=== PATIENT | male | born 1945 | race Caucasian/White ===

== ENCOUNTER 2018-08-24 19:01 | Inpatient (IN) ==
[2018-08-24] MEDS ORDERED: Bisacodyl 10 MG Supp RECTAL PRN (19:27)
[2018-08-24] MEDS ORDERED: fentaNYL 10 mcg/mL Premix Drip 2,500 MCG/250 ML BAG ONE (19:27)
[2018-08-24] MEDS ORDERED: Morphine Sulfate Inj 2 MG/ML Vial IV.PUSH PRN (19:27)
[2018-08-24] MEDS: fentaNYL 10 mcg/mL Premix Drip 2,500 MCG/250 ML BAG IV.SIG PRN (19:31)
[2018-08-24 19:40] LABS: Baso # (Auto) 0.1 th/mm3 (0.0-0.2); Baso % (Auto) 0.5 % (0.0-2.0); Eos # (Auto) 0.2 th/mm3 (0.0-0.4); Eos % (Auto) 1.1 % (0.0-4.0); Hematocrit 35.5 % (39.0-51.0); Hemoglobin 11.4 gm/dL (13.0-17.0); Lymph # (Auto) 7.5 th/mm3 (1.0-4.8); Lymph % (Auto) 47.1 % (9.0-44.0); Mean Corpuscular HGB Conc 32.1 % (32.0-36.0); Mean Corpuscular Hemoglobin 31.5 pg (27.0-34.0); Mean Corpuscular Volume 97.9 fL (80.0-100.0); Mean Platelet Volume 8.4 fL (7.0-11.0); Mono # (Auto) 0.9 th/mm3 (0.0-0.9); Mono % (Auto) 5.4 % (0.0-8.0); Neut # (Auto) 7.3 th/mm3 (1.8-7.7); Neut % (Auto) 45.9 % (16.0-70.0); Platelet Count 172 th/mm3 (150-450); Red Blood Count 3.62 mil/mm3 (4.50-5.90); Red Cell Distribution Width 13.8 % (11.6-17.2); White Blood Count 15.9 th/mm3 (4.0-11.0)
[2018-08-24 19:47] LABS: Activated Partial Thrombo Time 26.4 sec (24.3-30.1); INR 1.2 Ratio; Prothrombin Time 12.2 sec (9.8-11.6)
--- NOTE | 2018-08-24 19:58 | P.HPCC ---
History of Present Illness Primary Care Physician: Christy Calvillo MD History of Present Illness: 72-year-old male, past medical history significant for diabetes and coronary artery disease with 3 previous stents, who is presented post cardiac arrest. Per EMS and family he was doing work around the house when he stated that he did not feel right and thought something was off with his blood sugar. He then went to go sit down and when his turned around he was slumping over. She then called 911. On EMS arrival he was unresponsive pulseless and apneic. They began CPR. They temporarily achieved ROSC in the field prior to him coding again. They obtained ROSC again right before arrival. In total they gave 3 mg of epinephrine, 2 A of bicarbonate, 300 mg of amiodarone. EMS does not believe that he was without a pulse for more than 15 minutes at any time. He lost pulses again on arrival here. Again he was successfully resuscitated with return of spontaneous circulation within 15 minutes. Review of Systems unobtainable due to endotracheal tube, unobtainable due to mental condition PMFSH - History History Provided By: Patient Coordinator Front Desk / EMT - Surgical History Surgical History: Surgical History (Last Reviewed 08/24/18 @ 20:08 by Ruba Huggins MD) Hx of heart artery stent - Travel History Recent Travel in the [place] Within the Last 8 Weeks: No Recent Travel Out of the Country Within the Last 8 Weeks: No Medications and Allergies Active Medications: Active Medications Acetaminophen (Tylenol) 650 mg PO Q6H PRN PRN Reason: PAIN 1-10 AND/OR FEVER >101F Al Hydroxide/Mg Hydroxide (Milk Of Magnamaury Liq) 30 ml PO Q12H PRN PRN Reason: Mild Constipation Albuterol (Duoneb Neb (Prn)) 1 ampul NEB Q2HR NEB PRN PRN Reason: WHEEZING Bisacodyl (Dulcolax Supp) 10 mg RECTAL DAILY PRN PRN Reason: SEVERE CONSITIPATION Chlorhexidine Gluconate (Chlorhexidine 2% Cloth) 3 pack TOPICAL DAILY@0400 MERVAT Stop: 08/30/18 03:59 Chlorhexidine Gluconate (Chlorhexidine 2% Cloth) 3 pack TOPICAL DAILY@0400 PRN PRN Reason: Extra cloth needed Stop: 08/30/18 03:59 Chlorhexidine Gluconate (Peridex 0.12% Oral Kit) 15 ml OROPHARYNG BID@0800, 2000 PENDING SALE TO [facility] Famotidine (Pepcid) 20 mg PO BID MERVAT Famotidine (Pepcid Pf Inj) 20 mg IV.PUSH Q12HR MERVAT Famotidine (Pepcid Pf Inj) 20 mg IV.PUSH Q12HR MERVAT Heparin Sodium (Porcine) (Heparin Inj) 5,000 units SQ Q8H MERVAT Epinephrine HCl 2 mg/ Dextrose 250 mls @ 22.5 mls/hr IV.CONT TITRATE PRN; Protocol PRN Reason: Per Protocol Sodium Chloride (Ns Inj) 1,000 mls @ 125 mls/hr IV.CONT .Q8H MERVAT Fentanyl (Fentanyl 10 Mcg/Ml Premix Drip) 2,500 mcg in 250 mls @ 5 mls/hr IV.SIG TITRATE PRN; Protocol PRN Reason: Per Protocol Sodium Chloride (Ns Inj) 1,000 mls @ 84 mls/hr IV.CONT .[id number] PENDING SALE TO [facility] Lactulose (Lactulose Liq) 30 ml PO DAILY PRN PRN Reason: SEVERE CONSITIPATION Midazolam HCl (Versed Inj) 2 mg IV.PUSH Q1H PRN PRN Reason: SEDATION Miscellaneous Medication () 1 each OROPHARYNG 0000,0400,1200,1600 PENDING SALE TO [facility] Morphine Sulfate (Morphine Inj) 2 mg IV.PUSH Q2H PRN PRN Reason: PAIN SCALE 6 TO 10 Ondansetron HCl (Zofran Inj) 4 mg IV.PUSH Q6H PRN PRN Reason: NAUSEA OR VOMITING Senna/Docusate Sodium (Lenora-Colace) 1 tab PO BID PENDING SALE TO [facility] Sennosides (Senokot) 17.2 mg PO Q12H PRN PRN Reason: Moderate Constipation Sodium Chloride (Ns Flush) 2 ml IV.FLUSH PRN PRN PRN Reason: FLUSH AFTER USING IV ACCESS Sodium Chloride (Ns Flush) 2 ml IV.FLUSH PRN PRN PRN Reason: FLUSH AFTER USING IV ACCESS Sodium Chloride (Ns Flush) 2 ml IV.FLUSH BID PENDING SALE TO [facility] Allergies Allergy/AdvReac Type Severity Reaction Status Date / Time pravastatin Allergy Severe Unverified 06/29/17 16:39 tetanus toxoid, adsorbed Allergy Severe Unverified 06/29/17 16:39 CRESTOR Allergy Severe Uncoded 01/12/12 07:54 Results - Labs CBC & Chem 7: 08/24/18 19:20 08/24/18 21:15 Labs: Short CBC 08/24/18 Range/Units 19:20 WBC 15.9 H (4.0-11.0) th/mm3 Hgb 11.4 L (13.0-17.0) gm/dL Hct 35.5 L (39.0-51.0) % Plt Count 172 (150-450) th/mm3 - Imaging Impressions Chest CTA 08/24/18 00:00 CONCLUSION: 1. No CT evidence for pulmonary artery embolism as questioned. 2. Diffuse groundglass opacities which appear more confluent in the right upper lobe. Differential considerations include pulmonary edema versus ARDS versus diffuse/atypical infection. 3. Prominent coronary artery calcifications. Chest X-Ray 08/24/18 19:10 CONCLUSION: 1. ETT in good position. NGT beyond the GE junction. 2. Diffuse airspace disease throughout the right lung most prominently in the right upper and midlung zones. Differential considerations include multilobar/ atypical pneumonia, aspiration, or atypical pulmonary edema. Head CT 08/24/18 19:11 CONCLUSION: 1. No areas of acute hemorrhage or mass effect are seen. 2. Extensive low density seen throughout the cerebral white matter likely related to small vessel ischemic change. 3. Motion artifact. . Exam Vital signs: Vital Signs 08/24/18 19:03 Pulse Rate 122 H Respiratory Rate 14 Blood Pressure 150/72 H Pulse Oximetry 97 Intake & Output 08/24/18 08/24/18 08/25/18 06:59 18:59 06:59 Weight 100 kg - Constitutional severe distress - Routine HEENT Exam Head: Present: normocephalic, atraumatic Eye: Present: PERRL ENT: Present: mucous membranes moist - Routine Neck Exam Present: supple, full ROM. Absent: JVD, carotid bruit - Routine Respiratory Exam Present: patient mechanically ventilated, rales, respiratory distress, rhonchi, crackles. Absent: stridor, wheezes - Routine Cardiovascular Exam Present: RRR, S1, S2 - Routine Abdominal Exam Present: soft, normoactive bowel sounds - Routine Extremities Exam Absent: cyanosis, clubbing - Routine Skin Exam Present: intact. Absent: cyanosis, erythema - Routine Neurological Exam Present: altered mental status GCS 3, some myoclonic jerks occasionally with stimulation. Septic Shock Reassessment Septic shock perfusion: reassessment completed Caprini VTE Risk Assessment Caprini VTE Risk Assessment: Moderate/High Risk (score >= 2) Caprini Risk Assessment Model: Point Value = 1 Point Value = 2 Point Value = 3 Point Value = 5 Age 41-60 Minor surgery BMI > 25 kg/m2 Swollen legs Varicose veins or History of unexplained or recurrent spontaneous Oral contraceptives or hormone replacement Sepsis (< 1 month) Serious lung disease, including pneumonia (< 1 month) Abnormal pulmonary function Acute myocardial infarction Congestive heart failure (< 1 month) History of inflammatory bowel disease Medical patient at bed rest Age 61-74 Arthroscopic surgery Major open surgery (> 45 min) Laparoscopic surgery (> 45 min) Malignancy Confined to bed (> 72 hours) Immobilizing plaster cast Central venous access Age >= 75 History of VTE Family history of VTE Factor V Leiden Prothrombin [id number] Lupus anticoagulant Anticardiolipin antibodies Elevated serum homocysteine Heparin-induced thrombocytopenia Other congenital or acquired thrombophilia Stroke (< 1 month) Elective arthroplasty Hip, pelvis, or leg fracture Acute spinal cord injury (< 1 month) Prophylaxis Regimen: Total Risk Factor Score Risk Level Prophylaxis Regimen 0-1 Low Early ambulation 2 Moderate Order ONE of the following: *Sequential Compression Device (SCD) *Heparin 5000 units SQ BID 3-4 Higher Order ONE of the following medications: *Heparin 5000 units SQ TID *Enoxaparin/Lovenox 40 mg SQ daily (WT < 150 kg, CrCl > 30 mL/min) *Enoxaparin/Lovenox 30 mg SQ daily (WT < 150 kg, CrCl > 10-29 mL/min) *Enoxaparin/Lovenox 30 mg SQ BID (WT < 150 kg, CrCl > 30 mL/min) AND/OR *Sequential Compression Device (SCD) 5 or more Highest Order ONE of the following medications: *Heparin 5000 units SQ TID (Preferred with Epidurals) *Enoxaparin/Lovenox 40 mg SQ daily (WT < 150 kg, CrCl > 30 mL/min) *Enoxaparin/Lovenox 30 mg SQ daily (WT < 150 kg, CrCl > 10-29 mL/min) *Enoxaparin/Lovenox 30 mg SQ BID (WT < 150 kg, CrCl > 30 mL/min) AND *Sequential Compression Device (SCD) Assessment and Plan - Assessment and Plan Plan: Respiratory failure -Post cardiac arrest -Vent bundle -No weaning until neurologically and hemodynamically improve -DuoNeb's as needed Cardiac arrest -Rule out acute coronary syndrome -Series of EKGs and troponin -First troponin negative and EKG without ST changes -Continue to monitor trend -Postarrest hypothermia protocol Lactic acidosis -Post cardiac arrest and CPR -IV fluid hydration Diabetes -Insulin sliding scale DVT GI prophylaxis -Teds SCDs -Subcu heparin -Pepcid 35 minutes of critical care
--- NOTE | 2018-08-24 20:06 | ED ---
HPI General Chief Complaint: Cardiac Arrest/CPR Stated Complaint: cardiac arrest/evac Time Seen by Provider: 08/24/18 19:09 Source: family and EMS Mode of arrival: EMS Limitations: altered mental status History of Present Illness HPI narrative: Patient is a 72-year-old male, past medical history significant for diabetes and coronary artery disease with 3 previous stents, who is presented post cardiac arrest. Per EMS and family he was doing work around the house when he stated that he did not feel right and thought something was off with his blood sugar. He then went to go sit down and when his turned around he was slumping over. She then called 911. On EMS arrival he was unresponsive pulseless and apneic. They began CPR. They temporarily achieved ROSC in the field prior to him coding again. They obtained ROSC again right before arrival. In total they gave 3 mg of epinephrine, 2 A of bicarbonate, 300 mg of amiodarone. EMS does not believe that he was without a pulse for more than 15 minutes at any time. He lost pulses again on arrival here. MD complaint: Reports found unresponsive and collapsed during activity Onset (ago): minute(s) Timing confirmed by: spouse Place: home Bystander CPR performed: No Shock advised: No Initial findings in the field: unresponsive, no respirations and no pulse ROSC in the field: Yes Associated injuries: No Known history of: Reports CAD Treatments prior to arrival: Reports intubation, chest compressions, epinephrine mgs #, sodium bicarbonate and amiodarone Related Data Allergies Allergy/AdvReac Type Severity Reaction Status Date / Time pravastatin Allergy Severe Unverified 06/29/17 16:39 tetanus toxoid, adsorbed Allergy Severe Unverified 06/29/17 16:39 CRESTOR Allergy Severe Uncoded 01/12/12 07:54 Review of Systems ROS Unobtainable ROS Unobtainable: unobtainable due to endotracheal tube and unobtainable due to mental status PMFSH Surgical History Surgical History Hx of heart artery stent (Acute) Social History Social History Substance History: Unable to Obtain Smoking Status: Unknown if ever smoked How Often Do You Have a Drink Containing Alcohol: Unable to Obtain Recent Travel in [facility] within the Last 8 Weeks: No Recent Out of Country Travel within the Last 8 Weeks: No Exam Narrative Exam Narrative: GENERAL: Unresponsive male; 6.5 ET tube with frothy blood SKIN: Focused skin assessment warm/dry. HEAD: Atraumatic. Normocephalic. EYES: Pupils equal and round, 2 mm. No scleral icterus. No injection or drainage. ENT: No nasal bleeding or discharge. Mucous membranes pink and moist. Blood in ET tube. NECK: Trachea midline. No JVD. CARDIOVASCULAR: Pulseless. RESPIRATORY: breath sounds bilaterally GASTROINTESTINAL: Abdomen soft, non-tender, nondistended. MUSCULOSKELETAL: No obvious deformities. No clubbing. No cyanosis. No edema. NEUROLOGICAL: Unresponsive. PSYCHIATRIC: unable to ascertain Course Initial Documented Vital Signs Pulse Rate 122 H 08/24/18 19:03 Respiratory Rate 14 08/24/18 19:03 Blood Pressure 150/72 H 08/24/18 19:03 Pulse Oximetry 97 08/24/18 19:03 Last Documented Vital Signs Pulse Rate 79 08/24/18 22:54 Respiratory Rate 14 08/24/18 23:40 Blood Pressure 193/79 H 08/24/18 20:10 Pulse Oximetry 91 L 08/24/18 23:40 Medical Decision Making MDM Narrative Medical decision making narrative: Patient is a 72-year-old male who presents status post cardiac arrest. On arrival here he was pulseless and ACLS was initiated. Pulses returned after 2 rounds of epinephrine. Blood glucose was within normal limits. Please see code documentation for further information. Post ACLS EKG was abnormal and sent to the pelts skinner on-call, Dr. Beltrán, whom asked for a repeat. Repeat EKG did not show an acute STEMI. The patient was admitted to Dr. Hunter, latex caster on-call, for further evaluation. Medical Screen Exam Complete: Yes Emergency Medical Condition: Yes Differential Diagnosis Differential Diagnosis: Differential diagnosis includes but is not limited to dysrhythmia, ACS, hypoglycemia. Medical Records Medical records reviewed: Yes I reviewed the patient's medical records. Lab Data Result diagrams: 08/24/18 19:20 08/24/18 21:15 Lab Results 08/24/18 08/24/18 08/24/18 Range/Units 19:20 19:20 19:20 WBC 15.9 H (4.0-11.0) th/mm3 RBC 3.62 L (4.50-5.90) mil/mm3 Hgb 11.4 L (13.0-17.0) gm/dL Hct 35.5 L (39.0-51.0) % MCV 97.9 (80.0-100.0) fL MCH 31.5 (27.0-34.0) pg MCHC 32.1 (32.0-36.0) % RDW 13.8 (11.6-17.2) % Plt Count 172 (150-450) th/mm3 MPV 8.4 (7.0-11.0) fL Prelim Diff (Auto) Slide review pending Neut % (Auto) 45.9 (16.0-70.0) % Lymph % (Auto) 47.1 H (9.0-44.0) % [place] % (Auto) 5.4 (0.0-8.0) % Eos % (Auto) 1.1 (0.0-4.0) % Baso % (Auto) 0.5 (0.0-2.0) % Neut # (Auto) 7.3 (1.8-7.7) th/mm3 Lymph # (Auto) 7.5 H (1.0-4.8) th/mm3 [place] # (Auto) 0.9 (0.0-0.9) th/mm3 Eos # (Auto) 0.2 (0.0-0.4) th/mm3 Baso # (Auto) 0.1 (0.0-0.2) th/mm3 WBC Differential Manual diff final Seg Neuts % (Manual) 44 (16-70) % Band Neuts % (Manual) 11 H (0-6) % Lymphocytes % (Manual) 38 (9-44) % Monocytes % (Manual) 4 (0-8) % Metamyelocytes % (Man) 2 H (0-1) % Myelocytes % (Man) 1 H (0-0) % Abs Neuts (Manual) 9.2 H (1.8-7.7) th/mm3 Differential Comment . Dohle Bodies Present H (None) Platelet Estimate Normal (Normal) Platelet Morphology Normal (Normal) PT 12.2 H (9.8-11.6) sec INR 1.2 Ratio APTT 26.4 (24.3-30.1) sec Puncture Site Patient Temperature O2 Saturation (90-100) % ABG pH (7.380-7.420) ABG pCO2 (38-42) mmHg ABG pO2 (61-120) mmHG ABG HCO3 (22-26) mmol/L ABG O2 Content (12.0-20.0) Vol % ABG Base Excess (-2-2) mmol/L ABG Methemoglobin (0-2) % Hemoglobin (12.0-16.0) G/DL Carboxyhemoglobin (0-4) % O2 Delivery Device Vent Setting Inspired O2 % Critical Value Sodium 143 (136-145) meq/L Potassium 2.8 L* (3.5-5.1) meq/L Chloride 106 (98-107) meq/L Carbon Dioxide 19.6 L (21.0-32.0) meq/L Anion Gap 17 H (5-15) meq/L BUN 12 (7-18) mg/dL Creatinine 1.32 H (0.60-1.30) mg/dL Estimated GFR 53 L (>89) mL/min Random Glucose 217 H (74-106) mg/dL Lactic Acid (0.4-2.0) mmol/L Calcium 8.5 (8.5-10.1) mg/dL Magnesium Total Bilirubin 0.3 (0.2-1.0) mg/dL Direct Bilirubin (0.0-0.2) mg/dL Indirect Bilirubin (0.0-0.8) mg/dL AST 93 H (15-37) U/L ALT 88 H (12-78) U/L Alkaline Phosphatase 68 (45-117) U/L Ammonia (11-32) mcmol/L Total Creatine Kinase 98 (39-308) U/L Troponin I 0.06 H (0.02-0.05) ng/mL Total Protein 4.9 L (6.4-8.2) g/dL Albumin 2.3 L (3.4-5.0) g/dL Urine Color (Yellw/Straw) Urine Clarity (Clear) Urine pH (5.0-8.5) Ur Specific [place] (1.002-1.035) Urine Protein (Neg-Trace) mg/dL Urine Glucose (UA) (Negative) mg/dL Urine Ketones (Negative) mg/dL Urine Occult Blood (Negative) Urine Nitrate (Negative) Urine Bilirubin (Negative) Urine Urobilinogen (Less than 2) mg/dL Ur Leukocyte Esterase (Negative) Urine RBC (0-3) /hpf Urine WBC (0-5) /hpf Urine Mucus (Occasional) /lpf Micro UA Comment Ur Microscopic Review Urine Culture Comments Urine Opiates Screen (Neg) Ur Barbiturates Screen (Neg) Ur Amphetamines Screen (Neg) U Benzodiazepines Scrn (Neg) Urine Cocaine Screen (Neg) U Cannabinoids Screen (Neg) Blood Type Blood Type Recheck Antibody Screen 08/24/18 08/24/18 08/24/18 Range/Units 19:20 19:20 19:20 WBC (4.0-11.0) th/mm3 RBC (4.50-5.90) mil/mm3 Hgb (13.0-17.0) gm/dL Hct (39.0-51.0) % MCV (80.0-100.0) fL MCH (27.0-34.0) pg MCHC (32.0-36.0) % RDW (11.6-17.2) % Plt Count (150-450) th/mm3 MPV (7.0-11.0) fL Prelim Diff (Auto) Neut % (Auto) (16.0-70.0) % Lymph % (Auto) (9.0-44.0) % [place] % (Auto) (0.0-8.0) % Eos % (Auto) (0.0-4.0) % Baso % (Auto) (0.0-2.0) % Neut # (Auto) (1.8-7.7) th/mm3 Lymph # (Auto) (1.0-4.8) th/mm3 [place] # (Auto) (0.0-0.9) th/mm3 Eos # (Auto) (0.0-0.4) th/mm3 Baso # (Auto) (0.0-0.2) th/mm3 WBC Differential Seg Neuts % (Manual) (16-70) % Band Neuts % (Manual) (0-6) % Lymphocytes % (Manual) (9-44) % Monocytes % (Manual) (0-8) % Metamyelocytes % (Man) (0-1) % Myelocytes % (Man) (0-0) % Abs Neuts (Manual) (1.8-7.7) th/mm3 Differential Comment Dohle Bodies (None) Platelet Estimate (Normal) Platelet Morphology (Normal) PT (9.8-11.6) sec INR Ratio APTT (24.3-30.1) sec Puncture Site Patient Temperature O2 Saturation (90-100) % ABG pH (7.380-7.420) ABG pCO2 (38-42) mmHg ABG pO2 (61-120) mmHG ABG HCO3 (22-26) mmol/L ABG O2 Content (12.0-20.0) Vol % ABG Base Excess (-2-2) mmol/L ABG Methemoglobin (0-2) % Hemoglobin (12.0-16.0) G/DL Carboxyhemoglobin (0-4) % O2 Delivery Device Vent Setting Inspired O2 % Critical Value Sodium (136-145) meq/L Potassium (3.5-5.1) meq/L Chloride (98-107) meq/L Carbon Dioxide (21.0-32.0) meq/L Anion Gap (5-15) meq/L BUN (7-18) mg/dL Creatinine (0.60-1.30) mg/dL Estimated GFR (>89) mL/min Random Glucose (74-106) mg/dL Lactic Acid 12.2 H* (0.4-2.0) mmol/L Calcium (8.5-10.1) mg/dL Magnesium Total Bilirubin (0.2-1.0) mg/dL Direct Bilirubin (0.0-0.2) mg/dL Indirect Bilirubin (0.0-0.8) mg/dL AST (15-37) U/L ALT (12-78) U/L Alkaline Phosphatase (45-117) U/L Ammonia 79 H (11-32) mcmol/L Total Creatine Kinase (39-308) U/L Troponin I (0.02-0.05) ng/mL Total Protein (6.4-8.2) g/dL Albumin (3.4-5.0) g/dL Urine Color (Yellw/Straw) Urine Clarity (Clear) Urine pH (5.0-8.5) Ur Specific [place] (1.002-1.035) Urine Protein (Neg-Trace) mg/dL Urine Glucose (UA) (Negative) mg/dL Urine Ketones (Negative) mg/dL Urine Occult Blood (Negative) Urine Nitrate (Negative) Urine Bilirubin (Negative) Urine Urobilinogen (Less than 2) mg/dL Ur Leukocyte Esterase (Negative) Urine RBC (0-3) /hpf Urine WBC (0-5) /hpf Urine Mucus (Occasional) /lpf Micro UA Comment Ur Microscopic Review Urine Culture Comments Urine Opiates Screen (Neg) Ur Barbiturates Screen (Neg) Ur Amphetamines Screen (Neg) U Benzodiazepines Scrn (Neg) Urine Cocaine Screen (Neg) U Cannabinoids Screen (Neg) Blood Type O Positive Blood Type Recheck Required Antibody Screen Negative 08/24/18 08/24/18 08/24/18 Range/Units 19:20 19:20 19:20 WBC (4.0-11.0) th/mm3 RBC (4.50-5.90) mil/mm3 Hgb (13.0-17.0) gm/dL Hct (39.0-51.0) % MCV (80.0-100.0) fL MCH (27.0-34.0) pg MCHC (32.0-36.0) % RDW (11.6-17.2) % Plt Count (150-450) th/mm3 MPV (7.0-11.0) fL Prelim Diff (Auto) Neut % (Auto) (16.0-70.0) % Lymph % (Auto) (9.0-44.0) % [place] % (Auto) (0.0-8.0) % Eos % (Auto) (0.0-4.0) % Baso % (Auto) (0.0-2.0) % Neut # (Auto) (1.8-7.7) th/mm3 Lymph # (Auto) (1.0-4.8) th/mm3 [place] # (Auto) (0.0-0.9) th/mm3 Eos # (Auto) (0.0-0.4) th/mm3 Baso # (Auto) (0.0-0.2) th/mm3 WBC Differential Seg Neuts % (Manual) (16-70) % Band Neuts % (Manual) (0-6) % Lymphocytes % (Manual) (9-44) % Monocytes % (Manual) (0-8) % Metamyelocytes % (Man) (0-1) % Myelocytes % (Man) (0-0) % Abs Neuts (Manual) (1.8-7.7) th/mm3 Differential Comment Dohle Bodies (None) Platelet Estimate (Normal) Platelet Morphology (Normal) PT (9.8-11.6) sec INR Ratio APTT (24.3-30.1) sec Puncture Site Patient Temperature O2 Saturation (90-100) % ABG pH (7.380-7.420) ABG pCO2 (38-42) mmHg ABG pO2 (61-120) mmHG ABG HCO3 (22-26) mmol/L ABG O2 Content (12.0-20.0) Vol % ABG Base Excess (-2-2) mmol/L ABG Methemoglobin (0-2) % Hemoglobin (12.0-16.0) G/DL Carboxyhemoglobin (0-4) % O2 Delivery Device Vent Setting Inspired O2 % Critical Value Sodium (136-145) meq/L Potassium (3.5-5.1) meq/L Chloride (98-107) meq/L Carbon Dioxide (21.0-32.0) meq/L Anion Gap (5-15) meq/L BUN (7-18) mg/dL Creatinine (0.60-1.30) mg/dL Estimated GFR (>89) mL/min Random Glucose (74-106) mg/dL Lactic Acid (0.4-2.0) mmol/L Calcium (8.5-10.1) mg/dL Magnesium Cancelled Total Bilirubin (0.2-1.0) mg/dL Direct Bilirubin (0.0-0.2) mg/dL Indirect Bilirubin (0.0-0.8) mg/dL AST (15-37) U/L ALT (12-78) U/L Alkaline Phosphatase (45-117) U/L Ammonia (11-32) mcmol/L Total Creatine Kinase (39-308) U/L Troponin I (0.02-0.05) ng/mL Total Protein (6.4-8.2) g/dL Albumin (3.4-5.0) g/dL Urine Color Yellow (Yellw/Straw) Urine Clarity Hazy H (Clear) Urine pH 5.0 (5.0-8.5) Ur Specific [place] 1.018 (1.002-1.035) Urine Protein Negative (Neg-Trace) mg/dL Urine Glucose (UA) 50 (Negative) mg/dL Urine Ketones Negative (Negative) mg/dL Urine Occult Blood Negative (Negative) Urine Nitrate Negative (Negative) Urine Bilirubin Negative (Negative) Urine Urobilinogen Less than 2 (Less than 2) mg/dL Ur Leukocyte Esterase Negative (Negative) Urine RBC Less than 1 (0-3) /hpf Urine WBC 1 (0-5) /hpf Urine Mucus Few H (Occasional) /lpf Micro UA Comment Cath-culture not ind Ur Microscopic Review Not Reportable Urine Culture Comments Cath-cult not ind Urine Opiates Screen Neg (Neg) Ur Barbiturates Screen Neg (Neg) Ur Amphetamines Screen Neg (Neg) U Benzodiazepines Scrn Neg (Neg) Urine Cocaine Screen Neg (Neg) U Cannabinoids Screen Neg (Neg) Blood Type Blood Type Recheck Antibody Screen 08/24/18 08/24/18 08/24/18 Range/Units 21:05 21:15 21:15 WBC (4.0-11.0) th/mm3 RBC (4.50-5.90) mil/mm3 Hgb (13.0-17.0) gm/dL Hct (39.0-51.0) % MCV (80.0-100.0) fL MCH (27.0-34.0) pg MCHC (32.0-36.0) % RDW (11.6-17.2) % Plt Count (150-450) th/mm3 MPV (7.0-11.0) fL Prelim Diff (Auto) Neut % (Auto) (16.0-70.0) % Lymph % (Auto) (9.0-44.0) % [place] % (Auto) (0.0-8.0) % Eos % (Auto) (0.0-4.0) % Baso % (Auto) (0.0-2.0) % Neut # (Auto) (1.8-7.7) th/mm3 Lymph # (Auto) (1.0-4.8) th/mm3 [place] # (Auto) (0.0-0.9) th/mm3 Eos # (Auto) (0.0-0.4) th/mm3 Baso # (Auto) (0.0-0.2) th/mm3 WBC Differential Seg Neuts % (Manual) (16-70) % Band Neuts % (Manual) (0-6) % Lymphocytes % (Manual) (9-44) % Monocytes % (Manual) (0-8) % Metamyelocytes % (Man) (0-1) % Myelocytes % (Man) (0-0) % Abs Neuts (Manual) (1.8-7.7) th/mm3 Differential Comment Dohle Bodies (None) Platelet Estimate (Normal) Platelet Morphology (Normal) PT (9.8-11.6) sec INR Ratio APTT (24.3-30.1) sec Puncture Site Art line Patient Temperature 98.6 O2 Saturation 96 (90-100) % ABG pH 7.27 L* (7.380-7.420) ABG pCO2 42 (38-42) mmHg ABG pO2 169 H (61-120) mmHG ABG HCO3 18 L (22-26) mmol/L ABG O2 Content 17.6 (12.0-20.0) Vol % ABG Base Excess -7.3 L (-2-2) mmol/L ABG Methemoglobin 1.7 (0-2) % Hemoglobin 12.7 (12.0-16.0) G/DL Carboxyhemoglobin 0.1 (0-4) % O2 Delivery Device Ventilator Vent Setting Prvc/ac Inspired O2 100 % Critical Value Yes Sodium 139 (136-145) meq/L Potassium 2.9 L* (3.5-5.1) meq/L Chloride 110 H (98-107) meq/L Carbon Dioxide 20.1 L (21.0-32.0) meq/L Anion Gap 9 (5-15) meq/L BUN 14 (7-18) mg/dL Creatinine 1.39 H (0.60-1.30) mg/dL Estimated GFR 50 L (>89) mL/min Random Glucose 220 H (74-106) mg/dL Lactic Acid (0.4-2.0) mmol/L Calcium 7.7 L D (8.5-10.1) mg/dL Magnesium 1.9 Total Bilirubin 0.4 (0.2-1.0) mg/dL Direct Bilirubin 0.2 (0.0-0.2) mg/dL Indirect Bilirubin 0.2 (0.0-0.8) mg/dL AST 171 H (15-37) U/L ALT 137 H (12-78) U/L Alkaline Phosphatase 87 (45-117) U/L Ammonia (11-32) mcmol/L Total Creatine Kinase (39-308) U/L Troponin I (0.02-0.05) ng/mL Total Protein 6.0 L D (6.4-8.2) g/dL Albumin 2.9 L D (3.4-5.0) g/dL Urine Color (Yellw/Straw) Urine Clarity (Clear) Urine pH (5.0-8.5) Ur Specific [place] (1.002-1.035) Urine Protein (Neg-Trace) mg/dL Urine Glucose (UA) (Negative) mg/dL Urine Ketones (Negative) mg/dL Urine Occult Blood (Negative) Urine Nitrate (Negative) Urine Bilirubin (Negative) Urine Urobilinogen (Less than 2) mg/dL Ur Leukocyte Esterase (Negative) Urine RBC (0-3) /hpf Urine WBC (0-5) /hpf Urine Mucus (Occasional) /lpf Micro UA Comment Ur Microscopic Review Urine Culture Comments Urine Opiates Screen (Neg) Ur Barbiturates Screen (Neg) Ur Amphetamines Screen (Neg) U Benzodiazepines Scrn (Neg) Urine Cocaine Screen (Neg) U Cannabinoids Screen (Neg) Blood Type Blood Type Recheck Antibody Screen 08/24/18 Range/Units 22:50 WBC (4.0-11.0) th/mm3 RBC (4.50-5.90) mil/mm3 Hgb (13.0-17.0) gm/dL Hct (39.0-51.0) % MCV (80.0-100.0) fL MCH (27.0-34.0) pg MCHC (32.0-36.0) % RDW (11.6-17.2) % Plt Count (150-450) th/mm3 MPV (7.0-11.0) fL Prelim Diff (Auto) Neut % (Auto) (16.0-70.0) % Lymph % (Auto) (9.0-44.0) % [place] % (Auto) (0.0-8.0) % Eos % (Auto) (0.0-4.0) % Baso % (Auto) (0.0-2.0) % Neut # (Auto) (1.8-7.7) th/mm3 Lymph # (Auto) (1.0-4.8) th/mm3 [place] # (Auto) (0.0-0.9) th/mm3 Eos # (Auto) (0.0-0.4) th/mm3 Baso # (Auto) (0.0-0.2) th/mm3 WBC Differential Seg Neuts % (Manual) (16-70) % Band Neuts % (Manual) (0-6) % Lymphocytes % (Manual) (9-44) % Monocytes % (Manual) (0-8) % Metamyelocytes % (Man) (0-1) % Myelocytes % (Man) (0-0) % Abs Neuts (Manual) (1.8-7.7) th/mm3 Differential Comment Dohle Bodies (None) Platelet Estimate (Normal) Platelet Morphology (Normal) PT (9.8-11.6) sec INR Ratio APTT (24.3-30.1) sec Puncture Site Patient Temperature O2 Saturation (90-100) % ABG pH (7.380-7.420) ABG pCO2 (38-42) mmHg ABG pO2 (61-120) mmHG ABG HCO3 (22-26) mmol/L ABG O2 Content (12.0-20.0) Vol % ABG Base Excess (-2-2) mmol/L ABG Methemoglobin (0-2) % Hemoglobin (12.0-16.0) G/DL Carboxyhemoglobin (0-4) % O2 Delivery Device Vent Setting Inspired O2 % Critical Value Sodium (136-145) meq/L Potassium (3.5-5.1) meq/L Chloride (98-107) meq/L Carbon Dioxide (21.0-32.0) meq/L Anion Gap (5-15) meq/L BUN (7-18) mg/dL Creatinine (0.60-1.30) mg/dL Estimated GFR (>89) mL/min Random Glucose (74-106) mg/dL Lactic Acid 6.4 H* (0.4-2.0) mmol/L Calcium (8.5-10.1) mg/dL Magnesium Total Bilirubin (0.2-1.0) mg/dL Direct Bilirubin (0.0-0.2) mg/dL Indirect Bilirubin (0.0-0.8) mg/dL AST (15-37) U/L ALT (12-78) U/L Alkaline Phosphatase (45-117) U/L Ammonia (11-32) mcmol/L Total Creatine Kinase (39-308) U/L Troponin I (0.02-0.05) ng/mL Total Protein (6.4-8.2) g/dL Albumin (3.4-5.0) g/dL Urine Color (Yellw/Straw) Urine Clarity (Clear) Urine pH (5.0-8.5) Ur Specific [place] (1.002-1.035) Urine Protein (Neg-Trace) mg/dL Urine Glucose (UA) (Negative) mg/dL Urine Ketones (Negative) mg/dL Urine Occult Blood (Negative) Urine Nitrate (Negative) Urine Bilirubin (Negative) Urine Urobilinogen (Less than 2) mg/dL Ur Leukocyte Esterase (Negative) Urine RBC (0-3) /hpf Urine WBC (0-5) /hpf Urine Mucus (Occasional) /lpf Micro UA Comment Ur Microscopic Review Urine Culture Comments Urine Opiates Screen (Neg) Ur Barbiturates Screen (Neg) Ur Amphetamines Screen (Neg) U Benzodiazepines Scrn (Neg) Urine Cocaine Screen (Neg) U Cannabinoids Screen (Neg) Blood Type Blood Type Recheck Antibody Screen Imaging Data Radiologist's impression: Chest CTA 08/24/18 00:00 CONCLUSION: 1. No CT evidence for pulmonary artery embolism as questioned. 2. Diffuse groundglass opacities which appear more confluent in the right upper lobe. Differential considerations include pulmonary edema versus ARDS versus diffuse/atypical infection. 3. Prominent coronary artery calcifications. Chest X-Ray 08/24/18 19:10 CONCLUSION: 1. ETT in good position. NGT beyond the GE junction. 2. Diffuse airspace disease throughout the right lung most prominently in the right upper and midlung zones. Differential considerations include multilobar/ atypical pneumonia, aspiration, or atypical pulmonary edema. Head CT 08/24/18 19:11 CONCLUSION: 1. No areas of acute hemorrhage or mass effect are seen. 2. Extensive low density seen throughout the cerebral white matter likely related to small vessel ischemic change. 3. Motion artifact. . Discharge Plan Discharge Disposition Patient Disposition: 30 Still Patient Discharge Condition Condition: Critical Discharge Details Diagnosis: Cardiac arrest Physicians Team ED Provider: Ruba Huggins Primary Care Provider: Christy Calvillo Attending Provider: Melvin Hunter Other Providers: Adi Beltrán Jan Discharge Interventions Interventions: ED Discharge Assessment Last Done: 08/24/18 21:04 Vital Signs Last Done: 08/24/18 20:10 Status ED Status: Left Department Discharge Information Discharge Date/Time: 08/24/18 21:07
--- NOTE | 2018-08-24 20:06 | XR ---
EXAM DATE: 08/24/2018 7:10 PM EDT AGE/SEX: 72 years / Male INDICATIONS: Chest pain. Cardiac arrest. CLINICAL DATA: This is the patient's initial encounter. Patient reports that signs and symptoms have been present for 1 day and indicates a pain score of Nonresponsive. MEDICAL/SURGICAL HISTORY: . Hypertension. Cardiovascular disease. Carcinoma, prostate. None. COMPARISON: No prior exams available for comparison. FINDINGS: ETT at the level of the clavicles. NGT beyond the GE junction. Diffuse airspace disease throughout th e right lung most prominently in the right upper and midlung zones. Cardiac silhouette is within norm al limits. Central pulmonary vascularity is indistinct. Remainder of the exam is unchanged. CONCLUSION: 1. ETT in good position. NGT beyond the GE junction. 2. Diffuse airspace disease throughout the right lung most prominently in the right upper and midlun g zones. Differential considerations include multilobar/atypical pneumonia, aspiration, or atypical p ulmonary edema. Electronically signed by: Markel Maldonado MD 08/24/2018 8:04 PM EDT
[2018-08-24 20:10] LABS: Alanine Aminotransferase 88 U/L (12-78); Albumin 2.3 g/dL (3.4-5.0); Alkaline Phosphatase 68 U/L (45-117); Anion Gap 17 meq/L (5-15); Aspartate Aminotransferase 93 U/L (15-37); Blood Urea Nitrogen 12 mg/dL (7-18); Calcium 8.5 mg/dL (8.5-10.1); Carbon Dioxide 19.6 meq/L (21.0-32.0); Chloride 106 meq/L (98-107); Glomerular Filtration Rate 53 mL/min (>89); Glucose,Random 217 mg/dL (74-106); Sodium 143 meq/L (136-145); Total Protein 4.9 g/dL (6.4-8.2); Troponin I 0.06 ng/mL (0.02-0.05)
--- NOTE | 2018-08-24 20:17 | CT ---
EXAM DATE: 08/24/2018 7:31 PM EDT AGE/SEX: 72 years / Male INDICATIONS: Altered mental status, post cardiac arrest. CLINICAL DATA: This is the patient's initial encounter. Patient reports that signs and symptoms have been present for 1 day and indicates a pain score of 0/10. MEDICAL/SURGICAL HISTORY: Cardiovascular disease. Coronary artery stent. RADIATION DOSE: 66.34 CTDI (mGy) ;Tabletop exam COMPARISON: No prior exams available for comparison. TECHNIQUE: CT of the head without contrast. Using automated exposure control and adjustment of the mA and/or kV according to patient size, radiation dose was kept as low as reasonably achievable to ob tain optimal diagnostic quality images. DICOM format image data is available electronically for revi ew and comparison. FINDINGS: There is some motion artifact seen throughout the study. Cerebrum: The ventricles are normal for age. There is low density seen throughout the cerebral whit e matter. No evidence of midline shift, mass lesion, hemorrhage or acute infarction. No extraaxial f luid collections are seen. Posterior Fossa: The cerebellum and brainstem are intact. The 4th ventricle is midline. The cerebe llopontine angle is unremarkable. Extracranial: The visualized portion of the orbits is intact. Skull: The calvaria is intact. No evidence of skull fracture. CONCLUSION: 1. No areas of acute hemorrhage or mass effect are seen. 2. Extensive low density seen throughout the cerebral white matter likely related to small vessel is chemic change. 3. Motion artifact. . Electronically signed by: Nick Huynh MD 08/24/2018 8:16 PM EDT
--- NOTE | 2018-08-24 20:17 | CT ---
EXAM DATE: 08/24/2018 8:00 PM EDT AGE/SEX: 72 years / Male INDICATIONS: Post cardiac arrest; evaluate for pulmonary embolism. CLINICAL DATA: This is the patient's initial encounter. Patient reports that signs and symptoms have been present for 1 day and indicates a pain score of Nonresponsive. MEDICAL/SURGICAL HISTORY: Cardiovascular disease. Coronary artery stent. RADIATION DOSE: 10.7 CTDI (mGy) COMPARISON: No prior exams available for comparison. TECHNIQUE: Volumetric scanning was performed using a multi-row detector CT scanner during bolus infu rosalba of 75 ml Omnipaque 350 (iohexol) nonionic water-soluble contrast as a single exam dose. The raz a was post processed with a variety of visualization algorithms including full volume maximum intensi ty projection and sliding thin slab reformation. Using automated exposure control and adjustment of the mA and/or kV according to patient size, radiation dose was kept as low as reasonably achievable t o obtain optimal diagnostic quality images. DICOM format image data is available electronically for review and comparison. FINDINGS: Pulmonary Arteries: No filling defects are seen in the pulmonary arteries through the segmental vess els. The main pulmonary artery is normal in diameter. Lung: Patient is intubated with ET tube in good position. Diffuse groundglass opacities bilaterally with nearly confluent consolidation in the right upper lobe near the apex. Minimal airspace consolida tion at the lung bases bilaterally. Pleura: No effusion, significant pleural thickening or pneumothorax. Mediastinum: Heart is unremarkable without pericardial effusion. Prominent coronary artery calcifica tions. Subcentimeter mediastinal nodes which do not meet CT size criteria. Osseous Structures: No abnormal focal lytic or blastic bony lesions. Other: NGT in the distal stomach. Visualized upper abdomen is grossly unremarkable. CONCLUSION: 1. No CT evidence for pulmonary artery embolism as questioned. 2. Diffuse groundglass opacities which appear more confluent in the right upper lobe. Differential c onsiderations include pulmonary edema versus ARDS versus diffuse/atypical infection. 3. Prominent coronary artery calcifications. Electronically signed by: Markel Maldonado MD 08/24/2018 8:16 PM EDT
[2018-08-24 20:19] LABS: Creatine Kinase 98 U/L (39-308); Potassium 2.8 meq/L (3.5-5.1)
[2018-08-24 20:32] LABS: Metamyelocytes 2 % (0-1); Monocytes 4 % (0-8); Myelocytes 1 % (0-0)
[2018-08-24 20:33] LABS: Dohle Bodies Present; Lymphocytes 38 % (9-44)
[2018-08-24 20:34] LABS: Platelet Estimate Normal (Normal); Platelet Morphology Normal (Normal)
[2018-08-24] MEDS ORDERED: Potassium Chlor 40 mEq Premix 40 MEQ/100 ML PIGGYBACK IV.SIG PRN (20:37)
[2018-08-24] MEDS ORDERED: Potassium Chloride 25 MEQ Effervescent Tablet PO PRN (20:37)
[2018-08-24] MEDS ORDERED: Potassium Phosphate Inj 30 MMOL in Sodium Chlor 0.9% Inj 250 ML IV.SIG PRN (20:37)
[2018-08-24] MEDS ORDERED: Sodium Phosphate Inj 30 MMOL in Sodium Chlor 0.9% Inj 250 ML IV.SIG PRN (20:37)
[2018-08-24] MEDS ORDERED: Potassium Phosphate 500 MG Soluble Tablet PO PRN ×2 (20:37)
[2018-08-24] MEDS ORDERED: Magnesium Sulfate Inj 4 GM in Sodium Chlor 0.9% Inj 92 ML IV.SIG PRN (20:37)
[2018-08-24] MEDS ORDERED: Magnesium Oxide 400 MG Tablet PO PRN (20:37)
[2018-08-24] MEDS ORDERED: Cisatracurium Inj 20 MG/10 ML Vial IV.PUSH ONE (20:47)
[2018-08-24] MEDS ORDERED: Norepinephrine Inj 4 MG in Sodium Chlor 0.9% Inj 246 ML IV.SIG PRN (20:54)
[2018-08-24] MEDS ORDERED: Propofol Inj 500 MG/50 ML Vial ONE (20:54)
[2018-08-24] MEDS ORDERED: Famotidine PF Inj 20 MG/2 ML Vial IV.PUSH SCH (21:00)
[2018-08-24 21:30] LABS: ABG Base Excess -7.3 mmol/L (-2-2); ABG PCO2 42 mmHg (38-42); ABG PO2 169 mmHG (61-120)
[2018-08-24 21:43] LABS: Bilirubin,Urine Negative (Negative); Clarity,Urine Hazy (Clear); Color,Urine Yellow (Yellw/Straw); Glucose,Urine (UA) 50 mg/dL (Negative); Leukocyte Esterase,Urine Negative (Negative); Mucus,Urine Few /lpf (Occasional); Nitrite,Urine Negative (Negative); Specific Gravity,Urine 1.018 (1.002-1.035)
[2018-08-24 22:26] LABS: Albumin 2.9 g/dL (3.4-5.0)
--- NOTE | 2018-08-24 22:29 | ECG ---
Date Performed: 08/24/2018 Time Performed: 19:23:57 PTAGE: 72 years EKG: Sinus rhythm LEFT AXIS DEVIATION INFERIOR MYOCARDIAL INFARCTION NONSPECIFIC T WAVE ABNORMALITY ABNORMAL ECG PREVIOUS TRACING : 01/13/2012 05.58 Compared to previous tracing, ST elevation in V3 and V4 is no longer evident. DOCTOR: Joey Peñaloza Interpretating Date/Time 08/24/2018 22:28:06
--- NOTE | 2018-08-24 22:30 | ECG ---
Date Performed: 08/24/2018 Time Performed: 19:10:39 PTAGE: 72 years EKG: SINUS TACHYCARDIA BORDERLINE RIGHT AXIS DEVIATION NONSPECIFIC T WAVE ABNORMALITY MARKED ST ELEVATION, CONSIDER ANTERIOR INJURY ACUTE MT PREVIOUS TRACING : 01/13/2012 05.58 Compared to previous tracing, ST/T changes are now pr esent. DOCTOR: Joey Peñaloza Interpretating Date/Time 08/24/2018 22:28:58
[2018-08-24] MEDS: Famotidine PF Inj 20 MG/2 ML Vial IV.PUSH SCH (22:50)
[2018-08-24] MEDS: Heparin - SQ 10,000 UNITS/ML Vial SQ SCH (22:51)
[2018-08-24] MEDS: Potassium Chlor 40 mEq Premix 40 MEQ/100 ML PIGGYBACK IV.SIG PRN (22:52)
[2018-08-24] MEDS: Sod Chloride 0.9% Inj 1,000 ML IV.CONT SCH (22:54)
[2018-08-24] MEDS: Chlorhexidine 0.12% Oral Kit 15 ML UDC OROPHARYNG SCH (22:55)
[2018-08-24] MEDS: Senna/Docusate Sodium 8.6/50 MG Tablet PO SCH (22:57)
[2018-08-24] MEDS: Famotidine 20 MG Tablet PO SCH (22:57)
[2018-08-24] MEDS: Cisatracurium Inj 100 MG in Sodium Chlor 0.9% Inj 240 ML IV.CONT PRN (22:58)
[2018-08-24] MEDS: Norepinephrine Inj 4 MG in Sodium Chlor 0.9% Inj 246 ML IV.SIG PRN (22:58)
[2018-08-24 23:36] LABS: Calcium 7.7 mg/dL (8.5-10.1); Carbon Dioxide 20.1 meq/L (21.0-32.0); Magnesium 1.9 mg/dL (1.5-2.5)
[2018-08-24 23:37] LABS: Potassium 2.9 meq/L (3.5-5.1)
[2018-08-24 23:54] LABS: Amphetamine Screen,Urine Neg (Neg); Barbiturate Screen,Urine Neg (Neg); Cannabinoid Screen,Urine Neg (Neg); Cocaine Screen,Urine Neg (Neg)
[2018-08-24 23:59] LABS: Opiate Screen,Urine Neg (Neg)
[2018-08-25] MEDS: Sod Chloride 0.9% Inj 1,000 ML IV.CONT SCH ×3 (00:09→14:37)
[2018-08-25] MEDS: Oral Hygiene Kit OROPHARYNG SCH ×4 (00:09→17:30)
[2018-08-25] MEDS: Potassium Chlor 40 mEq Premix 40 MEQ/100 ML PIGGYBACK IV.SIG PRN ×2 (01:00→23:31)
[2018-08-25] MEDS ORDERED: Dextrose 50% in Water 50 ML Vial IV.PUSH PRN ×2 (02:22→18:42)
[2018-08-25] MEDS: Cisatracurium Inj 100 MG in Sodium Chlor 0.9% Inj 240 ML IV.CONT PRN ×5 (03:32→23:38)
[2018-08-25] MEDS: Propofol 1000 mg/100 ml Inj 1,000 MG/100 ML BOTTLE IV.CONT PRN ×3 (03:33→23:32)
[2018-08-25] MEDS: Chlorhexidine Gluconate 2% 1 Pack (2 Cloths) TOPICAL SCH (03:48)
[2018-08-25] MEDS ORDERED: Chlorhexidine Gluconate 2% 1 Pack (2 Cloths) TOPICAL PRN (04:00)
[2018-08-25 05:02] LABS: Baso % (Auto) 0.1 % (0.0-2.0); Hematocrit 40.3 % (39.0-51.0); Hemoglobin 13.4 gm/dL (13.0-17.0); Lymph # (Auto) 0.9 th/mm3 (1.0-4.8); Lymph % (Auto) 5.1 % (9.0-44.0); Mean Corpuscular HGB Conc 33.3 % (32.0-36.0); Mean Corpuscular Hemoglobin 32.2 pg (27.0-34.0); Mean Corpuscular Volume 96.7 fL (80.0-100.0); Mean Platelet Volume 8.3 fL (7.0-11.0); Mono # (Auto) 1.4 th/mm3 (0.0-0.9); Mono % (Auto) 8.4 % (0.0-8.0); Neut # (Auto) 14.6 th/mm3 (1.8-7.7); Neut % (Auto) 86.4 % (16.0-70.0); Platelet Count 209 th/mm3 (150-450); Red Blood Count 4.17 mil/mm3 (4.50-5.90); Red Cell Distribution Width 14.3 % (11.6-17.2); White Blood Count 16.9 th/mm3 (4.0-11.0)
[2018-08-25 05:22] LABS: Activated Partial Thrombo Time 26.8 sec (24.3-30.1); INR 1.2 Ratio
[2018-08-25 05:35] LABS: Albumin 2.8 g/dL (3.4-5.0); Calcium 7.4 mg/dL (8.5-10.1); Carbon Dioxide 16.6 meq/L (21.0-32.0); Magnesium 1.6 mg/dL (1.5-2.5); Phosphorus 2.5 mg/dL (2.5-4.9); Potassium 3.6 meq/L (3.5-5.1); Total Protein 5.8 g/dL (6.4-8.2)
[2018-08-25 05:37] LABS: Troponin I 9.15 ng/mL (0.02-0.05)
[2018-08-25] MEDS: Insulin NovoLOG Aspart Correctional Sugar Inj SQ SCH ×3 (05:51→18:13)
[2018-08-25] MEDS: Heparin - SQ 10,000 UNITS/ML Vial SQ SCH ×2 (05:51→12:56)
--- NOTE | 2018-08-25 05:51 | P.PCN ---
Date of procedure: 08/25/18 Pre-op diagnosis: Cardiac arrest Post-op diagnosis: same Procedure: Central line placement A time-out was completed verifying correct patient, procedure, site, positioning , and special equipment if applicable. The patient was placed in a dependent position appropriate for central line placement based on the vein to be cannulated. The patients right groin was prepped and draped in sterile fashion. 1% Lidocaine was used to anesthetize the surrounding skin area. A triple lumen 9-Chinese Cordis catheter was introduced into the the common femoral vein using the Seldinger technique and under ultrasound guidance. The catheter was threaded smoothly over the guide wire and appropriate blood return was obtained. Each lumen of the catheter was evacuated of air and flushed with sterile saline. The catheter was then sutured in place to the skin and a sterile dressing applied. Perfusion to the extremity distal to the point of catheter insertion was checked and found to be adequate. Estimated Blood Loss: 1ml The patient tolerated the procedure well and there were no complications.
[2018-08-25] MEDS: Norepinephrine Inj 4 MG in Sodium Chlor 0.9% Inj 246 ML IV.SIG PRN ×4 (05:52→23:33)
--- NOTE | 2018-08-25 05:52 | P.PCN ---
Date of procedure: 08/25/18 Pre-op diagnosis: Cardiac arrest Post-op diagnosis: same Procedure: Arterial line placement A time-out was completed verifying correct patient, procedure, site, positioning , and special equipment if applicable. The patients right groin was prepped and draped in sterile fashion. 1% Lidocaine was used to anesthetize the area. A 18G Arrow arterial line was introduced into the femoral artery. The catheter was threaded over the guide wire and the needle was removed with appropriate pulsatile blood return. The catheter was then sutured in place to the skin and a sterile dressing applied. Perfusion to the extremity distal to the point of catheter insertion was checked and found to be adequate. Estimated Blood Loss: 1ml The patient tolerated the procedure well and there were no complications.
[2018-08-25 06:12] LABS: ABG Base Excess -11.2 mmol/L (-2-2); ABG PCO2 25 mmHg (38-42); ABG PO2 388 mmHg (61-120)
[2018-08-25] MEDS: Magnesium Sulfate Inj 2 GM in Sodium Chlor 0.9% Inj 96 ML IV.SIG PRN (06:38)
--- NOTE | 2018-08-25 08:13 | P.PNCC ---
Subjective Subjective Remarks/Hospital Course: 72-year-old male, past medical history significant for diabetes and coronary artery disease with 3 previous stents, who is presented post cardiac arrest. Per EMS and family he was doing work around the house when he stated that he did not feel right and thought something was off with his blood sugar. He then went to go sit down and when his turned around he was slumping over. She then called 911. On EMS arrival he was unresponsive pulseless and apneic. They began CPR. They temporarily achieved ROSC in the field prior to him coding again. They obtained ROSC again right before arrival. In total they gave 3 mg of epinephrine, 2 A of bicarbonate, 300 mg of amiodarone. EMS does not believe that he was without a pulse for more than 15 minutes at any time. He lost pulses again on arrival here. Again he was successfully resuscitated with return of spontaneous circulation within 15 minutes. 08/25: Patient admitted to [facility]ICU, Objective Vital Signs / I&O: Vital Signs 08/24/18 19:03 08/24/18 19:10 08/24/18 19:13 Temperature Pulse Rate 122 H 120 H 101 H Respiratory Rate 14 16 16 Blood Pressure 150/72 H 239/119 H 223/99 H Pulse Oximetry 97 98 98 08/24/18 19:15 08/24/18 19:19 08/24/18 19:22 Temperature Pulse Rate 76 75 Respiratory Rate 21 16 16 Blood Pressure 185/81 H 126/63 Pulse Oximetry 100 99 99 08/24/18 19:25 08/24/18 19:30 08/24/18 19:40 Temperature Pulse Rate 74 83 67 Respiratory Rate 16 16 16 Blood Pressure 126/63 123/58 L 176/75 H Pulse Oximetry 98 99 99 08/24/18 20:00 08/24/18 20:10 08/24/18 20:15 Temperature Pulse Rate 77 102 H Respiratory Rate 16 16 25 H Blood Pressure 189/77 H 193/79 H Pulse Oximetry 95 94 L 97 08/24/18 20:30 08/24/18 21:00 08/24/18 22:54 Temperature 100.4 F H Pulse Rate 93 H 81 79 Respiratory Rate 14 14 Blood Pressure 111/55 L Pulse Oximetry 97 08/24/18 23:40 08/25/18 00:00 08/25/18 04:00 Temperature 94.8 F L 91.4 F L Pulse Rate 75 57 L Respiratory Rate 14 14 14 Blood Pressure 142/74 H 95/58 L Pulse Oximetry 91 L 97 93 L 08/25/18 04:10 Temperature Pulse Rate Respiratory Rate 14 Blood Pressure Pulse Oximetry 93 L Intake & Output 08/24/18 08/25/18 08/25/18 18:59 06:59 18:59 Intake Total 600 / 600 Output Total 2079 / 0 Balance -1480 / -1480 Weight 100 kg Intake: IV 600 / 600 Nimbex Inj 100 MG In NS Inj 240 250 / 250 ML @ 3.3 MCG/KG/MIN 49.5 mls/ hr IV.CONT CONT PRN Rx#: [id number] Levophed Inj 4 MG In NS Inj 246 250 / 250 ML @ 0.5 MCG/MIN 1.87 mls/hr IV.SIG TITRATE PRN Rx#:[id number] KCl 40 mEq Premix Inj 40 meq In 100 / 100 100 ml @ 25 mls/hr IV.SIG Q2H PRN Rx#:[id number] Oral 0 / 0 Output: Urine Amount (Catheter) 1979 Indwelling Temp Sensing 1380 / 1380 Catheter Indwelling Urethral Catheter 600 / 600 Gastric Drainage 100 / 100 Oral 100 / 100 Other: # Bowel Movements 0 Weight On Admission 99 kg Result Diagrams: 08/25/18 04:10 08/25/18 04:10 Objective Remarks: GEN: Elderly male lying in bed, intubated and sedated HEENT: NCAT, ETT in place NECK: Trachea midline CARDIO: Regular rate and rhythm RESP: Diminished breath sounds bilaterally, on bilevel settings on vent ABD/GI: Soft, non-distended EXT/MS: No peripheral edema, R femoral lines present SKIN: Cool, no rashes NEURO: GCS 3T on sedation and chemical paralytics, 0/4 To4, pupils 2 mm and fixed bilaterally PSYCH: Unable to assess Assessment and Plan - Assessment and Plan Plan: 72yM presenting with cardiac arrest x 2, unclear rhythm by EMS/ ED reports, now with ROSC and on targeted temperature management. Estimated downtime 30 minutes total (15 per arrest). NEURO: -Currently on Nimbex with 0/4 To4 * Demerol/ buspar to prevent shivering -Propofol and fentanyl for pain/ sedation -Continue home citalopram -Will need to evaluate neuro status once rewarmed and no longer on chemical paralysis CARDIO: -Unclear initial presenting arrest rhythm (presumed VF vs PEA) * Initial post-arrest EKG in ED showed some ST changes in precordial leads which had resolved by the 2nd EKG performed 20 minutes later * Case was discussed with interventional cardiology; patient did not require emergent PCI but will likely need further ischemic workup after his acute issues are stabilized * Targeted temp management- patient reached target temp of 33C at 01:45 today, continue TTM protocol -Troponin 9.15, trending up; continue to trend -2D echo -Currently on levophed gtt @ 45, epinephrine gtt currently off PULM: -Acute hypoxic respiratory failure secondary to cardiac arrest -CXR/ CT chest consistent with ARDS vs pneumonia, presumed community acquired ( no previous admissions listed on our records) * Would avoid azithromycin in the setting of cardiac arrest x 2 as this can cause arrhythmias * Will send blood/ urine/ sputum cultures and start aztreonam/ levaquin x 7 days , can be extended if needed * No PE noted on CTA -Current vent settings: bilevel 35/0, T-low 0.8 sec, 10 releases, 60%, ABG 7.35/ 35/388/13/-11.2 * Wean FiO2 as tolerated * Base deficitemia likely secondary to shock/ hypothermia -Vent bundle -No weaning until neurologically and hemodynamically improve -Duonebs as needed F/E/N: -Metabolic acidosis- switch maintenance NS to bicarb gtt * Lactic acid trending down (12--> 6), will check with next set of labs -NPO while in shock -Mild transaminitis likely due to shock liver -Keep K+ > 4.0, Mg > 2.0 RENAL: -BUN/ creatinine stable, UO nearly 2L overnight ID: -Aztreonam/ levaquin for ICU- CAP as detailed above -Follow up cultures ENDO: -SSI, Accuchecks -Continue home dose of Synthroid PROPHY: -SCDs, SQH -PPI OVERALL: This patient is critically ill with multiple episodes of cardiac arrest. He requires intensive care and remains at high-risk for life- threatening decompensation. Counseling/ Coordination of Care: Total critical care time: 74 minutes. This includes examining the patient, gathering history from someone other than the patient (i.e., chart review), discussing the patient's care with other providers, managing the patient's blood pressure and ventilator settings, ordering and interpreting radiology studies, ordering and interpreting laboratory studies, managing the patient's pain and sedation requirements, re-evaluation at frequent intervals, and documentation. All critical care time is separate and exclusive of procedures, teaching, and patient/ family updates. To help prompt me to consider important information that might be impacting today's encounter and assessment, information from prior notes written by myself or my colleagues may have been "brought forward" into today's note. My signature on this note, however, is an attestation that I personally performed the exam, history, and/or decision-making noted today, and, unless otherwise indicated, the interactions with patient, family, and staff as well as the review of records all occurred today. I also attest that the listed assessment and stated plan reflect my best clinical judgment today based on the combination of historical information, prior notes, and today's exam/ interactions. Code Status: Full
[2018-08-25] MEDS: Sodium Bicarbonate 8.4% Inj 150 MEQ in Sod Chloride 0.9% Inj 850 ML IV.CONT SCH ×2 (09:00→21:32)
[2018-08-25] MEDS: fentaNYL 10 mcg/mL Premix Drip 2,500 MCG/250 ML BAG IV.SIG PRN (09:22)
[2018-08-25] MEDS: Chlorhexidine 0.12% Oral Kit 15 ML UDC OROPHARYNG SCH ×2 (09:47→21:00)
[2018-08-25] MEDS: Senna/Docusate Sodium 8.6/50 MG Tablet PO SCH ×2 (09:56→21:00)
[2018-08-25] MEDS: Famotidine 20 MG Tablet PO SCH ×2 (09:57→21:01)
[2018-08-25] MEDS: Famotidine PF Inj 20 MG/2 ML Vial IV.PUSH SCH ×2 (09:57→21:01)
[2018-08-25] MEDS: Citalopram 20 MG Tablet PO SCH (10:01)
[2018-08-25 11:01] LABS: Calcium 7.3 mg/dL (8.5-10.1); Carbon Dioxide 14.7 meq/L (21.0-32.0); Magnesium 2.2 mg/dL (1.5-2.5); Potassium 4.4 meq/L (3.5-5.1)
[2018-08-25 11:04] LABS: Troponin I 10.4 ng/mL (0.02-0.05)
[2018-08-25] MEDS ORDERED: Atropine Inj 1 MG/10 ML Syringe ONE (12:17)
[2018-08-25] MEDS ORDERED: Atropine Inj 1 MG/ML Vial IV.PUSH PRN (12:23)
[2018-08-25] MEDS ORDERED: Atropine Inj 1 MG/10 ML Syringe IV.PUSH ONE (12:23)
--- NOTE | 2018-08-25 14:24 | MB ---
cc: Elicia Ward MD DATE: 08/25/2018 CARDIOVASCULAR CONSULTATION REFERRING: CHIEF COMPLAINT: Cardiopulmonary arrest. HISTORY OF PRESENT ILLNESS: Mr. Maikel Bryant is a pleasant 72-year-old male who has got a past medical history of diabetes type 2, coronary artery disease with prior stenting approximately 6 years ago, who presented after cardiac arrest. Majority of the information is obtained from chart review. It appears as though it is unclear whether the patient had a PEA versus a V-fib arrest. However, the patient was unresponsive upon arrival of the EMS without a pulse and CPR was performed. They temporarily achieved ROSC in the field. He presented prior to the ER with a PEA arrest this time. He was given 3 mg of epinephrine, 2 amps of bicarbonate, 300 mg of amiodarone. He had return of spontaneous circulation within 15 minutes and he did not lose his pulse for greater than 15 minutes according to the notes. Speaking with the nurse, according to the the patient had what she thought was symptomatic hypoglycemia and prior to her making a sandwich, the patient had sudden arrest. REVIEW OF SYSTEMS: Unable to obtain. PAST MEDICAL HISTORY: 1. History of coronary artery disease, status post prior PCI. 2. Diabetes type 2. SOCIAL/FAMILY HISTORY: Unable to obtain at this current juncture. MEDICATIONS: Reviewed in electronic medical records. It is of note that he is only on aspirin 81 mg and he is currently not on any other antiplatelet therapy or anticoagulation. PHYSICAL EXAMINATION: CONSTITUTIONAL: He is intubated. HEENT: Eyes: No scleral icterus. CARDIOVASCULAR: Regular rate and rhythm. Normal S1, S2. LUNGS: Clear to auscultation. ABDOMEN: Soft, nontender, nondistended. EXTREMITIES: No significant edema. NEUROLOGIC: The patient is currently sedated. ASSESSMENT AND PLAN: Cardiopulmonary arrest, currently on hypothermia protocol. It is unclear whether or not the patient had a ventricular fibrillation arrest versus pulseless electrical activity arrest; it is not clear. I have spoken with the ICU Team and there does not seem to be a clear etiology present at this time. He does have a history of percutaneous coronary intervention performed 6 years ago and post-code he had a troponin that was 10.4. In this context, currently we will evaluate to see his neurological status and at that time if he has neurological recovery, we will perform a coronary angiogram to evaluate for any epicardial coronary disease which may have contributed to his arrest. He is Yarsanism and therefore high risk for bleeding. He currently has not been started on heparin drip and it would not be unreasonable to hold heparin at this time. We will order a transthoracic echocardiogram and monitor his clinical status. Thank you for allowing me to participate in the care of Mr. Maikel Bryant. A member of [facility] will be available on an as needed basis. Will need to have Neuro recovery prior to angiogram. MD BESSIE Nguyễn/antonia/miladis , 01:21 PM , 01:31 PM MTDOmaira
[2018-08-25] MEDS ORDERED: Heparin 10,000 UNITS/10 ML Vial (for IV use) IV.PUSH STA (15:32)
[2018-08-25 16:24] LABS: Activated Partial Thrombo Time 29.3 sec (24.3-30.1); INR 1.1 Ratio; Prothrombin Time 11.4 sec (9.8-11.6)
[2018-08-25] MEDS: Heparin Drip 25,000 UNIT/250 ML BAG IV.CONT PRN (16:25)
[2018-08-25 16:56] LABS: Calcium 7.2 mg/dL (8.5-10.1); Carbon Dioxide 16.9 meq/L (21.0-32.0); Potassium 4.6 meq/L (3.5-5.1)
--- NOTE | 2018-08-25 16:58 | ECHRPT ---
Indication: CORONARY ATHEROSCLEROSIS CONCLUSIONS The left ventricular systolic function is hyperdynamic with an estimated ejection fraction in the ra nge of 65- 70%. Normal left ventricular size. Wall thickness is normal. No regional wall motion abnormalities are present. No significant valvular heart disease. The estimated pulmonary arterial pressure is 37.7 mmHg. The inferior vena cava is normal in size and appears to collapse >50% with respiration. BP: / HR: Rhythm: Sinus MEASUREMENTS (Male / Female) Normal Values Technical Quality:Poor 2D ECHO LVOT Diameter 2.9 cm M-MODE LV Diastolic Diameter MM 5.5 cm 4.2 - 5.9 / 3.9 - 5.3 cm LV Systolic Diameter MM 3.8 cm LV Ejection Fraction MM Teich 58.0 % IVS Diastolic Thickness MM 1.0 cm 0.6 - 1.0 / 0.6 - 0.9 cm LVPW Diastolic Thickness MM 1.0 cm 0.6 - 1.0 / 0.6 - 0.9 cm LV Relative Wall Thickness MM 0.4 0.24 - 0.42 / 0.22 - 0.42 Aortic Root Diameter MM 2.6 cm LA Systolic Diameter MM 2.7 cm LA Ao Ratio MM 1.0 AV Cusp Separation MM 2.0 cm DOPPLER AV Peak Velocity 106.0 cm/s AV Peak Gradient 4.5 mmHg LVOT Peak Velocity 85.9 cm/s LVOT Peak Gradient 3.0 mmHg AV Area Cont Eq pk 5.4 cm MV Area PHT 4.2 cm Mitral E Point Velocity 50.3 cm/s Mitral A Point Velocity 73.5 cm/s Mitral E to A Ratio 0.7 LV E' Septal Velocity 6.7 cm/s Mitral E to LV E' Septal Ratio 7.5 TR Peak Velocity 263.0 cm/s TR Peak Gradient 27.7 mmHg Right Atrial Pressure 10.0 mmHg Pulmonary Artery Systolic Pressu 37.7 mmHg Right Ventricular Systolic Press 37.7 mmHg FINDINGS LEFT VENTRICLE The left ventricular systolic function is hyperdynamic with an estimated ejection fraction in the ra nge of 65- 70%. Normal left ventricular size. Wall thickness is normal. No regional wall motion abnormalities are present. RIGHT VENTRICLE Normal right ventricular size and systolic function. LEFT ATRIUM The left atrial size is normal. RIGHT ATRIUM The right atrial size is normal. ATRIAL SEPTUM Normal atrial septal thickness without atrial level shunting by limited color doppler interrogation. AORTA The aortic root and proximal ascending aorta are normal in size on limited imaging. MITRAL VALVE Structurally normal mitral valve. No mitral valve stenosis or regurgitation. AORTIC VALVE Trileaflet aortic valve. No aortic valve stenosis or regurgitation. TRICUSPID VALVE Structurally normal tricuspid valve. There is trace tricuspid valve regurgitation. The estimated pulmonary arterial pressure is 37.7 mmHg. PULMONARY VALVE No pulmonary valve regurgitation or stenosis. VESSELS The inferior vena cava is normal in size and appears to collapse >50% with respiration. PERICARDIUM No pericardial effusion. Elicia Ward MD (Electronically Signed) Final Date:25 August 2018 16:57
[2018-08-25 17:13] LABS: Total Protein 5.7 g/dL (6.4-8.2)
[2018-08-25 17:25] LABS: Troponin I 9.69 ng/mL (0.02-0.05)
[2018-08-25 17:54] LABS: ABG Base Excess -7.6 mmol/L (-2-2); ABG PCO2 23 mmHg (38-42); ABG PO2 251 mmHG (61-120)
[2018-08-25] MEDS: Insulin Regular (For Infusion) 100 UNIT in Sodium Chlor 0.9% Inj 99 ML IV.CONT PRN (20:48)
[2018-08-25] MEDS ORDERED: Heparin 10,000 UNITS/10 ML Vial (for IV use) IV.PUSH PRN (21:09)
[2018-08-25 23:14] LABS: Calcium 7.6 mg/dL (8.5-10.1); Carbon Dioxide 17.3 meq/L (21.0-32.0); Magnesium 1.8 mg/dL (1.5-2.5); Potassium 3.2 meq/L (3.5-5.1)
[2018-08-25 23:18] LABS: Troponin I 8.34 ng/mL (0.02-0.05)
[2018-08-26] MEDS: Magnesium Sulfate Inj 2 GM in Sodium Chlor 0.9% Inj 96 ML IV.SIG PRN (00:30)
[2018-08-26] MEDS: Oral Hygiene Kit OROPHARYNG SCH ×4 (01:16→17:09)
[2018-08-26] MEDS: fentaNYL 10 mcg/mL Premix Drip 2,500 MCG/250 ML BAG IV.SIG PRN ×2 (01:23→17:44)
[2018-08-26] MEDS: Chlorhexidine Gluconate 2% 1 Pack (2 Cloths) TOPICAL SCH (04:40)
[2018-08-26] MEDS: Cisatracurium Inj 100 MG in Sodium Chlor 0.9% Inj 240 ML IV.CONT PRN (06:08)
[2018-08-26] MEDS: Norepinephrine Inj 4 MG in Sodium Chlor 0.9% Inj 246 ML IV.SIG PRN ×3 (06:09→21:01)
[2018-08-26] MEDS: Propofol 1000 mg/100 ml Inj 1,000 MG/100 ML BOTTLE IV.CONT PRN (07:26)
[2018-08-26] MEDS: Insulin Regular (For Infusion) 100 UNIT in Sodium Chlor 0.9% Inj 99 ML IV.CONT PRN (07:54)
[2018-08-26] MEDS: Senna/Docusate Sodium 8.6/50 MG Tablet PO SCH ×2 (08:02→21:45)
[2018-08-26] MEDS: Citalopram 20 MG Tablet PO SCH (08:02)
[2018-08-26] MEDS: Famotidine PF Inj 20 MG/2 ML Vial IV.PUSH SCH ×2 (08:03→21:45)
[2018-08-26] MEDS: Chlorhexidine 0.12% Oral Kit 15 ML UDC OROPHARYNG SCH ×2 (08:04→19:58)
[2018-08-26] MEDS: Famotidine 20 MG Tablet PO SCH ×2 (08:13→21:23)
[2018-08-26] MEDS: Sodium Bicarbonate 8.4% Inj 150 MEQ in Sod Chloride 0.9% Inj 850 ML IV.CONT SCH ×2 (08:32→13:45)
[2018-08-26] MEDS ORDERED: Sodium Chloride 0.45 % Inj 1,000 ML IV.CONT SCH (09:15)
[2018-08-26 09:53] LABS: Baso % (Auto) 0.2 % (0.0-2.0); Eos % (Auto) 0.1 % (0.0-4.0); Hematocrit 35.7 % (39.0-51.0); Hemoglobin 12.4 gm/dL (13.0-17.0); Lymph # (Auto) 1.2 th/mm3 (1.0-4.8); Lymph % (Auto) 9.4 % (9.0-44.0); Mean Corpuscular HGB Conc 34.8 % (32.0-36.0); Mean Corpuscular Hemoglobin 32.1 pg (27.0-34.0); Mean Corpuscular Volume 92.3 fL (80.0-100.0); Mean Platelet Volume 8.2 fL (7.0-11.0); Mono # (Auto) 0.6 th/mm3 (0.0-0.9); Neut # (Auto) 10.9 th/mm3 (1.8-7.7); Neut % (Auto) 85.3 % (16.0-70.0); Platelet Count 158 th/mm3 (150-450); Red Blood Count 3.87 mil/mm3 (4.50-5.90); White Blood Count 12.8 th/mm3 (4.0-11.0)
[2018-08-26 10:17] LABS: Calcium 7.2 mg/dL (8.5-10.1); Carbon Dioxide 21.6 meq/L (21.0-32.0); Magnesium 2.2 mg/dL (1.5-2.5)
[2018-08-26] MEDS ORDERED: Sod Chloride 0.9% Inj 1,000 ML IV.SIG ONE ×2 (10:30→16:58)
--- NOTE | 2018-08-26 10:36 | P.PNCC ---
Subjective Subjective Remarks/Hospital Course: 72-year-old male, past medical history significant for diabetes and coronary artery disease with 3 previous stents, who is presented post cardiac arrest. Per EMS and family he was doing work around the house when he stated that he did not feel right and thought something was off with his blood sugar. He then went to go sit down and when his turned around he was slumping over. She then called 911. On EMS arrival he was unresponsive pulseless and apneic. They began CPR. They temporarily achieved ROSC in the field prior to him coding again. They obtained ROSC again right before arrival. In total they gave 3 mg of epinephrine, 2 A of bicarbonate, 300 mg of amiodarone. EMS does not believe that he was without a pulse for more than 15 minutes at any time. He lost pulses again on arrival here. Again he was successfully resuscitated with return of spontaneous circulation within 15 minutes. 08/25: Patient admitted to CVICU, on targeted temperature management. 08/26: No significant overnight events, decreased UO this morning. Now being rewarmed. Objective Vital Signs / I&O: Vital Signs 08/25/18 12:00 08/25/18 12:05 08/25/18 16:00 Temperature 91.4 F L 91.4 F L Pulse Rate 61 63 Respiratory Rate 10 L 10 L 10 L Blood Pressure 104/70 124/78 Pulse Oximetry 99 99 99 08/25/18 16:20 08/25/18 19:00 08/25/18 19:33 Temperature 91.0 F L Pulse Rate 64 Respiratory Rate 10 L 10 L 10 L Blood Pressure 128/77 Pulse Oximetry 99 99 99 08/25/18 20:00 08/25/18 23:00 08/26/18 00:00 Temperature 91.0 F L Pulse Rate 64 61 61 Respiratory Rate 10 L Blood Pressure 110/72 Pulse Oximetry 100 08/26/18 01:00 08/26/18 03:00 08/26/18 04:00 Temperature 91.6 F L Pulse Rate 54 L 55 L Respiratory Rate 10 L 10 L Blood Pressure 126/71 Pulse Oximetry 99 100 08/26/18 04:03 08/26/18 07:00 08/26/18 07:42 Temperature 94.8 F L Pulse Rate 56 L Respiratory Rate 10 L 10 L 10 L Blood Pressure 132/63 Pulse Oximetry 100 100 100 08/26/18 08:00 08/26/18 08:55 Temperature 98.6 F Pulse Rate 68 Respiratory Rate Blood Pressure Pulse Oximetry Intake & Output 08/25/18 08/26/18 08/26/18 18:59 06:59 18:59 Intake Total 2554 / 2554 2600 / 2600 1434 / 1434 Output Total 1200 / 1200 475 / 475 Balance 1354 / 1354 2125 / 2125 1434 / 1434 Weight 102 kg Intake: IV 2554 / 2554 2600 / 2600 1434 / 1434 Nimbex Inj 100 MG In NS Inj 240 500 / 500 750 / 750 ML @ 3.3 MCG/KG/MIN 49.5 mls/ hr IV.CONT CONT PRN Rx#: [id number] NovoLIN R (IV Infusion) 100 100 / 100 UNIT In NS Inj 99 ML @ Per Protocol IV.CONT TITRATE PRN Rx #:[id number] Diprivan 1000 mg/100 ml Inj 1, 100 / 100 100 / 100 000 mg In 100 ml @ 5 MCG/KG/MIN 3 mls/hr IV.CONT TITRATE PRN Rx#:[id number] NS Inj 1,000 ML @ 84 mls/hr IV. 504 / 504 CONT .[id number] MERVAT Rx#:[id number] Sodium Bicarbonate 8.4% Inj 150 1000 / 1000 1084 / 1084 MEQ In NS Inj 850 ML @ 84 mls/ hr IV.CONT .[id number] MERVAT Rx#: [id number] Azactam Inj 1,000 MG In NS Inj 100 / 100 200 / 200 100 ML @ 200 mls/hr IV.SIG Q8H MERVAT Rx#:[id number] Levaquin 750 mg Premix Inj 150 150 / 150 150 / 150 ML @ 100 mls/hr IV.SIG Q24H MERVAT Rx#:[id number] Magnesium Sulfate Inj 2 GM In 100 / 100 100 / 100 NS Inj 96 ML @ 50 mls/hr IV.SIG UNSCH PRN Rx#:[id number] Levophed Inj 4 MG In NS Inj 246 500 / 500 250 / 250 ML @ 0.5 MCG/MIN 1.87 mls/hr IV.SIG TITRATE PRN Rx#:[id number] KCl 40 mEq Premix Inj 40 meq In 100 / 100 50 / 50 100 ml @ 25 mls/hr IV.SIG Q2H PRN Rx#:[id number] fentaNYL 10 mcg/mL Premix Drip 250 / 250 250 / 250 2,500 mcg In 250 ml @ 50 MCG/HR 5 mls/hr IV.SIG TITRATE PRN Rx #:[id number] Oral 0 / 0 Output: Urine Amount (Catheter) 1100 / 1100 475 / 475 Indwelling Temp Sensing 1100 / 1100 475 / 475 Catheter Gastric Drainage 100 / 100 Orogastric Tube 100 / 100 Result Diagrams: 08/26/18 09:10 08/26/18 09:10 Objective Remarks: GEN: Elderly male lying in bed, intubated and sedated HEENT: NCAT, ETT in place NECK: Trachea midline CARDIO: Regular rate and rhythm RESP: Diminished breath sounds bilaterally, on bilevel settings on vent ABD/GI: Soft, non-distended EXT/MS: No peripheral edema, R femoral lines present SKIN: Cool, no rashes NEURO: GCS 3T on sedation and chemical paralytics, 0/4 To4, pupils 2 mm and fixed bilaterally PSYCH: Unable to assess Assessment and Plan - Assessment and Plan Plan: 72yM presenting with cardiac arrest x 2, unclear rhythm by EMS/ ED reports, now with ROSC and on targeted temperature management. Estimated downtime 30 minutes total (15 per arrest). NEURO: -Nimbex now off, follow To4 until 02/16 -Propofol and fentanyl for pain/ sedation, weaning down during rewarming -Continue home citalopram CARDIO: -Unclear initial presenting arrest rhythm (presumed VF vs PEA) * Cardiology following * Targeted temp management- patient now on rewarming phase -Troponin peaked at 10.4, no longer trending -2D echo showed EF 65-70%, PAP 37 -Currently on levophed gtt @ 9 PULM: -Acute hypoxic respiratory failure secondary to cardiac arrest -CXR/ CT chest consistent with ARDS vs pneumonia, presumed community acquired ( no previous admissions listed on our records) * Would avoid azithromycin in the setting of cardiac arrest x 2 as this can cause arrhythmias * Continue aztreonam/ levaquin x 7 days, can be extended if needed * No PE noted on CTA -Wean bilevel to 32/0, T-low 0.5 sec, 10 releases, 40% -Vent bundle -No weaning until neurologically and hemodynamically improve -Duonebs as needed F/E/N: -Trickle TFs today -Keep K+ > 4.0, Mg > 2.0 RENAL: -BUN/ creatinine stable, UO dropping off, will give crystalloid bolus ID: -Aztreonam/ levaquin for ICU- CAP as detailed above -Follow up cultures ENDO: -SSI, Accuchecks -Continue home dose of Synthroid PROPHY: -SCDs, SQH -PPI OVERALL: This patient is critically ill with multiple episodes of cardiac arrest. He requires intensive care and remains at high-risk for life- threatening decompensation. Counseling/ Coordination of Care: Total critical care time: 55 minutes. This includes examining the patient, gathering history from someone other than the patient (i.e., chart review), discussing the patient's care with other providers, managing the patient's blood pressure and ventilator settings, ordering and interpreting radiology studies, ordering and interpreting laboratory studies, managing the patient's pain and sedation requirements, re-evaluation at frequent intervals, and documentation. All critical care time is separate and exclusive of procedures, teaching, and patient/ family updates. To help prompt me to consider important information that might be impacting today's encounter and assessment, information from prior notes written by myself or my colleagues may have been "brought forward" into today's note. My signature on this note, however, is an attestation that I personally performed the exam, history, and/or decision-making noted today, and, unless otherwise indicated, the interactions with patient, family, and staff as well as the review of records all occurred today. I also attest that the listed assessment and stated plan reflect my best clinical judgment today based on the combination of historical information, prior notes, and today's exam/ interactions. Code Status: Full
[2018-08-26 10:39] LABS: Total Protein 5.2 g/dL (6.4-8.2)
[2018-08-26 10:42] LABS: Potassium 2.9 meq/L (3.5-5.1)
[2018-08-26] MEDS ORDERED: Calcium Chloride Inj 1 GM/10 ML Syringe ONE (11:52)
[2018-08-26] MEDS ORDERED: Calcium Gluconate Inj 1 GM in Sodium Chlor 0.9% Inj 100 ML IV.SIG ONE (11:52)
[2018-08-26] MEDS ORDERED: Sodium Bicarbonate 8.4% Inj 50 MEQ/50 ML Syringe ONE (11:53)
[2018-08-26] MEDS ORDERED: Calcium Chloride Inj 1 GM/10 ML Syringe IV.PUSH ONE (12:04)
--- NOTE | 2018-08-26 12:22 | P.DIET ---
Nutritional Evaluation Type of nutrition evaluation: initial Nutrition consult regarding: Tube Feeding Screening comments: Trickle feeds ordered Objective - Diagnosis Cardiac Arrest - Objective Body Mass Index: 30.5 % IBW: 126 (IBW = 178#) Body Weight Used for Calculations: IBW (81 kg) Energy Needs - Lower Range (kCal/kg): 25 Energy Needs - Upper Range (kCal/kg): 30 Lower Limit kCal/kg (kCals): 2,023 Upper Limit kCal/kg (kCals): 2,430 Lower Limit Protein Factor (Grams per Kg): 1.0 Upper Limit Protein Factor (Grams per Kg): 1.5 Lower Protein Needs (Protein): 81 Upper Protein Needs (Protein): 122 Dietitian Reviewed in Medical Record: Curent medications, Intake & Output, Labs , Medical history, Tube feeding Diet Order: NPO Objective Comments: Meds include synthroid Glu 193 Assessment Assessment: Pt at high nutrition risk s/p cardiac arrest x 2. Current order is for trickle feeds only: Jevity 1.5 @ 20 mls/hr. When a goal rate is needed, recommend Glucerna 1.5 @ 65 mls/hr x 22 hrs (d/t synthroid) to provide 2145 kcals, 118 gms protein and 1085 mls of free water. TF needs to be held one hour before and one hour after the synthroid is given. Additional kcals will be provided by propofol (1.1 kcal/ml). Recommendations: When goal rate is needed: Glucerna 1.5 @ 65 mls/hr x 22 hours Dietitian to Monitor: Lab values, Glucose level, Intake & Output, Tube feeding tolerance, Weight change, Medical course
--- NOTE | 2018-08-26 12:29 | XR ---
EXAM DATE: 08/26/2018 11:39 AM EDT AGE/SEX: 72 years / Male INDICATIONS: Chest and abdominal distention, concern for pneumothorax. CLINICAL DATA: This is the patient's initial encounter. Patient reports that signs and symptoms have been present for 1 day and indicates a pain score of Nonresponsive. MEDICAL/SURGICAL HISTORY: . Hypertension. Cardiovascular disease. Carcinoma, prostate. None. . COMPARISON: [facility] [place], CHEST 1V SINGLE AP, 08/24/2018. . FINDINGS: A single AP view of the chest demonstrates an endotracheal tube with the tip 4 cm from the zoe. Na sogastric tube courses off the inferior margin of the film. Heart remains mildly enlarged. Interstiti al prominence is seen within the lungs bilaterally more pronounced on the left. The airspace disease seen on the prior study within the right lung has resolved. No discrete effusions seen. CONCLUSION: Resolution of the airspace disease involving the right lung. Interstitial prominence throughout both lungs is new and could relate to interstitial edema. Electronically signed by: Cameron Malone MD 08/26/2018 12:28 PM EDT
[2018-08-26] MEDS ORDERED: Calcium Gluconate Inj 2 GM in Sodium Chlor 0.9% Inj 100 ML IV.SIG ONE (17:56)
[2018-08-26] MEDS ORDERED: Atropine Inj 1 MG/10 ML Syringe ONE (18:03)
[2018-08-26] MEDS ORDERED: Vasopressin Inj 40 UNIT in Dextrose 5% in Water Inj 98 ML IV.CONT SCH ×2 (19:00)
[2018-08-26] MEDS: EPOPROSTENOL INH SCH (19:58)
[2018-08-26] MEDS: Midazolam 50 MG/50 ML Inj 50 MG/50 ML BAG IV.CONT PRN (19:58)
[2018-08-26] MEDS ORDERED: Vasopressin Inj 40 UNIT in Sodium Chlor 0.9% Inj 98 ML IV.CONT SCH (20:00)
--- NOTE | 2018-08-26 21:39 | ECG ---
Date Performed: 08/25/2018 Time Performed: 07:40:24 PTAGE: 72 years EKG: Sinus bradycardia Prolonged QT interval Ant/septal and lateral T wave changes may be due to myocardial ischemia Low QRS voltages in limb leads Abnormal ECG PREVIOUS TRACING : 08/24/2018 19.23 Compared to previous tracing, ST-T WAVE ABNORMALITIES ARE NEW DOCTOR: Garfield Amin Interpretating Date/Time 08/26/2018 21:37:31
[2018-08-27] MEDS: Sodium Bicarbonate 8.4% Inj 150 MEQ in Sod Chloride 0.9% Inj 850 ML IV.CONT SCH ×3 (01:45→17:15)
[2018-08-27] MEDS: Oral Hygiene Kit OROPHARYNG SCH ×4 (01:45→17:16)
[2018-08-27] MEDS: Norepinephrine Inj 4 MG in Sodium Chlor 0.9% Inj 246 ML IV.SIG PRN ×2 (01:58→08:39)
[2018-08-27] MEDS: EPOPROSTENOL INH SCH ×4 (03:00→18:02)
[2018-08-27] MEDS ORDERED: Calcium Chloride Inj 1 GM in Sodium Chlor 0.9% Inj 100 ML IV.SIG ONE (04:00)
[2018-08-27] MEDS: Chlorhexidine Gluconate 2% 1 Pack (2 Cloths) TOPICAL SCH (04:23)
[2018-08-27] MEDS: Midazolam 50 MG/50 ML Inj 50 MG/50 ML BAG IV.CONT PRN (04:43)
[2018-08-27] MEDS: Heparin Drip 25,000 UNIT/250 ML BAG IV.CONT PRN (04:44)
[2018-08-27 05:20] LABS: Baso % (Auto) 0.1 % (0.0-2.0); Hematocrit 34.4 % (39.0-51.0); Hemoglobin 11.5 gm/dL (13.0-17.0); Lymph # (Auto) 0.9 th/mm3 (1.0-4.8); Lymph % (Auto) 5.6 % (9.0-44.0); Mean Corpuscular HGB Conc 33.4 % (32.0-36.0); Mean Corpuscular Hemoglobin 31.6 pg (27.0-34.0); Mean Corpuscular Volume 94.4 fL (80.0-100.0); Mean Platelet Volume 8.9 fL (7.0-11.0); Mono # (Auto) 1.1 th/mm3 (0.0-0.9); Mono % (Auto) 6.9 % (0.0-8.0); Neut # (Auto) 13.7 th/mm3 (1.8-7.7); Neut % (Auto) 87.4 % (16.0-70.0); Platelet Count 154 th/mm3 (150-450); Red Blood Count 3.64 mil/mm3 (4.50-5.90); Red Cell Distribution Width 14.6 % (11.6-17.2); White Blood Count 15.7 th/mm3 (4.0-11.0)
[2018-08-27 05:31] LABS: INR 1.2 Ratio; Prothrombin Time 12.5 sec (9.8-11.6)
[2018-08-27 05:47] LABS: Alanine Aminotransferase 81 U/L (12-78); Albumin 2.2 g/dL (3.4-5.0); Alkaline Phosphatase 57 U/L (45-117); Anion Gap 10 meq/L (5-15); Aspartate Aminotransferase 172 U/L (15-37); Blood Urea Nitrogen 21 mg/dL (7-18); Calcium 7.5 mg/dL (8.5-10.1); Carbon Dioxide 25.9 meq/L (21.0-32.0); Chloride 114 meq/L (98-107); Glomerular Filtration Rate 47 mL/min (>89); Glucose,Random 122 mg/dL (74-106); Magnesium 1.8 mg/dL (1.5-2.5); Phosphorus 3.4 mg/dL (2.5-4.9); Potassium 4.5 meq/L (3.5-5.1); Sodium 150 meq/L (136-145); Total Protein 5.4 g/dL (6.4-8.2)
[2018-08-27] MEDS: fentaNYL 10 mcg/mL Premix Drip 2,500 MCG/250 ML BAG IV.SIG PRN (06:27)
[2018-08-27] MEDS: Magnesium Sulfate Inj 2 GM in Sodium Chlor 0.9% Inj 96 ML IV.SIG PRN (06:29)
[2018-08-27] MEDS: Chlorhexidine 0.12% Oral Kit 15 ML UDC OROPHARYNG SCH ×2 (08:08→20:42)
--- NOTE | 2018-08-27 09:37 | P.PNCC ---
Subjective Subjective Remarks/Hospital Course: 72-year-old male, past medical history significant for diabetes and coronary artery disease with 3 previous stents, who is presented post cardiac arrest. Per EMS and family he was doing work around the house when he stated that he did not feel right and thought something was off with his blood sugar. He then went to go sit down and when his turned around he was slumping over. She then called 911. On EMS arrival he was unresponsive pulseless and apneic. They began CPR. They temporarily achieved ROSC in the field prior to him coding again. They obtained ROSC again right before arrival. In total they gave 3 mg of epinephrine, 2 A of bicarbonate, 300 mg of amiodarone. EMS does not believe that he was without a pulse for more than 15 minutes at any time. He lost pulses again on arrival here. Again he was successfully resuscitated with return of spontaneous circulation within 15 minutes. 08/25: Patient admitted to CVICU, on targeted temperature management. 08/26: No significant overnight events, decreased UO this morning. Now being rewarmed. 08/27: Called to bedside by RN yesterday for facial swelling, CXR showed no evidence of PTX or subcut emphysema, CT scans ordered but was delayed by over 7 hours due to multiple trauma and stroke alerts taking priority in CT scan. When the patient was being prepared to move to CT around 6:30 PM, he became hypoxic to the high 80s and was too unstable for scan. He required increase in his bilevel settings and was started on flolan. This morning, he is stable, O2 sats 100% on current settings with much improved ABG. Objective Vital Signs / I&O: Vital Signs 08/26/18 11:00 08/26/18 11:46 08/26/18 12:00 Temperature 98.2 F 98.6 F Pulse Rate 71 107 H Respiratory Rate 11 L 11 L Blood Pressure 136/66 Pulse Oximetry 100 95 08/26/18 13:30 08/26/18 14:18 08/26/18 15:00 Temperature 98.6 F 98.6 F Pulse Rate 95 H Respiratory Rate 11 L 14 Blood Pressure 127/66 Pulse Oximetry 97 96 08/26/18 16:00 08/26/18 17:33 08/26/18 19:00 Temperature 98.4 F Pulse Rate 98 H 98 H Respiratory Rate 11 L 21 Blood Pressure 136/69 Pulse Oximetry 97 86 L 08/26/18 20:00 08/26/18 20:26 08/26/18 23:00 Temperature 98.4 F Pulse Rate 98 H 75 Respiratory Rate 26 H 9 L Blood Pressure 129/71 Pulse Oximetry 99 100 08/27/18 00:00 08/27/18 02:10 08/27/18 03:00 Temperature 98.6 F Pulse Rate 75 79 Respiratory Rate 10 L 9 L Blood Pressure 147/76 H Pulse Oximetry 100 100 08/27/18 04:00 08/27/18 04:21 08/27/18 09:00 Temperature Pulse Rate 77 Respiratory Rate 9 L 9 L Blood Pressure Pulse Oximetry 97 100 Intake & Output 08/26/18 08/27/18 08/27/18 18:59 06:59 18:59 Intake Total 4792 / 4792 1450 / 1450 230 / 230 Output Total 200 / 200 295 / 295 Balance 4592 / 4592 1155 / 1155 230 / 230 Weight 108 kg Intake: IV 4792 / 4792 1450 / 1450 230 / 230 Flolan (30,000 ng/mL) Neb 100 100 / 100 ML In Bag/Syringe 1 EACH @ 5 mls/hr INH Q8H MERVAT Rx#:[id number] Nimbex Inj 100 MG In NS Inj 240 208 / 208 ML @ 3.3 MCG/KG/MIN 49.5 mls/ hr IV.CONT CONT PRN Rx#: [id number] NovoLIN R (IV Infusion) 100 100 / 100 UNIT In NS Inj 99 ML @ Per Protocol IV.CONT TITRATE PRN Rx #:[id number] Versed Inj 50 mg In 50 ml @ 2 50 / 50 MG/HR 2 mls/hr IV.CONT TITRATE PRN Rx#:[id number] Diprivan 1000 mg/100 ml Inj 1, 100 / 100 000 mg In 100 ml @ 5 MCG/KG/MIN 3 mls/hr IV.CONT TITRATE PRN Rx#:[id number] Sodium Bicarbonate 8.4% Inj 150 1084 / 1084 100 / 100 MEQ In NS Inj 850 ML @ 84 mls/ hr IV.CONT .[id number] MERVAT Rx#: [id number] 1/2 Normal Saline Inj 1,000 ML 500 / 500 @ 84 mls/hr IV.CONT .[id number] MERVAT Rx#:[id number] Azactam Inj 1,000 MG In NS Inj 100 / 100 200 / 200 100 ML @ 200 mls/hr IV.SIG Q8H [facility] Rx#:[id number] Calcium Chloride Inj 1 GM In NS 110 / 110 Inj 100 ML @ 110 mls/hr IV.SIG ONCE ONE Rx#:[id number] Calcium Gluconate Inj 2 GM In 120 / 120 NS Inj 100 ML @ 120 mls/hr IV. SIG ONCE ONE Rx#:[id number] Levaquin 750 mg Premix Inj 150 150 / 150 ML @ 100 mls/hr IV.SIG Q24H MERVAT Rx#:[id number] Levophed Inj 4 MG In NS Inj 246 250 / 250 520 / 520 230 / 230 ML @ 0.5 MCG/MIN 1.87 mls/hr IV.SIG TITRATE PRN Rx#:[id number] KCl 40 mEq Premix Inj 40 meq In 50 / 50 100 ml @ 25 mls/hr IV.SIG Q2H PRN Rx#:[id number] NS Inj 1,000 ML @ Wide Open IV. 1999 SIG BOLUS ONE Rx#:[id number] fentaNYL 10 mcg/mL Premix Drip 250 / 250 250 / 250 2,500 mcg In 250 ml @ 50 MCG/HR 5 mls/hr IV.SIG TITRATE PRN Rx #:[id number] Output: Urine Amount (Catheter) 200 / 200 295 / 295 Indwelling Temp Sensing 200 / 200 295 / 295 Catheter Result Diagrams: 08/27/18 04:30 08/27/18 04:30 Objective Remarks: GEN: Elderly male lying in bed, intubated and sedated HEENT: NCAT, ETT in place, (+) facial edema/ anasarca NECK: Trachea midline CARDIO: Regular rate and rhythm RESP: Diminished breath sounds bilaterally, on bilevel settings on vent ABD/GI: Soft, non-distended EXT/MS: No peripheral edema, R femoral lines present SKIN: Cool, no rashes NEURO: GCS 3T, (+) tremor PSYCH: Unable to assess Assessment and Plan - Assessment and Plan Plan: 72yM presenting with cardiac arrest x 2, unclear rhythm by EMS/ ED reports, now with ROSC s/p targeted temperature management. Estimated downtime 30 minutes total (15 per arrest). NEURO: -Versed and fentanyl for pain/ sedation, demerol PRN shivering/ myoclonus -Continue home citalopram -Will obtain EEG as mental status remains poor CARDIO: -Unclear initial presenting arrest rhythm (presumed VF vs PEA) * Cardiology following -2D echo showed EF 65-70%, PAP 37 -Currently on levophed gtt @ 6 PULM: -Acute hypoxic respiratory failure secondary to cardiac arrest -CXR/ CT chest consistent with ARDS vs pneumonia, presumed community acquired ( no previous admissions listed on our records) * Would avoid azithromycin in the setting of cardiac arrest x 2 as this can cause arrhythmias * Continue aztreonam/ levaquin x 7 days, can be extended if needed * No PE noted on CTA -Continue bilevel and flolan -Vent bundle -No weaning until neurologically and hemodynamically improve -Duonebs as needed -GEM this morning- 7.40/38/160/23.5/-1.1 F/E/N: -Advance TFs today, switch to glucerna -Keep K+ > 4.0, Mg > 2.0 RENAL: -BUN/ creatinine stable, UO stable -Decrease bicarb gtt to 50 mL/hr as patient is already receiving about 40 mL/hr in other drips ID: -Aztreonam/ levaquin for ICU- CAP as detailed above -Follow up cultures ENDO: -SSI, Accuchecks -Continue home dose of Synthroid PROPHY: -SCDs, SQH -PPI OVERALL: This patient is critically ill with multiple episodes of cardiac arrest. He requires intensive care and remains at high-risk for life- threatening decompensation. Counseling/ Coordination of Care: Total critical care time: 50 minutes. This includes examining the patient, gathering history from someone other than the patient (i.e., chart review), discussing the patient's care with other providers, managing the patient's blood pressure and ventilator settings, ordering and interpreting radiology studies, ordering and interpreting laboratory studies, managing the patient's pain and sedation requirements, re-evaluation at frequent intervals, and documentation. All critical care time is separate and exclusive of procedures, teaching, and patient/ family updates. To help prompt me to consider important information that might be impacting today's encounter and assessment, information from prior notes written by myself or my colleagues may have been "brought forward" into today's note. My signature on this note, however, is an attestation that I personally performed the exam, history, and/or decision-making noted today, and, unless otherwise indicated, the interactions with patient, family, and staff as well as the review of records all occurred today. I also attest that the listed assessment and stated plan reflect my best clinical judgment today based on the combination of historical information, prior notes, and today's exam/ interactions. Code Status: Full
[2018-08-27] MEDS: Famotidine PF Inj 20 MG/2 ML Vial IV.PUSH SCH ×2 (09:38→20:42)
[2018-08-27] MEDS: Citalopram 20 MG Tablet PO SCH (09:38)
[2018-08-27] MEDS: Senna/Docusate Sodium 8.6/50 MG Tablet PO SCH ×2 (09:38→20:42)
[2018-08-27] MEDS: Famotidine 20 MG Tablet PO SCH ×2 (09:41→21:06)
[2018-08-27] MEDS: Insulin NovoLOG Aspart Correctional Sugar Inj SQ SCH ×2 (12:42→17:16)
--- NOTE | 2018-08-27 15:14 | P.PNCA ---
Subjective Interval history: Appears to have facial swelling Through with hypothermia protocol Medications and Allergies Active Medications: Active Medications Acetaminophen (Tylenol) 650 mg PO Q6H PRN PRN Reason: PAIN 1-10 AND/OR FEVER >101F Al Hydroxide/Mg Hydroxide (Milk Of Magnamaury Liq) 30 ml PO Q12H PRN PRN Reason: Mild Constipation Albuterol (Duoneb Neb (Prn)) 1 ampul NEB Q2HR NEB PRN PRN Reason: WHEEZING Last Admin: 08/24/18 22:54 Dose: 1 ampul Atropine Sulfate (Atropine Inj) 0.5 mg IV.PUSH Q5M PRN PRN Reason: SYMPTOMATIC BRADYCARDIA Bisacodyl (Dulcolax Supp) 10 mg RECTAL DAILY PRN PRN Reason: SEVERE CONSITIPATION Buspirone HCl (Buspar) 15 mg NG/OG BID PRN PRN Reason: SHIVERING Last Admin: 08/26/18 10:57 Dose: 15 mg Chlorhexidine Gluconate (Chlorhexidine 2% Cloth) 3 pack TOPICAL DAILY@0400 [facility] Stop: 08/30/18 03:59 Last Admin: 08/27/18 04:23 Dose: 3 pack Chlorhexidine Gluconate (Chlorhexidine 2% Cloth) 3 pack TOPICAL DAILY@0400 PRN PRN Reason: Extra cloth needed Stop: 08/30/18 03:59 Chlorhexidine Gluconate (Peridex 0.12% Oral Kit) 15 ml OROPHARYNG BID@0800, 2000 [facility] Last Admin: 08/27/18 08:08 Dose: 15 ml Citalopram Hydrobromide (Celexa) 10 mg PO DAILY [facility] Last Admin: 08/27/18 09:38 Dose: 10 mg Dextrose (D50w Vial) 50 ml IV.PUSH UNSCH PRN PRN Reason: PER HYPOGLYCEMIA PROTOCOL Famotidine (Pepcid) 20 mg PO BID [facility] Last Admin: 08/27/18 09:41 Dose: Not Given Famotidine (Pepcid Pf Inj) 20 mg IV.PUSH Q12HR [facility] Last Admin: 08/27/18 09:38 Dose: 20 mg Glucagon (Glucagon Inj) 1 mg OTHER PRN PRN PRN Reason: for Hypoglycemia Protocol Heparin Sodium (Porcine) (Heparin Inj) 2,500 units IV.PUSH UNSCH PRN PRN Reason: aPTT 25-39 Heparin Sodium (Porcine) (Heparin Inj) 5,000 units IV.PUSH UNSCH PRN PRN Reason: aPTT < 25 Epinephrine HCl 2 mg/ Dextrose 250 mls @ 22.5 mls/hr IV.CONT TITRATE PRN; Protocol PRN Reason: Per Protocol Last Titration: 08/25/18 01:48 Dose: 0 mcg/min, 0 mls/hr Fentanyl (Fentanyl 10 Mcg/Ml Premix Drip) 2,500 mcg in 250 mls @ 5 mls/hr IV.SIG TITRATE PRN; Protocol PRN Reason: Per Protocol Last Admin: 08/27/18 06:27 Dose: 250 mcg/hr, 25 mls/hr Magnesium Sulfate 4 gm/ Sodium (Chloride) 100 mls @ 50 mls/hr IV.SIG UNSCH PRN PRN Reason: For Magnesium 0.9 - 1.1 mg/dL Magnesium Sulfate 2 gm/ Sodium (Chloride) 100 mls @ 50 mls/hr IV.SIG UNSCH PRN PRN Reason: For Magnesium 1.2 - 1.6 mg/dL Last Admin: 08/27/18 06:29 Dose: 50 mls/hr Potassium Chloride (Kcl 40 Meq Premix Inj) 40 meq in 100 mls @ 25 mls/hr IV.SIG Q2H PRN PRN Reason: For Potassium 2.8 - 3.2 mEq/L Last Infusion: 08/26/18 14:23 Dose: Infused Potassium Chloride (Kcl 20 Meq Premix Inj) 20 meq in 100 mls @ 50 mls/hr IV.SIG Q2H PRN PRN Reason: For Potassium 3.3 - 3.5 mEq/L Potassium Chloride (Kcl 40 Meq Premix Inj) 40 meq in 100 mls @ 25 mls/hr IV.SIG UNSCH PRN PRN Reason: For Potassium 3.3 - 3.5 mEq/L Potassium Chloride (Kcl 20 Meq Premix Inj) 20 meq in 100 mls @ 50 mls/hr IV.SIG Q2H PRN PRN Reason: For Potassium 2.8 - 3.2 mEq/L Potassium Phosphate 30 mmol/ (Sodium Chloride) 260 mls @ 42 mls/hr IV.SIG UNSCH PRN PRN Reason: SEE LABEL COMMENTS Sodium Phosphate 30 mmol/ (Sodium Chloride) 260 mls @ 42 mls/hr IV.SIG UNSCH PRN PRN Reason: For Phosphorus < 2.5 mg/dL Propofol (Diprivan 1000 Mg/100 Ml Inj) 1,000 mg in 100 mls @ 3 mls/hr IV.CONT TITRATE PRN; Protocol PRN Reason: Per Protocol Last Titration: 08/26/18 19:00 Dose: 0 mcg/kg/min, 0 mls/hr Aztreonam 1,000 mg/ Sodium (Chloride) 100 mls @ 200 mls/hr IV.SIG Q8H [facility] Stop: 09/01/18 09:59 Last Admin: 08/27/18 09:39 Dose: 200 mls/hr Levofloxacin/Dextrose (Levaquin 750 Mg Premix Inj) 150 mls @ 100 mls/hr IV.SIG Q24H [facility] Stop: 09/01/18 08:59 Last Admin: 08/27/18 09:40 Dose: 100 mls/hr Heparin Sodium/Dextrose (Heparin/D5w 25,000 U/250 Ml) 25,000 unit in 250 mls @ 0 mls/hr IV.CONT TITRATE PRN; Protocol PRN Reason: Per Protocol Last Admin: 08/27/18 04:44 Dose: 600 units/hr, 6 mls/hr Norepinephrine Bitartrate 4 mg (/ Sodium Chloride) 250 mls @ 1.87 mls/hr IV.SIG TITRATE PRN; Protocol PRN Reason: See Protocol Last Admin: 08/27/18 08:39 Dose: 10 mcg/min, 37.5 mls/hr Sodium Bicarbonate 150 meq/ (Sodium Chloride) 1,000 mls @ 50 mls/hr IV.CONT .Q20H [facility] Last Admin: 08/27/18 06:24 Dose: Not Given Midazolam HCl (Versed Inj) 50 mg in 50 mls @ 2 mls/hr IV.CONT TITRATE PRN; Protocol PRN Reason: Per Protocol Last Admin: 08/27/18 04:43 Dose: 4 mg/hr, 4 mls/hr Epoprostenol Sodium 100 ml/ (Miscellaneous Medication) 100 mls @ 5 mls/hr INH Q8H [facility] Last Admin: 08/27/18 06:29 Dose: 5 mls/hr Vasopressin 40 unit/ Sodium (Chloride) 100 mls @ 6 mls/hr IV.CONT CONT [facility]; Protocol Insulin Aspart (Novolog Insulin Correctional Sugar Inj) 0 unit SQ Q6HR [facility]; Protocol Last Admin: 08/27/18 12:42 Dose: Not Given Lactulose (Lactulose Liq) 30 ml PO DAILY PRN PRN Reason: SEVERE CONSITIPATION Levothyroxine Sodium (Synthroid) 25 mcg PO DAILY@0600 [facility] Last Admin: 08/27/18 06:25 Dose: 25 mcg Lorazepam (Ativan Inj) 1 mg IV.PUSH Q1H PRN PRN Reason: SEE LABEL COMMENTS Magnesium Oxide (Mag-Ox) 800 mg PO UNSCH PRN PRN Reason: For Magnesium 1.2 - 1.6 mg/dL Meperidine HCl (Demerol Inj) 25 mg IV.PUSH Q2H PRN PRN Reason: SHIVERING Last Admin: 08/26/18 13:54 Dose: 25 mg Midazolam HCl (Versed Inj) 2 mg IV.PUSH Q15M PRN PRN Reason: SEDATION Miscellaneous (Pill Splitter) 1 each OTHER UNSCH PRN PRN Reason: SEE LABEL COMMENTS Miscellaneous Medication () 1 each OROPHARYNG 0000,0400,1200,1600 [facility] Last Admin: 08/27/18 12:41 Dose: 1 each Morphine Sulfate (Morphine Inj) 2 mg IV.PUSH Q2H PRN PRN Reason: PAIN SCALE 6 TO 10 Ondansetron HCl (Zofran Inj) 4 mg IV.PUSH Q6H PRN PRN Reason: NAUSEA OR VOMITING Potassium Bicarb/Potassium Chloride (K-Lyte Cl Eff) 50 meq PO UNSCH PRN PRN Reason: For Potassium 3.3 - 3.5 mEq/L Potassium Phosphate (K-Phos Original) 2,000 mg PO UNSCH PRN PRN Reason: SEE LABEL COMMENTS Potassium Phosphate (K-Phos Original) 2,000 mg PO Q4H PRN PRN Reason: Phosphorus Less Than 2.5 mg/dL Senna/Docusate Sodium (Lenora-Colace) 1 tab PO BID [facility] Last Admin: 08/27/18 09:38 Dose: 1 tab Sennosides (Senokot) 17.2 mg PO Q12H PRN PRN Reason: Moderate Constipation Sodium Chloride (Ns Flush) 2 ml IV.FLUSH PRN PRN PRN Reason: FLUSH AFTER USING IV ACCESS Sodium Chloride (Ns Flush) 2 ml IV.FLUSH BID [facility] Last Admin: 08/27/18 09:42 Dose: 2 ml Terbutaline Sulfate (Brethine Inj) 1 mg SQ UNSCH PRN PRN Reason: For Extravasation Allergies Allergy/AdvReac Type Severity Reaction Status Date / Time pravastatin Allergy Severe Unverified 06/29/17 16:39 tetanus toxoid, adsorbed Allergy Severe Unverified 06/29/17 16:39 CRESTOR Allergy Severe Uncoded 01/12/12 07:54 Home Medications Medication Instructions Recorded Confirmed Type Aspir-81 81 mg PO DAILY 08/25/18 08/25/18 History Co Q-10 08/25/18 History allopurinol 100 mg PO DAILY 08/25/18 08/25/18 History amlodipine 10 mg PO DAILY 08/25/18 08/25/18 History atorvastatin 20 mg PO HS 08/25/18 08/25/18 History citalopram 10 mg PO DAILY 08/25/18 08/25/18 History cyanocobalamin-cobamamide [B12] 08/25/18 History insulin aspart U-100 [Novolog 5 unit SUBCUT PRN PRN 08/25/18 08/25/18 History U-100 Insulin aspart] insulin aspart U-100 [Novolog 15 unit SUBCUT TIDAC 08/25/18 08/25/18 History U-100 Insulin aspart] insulin degludec [Tresiba 45 unit SUBCUT HS 08/25/18 08/25/18 History FlexTouch U-100] isosorbide mononitrate 30 mg PO DAILY 08/25/18 08/25/18 History levothyroxine 25 mcg PO DAILY 08/25/18 08/25/18 History lisinopril 20 mg PO BID 08/25/18 08/25/18 History losartan 100 mg PO DAILY 08/25/18 08/25/18 History metformin 1,000 mg PO BID 08/25/18 08/25/18 History metoprolol succinate 25 mg PO DAILY 08/25/18 08/25/18 History multivitamin [Multiple Vitamins] 1 tab PO DAILY 08/25/18 08/25/18 History nitroglycerin [Nitrostat] 0.4 mg SUBLINGUAL Q5-15M PRN 08/25/18 08/25/18 History omeprazole 20 mg PO DAILY 08/25/18 08/25/18 History insulin aspart U-100 [Novolog 08/26/18 08/26/18 History U-100 Insulin aspart] metformin 1,000 mg PO BID 08/26/18 08/26/18 History Physical Exam Vital signs: Vital Signs 08/26/18 16:00 08/26/18 17:33 08/26/18 19:00 Temperature 98.4 F Pulse Rate 98 H 98 H Respiratory Rate 11 L 21 Blood Pressure 136/69 Pulse Oximetry 97 86 L 08/26/18 20:00 08/26/18 20:26 08/26/18 23:00 Temperature 98.4 F Pulse Rate 98 H 75 Respiratory Rate 26 H 9 L Blood Pressure 129/71 Pulse Oximetry 99 100 08/27/18 00:00 08/27/18 02:10 08/27/18 03:00 Temperature 98.6 F Pulse Rate 75 79 Respiratory Rate 10 L 9 L Blood Pressure 147/76 H Pulse Oximetry 100 100 08/27/18 04:00 08/27/18 04:21 08/27/18 07:00 Temperature 98.6 F Pulse Rate 77 85 Respiratory Rate 9 L 10 L Blood Pressure 142/74 H Pulse Oximetry 97 98 08/27/18 08:00 08/27/18 09:00 08/27/18 11:00 Temperature 98.6 F Pulse Rate 80 81 Respiratory Rate 9 L 9 L Blood Pressure 117/67 114/64 Pulse Oximetry 100 100 08/27/18 12:00 08/27/18 14:40 Temperature Pulse Rate 66 Respiratory Rate 9 L Blood Pressure 142/78 H Pulse Oximetry 100 Intake & Output 08/26/18 08/27/18 08/27/18 18:59 06:59 18:59 Intake Total 4792 / 4792 1450 / 1450 230 / 230 Output Total 200 / 200 295 / 295 Balance 4592 / 4592 1155 / 1155 230 / 230 Weight 108 kg Intake: IV 4792 / 4792 1450 / 1450 230 / 230 Flolan (30,000 ng/mL) Neb 100 100 / 100 ML In Bag/Syringe 1 EACH @ 5 mls/hr INH Q8H [facility] Rx#:[id number] Nimbex Inj 100 MG In NS Inj 240 208 / 208 ML @ 3.3 MCG/KG/MIN 49.5 mls/ hr IV.CONT CONT PRN Rx#: [id number] NovoLIN R (IV Infusion) 100 100 / 100 UNIT In NS Inj 99 ML @ Per Protocol IV.CONT TITRATE PRN Rx #:[id number] Versed Inj 50 mg In 50 ml @ 2 50 / 50 MG/HR 2 mls/hr IV.CONT TITRATE PRN Rx#:[id number] Diprivan 1000 mg/100 ml Inj 1, 100 / 100 000 mg In 100 ml @ 5 MCG/KG/MIN 3 mls/hr IV.CONT TITRATE PRN Rx#:[id number] Sodium Bicarbonate 8.4% Inj 150 1084 / 1084 100 / 100 MEQ In NS Inj 850 ML @ 84 mls/ hr IV.CONT .[id number] [facility] Rx#: [id number] 1/2 Normal Saline Inj 1,000 ML 500 / 500 @ 84 mls/hr IV.CONT .[id number] [facility] Rx#:[id number] Azactam Inj 1,000 MG In NS Inj 100 / 100 200 / 200 100 ML @ 200 mls/hr IV.SIG Q8H [facility] Rx#:[id number] Calcium Chloride Inj 1 GM In NS 110 / 110 Inj 100 ML @ 110 mls/hr IV.SIG ONCE ONE Rx#:[id number] Calcium Gluconate Inj 2 GM In 120 / 120 NS Inj 100 ML @ 120 mls/hr IV. SIG ONCE ONE Rx#:[id number] Levaquin 750 mg Premix Inj 150 150 / 150 ML @ 100 mls/hr IV.SIG Q24H [facility] Rx#:[id number] Levophed Inj 4 MG In NS Inj 246 250 / 250 520 / 520 230 / 230 ML @ 0.5 MCG/MIN 1.87 mls/hr IV.SIG TITRATE PRN Rx#:[id number] KCl 40 mEq Premix Inj 40 meq In 50 / 50 100 ml @ 25 mls/hr IV.SIG Q2H PRN Rx#:[id number] NS Inj 1,000 ML @ Wide Open IV. 1999 SIG BOLUS ONE Rx#:[id number] fentaNYL 10 mcg/mL Premix Drip 250 / 250 250 / 250 2,500 mcg In 250 ml @ 50 MCG/HR 5 mls/hr IV.SIG TITRATE PRN Rx #:[id number] Output: Urine Amount (Catheter) 200 / 200 295 / 295 Indwelling Temp Sensing 200 / 200 295 / 295 Catheter Narrative: GENERAL: Face swollen SKIN: Warm and dry. HEAD: Atraumatic. Normocephalic. EYES: Pupils equal and round. No scleral icterus. No injection or drainage. ENT: No nasal bleeding or discharge. Mucous membranes pink and moist. NECK: Trachea midline. No JVD. ETT in place CARDIOVASCULAR: Regular rate and rhythm. RESPIRATORY: No accessory muscle use. Decreased breath sounds bilaterally GASTROINTESTINAL: Abdomen soft, non-tender, nondistended. Hepatic and splenic margins not palpable. MUSCULOSKELETAL: Extremities without clubbing, cyanosis, or edema. No obvious deformities. NEUROLOGICAL: Intubated - Urinary Catheter Management Indwelling Urethral Catheter Cath placed during this visit: yes, but has since been removed by the nurse Reason for continuing: Continue criteria not met Insertion date: 08/24/18 Insertion time: 19:46 Removal date: 08/24/18 Removal time: 20:30 Indwelling Temp Sensing Catheter Cath placed during this visit: yes Reason for continuing: Hourly intake/output Insertion date: 08/24/18 Insertion time: 20:30 Results 08/27/18 04:30 08/27/18 04:30 Cardiac Enzymes 08/25/18 08/25/18 08/26/18 Range/Units 15:30 22:10 02:10 AST (15-37) U/L Troponin I 9.69 H* 8.34 H* 6.58 H* (0.02-0.05) ng/mL 08/27/18 Range/Units 04:30 AST 172 H (15-37) U/L Troponin I (0.02-0.05) ng/mL Coagulation 08/25/18 08/25/18 08/26/18 Range/Units 15:30 23:25 02:10 PT 11.4 (9.8-11.6) sec APTT 29.3 211.7 H* D 61.3 H D (24.3-30.1) sec 08/26/18 08/26/18 08/27/18 Range/Units 09:10 15:23 04:30 PT 12.5 H (9.8-11.6) sec APTT 51.1 H 49.3 H (24.3-30.1) sec 08/27/18 Range/Units 04:30 PT (9.8-11.6) sec APTT 51.3 H (24.3-30.1) sec CBC 08/26/18 08/27/18 Range/Units 09:10 04:30 WBC 12.8 H 15.7 H (4.0-11.0) th/mm3 RBC 3.87 L 3.64 L (4.50-5.90) mil/mm3 Hgb 12.4 L 11.5 L (13.0-17.0) gm/dL Hct 35.7 L 34.4 L (39.0-51.0) % Plt Count 158 154 (150-450) th/mm3 Neut # (Auto) 10.9 H 13.7 H (1.8-7.7) th/mm3 Lymph # (Auto) 1.2 0.9 L (1.0-4.8) th/mm3 [place] # (Auto) 0.6 1.1 H (0.0-0.9) th/mm3 Eos # (Auto) 0.0 0.0 (0.0-0.4) th/mm3 Baso # (Auto) 0.0 0.0 (0.0-0.2) th/mm3 Comprehensive Metabolic Panel 08/25/18 08/25/18 08/26/18 Range/Units 15:30 22:10 09:10 Sodium 140 141 148 H (136-145) meq/L Potassium 4.6 3.2 L D 2.9 L* (3.5-5.1) meq/L Chloride 107 111 H 113 H (98-107) meq/L Carbon Dioxide 16.9 L 17.3 L 21.6 (21.0-32.0) meq/L BUN 17 16 15 (7-18) mg/dL Creatinine 1.23 1.05 0.94 (0.60-1.30) mg/dL Calcium 7.2 L* 7.6 L 7.2 L* (8.5-10.1) mg/dL AST (15-37) U/L ALT (12-78) U/L Alkaline Phosphatase (45-117) U/L Total Protein 5.7 L 5.2 L (6.4-8.2) g/dL Albumin (3.4-5.0) g/dL 08/27/18 Range/Units 04:30 Sodium 150 H (136-145) meq/L Potassium 4.5 D (3.5-5.1) meq/L Chloride 114 H (98-107) meq/L Carbon Dioxide 25.9 (21.0-32.0) meq/L BUN 21 H (7-18) mg/dL Creatinine 1.46 H (0.60-1.30) mg/dL Calcium 7.5 L (8.5-10.1) mg/dL AST 172 H (15-37) U/L ALT 81 H (12-78) U/L Alkaline Phosphatase 57 (45-117) U/L Total Protein 5.4 L (6.4-8.2) g/dL Albumin 2.2 L (3.4-5.0) g/dL Intake and Output 08/27/18 08/27/18 08/27/18 06:59 14:59 22:59 Intake Total 980 / 980 230 / 230 Output Total 295 / 295 Balance 685 / 685 230 / 230 Intake: IV 980 / 980 230 / 230 Flolan (30,000 ng/mL) Neb 100 100 / 100 ML In Bag/Syringe 1 EACH @ 5 mls/hr INH Q8H [facility] Rx#:[id number] Versed Inj 50 mg In 50 ml @ 2 50 / 50 MG/HR 2 mls/hr IV.CONT TITRATE PRN Rx#:[id number] Sodium Bicarbonate 8.4% Inj 150 100 / 100 MEQ In NS Inj 850 ML @ 84 mls/ hr IV.CONT .[id number] [facility] Rx#: [id number] Azactam Inj 1,000 MG In NS Inj 100 / 100 100 ML @ 200 mls/hr IV.SIG Q8H [facility] Rx#:[id number] Calcium Chloride Inj 1 GM In NS 110 / 110 Inj 100 ML @ 110 mls/hr IV.SIG ONCE ONE Rx#:[id number] Levophed Inj 4 MG In NS Inj 246 270 / 270 230 / 230 ML @ 0.5 MCG/MIN 1.87 mls/hr IV.SIG TITRATE PRN Rx#:[id number] fentaNYL 10 mcg/mL Premix Drip 250 / 250 2,500 mcg In 250 ml @ 50 MCG/HR 5 mls/hr IV.SIG TITRATE PRN Rx #:[id number] Output: Urine Amount (Catheter) 295 / 295 Indwelling Temp Sensing 295 / 295 Catheter Other: Weight 108 kg - Imaging and Cardiology Imaging: Impressions Chest X-Ray 08/26/18 11:39 CONCLUSION: Resolution of the airspace disease involving the right lung. Interstitial prominence throughout both lungs is new and could relate to interstitial edema. Assessment and Plan - Assessment (1) PEA (Pulseless electrical activity) Code(s): I46.9 - Cardiac arrest, cause unspecified Status: Acute (2) NSTEMI (non-ST elevated myocardial infarction) Code(s): I21.4 - Non-ST elevation (NSTEMI) myocardial infarction Status: Acute (3) Cardiac arrest Code(s): I46.9 - Cardiac arrest, cause unspecified Status: Acute - Plan 1) Cardiac arrest x2 Appears to be PEA, but received Amiodarone at some point without documentation of VT/Vfib Downtime 15-30 mins 2) NSTEMI Most likely Type 2 Does have a history of CAD with stents EKG showing no acute pathology 3) Will await neurologic recovery before deciding how to proceed from cardiology standpoint 4) Supportive care
--- NOTE | 2018-08-27 19:59 | MG ---
cc: Wanda Jones MD EEG NUMBER: [id number]. REFERRING PHYSICIAN: [place] [id number]. INDICATION: Intubated with photic done. Versed and fentanyl turned off at 11:35, intubated, unresponsive status post cool shivering. The patient paralyzed for EEG, no stimulation was done. CT showed extensive low density throughout the cerebral white matter related to small vessel disease, status post cardiac arrest x3 possibly down for 15 minutes or less, history of heart stent, diabetes, heart disease. DESCRIPTION OF RECORD: The patient is biting the ET tube. There is a lot of artifact, difficult to truly tell if there is slowing of the background. EKG is totally artifactual as well. At times, there is some slowing, but there is ongoing shivering muscle artifact. Nurse at epoch 88 gave paralytic. After the paralytic was given, the background remained very low-amplitude predominantly of delta frequency, minimal, if at all. There is really no change with any photic stimulation. IMPRESSION: Abnormal EEG due to diffuse slowing of the background consistent with severe encephalopathy without any epileptiform features. Clinical correlation. Wanda Jones MD DF/ct , 07:13 PM , 07:19 PM
[2018-08-28] MEDS: Insulin NovoLOG Aspart Correctional Sugar Inj SQ SCH ×5 (02:20→23:36)
[2018-08-28] MEDS: Oral Hygiene Kit OROPHARYNG SCH ×5 (02:20→23:30)
[2018-08-28] MEDS: EPOPROSTENOL INH SCH ×3 (03:11→20:49)
[2018-08-28 05:53] LABS: Baso % (Auto) 0.1 % (0.0-2.0); Hematocrit 32.6 % (39.0-51.0); Hemoglobin 11.2 gm/dL (13.0-17.0); Lymph # (Auto) 0.9 th/mm3 (1.0-4.8); Lymph % (Auto) 7.5 % (9.0-44.0); Mean Corpuscular HGB Conc 34.3 % (32.0-36.0); Mean Corpuscular Hemoglobin 32.5 pg (27.0-34.0); Mean Corpuscular Volume 94.7 fL (80.0-100.0); Mean Platelet Volume 8.9 fL (7.0-11.0); Mono # (Auto) 0.7 th/mm3 (0.0-0.9); Mono % (Auto) 6.1 % (0.0-8.0); Neut # (Auto) 10.5 th/mm3 (1.8-7.7); Neut % (Auto) 86.3 % (16.0-70.0); Platelet Count 121 th/mm3 (150-450); Red Blood Count 3.44 mil/mm3 (4.50-5.90); Red Cell Distribution Width 14.8 % (11.6-17.2); White Blood Count 12.2 th/mm3 (4.0-11.0)
[2018-08-28 06:04] LABS: INR 1.2 Ratio
[2018-08-28 06:15] LABS: Alanine Aminotransferase 84 U/L (12-78); Albumin 2.2 g/dL (3.4-5.0); Alkaline Phosphatase 64 U/L (45-117); Anion Gap 6 meq/L (5-15); Aspartate Aminotransferase 177 U/L (15-37); Blood Urea Nitrogen 35 mg/dL (7-18); Calcium 8.3 mg/dL (8.5-10.1); Carbon Dioxide 32.1 meq/L (21.0-32.0); Chloride 113 meq/L (98-107); Glomerular Filtration Rate 51 mL/min (>89); Glucose,Random 88 mg/dL (74-106); Magnesium 2.4 mg/dL (1.5-2.5); Phosphorus 3.5 mg/dL (2.5-4.9); Potassium 4.9 meq/L (3.5-5.1); Sodium 151 meq/L (136-145); Total Protein 5.9 g/dL (6.4-8.2)
[2018-08-28] MEDS: Chlorhexidine Gluconate 2% 1 Pack (2 Cloths) TOPICAL SCH (06:19)
[2018-08-28] MEDS: Chlorhexidine 0.12% Oral Kit 15 ML UDC OROPHARYNG SCH ×2 (08:00→20:31)
[2018-08-28] MEDS: Senna/Docusate Sodium 8.6/50 MG Tablet PO SCH ×2 (08:38→20:32)
[2018-08-28] MEDS: Citalopram 20 MG Tablet PO SCH (08:38)
[2018-08-28] MEDS: Famotidine PF Inj 20 MG/2 ML Vial IV.PUSH SCH ×2 (08:39→20:32)
[2018-08-28] MEDS: Famotidine 20 MG Tablet PO SCH ×2 (08:40→20:32)
[2018-08-28] MEDS: Sodium Bicarbonate 8.4% Inj 150 MEQ in Sod Chloride 0.9% Inj 850 ML IV.CONT SCH (12:27)
--- NOTE | 2018-08-28 14:19 | P.PNCC ---
Subjective Subjective Remarks/Hospital Course: 72-year-old male, past medical history significant for diabetes and coronary artery disease with 3 previous stents, who is presented post cardiac arrest. Per EMS and family he was doing work around the house when he stated that he did not feel right and thought something was off with his blood sugar. He then went to go sit down and when his turned around he was slumping over. She then called 911. On EMS arrival he was unresponsive pulseless and apneic. They began CPR. They temporarily achieved ROSC in the field prior to him coding again. They obtained ROSC again right before arrival. In total they gave 3 mg of epinephrine, 2 A of bicarbonate, 300 mg of amiodarone. EMS does not believe that he was without a pulse for more than 15 minutes at any time. He lost pulses again on arrival here. Again he was successfully resuscitated with return of spontaneous circulation within 15 minutes. 08/25: Patient admitted to CVICU, on targeted temperature management. 08/26: No significant overnight events, decreased UO this morning. Now being rewarmed. 08/27: Called to bedside by RN yesterday for facial swelling, CXR showed no evidence of PTX or subcut emphysema, CT scans ordered but was delayed by over 7 hours due to multiple trauma and stroke alerts taking priority in CT scan. When the patient was being prepared to move to CT around 6:30 PM, he became hypoxic to the high 80s and was too unstable for scan. He required increase in his bilevel settings and was started on flolan. This morning, he is stable, O2 sats 100% on current settings with much improved ABG. 08/28: Patient has been off pressors since yesterday afternoon, off all sedation x 24+ hours but still unresponsive. Only had a weak cough reflex. EEG negative for seizures. Objective Vital Signs / I&O: Vital Signs 08/27/18 14:40 08/27/18 15:00 08/27/18 16:00 Temperature 98.2 F Pulse Rate 76 79 Respiratory Rate 9 L 9 L Blood Pressure 143/80 H 150/69 H Pulse Oximetry 100 100 08/27/18 16:50 08/27/18 17:11 08/27/18 19:00 Temperature 98.6 F Pulse Rate 88 Respiratory Rate 9 L Blood Pressure Pulse Oximetry 98 08/27/18 20:00 08/27/18 20:43 08/27/18 23:00 Temperature 99.1 F 99.1 F Pulse Rate 88 81 Respiratory Rate 9 L 9 L 10 L Blood Pressure 135/78 120/75 Pulse Oximetry 99 99 98 08/28/18 00:00 08/28/18 00:41 08/28/18 03:00 Temperature 99.1 F Pulse Rate 90 90 Respiratory Rate 9 L 9 L Blood Pressure 158/83 H 134/73 Pulse Oximetry 99 98 08/28/18 04:00 08/28/18 04:28 08/28/18 07:00 Temperature 98.6 F Pulse Rate 90 81 Respiratory Rate 10 L 9 L Blood Pressure 136/69 102/64 Pulse Oximetry 98 08/28/18 08:00 08/28/18 10:12 08/28/18 11:00 Temperature 98.2 F Pulse Rate 78 74 Respiratory Rate 9 L 9 L Blood Pressure 133/70 141/77 H Pulse Oximetry 99 08/28/18 12:00 08/28/18 13:24 Temperature Pulse Rate 75 Respiratory Rate 9 L Blood Pressure 126/78 Pulse Oximetry 100 Intake & Output 08/27/18 08/28/18 08/28/18 18:59 06:59 18:59 Intake Total 1801 / 1801 465 / 465 1329 / 1329 Output Total 400 / 400 495 / 495 Balance 1401 / 1401 -30 / -30 1329 / 1329 Weight 118 kg Intake: IV 1185 / 1185 115 / 115 1329 / 1329 Flolan (30,000 ng/mL) Neb 100 100 / 100 100 / 100 ML In Bag/Syringe 1 EACH @ 5 mls/hr INH Q8H [facility] Rx#:[id number] EPINEPHrine (1:1000) Inj 2 MG 0 / 0 0 / 0 In D5W Inj 248 ML @ 3 MCG/MIN 22.5 mls/hr IV.CONT TITRATE PRN Rx#:[id number] Heparin/D5W 25,000 U/250 mL 25, 72 / 72 000 unit In 250 ml @ Per Protocol IV.CONT TITRATE PRN Rx #:[id number] NovoLIN R (IV Infusion) 100 97 / 97 UNIT In NS Inj 99 ML @ Per Protocol IV.CONT TITRATE PRN Rx #:[id number] Versed Inj 50 mg In 50 ml @ 2 25 / 25 0 / 0 MG/HR 2 mls/hr IV.CONT TITRATE PRN Rx#:[id number] Diprivan 1000 mg/100 ml Inj 1, 0 / 0 0 / 0 000 mg In 100 ml @ 5 MCG/KG/MIN 3 mls/hr IV.CONT TITRATE PRN Rx#:[id number] Sodium Bicarbonate 8.4% Inj 150 21 / 21 979 / 979 MEQ In NS Inj 850 ML @ 50 mls/ hr IV.CONT .Q20H [facility] Rx#: [id number] Azactam Inj 1,000 MG In NS Inj 200 / 200 115 / 115 100 / 100 100 ML @ 200 mls/hr IV.SIG Q8H [facility] Rx#:[id number] Levaquin 750 mg Premix Inj 150 150 / 150 150 / 150 ML @ 100 mls/hr IV.SIG Q24H [facility] Rx#:[id number] Magnesium Sulfate Inj 2 GM In 100 / 100 NS Inj 96 ML @ 50 mls/hr IV.SIG UNSCH PRN Rx#:[id number] Levophed Inj 4 MG In NS Inj 246 380 / 380 0 / 0 ML @ 0.5 MCG/MIN 1.87 mls/hr IV.SIG TITRATE PRN Rx#:[id number] fentaNYL 10 mcg/mL Premix Drip 40 / 40 0 / 0 2,500 mcg In 250 ml @ 50 MCG/HR 5 mls/hr IV.SIG TITRATE PRN Rx #:[id number] Tube Feeding 206 / 206 330 / 330 Tube Irrigant 50 / 50 20 / 20 Other 360 / 360 Output: Urine 495 / 495 Urine Amount (Catheter) 400 / 400 Indwelling Temp Sensing 400 / 400 Catheter Other: Other Intake Source Saline Solution # Bowel Movements 0 Result Diagrams: 08/28/18 04:50 08/28/18 04:50 Objective Remarks: GEN: Elderly male lying in bed, intubated and sedated HEENT: NCAT, ETT in place NECK: Trachea midline CARDIO: Regular rate and rhythm RESP: Diminished breath sounds bilaterally, on bilevel settings on vent ABD/GI: Soft, non-distended EXT/MS: No peripheral edema, R femoral lines present SKIN: Anasarca, fluid-filled blisters developing on upper extremities and trunk NEURO: GCS 3T, no corneal reflex, weak cough reflex PSYCH: Unable to assess Assessment and Plan - Assessment and Plan Plan: 72yM presenting with cardiac arrest x 2, unclear rhythm by EMS/ ED reports, now with ROSC s/p targeted temperature management. Estimated downtime 30 minutes total (15 per arrest). NEURO: -Now off sedation, still unresponsive -EEG negative for seizures -Will need repeat [employer] imaging (CT +/- MRI) when stable enough for transport ( i.e., on conventional vent settings) CARDIO: -2D echo showed EF 65-70%, PAP 37 -Off pressors -Awaiting neurologic recovery before planning ischemic workup PULM: -Acute hypoxic respiratory failure secondary to cardiac arrest -CXR/ CT chest consistent with ARDS vs pneumonia * Continue aztreonam/ levaquin x 7 days, can be extended if needed * No PE noted on CTA -Continue flolan, wean bilevel to T low 0.8, 32/0 -Vent bundle -Duonebs as needed -Repeat GEM this afternoon F/E/N: -TFs at goal -Keep K+ > 4.0, Mg > 2.0 RENAL: -BUN/ creatinine stable, UO stable -D/C bicarb -Diurese ID: -Aztreonam/ levaquin for ICU- CAP as detailed above -Follow up cultures ENDO: -SSI, Accuchecks -Continue home dose of Synthroid PROPHY: -SCDs, SQH -PPI OVERALL: This patient is critically ill with multiple episodes of cardiac arrest. He requires intensive care and remains at high-risk for life- threatening decompensation. Counseling/ Coordination of Care: Total critical care time: 42 minutes. This includes examining the patient, gathering history from someone other than the patient (i.e., chart review), discussing the patient's care with other providers, managing the patient's blood pressure and ventilator settings, ordering and interpreting radiology studies, ordering and interpreting laboratory studies, managing the patient's pain and sedation requirements, re-evaluation at frequent intervals, and documentation. All critical care time is separate and exclusive of procedures, teaching, and patient/ family updates. To help prompt me to consider important information that might be impacting today's encounter and assessment, information from prior notes written by myself or my colleagues may have been "brought forward" into today's note. My signature on this note, however, is an attestation that I personally performed the exam, history, and/or decision-making noted today, and, unless otherwise indicated, the interactions with patient, family, and staff as well as the review of records all occurred today. I also attest that the listed assessment and stated plan reflect my best clinical judgment today based on the combination of historical information, prior notes, and today's exam/ interactions. Code Status: Full
--- NOTE | 2018-08-28 14:55 | P.PNCA ---
Subjective Interval history: No changes overnight Medications and Allergies Active Medications: Active Medications Acetaminophen (Tylenol) 650 mg PO Q6H PRN PRN Reason: PAIN 1-10 AND/OR FEVER >101F Al Hydroxide/Mg Hydroxide (Milk Of Ziggy [place]) 30 ml PO Q12H PRN PRN Reason: Mild Constipation Albuterol (Duoneb Neb (Prn)) 1 ampul NEB Q2HR NEB PRN PRN Reason: WHEEZING Last Admin: 08/24/18 22:54 Dose: 1 ampul Atropine Sulfate (Atropine Inj) 0.5 mg IV.PUSH Q5M PRN PRN Reason: SYMPTOMATIC BRADYCARDIA Bisacodyl (Dulcolax Supp) 10 mg RECTAL DAILY PRN PRN Reason: SEVERE CONSITIPATION Buspirone HCl (Buspar) 15 mg NG/OG BID PRN PRN Reason: SHIVERING Last Admin: 08/27/18 20:42 Dose: 15 mg Chlorhexidine Gluconate (Chlorhexidine 2% Cloth) 3 pack TOPICAL DAILY@0400 [facility] Stop: 08/30/18 03:59 Last Admin: 08/28/18 06:19 Dose: 3 pack Chlorhexidine Gluconate (Chlorhexidine 2% Cloth) 3 pack TOPICAL DAILY@0400 PRN PRN Reason: Extra cloth needed Stop: 08/30/18 03:59 Chlorhexidine Gluconate (Peridex 0.12% Oral Kit) 15 ml OROPHARYNG BID@0800, 2000 [facility] Last Admin: 08/28/18 08:00 Dose: 15 ml Citalopram Hydrobromide (Celexa) 10 mg PO DAILY [facility] Last Admin: 08/28/18 08:38 Dose: 10 mg Dextrose (D50w Vial) 50 ml IV.PUSH UNSCH PRN PRN Reason: PER HYPOGLYCEMIA PROTOCOL Famotidine (Pepcid) 20 mg PO BID [facility] Last Admin: 08/28/18 08:40 Dose: Not Given Famotidine (Pepcid Pf Inj) 20 mg IV.PUSH Q12HR [facility] Last Admin: 08/28/18 08:39 Dose: 20 mg Glucagon (Glucagon Inj) 1 mg OTHER PRN PRN PRN Reason: for Hypoglycemia Protocol Heparin Sodium (Porcine) (Heparin Inj) 2,500 units IV.PUSH UNSCH PRN PRN Reason: aPTT 25-39 Heparin Sodium (Porcine) (Heparin Inj) 5,000 units IV.PUSH UNSCH PRN PRN Reason: aPTT < 25 Fentanyl (Fentanyl 10 Mcg/Ml Premix Drip) 2,500 mcg in 250 mls @ 5 mls/hr IV.SIG TITRATE PRN; Protocol PRN Reason: Per Protocol Last Titration: 08/28/18 00:10 Dose: Infused Magnesium Sulfate 4 gm/ Sodium (Chloride) 100 mls @ 50 mls/hr IV.SIG UNSCH PRN PRN Reason: For Magnesium 0.9 - 1.1 mg/dL Magnesium Sulfate 2 gm/ Sodium (Chloride) 100 mls @ 50 mls/hr IV.SIG UNSCH PRN PRN Reason: For Magnesium 1.2 - 1.6 mg/dL Last Infusion: 08/27/18 16:23 Dose: Infused Potassium Chloride (Kcl 40 Meq Premix Inj) 40 meq in 100 mls @ 25 mls/hr IV.SIG Q2H PRN PRN Reason: For Potassium 2.8 - 3.2 mEq/L Last Infusion: 08/26/18 14:23 Dose: Infused Potassium Chloride (Kcl 20 Meq Premix Inj) 20 meq in 100 mls @ 50 mls/hr IV.SIG Q2H PRN PRN Reason: For Potassium 3.3 - 3.5 mEq/L Potassium Chloride (Kcl 40 Meq Premix Inj) 40 meq in 100 mls @ 25 mls/hr IV.SIG UNSCH PRN PRN Reason: For Potassium 3.3 - 3.5 mEq/L Potassium Chloride (Kcl 20 Meq Premix Inj) 20 meq in 100 mls @ 50 mls/hr IV.SIG Q2H PRN PRN Reason: For Potassium 2.8 - 3.2 mEq/L Potassium Phosphate 30 mmol/ (Sodium Chloride) 260 mls @ 42 mls/hr IV.SIG UNSCH PRN PRN Reason: SEE LABEL COMMENTS Sodium Phosphate 30 mmol/ (Sodium Chloride) 260 mls @ 42 mls/hr IV.SIG UNSCH PRN PRN Reason: For Phosphorus < 2.5 mg/dL Aztreonam 1,000 mg/ Sodium (Chloride) 100 mls @ 200 mls/hr IV.SIG Q8H [facility] Stop: 09/01/18 09:59 Last Infusion: 08/28/18 11:54 Dose: Infused Levofloxacin/Dextrose (Levaquin 750 Mg Premix Inj) 150 mls @ 100 mls/hr IV.SIG Q24H [facility] Stop: 09/01/18 08:59 Last Infusion: 08/28/18 11:54 Dose: Infused Heparin Sodium/Dextrose (Heparin/D5w 25,000 U/250 Ml) 25,000 unit in 250 mls @ 0 mls/hr IV.CONT TITRATE PRN; Protocol PRN Reason: Per Protocol Last Titration: 08/28/18 00:10 Dose: 600 units/hr, 6 mls/hr Midazolam HCl (Versed Inj) 50 mg in 50 mls @ 2 mls/hr IV.CONT TITRATE PRN; Protocol PRN Reason: Per Protocol Last Titration: 08/28/18 00:10 Dose: Infused Epoprostenol Sodium 100 ml/ (Miscellaneous Medication) 100 mls @ 5 mls/hr INH Q8H [facility] Last Admin: 08/28/18 12:06 Dose: 8 mls/hr Insulin Aspart (Novolog Insulin Correctional Sugar Inj) 0 unit SQ Q6HR [facility]; Protocol Last Admin: 08/28/18 12:28 Dose: Not Given Lactulose (Lactulose Liq) 30 ml PO DAILY PRN PRN Reason: SEVERE CONSITIPATION Levothyroxine Sodium (Synthroid) 25 mcg PO DAILY@0600 [facility] Last Admin: 08/28/18 06:45 Dose: 25 mcg Lorazepam (Ativan Inj) 1 mg IV.PUSH Q1H PRN PRN Reason: SEE LABEL COMMENTS Magnesium Oxide (Mag-Ox) 800 mg PO UNSCH PRN PRN Reason: For Magnesium 1.2 - 1.6 mg/dL Meperidine HCl (Demerol Inj) 25 mg IV.PUSH Q2H PRN PRN Reason: SHIVERING Last Admin: 08/27/18 20:41 Dose: 25 mg Miscellaneous (Pill Splitter) 1 each OTHER UNSCH PRN PRN Reason: SEE LABEL COMMENTS Miscellaneous Medication () 1 each OROPHARYNG 0000,0400,1200,1600 [facility] Last Admin: 08/28/18 12:29 Dose: 1 each Morphine Sulfate (Morphine Inj) 2 mg IV.PUSH Q2H PRN PRN Reason: PAIN SCALE 6 TO 10 Ondansetron HCl (Zofran Inj) 4 mg IV.PUSH Q6H PRN PRN Reason: NAUSEA OR VOMITING Potassium Bicarb/Potassium Chloride (K-Lyte Cl Eff) 50 meq PO UNSCH PRN PRN Reason: For Potassium 3.3 - 3.5 mEq/L Potassium Phosphate (K-Phos Original) 2,000 mg PO UNSCH PRN PRN Reason: SEE LABEL COMMENTS Potassium Phosphate (K-Phos Original) 2,000 mg PO Q4H PRN PRN Reason: Phosphorus Less Than 2.5 mg/dL Senna/Docusate Sodium (Lenora-Colace) 1 tab PO BID [facility] Last Admin: 08/28/18 08:38 Dose: 1 tab Sennosides (Senokot) 17.2 mg PO Q12H PRN PRN Reason: Moderate Constipation Sodium Chloride (Ns Flush) 2 ml IV.FLUSH PRN PRN PRN Reason: FLUSH AFTER USING IV ACCESS Sodium Chloride (Ns Flush) 2 ml IV.FLUSH BID [facility] Last Admin: 08/28/18 08:40 Dose: 2 ml Allergies Allergy/AdvReac Type Severity Reaction Status Date / Time pravastatin Allergy Severe Unverified 06/29/17 16:39 tetanus toxoid, adsorbed Allergy Severe Unverified 06/29/17 16:39 CRESTOR Allergy Severe Uncoded 01/12/12 07:54 Home Medications Medication Instructions Recorded Confirmed Type Aspir-81 81 mg PO DAILY 08/25/18 08/25/18 History Co Q-10 08/25/18 History allopurinol 100 mg PO DAILY 08/25/18 08/25/18 History amlodipine 10 mg PO DAILY 08/25/18 08/25/18 History atorvastatin 20 mg PO HS 08/25/18 08/25/18 History citalopram 10 mg PO DAILY 08/25/18 08/25/18 History cyanocobalamin-cobamamide [B12] 08/25/18 History insulin aspart U-100 [Novolog 5 unit SUBCUT PRN PRN 08/25/18 08/25/18 History U-100 Insulin aspart] insulin aspart U-100 [Novolog 15 unit SUBCUT TIDAC 08/25/18 08/25/18 History U-100 Insulin aspart] insulin degludec [Tresiba 45 unit SUBCUT HS 08/25/18 08/25/18 History FlexTouch U-100] isosorbide mononitrate 30 mg PO DAILY 08/25/18 08/25/18 History levothyroxine 25 mcg PO DAILY 08/25/18 08/25/18 History lisinopril 20 mg PO BID 08/25/18 08/25/18 History losartan 100 mg PO DAILY 08/25/18 08/25/18 History metformin 1,000 mg PO BID 08/25/18 08/25/18 History metoprolol succinate 25 mg PO DAILY 08/25/18 08/25/18 History multivitamin [Multiple Vitamins] 1 tab PO DAILY 08/25/18 08/25/18 History nitroglycerin [Nitrostat] 0.4 mg SUBLINGUAL Q5-15M PRN 08/25/18 08/25/18 History omeprazole 20 mg PO DAILY 08/25/18 08/25/18 History insulin aspart U-100 [Novolog 08/26/18 08/26/18 History U-100 Insulin aspart] metformin 1,000 mg PO BID 08/26/18 08/26/18 History Physical Exam Vital signs: Vital Signs 08/27/18 15:00 08/27/18 16:00 08/27/18 16:50 Temperature 98.2 F Pulse Rate 76 79 Respiratory Rate 9 L 9 L Blood Pressure 143/80 H 150/69 H Pulse Oximetry 100 98 08/27/18 17:11 08/27/18 19:00 08/27/18 20:00 Temperature 98.6 F 99.1 F Pulse Rate 88 88 Respiratory Rate 9 L Blood Pressure 135/78 Pulse Oximetry 99 08/27/18 20:43 08/27/18 23:00 08/28/18 00:00 Temperature 99.1 F Pulse Rate 81 90 Respiratory Rate 9 L 10 L Blood Pressure 120/75 158/83 H Pulse Oximetry 99 98 08/28/18 00:41 08/28/18 03:00 08/28/18 04:00 Temperature 99.1 F Pulse Rate 90 90 Respiratory Rate 9 L 9 L Blood Pressure 134/73 136/69 Pulse Oximetry 99 98 08/28/18 04:28 08/28/18 07:00 08/28/18 08:00 Temperature 98.6 F Pulse Rate 81 78 Respiratory Rate 10 L 9 L Blood Pressure 102/64 133/70 Pulse Oximetry 98 08/28/18 10:12 08/28/18 11:00 08/28/18 12:00 Temperature 98.2 F Pulse Rate 74 75 Respiratory Rate 9 L 9 L Blood Pressure 141/77 H 126/78 Pulse Oximetry 99 08/28/18 13:24 Temperature Pulse Rate Respiratory Rate 9 L Blood Pressure Pulse Oximetry 100 Intake & Output 08/27/18 08/28/18 08/28/18 18:59 06:59 18:59 Intake Total 1801 / 1801 465 / 465 1329 / 1329 Output Total 400 / 400 495 / 495 Balance 1401 / 1401 -30 / -30 1329 / 1329 Weight 118 kg Intake: IV 1185 / 1185 115 / 115 1329 / 1329 Flolan (30,000 ng/mL) Neb 100 100 / 100 100 / 100 ML In Bag/Syringe 1 EACH @ 5 mls/hr INH Q8H [facility] Rx#:[id number] EPINEPHrine (1:1000) Inj 2 MG 0 / 0 0 / 0 In D5W Inj 248 ML @ 3 MCG/MIN 22.5 mls/hr IV.CONT TITRATE PRN Rx#:[id number] Heparin/D5W 25,000 U/250 mL 25, 72 / 72 000 unit In 250 ml @ Per Protocol IV.CONT TITRATE PRN Rx #:[id number] NovoLIN R (IV Infusion) 100 97 / 97 UNIT In NS Inj 99 ML @ Per Protocol IV.CONT TITRATE PRN Rx #:[id number] Versed Inj 50 mg In 50 ml @ 2 25 / 25 0 / 0 MG/HR 2 mls/hr IV.CONT TITRATE PRN Rx#:[id number] Diprivan 1000 mg/100 ml Inj 1, 0 / 0 0 / 0 000 mg In 100 ml @ 5 MCG/KG/MIN 3 mls/hr IV.CONT TITRATE PRN Rx#:[id number] Sodium Bicarbonate 8.4% Inj 150 21 / 21 979 / 979 MEQ In NS Inj 850 ML @ 50 mls/ hr IV.CONT .Q20H [facility] Rx#: [id number] Azactam Inj 1,000 MG In NS Inj 200 / 200 115 / 115 100 / 100 100 ML @ 200 mls/hr IV.SIG Q8H [facility] Rx#:[id number] Levaquin 750 mg Premix Inj 150 150 / 150 150 / 150 ML @ 100 mls/hr IV.SIG Q24H [facility] Rx#:[id number] Magnesium Sulfate Inj 2 GM In 100 / 100 NS Inj 96 ML @ 50 mls/hr IV.SIG UNSCH PRN Rx#:[id number] Levophed Inj 4 MG In NS Inj 246 380 / 380 0 / 0 ML @ 0.5 MCG/MIN 1.87 mls/hr IV.SIG TITRATE PRN Rx#:[id number] fentaNYL 10 mcg/mL Premix Drip 40 / 40 0 / 0 2,500 mcg In 250 ml @ 50 MCG/HR 5 mls/hr IV.SIG TITRATE PRN Rx #:[id number] Tube Feeding 206 / 206 330 / 330 Tube Irrigant 50 / 50 20 / 20 Other 360 / 360 Output: Urine 495 / 495 Urine Amount (Catheter) 400 / 400 Indwelling Temp Sensing 400 / 400 Catheter Other: Other Intake Source Saline Solution # Bowel Movements 0 Narrative: GENERAL: Face swollen SKIN: Warm and dry. HEAD: Atraumatic. Normocephalic. EYES: Pupils equal and round. No scleral icterus. No injection or drainage. ENT: No nasal bleeding or discharge. Mucous membranes pink and moist. NECK: Trachea midline. No JVD. ETT in place CARDIOVASCULAR: Regular rate and rhythm. RESPIRATORY: No accessory muscle use. Decreased breath sounds bilaterally GASTROINTESTINAL: Abdomen soft, non-tender, nondistended. Hepatic and splenic margins not palpable. MUSCULOSKELETAL: Extremities without clubbing, cyanosis, or edema. No obvious deformities. NEUROLOGICAL: Intubated. Doll's eyes negative - Urinary Catheter Management Indwelling Urethral Catheter Cath placed during this visit: yes, but has since been removed by the nurse Reason for continuing: Continue criteria not met Insertion date: 08/24/18 Insertion time: 19:46 Removal date: 08/24/18 Removal time: 20:30 Indwelling Temp Sensing Catheter Cath placed during this visit: yes Reason for continuing: Hourly intake/output Insertion date: 08/24/18 Insertion time: 20:30 Results 08/28/18 04:50 08/28/18 04:50 Cardiac Enzymes 08/27/18 08/28/18 Range/Units 04:30 04:50 AST 172 H 177 H (15-37) U/L Coagulation 08/26/18 08/27/18 08/27/18 Range/Units 15:23 04:30 04:30 PT 12.5 H (9.8-11.6) sec APTT 49.3 H 51.3 H (24.3-30.1) sec 08/28/18 Range/Units 04:50 PT 12.0 H (9.8-11.6) sec APTT 47.0 H (24.3-30.1) sec CBC 08/27/18 08/28/18 Range/Units 04:30 04:50 WBC 15.7 H 12.2 H (4.0-11.0) th/mm3 RBC 3.64 L 3.44 L (4.50-5.90) mil/mm3 Hgb 11.5 L 11.2 L (13.0-17.0) gm/dL Hct 34.4 L 32.6 L (39.0-51.0) % Plt Count 154 121 L (150-450) th/mm3 Neut # (Auto) 13.7 H 10.5 H (1.8-7.7) th/mm3 Lymph # (Auto) 0.9 L 0.9 L (1.0-4.8) th/mm3 Orange # (Auto) 1.1 H 0.7 (0.0-0.9) th/mm3 Eos # (Auto) 0.0 0.0 (0.0-0.4) th/mm3 Baso # (Auto) 0.0 0.0 (0.0-0.2) th/mm3 Comprehensive Metabolic Panel 08/27/18 08/28/18 Range/Units 04:30 04:50 Sodium 150 H 151 H (136-145) meq/L Potassium 4.5 D 4.9 (3.5-5.1) meq/L Chloride 114 H 113 H (98-107) meq/L Carbon Dioxide 25.9 32.1 H (21.0-32.0) meq/L BUN 21 H 35 H (7-18) mg/dL Creatinine 1.46 H 1.38 H (0.60-1.30) mg/dL Calcium 7.5 L 8.3 L D (8.5-10.1) mg/dL AST 172 H 177 H (15-37) U/L ALT 81 H 84 H (12-78) U/L Alkaline Phosphatase 57 64 (45-117) U/L Total Protein 5.4 L 5.9 L (6.4-8.2) g/dL Albumin 2.2 L 2.2 L (3.4-5.0) g/dL Intake and Output 08/27/18 08/28/18 08/28/18 22:59 06:59 14:59 Intake Total 1571 / 1571 465 / 465 1329 / 1329 Output Total 400 / 400 495 / 495 Balance 1171 / 1171 -30 / -30 1329 / 1329 Intake: IV 955 / 955 115 / 115 1329 / 1329 Flolan (30,000 ng/mL) Neb 100 100 / 100 100 / 100 ML In Bag/Syringe 1 EACH @ 5 mls/hr INH Q8H [facility] Rx#:[id number] EPINEPHrine (1:1000) Inj 2 MG 0 / 0 0 / 0 In D5W Inj 248 ML @ 3 MCG/MIN 22.5 mls/hr IV.CONT TITRATE PRN Rx#:[id number] Heparin/D5W 25,000 U/250 mL 25, 72 / 72 000 unit In 250 ml @ Per Protocol IV.CONT TITRATE PRN Rx #:[id number] NovoLIN R (IV Infusion) 100 97 / 97 UNIT In NS Inj 99 ML @ Per Protocol IV.CONT TITRATE PRN Rx #:[id number] Versed Inj 50 mg In 50 ml @ 2 25 / 25 0 / 0 MG/HR 2 mls/hr IV.CONT TITRATE PRN Rx#:[id number] Diprivan 1000 mg/100 ml Inj 1, 0 / 0 0 / 0 000 mg In 100 ml @ 5 MCG/KG/MIN 3 mls/hr IV.CONT TITRATE PRN Rx#:[id number] Sodium Bicarbonate 8.4% Inj 150 21 / 21 979 / 979 MEQ In NS Inj 850 ML @ 50 mls/ hr IV.CONT .Q20H [facility] Rx#: [id number] Azactam Inj 1,000 MG In NS Inj 200 / 200 115 / 115 100 / 100 100 ML @ 200 mls/hr IV.SIG Q8H [facility] Rx#:[id number] Levaquin 750 mg Premix Inj 150 150 / 150 150 / 150 ML @ 100 mls/hr IV.SIG Q24H [facility] Rx#:[id number] Magnesium Sulfate Inj 2 GM In 100 / 100 NS Inj 96 ML @ 50 mls/hr IV.SIG UNSCH PRN Rx#:[id number] Levophed Inj 4 MG In NS Inj 246 150 / 150 0 / 0 ML @ 0.5 MCG/MIN 1.87 mls/hr IV.SIG TITRATE PRN Rx#:[id number] fentaNYL 10 mcg/mL Premix Drip 40 / 40 0 / 0 2,500 mcg In 250 ml @ 50 MCG/HR 5 mls/hr IV.SIG TITRATE PRN Rx #:[id number] Tube Feeding 206 / 206 330 / 330 Tube Irrigant 50 / 50 20 / 20 Other 360 / 360 Output: Urine 495 / 495 Urine Amount (Catheter) 400 / 400 Indwelling Temp Sensing 400 / 400 Catheter Other: Other Intake Source Saline Solution # Bowel Movements 0 Weight 118 kg Assessment and Plan - Assessment (1) PEA (Pulseless electrical activity) Code(s): I46.9 - Cardiac arrest, cause unspecified Status: Acute (2) NSTEMI (non-ST elevated myocardial infarction) Code(s): I21.4 - Non-ST elevation (NSTEMI) myocardial infarction Status: Acute (3) Cardiac arrest Code(s): I46.9 - Cardiac arrest, cause unspecified Status: Acute - Plan 1) Cardiac arrest x2 Appears to be PEA, but received Amiodarone at some point without documentation of VT/Vfib Downtime 15-30 mins 2) NSTEMI Most likely Type 2 Does have a history of CAD with stents EKG showing no acute pathology 3) Will await neurologic recovery before deciding how to proceed from cardiology standpoint Doll's eyes negative, concern for significant brain injury 4) Supportive care
[2018-08-28] MEDS: Heparin Drip 25,000 UNIT/250 ML BAG IV.CONT PRN (23:31)
[2018-08-29] MEDS: Chlorhexidine Gluconate 2% 1 Pack (2 Cloths) TOPICAL SCH (03:45)
[2018-08-29] MEDS: Oral Hygiene Kit OROPHARYNG SCH ×4 (03:46→23:37)
[2018-08-29] MEDS: EPOPROSTENOL INH SCH ×5 (04:03→22:00)
[2018-08-29] MEDS: Insulin NovoLOG Aspart Correctional Sugar Inj SQ SCH ×4 (05:42→23:35)
[2018-08-29 05:49] LABS: Baso % (Auto) 0.1 % (0.0-2.0); Eos % (Auto) 0.1 % (0.0-4.0); Hematocrit 32.9 % (39.0-51.0); Lymph # (Auto) 0.9 th/mm3 (1.0-4.8); Lymph % (Auto) 11.8 % (9.0-44.0); Mean Corpuscular HGB Conc 33.5 % (32.0-36.0); Mean Corpuscular Hemoglobin 32.2 pg (27.0-34.0); Mean Corpuscular Volume 96.1 fL (80.0-100.0); Mean Platelet Volume 8.7 fL (7.0-11.0); Mono # (Auto) 0.7 th/mm3 (0.0-0.9); Mono % (Auto) 8.5 % (0.0-8.0); Neut # (Auto) 6.1 th/mm3 (1.8-7.7); Neut % (Auto) 79.5 % (16.0-70.0); Platelet Count 120 th/mm3 (150-450); Red Blood Count 3.43 mil/mm3 (4.50-5.90); Red Cell Distribution Width 14.7 % (11.6-17.2); White Blood Count 7.7 th/mm3 (4.0-11.0)
[2018-08-29 05:57] LABS: INR 1.1 Ratio; Prothrombin Time 11.6 sec (9.8-11.6)
[2018-08-29 06:24] LABS: Alanine Aminotransferase 69 U/L (12-78); Albumin 2.1 g/dL (3.4-5.0); Alkaline Phosphatase 67 U/L (45-117); Anion Gap 6 meq/L (5-15); Aspartate Aminotransferase 120 U/L (15-37); Blood Urea Nitrogen 43 mg/dL (7-18); Calcium 8.4 mg/dL (8.5-10.1); Carbon Dioxide 33.1 meq/L (21.0-32.0); Chloride 110 meq/L (98-107); Glomerular Filtration Rate 54 mL/min (>89); Glucose,Random 149 mg/dL (74-106); Magnesium 2.5 mg/dL (1.5-2.5); Phosphorus 2.7 mg/dL (2.5-4.9); Potassium 3.9 meq/L (3.5-5.1); Sodium 149 meq/L (136-145)
[2018-08-29] MEDS: Citalopram 20 MG Tablet PO SCH (08:17)
[2018-08-29] MEDS: Famotidine PF Inj 20 MG/2 ML Vial IV.PUSH SCH ×2 (08:17→20:34)
[2018-08-29] MEDS: Senna/Docusate Sodium 8.6/50 MG Tablet PO SCH ×2 (08:17→20:39)
[2018-08-29] MEDS: Chlorhexidine 0.12% Oral Kit 15 ML UDC OROPHARYNG SCH ×2 (08:17→20:35)
[2018-08-29] MEDS: Famotidine 20 MG Tablet PO SCH ×2 (08:18→20:34)
[2018-08-29] MEDS: Heparin 10,000 UNITS/10 ML Vial (for IV use) IV.PUSH PRN ×2 (09:02→18:16)
--- NOTE | 2018-08-29 10:09 | P.PNCC ---
Subjective Subjective Remarks/Hospital Course: 72-year-old male, past medical history significant for diabetes and coronary artery disease with 3 previous stents, who is presented post cardiac arrest. Per EMS and family he was doing work around the house when he stated that he did not feel right and thought something was off with his blood sugar. He then went to go sit down and when his turned around he was slumping over. She then called 911. On EMS arrival he was unresponsive pulseless and apneic. They began CPR. They temporarily achieved ROSC in the field prior to him coding again. They obtained ROSC again right before arrival. In total they gave 3 mg of epinephrine, 2 A of bicarbonate, 300 mg of amiodarone. EMS does not believe that he was without a pulse for more than 15 minutes at any time. He lost pulses again on arrival here. Again he was successfully resuscitated with return of spontaneous circulation within 15 minutes. 08/25: Patient admitted to CVICU, on targeted temperature management. 08/26: No significant overnight events, decreased UO this morning. Now being rewarmed. 08/27: Called to bedside by RN yesterday for facial swelling, CXR showed no evidence of PTX or subcut emphysema, CT scans ordered but was delayed by over 7 hours due to multiple trauma and stroke alerts taking priority in CT scan. When the patient was being prepared to move to CT around 6:30 PM, he became hypoxic to the high 80s and was too unstable for scan. He required increase in his bilevel settings and was started on flolan. This morning, he is stable, O2 sats 100% on current settings with much improved ABG. 08/28: Patient has been off pressors since yesterday afternoon, off all sedation x 24+ hours but still unresponsive. Only had a weak cough reflex. EEG negative for seizures. 08/29: Patient remains on bilevel, oxygenation improved however remains encephalopathy. To noxious central stimuli patient does weakly withdraw upper extremities and opens eyes. ABG shows pH of 7.47. Pressure high reduced to 28 from 32. Objective Vital Signs / I&O: Vital Signs 08/28/18 10:12 08/28/18 11:00 08/28/18 12:00 Temperature 98.2 F Pulse Rate 74 75 Respiratory Rate 9 L 9 L Blood Pressure 141/77 H 126/78 Pulse Oximetry 99 08/28/18 13:24 08/28/18 14:55 08/28/18 15:00 Temperature 98.2 F Pulse Rate 77 Respiratory Rate 9 L 10 L 10 L Blood Pressure 140/74 Pulse Oximetry 100 99 08/28/18 16:00 08/28/18 17:00 08/28/18 19:00 Temperature 98.6 F 98.1 F Pulse Rate 75 70 Respiratory Rate 10 L Blood Pressure 153/80 H 136/74 Pulse Oximetry 08/28/18 20:00 08/28/18 20:49 08/28/18 23:00 Temperature 98.2 F Pulse Rate 75 70 Respiratory Rate 10 L 10 L Blood Pressure 143/74 H 131/69 Pulse Oximetry 99 08/29/18 00:00 08/29/18 00:32 08/29/18 03:00 Temperature 98.5 F Pulse Rate 75 70 Respiratory Rate 10 L 10 L Blood Pressure 129/70 139/78 Pulse Oximetry 99 08/29/18 04:00 08/29/18 04:03 08/29/18 07:30 Temperature 97.7 F Pulse Rate 78 73 Respiratory Rate 10 L 10 L Blood Pressure 139/75 138/76 Pulse Oximetry 99 99 08/29/18 07:39 08/29/18 08:00 08/29/18 08:05 Temperature 98.2 F Pulse Rate 75 Respiratory Rate 10 L Blood Pressure 158/85 H Pulse Oximetry 99 08/29/18 09:42 Temperature Pulse Rate Respiratory Rate 10 L Blood Pressure Pulse Oximetry 99 Intake & Output 08/28/18 08/29/18 08/29/18 18:59 06:59 18:59 Intake Total 2028 748 / 748 Output Total 1250 / 1250 1050 / 1050 Balance 779 / 779 -302 / -302 Weight 116.5 kg Intake: IV 1629 / 1629 328 / 328 Flolan (30,000 ng/mL) Neb 100 100 / 100 200 / 200 ML In Bag/Syringe 1 EACH @ 5 mls/hr INH Q8H [facility] Rx#:[id number] Heparin/D5W 25,000 U/250 mL 25, 150 / 150 28 / 28 000 unit In 250 ml @ Per Protocol IV.CONT TITRATE PRN Rx #:[id number] Sodium Bicarbonate 8.4% Inj 150 1029 / 1029 MEQ In NS Inj 850 ML @ 50 mls/ hr IV.CONT .Q20H [facility] Rx#: [id number] Azactam Inj 1,000 MG In NS Inj 200 / 200 100 / 100 100 ML @ 200 mls/hr IV.SIG Q8H [facility] Rx#:[id number] Levaquin 750 mg Premix Inj 150 150 / 150 ML @ 100 mls/hr IV.SIG Q24H [facility] Rx#:[id number] Tube Feeding 400 / 400 420 / 420 Output: Urine 1050 / 1050 Urine Amount (Catheter) 1250 / 1250 Indwelling Temp Sensing 1250 / 1250 Catheter Result Diagrams: 08/29/18 05:00 08/29/18 05:00 Objective Remarks: GEN: Elderly male lying in bed, intubated off all sedation >48 hours HEENT: NCAT, ETT in place NECK: Trachea midline CARDIO: Regular rate and rhythm RESP: Diminished breath sounds bilaterally, on bilevel settings on vent ABD/GI: Soft, non-distended EXT/MS: No peripheral edema, Right femoral lines present SKIN: Anasarca, fluid-filled blisters developing on upper extremities and trunk NEURO: Currently off all sedation. No spontaneous movements or eye opening. To deep noxious stimuli slight withdrawal of upper extremities and eye opening noted Assessment and Plan - Assessment and Plan Plan: 72yM presenting with cardiac arrest x 2, unclear rhythm by EMS/ ED reports, now with ROSC s/p targeted temperature management. Estimated downtime 30 minutes total (15 per arrest). NEURO: -Now off sedation>48 hrs, still unresponsive, but withdraws upper extremities to pain, opens eyes -EEG negative for seizures -Will need repeat [employer] imaging (CT +/- MRI) when stable enough for transport ( i.e., on conventional vent settings) CARDIO: -2D echo showed EF 65-70%, PAP 37 -Off pressors -Awaiting neurologic recovery before planning ischemic workup -Cardiology Dr. Belrtán PULM: -Acute hypoxic respiratory failure secondary to cardiac arrest -CXR/ CT chest consistent with ARDS vs pneumonia * Continue aztreonam/ levaquin x 7 days, can be extended if needed * No PE noted on CTA -Attempt wean Flolan, wean bilevel to T low 0.7, P high to 28 -Vent bundle -Duonebs as needed -Repeat GEM this am -Repeat chest x-ray pending -Attempt conversion to conventional ventilation with PC/AC in next 24 hours F/E/N: -TFs at goal -Keep K+ > 4.0, Mg > 2.0 RENAL: -BUN/ creatinine stable, UO stable -D/C bicarb -Diurese ID: -Aztreonam/ levaquin for ICU- CAP as detailed above -Follow up cultures-08/25 sputum culture with Enterobacter pansensitive ENDO: -SSI, Accuchecks -Continue home dose of Synthroid PROPHY: -SCDs, SQH -PPI OVERALL: This patient is critically ill with multiple episodes of cardiac arrest. He requires intensive care and remains at high-risk for life- threatening decompensation. Counseling/ Coordination of Care: Total critical care time: 42 minutes. This includes examining the patient, gathering history from someone other than the patient (i.e., chart review), discussing the patient's care with other providers, managing the patient's blood pressure and ventilator settings, ordering and interpreting radiology studies, ordering and interpreting laboratory studies, managing the patient's pain and sedation requirements, re-evaluation at frequent intervals, and documentation. All critical care time is separate and exclusive of procedures, teaching, and patient/ family updates. Code Status: Full Discussed Condition With: Bedside RN
--- NOTE | 2018-08-29 10:47 | XR ---
EXAM DATE: 08/29/2018 10:00 AM EDT AGE/SEX: 72 years / Male INDICATIONS: Respiratory disease. CLINICAL DATA: This is the patient's subsequent encounter. Patient reports that signs and symptoms h ave been present for 4 - 6 days and indicates a pain score of Nonresponsive. MEDICAL/SURGICAL HISTORY: . Hypertension. Cardiovascular disease. Carcinoma, prostate None. COMPARISON: [facility], CHEST 1V SINGLE AP, 08/26/2018. . FINDINGS: Stable ETT and NGT in the distal stomach. Mild patchy bilateral lower lung zone airspace. Indistinct central pulmonary vascularity with perihilar interstitial opacities. Cardiac silhouette is within nor mal limits. Remainder of the exam is unchanged. CONCLUSION: 1. Stable ETT. NGT in the stomach. 2. Interstitial edema and pulmonary vascular congestion pattern. 3. Stable mild patchy bilateral lower lung zone airspace disease. Electronically signed by: Markel Maldonado MD 08/29/2018 10:46 AM EDT
[2018-08-29] MEDS ORDERED: Potassium Chloride 25 MEQ Effervescent Tablet NG/OG ONE (12:45)
--- NOTE | 2018-08-29 13:31 | P.PNCA ---
Subjective Interval history: Slight withdrawal to noxious stimuli Otherwise no change Medications and Allergies Active Medications: Active Medications Acetaminophen (Tylenol) 650 mg PO Q6H PRN PRN Reason: PAIN 1-10 AND/OR FEVER >101F Al Hydroxide/Mg Hydroxide (Milk Of Magnamaury Liq) 30 ml PO Q12H PRN PRN Reason: Mild Constipation Albuterol (Duoneb Neb (Prn)) 1 ampul NEB Q2HR NEB PRN PRN Reason: WHEEZING Last Admin: 08/24/18 22:54 Dose: 1 ampul Atropine Sulfate (Atropine Inj) 0.5 mg IV.PUSH Q5M PRN PRN Reason: SYMPTOMATIC BRADYCARDIA Bisacodyl (Dulcolax Supp) 10 mg RECTAL DAILY PRN PRN Reason: SEVERE CONSITIPATION Buspirone HCl (Buspar) 15 mg NG/OG BID PRN PRN Reason: SHIVERING Last Admin: 08/27/18 20:42 Dose: 15 mg Chlorhexidine Gluconate (Chlorhexidine 2% Cloth) 3 pack TOPICAL DAILY@0400 [facility] Stop: 08/30/18 03:59 Last Admin: 08/29/18 03:45 Dose: 3 pack Chlorhexidine Gluconate (Chlorhexidine 2% Cloth) 3 pack TOPICAL DAILY@0400 PRN PRN Reason: Extra cloth needed Stop: 08/30/18 03:59 Chlorhexidine Gluconate (Peridex 0.12% Oral Kit) 15 ml OROPHARYNG BID@0800, 2000 [facility] Last Admin: 08/29/18 08:17 Dose: 15 ml Citalopram Hydrobromide (Celexa) 10 mg PO DAILY [facility] Last Admin: 08/29/18 08:17 Dose: 10 mg Dextrose (D50w Vial) 50 ml IV.PUSH UNSCH PRN PRN Reason: PER HYPOGLYCEMIA PROTOCOL Famotidine (Pepcid) 20 mg PO BID [facility] Last Admin: 08/29/18 08:18 Dose: Not Given Famotidine (Pepcid Pf Inj) 20 mg IV.PUSH Q12HR [facility] Last Admin: 08/29/18 08:17 Dose: 20 mg Furosemide (Lasix Inj) 40 mg IV.PUSH BID@0900,1800 [facility] Last Admin: 08/29/18 11:49 Dose: 40 mg Glucagon (Glucagon Inj) 1 mg OTHER PRN PRN PRN Reason: for Hypoglycemia Protocol Heparin Sodium (Porcine) (Heparin Inj) 2,500 units IV.PUSH UNSCH PRN PRN Reason: aPTT 25-39 Last Admin: 08/29/18 09:02 Dose: 2,500 units Heparin Sodium (Porcine) (Heparin Inj) 5,000 units IV.PUSH UNSCH PRN PRN Reason: aPTT < 25 Fentanyl (Fentanyl 10 Mcg/Ml Premix Drip) 2,500 mcg in 250 mls @ 5 mls/hr IV.SIG TITRATE PRN; Protocol PRN Reason: Per Protocol Last Titration: 08/28/18 00:10 Dose: Infused Magnesium Sulfate 4 gm/ Sodium (Chloride) 100 mls @ 50 mls/hr IV.SIG UNSCH PRN PRN Reason: For Magnesium 0.9 - 1.1 mg/dL Magnesium Sulfate 2 gm/ Sodium (Chloride) 100 mls @ 50 mls/hr IV.SIG UNSCH PRN PRN Reason: For Magnesium 1.2 - 1.6 mg/dL Last Infusion: 08/27/18 16:23 Dose: Infused Potassium Chloride (Kcl 40 Meq Premix Inj) 40 meq in 100 mls @ 25 mls/hr IV.SIG Q2H PRN PRN Reason: For Potassium 2.8 - 3.2 mEq/L Last Infusion: 08/26/18 14:23 Dose: Infused Potassium Chloride (Kcl 20 Meq Premix Inj) 20 meq in 100 mls @ 50 mls/hr IV.SIG Q2H PRN PRN Reason: For Potassium 3.3 - 3.5 mEq/L Potassium Chloride (Kcl 40 Meq Premix Inj) 40 meq in 100 mls @ 25 mls/hr IV.SIG UNSCH PRN PRN Reason: For Potassium 3.3 - 3.5 mEq/L Potassium Chloride (Kcl 20 Meq Premix Inj) 20 meq in 100 mls @ 50 mls/hr IV.SIG Q2H PRN PRN Reason: For Potassium 2.8 - 3.2 mEq/L Potassium Phosphate 30 mmol/ (Sodium Chloride) 260 mls @ 42 mls/hr IV.SIG UNSCH PRN PRN Reason: SEE LABEL COMMENTS Sodium Phosphate 30 mmol/ (Sodium Chloride) 260 mls @ 42 mls/hr IV.SIG UNSCH PRN PRN Reason: For Phosphorus < 2.5 mg/dL Aztreonam 1,000 mg/ Sodium (Chloride) 100 mls @ 200 mls/hr IV.SIG Q8H [facility] Stop: 09/01/18 09:59 Last Infusion: 08/29/18 11:46 Dose: Infused Levofloxacin/Dextrose (Levaquin 750 Mg Premix Inj) 150 mls @ 100 mls/hr IV.SIG Q24H [facility] Stop: 09/01/18 08:59 Last Infusion: 08/29/18 11:46 Dose: Infused Heparin Sodium/Dextrose (Heparin/D5w 25,000 U/250 Ml) 25,000 unit in 250 mls @ 0 mls/hr IV.CONT TITRATE PRN; Protocol PRN Reason: Per Protocol Last Titration: 08/29/18 09:03 Dose: 700 units/hr, 7 mls/hr Midazolam HCl (Versed Inj) 50 mg in 50 mls @ 2 mls/hr IV.CONT TITRATE PRN; Protocol PRN Reason: Per Protocol Last Titration: 08/28/18 00:10 Dose: Infused Epoprostenol Sodium 100 ml/ (Miscellaneous Medication) 100 mls @ 5 mls/hr INH Q8H [facility] Last Admin: 08/29/18 04:39 Dose: 8 mls/hr Insulin Aspart (Novolog Insulin Correctional Sugar Inj) 0 unit SQ Q6HR [facility]; Protocol Last Admin: 08/29/18 12:04 Dose: 2 unit Lactulose (Lactulose Liq) 30 ml PO DAILY PRN PRN Reason: SEVERE CONSITIPATION Levothyroxine Sodium (Synthroid) 25 mcg PO DAILY@0600 [facility] Last Admin: 08/29/18 05:42 Dose: 25 mcg Lorazepam (Ativan Inj) 1 mg IV.PUSH Q1H PRN PRN Reason: SEE LABEL COMMENTS Magnesium Oxide (Mag-Ox) 800 mg PO UNSCH PRN PRN Reason: For Magnesium 1.2 - 1.6 mg/dL Meperidine HCl (Demerol Inj) 25 mg IV.PUSH Q2H PRN PRN Reason: SHIVERING Last Admin: 08/27/18 20:41 Dose: 25 mg Miscellaneous (Pill Splitter) 1 each OTHER UNSCH PRN PRN Reason: SEE LABEL COMMENTS Miscellaneous Medication () 1 each OROPHARYNG 0000,0400,1200,1600 [facility] Last Admin: 08/29/18 12:04 Dose: 1 each Morphine Sulfate (Morphine Inj) 2 mg IV.PUSH Q2H PRN PRN Reason: PAIN SCALE 6 TO 10 Ondansetron HCl (Zofran Inj) 4 mg IV.PUSH Q6H PRN PRN Reason: NAUSEA OR VOMITING Potassium Bicarb/Potassium Chloride (K-Lyte Cl Eff) 50 meq PO UNSCH PRN PRN Reason: For Potassium 3.3 - 3.5 mEq/L Potassium Bicarb/Potassium Chloride (K-Lyte Cl Eff) 25 meq NG/OG BID [facility] Potassium Phosphate (K-Phos Original) 2,000 mg PO UNSCH PRN PRN Reason: SEE LABEL COMMENTS Potassium Phosphate (K-Phos Original) 2,000 mg PO Q4H PRN PRN Reason: Phosphorus Less Than 2.5 mg/dL Senna/Docusate Sodium (Lenora-Colace) 1 tab PO BID [facility] Last Admin: 08/29/18 08:17 Dose: 1 tab Sennosides (Senokot) 17.2 mg PO Q12H PRN PRN Reason: Moderate Constipation Sodium Chloride (Ns Flush) 2 ml IV.FLUSH PRN PRN PRN Reason: FLUSH AFTER USING IV ACCESS Sodium Chloride (Ns Flush) 2 ml IV.FLUSH BID [facility] Last Admin: 08/29/18 08:19 Dose: 2 ml Allergies Allergy/AdvReac Type Severity Reaction Status Date / Time pravastatin Allergy Severe Unverified 06/29/17 16:39 tetanus toxoid, adsorbed Allergy Severe Unverified 06/29/17 16:39 CRESTOR Allergy Severe Uncoded 01/12/12 07:54 Home Medications Medication Instructions Recorded Confirmed Type Aspir-81 81 mg PO DAILY 08/25/18 08/25/18 History Co Q-10 08/25/18 History allopurinol 100 mg PO DAILY 08/25/18 08/25/18 History amlodipine 10 mg PO DAILY 08/25/18 08/25/18 History atorvastatin 20 mg PO HS 08/25/18 08/25/18 History citalopram 10 mg PO DAILY 08/25/18 08/25/18 History cyanocobalamin-cobamamide [B12] 08/25/18 History insulin aspart U-100 [Novolog 5 unit SUBCUT PRN PRN 08/25/18 08/25/18 History U-100 Insulin aspart] insulin aspart U-100 [Novolog 15 unit SUBCUT TIDAC 08/25/18 08/25/18 History U-100 Insulin aspart] insulin degludec [Tresiba 45 unit SUBCUT HS 08/25/18 08/25/18 History FlexTouch U-100] isosorbide mononitrate 30 mg PO DAILY 08/25/18 08/25/18 History levothyroxine 25 mcg PO DAILY 08/25/18 08/25/18 History lisinopril 20 mg PO BID 08/25/18 08/25/18 History losartan 100 mg PO DAILY 08/25/18 08/25/18 History metformin 1,000 mg PO BID 08/25/18 08/25/18 History metoprolol succinate 25 mg PO DAILY 08/25/18 08/25/18 History multivitamin [Multiple Vitamins] 1 tab PO DAILY 08/25/18 08/25/18 History nitroglycerin [Nitrostat] 0.4 mg SUBLINGUAL Q5-15M PRN 08/25/18 08/25/18 History omeprazole 20 mg PO DAILY 08/25/18 08/25/18 History insulin aspart U-100 [Novolog 08/26/18 08/26/18 History U-100 Insulin aspart] metformin 1,000 mg PO BID 08/26/18 08/26/18 History Physical Exam Vital signs: Vital Signs 08/28/18 14:55 08/28/18 15:00 08/28/18 16:00 Temperature 98.2 F Pulse Rate 77 75 Respiratory Rate 10 L 10 L Blood Pressure 140/74 153/80 H Pulse Oximetry 99 08/28/18 17:00 08/28/18 19:00 08/28/18 20:00 Temperature 98.6 F 98.1 F Pulse Rate 70 75 Respiratory Rate 10 L Blood Pressure 136/74 143/74 H Pulse Oximetry 08/28/18 20:49 08/28/18 23:00 08/29/18 00:00 Temperature 98.2 F Pulse Rate 70 75 Respiratory Rate 10 L 10 L Blood Pressure 131/69 129/70 Pulse Oximetry 99 08/29/18 00:32 08/29/18 03:00 08/29/18 04:00 Temperature 98.5 F Pulse Rate 70 78 Respiratory Rate 10 L 10 L Blood Pressure 139/78 139/75 Pulse Oximetry 99 08/29/18 04:03 08/29/18 07:30 08/29/18 07:39 Temperature 97.7 F Pulse Rate 73 Respiratory Rate 10 L 10 L 10 L Blood Pressure 138/76 Pulse Oximetry 99 99 99 08/29/18 08:00 08/29/18 08:05 08/29/18 09:42 Temperature 98.2 F Pulse Rate 75 Respiratory Rate 10 L Blood Pressure 158/85 H Pulse Oximetry 99 08/29/18 10:10 08/29/18 11:10 08/29/18 12:00 Temperature 98.6 F 98.1 F Pulse Rate 75 75 Respiratory Rate 10 L Blood Pressure 137/73 137/73 Pulse Oximetry 99 Intake & Output 08/28/18 08/29/18 08/29/18 18:59 06:59 18:59 Intake Total 2028 / 2028 748 / 748 250 / 250 Output Total 1250 / 1250 1050 / 1050 Balance 779 / 779 -302 / -302 250 / 250 Weight 116.5 kg Intake: IV 1629 / 1629 328 / 328 250 / 250 Flolan (30,000 ng/mL) Neb 100 100 / 100 200 / 200 ML In Bag/Syringe 1 EACH @ 5 mls/hr INH Q8H [facility] Rx#:[id number] Heparin/D5W 25,000 U/250 mL 25, 150 / 150 28 / 28 000 unit In 250 ml @ Per Protocol IV.CONT TITRATE PRN Rx #:[id number] Sodium Bicarbonate 8.4% Inj 150 1029 / 1029 MEQ In NS Inj 850 ML @ 50 mls/ hr IV.CONT .Q20H [facility] Rx#: [id number] Azactam Inj 1,000 MG In NS Inj 200 / 200 100 / 100 100 / 100 100 ML @ 200 mls/hr IV.SIG Q8H [facility] Rx#:[id number] Levaquin 750 mg Premix Inj 150 150 / 150 150 / 150 ML @ 100 mls/hr IV.SIG Q24H [facility] Rx#:[id number] Tube Feeding 400 / 400 420 / 420 Output: Urine 1050 / 1050 Urine Amount (Catheter) 1250 / 1250 Indwelling Temp Sensing 1250 / 1250 Catheter Narrative: GENERAL: Face swollen SKIN: Warm and dry. HEAD: Atraumatic. Normocephalic. EYES: Pupils equal and round. No scleral icterus. No injection or drainage. ENT: No nasal bleeding or discharge. Mucous membranes pink and moist. NECK: Trachea midline. No JVD. ETT in place CARDIOVASCULAR: Regular rate and rhythm. RESPIRATORY: No accessory muscle use. Decreased breath sounds bilaterally GASTROINTESTINAL: Abdomen soft, non-tender, nondistended. Hepatic and splenic margins not palpable. MUSCULOSKELETAL: Extremities without clubbing, cyanosis, or edema. No obvious deformities. NEUROLOGICAL: Intubated. Doll's eyes negative - Urinary Catheter Management Indwelling Urethral Catheter Cath placed during this visit: yes, but has since been removed by the nurse Reason for continuing: Continue criteria not met Insertion date: 08/24/18 Insertion time: 19:46 Removal date: 08/24/18 Removal time: 20:30 Indwelling Temp Sensing Catheter Cath placed during this visit: yes Reason for continuing: Hourly intake/output Insertion date: 08/24/18 Insertion time: 20:30 Results 08/29/18 05:00 08/29/18 05:00 Cardiac Enzymes 08/28/18 08/29/18 Range/Units 04:50 05:00 AST 177 H 120 H (15-37) U/L Coagulation 08/28/18 08/29/18 08/29/18 Range/Units 04:50 05:00 05:00 PT 12.0 H 11.6 (9.8-11.6) sec APTT 47.0 H 35.3 H D (24.3-30.1) sec CBC 08/28/18 08/29/18 Range/Units 04:50 05:00 WBC 12.2 H 7.7 (4.0-11.0) th/mm3 RBC 3.44 L 3.43 L (4.50-5.90) mil/mm3 Hgb 11.2 L 11.0 L (13.0-17.0) gm/dL Hct 32.6 L 32.9 L (39.0-51.0) % Plt Count 121 L 120 L (150-450) th/mm3 Neut # (Auto) 10.5 H 6.1 (1.8-7.7) th/mm3 Lymph # (Auto) 0.9 L 0.9 L (1.0-4.8) th/mm3 [place] # (Auto) 0.7 0.7 (0.0-0.9) th/mm3 Eos # (Auto) 0.0 0.0 (0.0-0.4) th/mm3 Baso # (Auto) 0.0 0.0 (0.0-0.2) th/mm3 Comprehensive Metabolic Panel 08/28/18 08/29/18 Range/Units 04:50 05:00 Sodium 151 H 149 H (136-145) meq/L Potassium 4.9 3.9 D (3.5-5.1) meq/L Chloride 113 H 110 H (98-107) meq/L Carbon Dioxide 32.1 H 33.1 H (21.0-32.0) meq/L BUN 35 H 43 H (7-18) mg/dL Creatinine 1.38 H 1.31 H (0.60-1.30) mg/dL Calcium 8.3 L D 8.4 L (8.5-10.1) mg/dL AST 177 H 120 H (15-37) U/L ALT 84 H 69 (12-78) U/L Alkaline Phosphatase 64 67 (45-117) U/L Total Protein 5.9 L 6.0 L (6.4-8.2) g/dL Albumin 2.2 L 2.1 L (3.4-5.0) g/dL Intake and Output 08/28/18 08/29/18 08/29/18 22:59 06:59 14:59 Intake Total 800 / 800 648 / 648 250 / 250 Output Total 1250 / 1250 1050 / 1050 Balance -450 / -450 -402 / -402 250 / 250 Intake: IV 400 / 400 228 / 228 250 / 250 Flolan (30,000 ng/mL) Neb 100 100 / 100 100 / 100 ML In Bag/Syringe 1 EACH @ 5 mls/hr INH Q8H [facility] Rx#:[id number] Heparin/D5W 25,000 U/250 mL 25, 150 / 150 28 / 28 000 unit In 250 ml @ Per Protocol IV.CONT TITRATE PRN Rx #:[id number] Sodium Bicarbonate 8.4% Inj 150 50 / 50 MEQ In NS Inj 850 ML @ 50 mls/ hr IV.CONT .Q20H [facility] Rx#: [id number] Azactam Inj 1,000 MG In NS Inj 100 / 100 100 / 100 100 / 100 100 ML @ 200 mls/hr IV.SIG Q8H [facility] Rx#:[id number] Levaquin 750 mg Premix Inj 150 150 / 150 ML @ 100 mls/hr IV.SIG Q24H [facility] Rx#:[id number] Tube Feeding 400 / 400 420 / 420 Output: Urine 1050 / 1050 Urine Amount (Catheter) 1250 / 1250 Indwelling Temp Sensing 1250 / 1250 Catheter Other: Weight 116.5 kg - Imaging and Cardiology Imaging: Impressions Chest X-Ray 08/29/18 10:00 CONCLUSION: 1. Stable ETT. NGT in the stomach. 2. Interstitial edema and pulmonary vascular congestion pattern. 3. Stable mild patchy bilateral lower lung zone airspace disease. Assessment and Plan - Assessment (1) PEA (Pulseless electrical activity) Code(s): I46.9 - Cardiac arrest, cause unspecified Status: Acute (2) NSTEMI (non-ST elevated myocardial infarction) Code(s): I21.4 - Non-ST elevation (NSTEMI) myocardial infarction Status: Acute (3) Cardiac arrest Code(s): I46.9 - Cardiac arrest, cause unspecified Status: Acute - Plan 1) Cardiac arrest x2 Appears to be PEA, but received Amiodarone at some point without documentation of VT/Vfib Downtime 15-30 mins 2) NSTEMI Most likely Type 2 Does have a history of CAD with stents EKG showing no acute pathology 3) Will await neurologic recovery before deciding how to proceed from cardiology standpoint Doll's eyes negative, concern for significant brain injury, although mild withdraw from pain 4) Supportive care
[2018-08-29] MEDS: Potassium Chloride 25 MEQ Effervescent Tablet NG/OG SCH (20:34)
[2018-08-30] MEDS: EPOPROSTENOL INH SCH ×2 (02:19→12:15)
[2018-08-30] MEDS: Oral Hygiene Kit OROPHARYNG SCH ×3 (04:07→15:56)
[2018-08-30] MEDS: Acetaminophen 325 MG Tablet PO PRN ×3 (04:09→21:33)
[2018-08-30 05:37] LABS: Baso % (Auto) 0.1 % (0.0-2.0); Hemoglobin 10.7 gm/dL (13.0-17.0); Lymph # (Auto) 0.7 th/mm3 (1.0-4.8); Lymph % (Auto) 11.5 % (9.0-44.0); Mean Corpuscular HGB Conc 33.4 % (32.0-36.0); Mean Corpuscular Hemoglobin 31.9 pg (27.0-34.0); Mean Corpuscular Volume 95.6 fL (80.0-100.0); Mean Platelet Volume 8.9 fL (7.0-11.0); Mono # (Auto) 0.9 th/mm3 (0.0-0.9); Mono % (Auto) 13.3 % (0.0-8.0); Neut # (Auto) 4.9 th/mm3 (1.8-7.7); Neut % (Auto) 75.1 % (16.0-70.0); Platelet Count 122 th/mm3 (150-450); Red Blood Count 3.34 mil/mm3 (4.50-5.90); Red Cell Distribution Width 14.7 % (11.6-17.2); White Blood Count 6.5 th/mm3 (4.0-11.0)
[2018-08-30 05:43] LABS: INR 1.1 Ratio; Prothrombin Time 11.6 sec (9.8-11.6)
[2018-08-30] MEDS: Insulin NovoLOG Aspart Correctional Sugar Inj SQ SCH ×3 (05:51→17:28)
[2018-08-30 05:58] LABS: Alanine Aminotransferase 58 U/L (12-78); Alkaline Phosphatase 67 U/L (45-117); Anion Gap 7 meq/L (5-15); Aspartate Aminotransferase 79 U/L (15-37); Blood Urea Nitrogen 43 mg/dL (7-18); Calcium 8.8 mg/dL (8.5-10.1); Carbon Dioxide 31.9 meq/L (21.0-32.0); Chloride 111 meq/L (98-107); Glomerular Filtration Rate 60 mL/min (>89); Glucose,Random 281 mg/dL (74-106); Magnesium 2.5 mg/dL (1.5-2.5); Phosphorus 3.1 mg/dL (2.5-4.9); Sodium 150 meq/L (136-145)
--- NOTE | 2018-08-30 06:03 | XR ---
EXAM DATE: 08/30/2018 6:00 AM EDT AGE/SEX: 72 years / Male INDICATIONS: Respiratory disease. CLINICAL DATA: This is the patient's subsequent encounter. Patient reports that signs and symptoms h ave been present for 4 - 6 days and indicates a pain score of Nonresponsive. MEDICAL/SURGICAL HISTORY: Diabetes mellitus type II. Coronary artery stent. COMPARISON: [facility], CHEST 1V SINGLE AP, 08/29/2018. . FINDINGS: The cardiac silhouette is normal in transverse diameter. Support lines and tubes are in satisfactory position. There is patchy alveolar disease bilaterally compatible with edema or pneumonia. CONCLUSION: Diffuse edema versus pneumonia. The findings are similar to the prior exam. Electronically signed by: Francisco Javier King MD 08/30/2018 6:02 AM EDT
[2018-08-30] MEDS: Heparin 10,000 UNITS/10 ML Vial (for IV use) IV.PUSH PRN ×2 (06:49→19:21)
[2018-08-30] MEDS: Senna/Docusate Sodium 8.6/50 MG Tablet PO SCH ×2 (08:36→21:30)
[2018-08-30] MEDS: Famotidine PF Inj 20 MG/2 ML Vial IV.PUSH SCH ×2 (08:36→21:26)
[2018-08-30] MEDS: Chlorhexidine 0.12% Oral Kit 15 ML UDC OROPHARYNG SCH ×2 (08:36→21:27)
[2018-08-30] MEDS: Potassium Chloride 25 MEQ Effervescent Tablet NG/OG SCH ×2 (08:36→21:26)
[2018-08-30] MEDS: Citalopram 20 MG Tablet PO SCH (08:36)
[2018-08-30] MEDS: Famotidine 20 MG Tablet PO SCH ×2 (08:37→21:26)
--- NOTE | 2018-08-30 09:04 | P.PNCC ---
Subjective Subjective Remarks/Hospital Course: 72-year-old male, past medical history significant for diabetes and coronary artery disease with 3 previous stents, who is presented post cardiac arrest. Per EMS and family he was doing work around the house when he stated that he did not feel right and thought something was off with his blood sugar. He then went to go sit down and when his turned around he was slumping over. She then called 911. On EMS arrival he was unresponsive pulseless and apneic. They began CPR. They temporarily achieved ROSC in the field prior to him coding again. They obtained ROSC again right before arrival. In total they gave 3 mg of epinephrine, 2 A of bicarbonate, 300 mg of amiodarone. EMS does not believe that he was without a pulse for more than 15 minutes at any time. He lost pulses again on arrival here. Again he was successfully resuscitated with return of spontaneous circulation within 15 minutes. 08/25: Patient admitted to CVICU, on targeted temperature management. 08/26: No significant overnight events, decreased UO this morning. Now being rewarmed. 08/27: Called to bedside by RN yesterday for facial swelling, CXR showed no evidence of PTX or subcut emphysema, CT scans ordered but was delayed by over 7 hours due to multiple trauma and stroke alerts taking priority in CT scan. When the patient was being prepared to move to CT around 6:30 PM, he became hypoxic to the high 80s and was too unstable for scan. He required increase in his bilevel settings and was started on flolan. This morning, he is stable, O2 sats 100% on current settings with much improved ABG. 08/28: Patient has been off pressors since yesterday afternoon, off all sedation x 24+ hours but still unresponsive. Only had a weak cough reflex. EEG negative for seizures. 08/29: Patient remains on bilevel, oxygenation improved however remains encephalopathy. To noxious central stimuli patient does weakly withdraw upper extremities and opens eyes. ABG shows pH of 7.47. Pressure high reduced to 28 from 32. 08/30: Remains on bilevel slightly improved oxygenation. Diuresis started yesterday with good urine output. Creatinine slightly improved. Remains severely encephalopathic off sedation more for more than 72 hours now. Attempt transition to PC/AC with high PEEP, if tolerated check MRI of the brain Objective Vital Signs / I&O: Vital Signs 08/29/18 09:42 08/29/18 10:10 08/29/18 11:10 Temperature 98.6 F 98.1 F Pulse Rate 75 Respiratory Rate 10 L 10 L Blood Pressure 137/73 Pulse Oximetry 99 99 08/29/18 12:00 08/29/18 13:49 08/29/18 15:00 Temperature 98.1 F Pulse Rate 75 78 Respiratory Rate 11 L 11 L Blood Pressure 137/73 129/69 Pulse Oximetry 99 99 08/29/18 15:30 08/29/18 17:01 08/29/18 19:00 Temperature Pulse Rate 103 H 82 Respiratory Rate 10 L Blood Pressure 123/68 Pulse Oximetry 99 08/29/18 19:53 08/29/18 19:58 08/29/18 20:14 Temperature 100.7 F H Pulse Rate 75 75 Respiratory Rate 11 L 10 L Blood Pressure 139/87 139/76 Pulse Oximetry 99 98 08/29/18 23:00 08/29/18 23:30 08/30/18 00:04 Temperature 99.5 F Pulse Rate 70 71 Respiratory Rate 10 L 10 L Blood Pressure 144/76 H Pulse Oximetry 99 98 08/30/18 03:00 08/30/18 04:00 08/30/18 04:12 Temperature 100.9 F H Pulse Rate 71 71 Respiratory Rate 10 L 10 L Blood Pressure 146/74 H 162/79 H Pulse Oximetry 98 99 08/30/18 07:00 08/30/18 08:00 Temperature 101 F H Pulse Rate 66 68 Respiratory Rate 10 L Blood Pressure 142/70 H 142/70 H Pulse Oximetry 98 Intake & Output 08/29/18 08/30/18 08/30/18 18:59 06:59 18:59 Intake Total 1481 / 1481 597 / 597 Output Total 2100 / 2100 1175 / 1175 Balance -619 / -619 -578 / -578 Weight 114 kg Intake: IV 631 / 631 100 / 100 Flolan (30,000 ng/mL) Neb 100 132 / 132 0 / 0 ML In Bag/Syringe 1 EACH @ 5 mls/hr INH Q8H MERVAT Rx#:[id number] Heparin/D5W 25,000 U/250 mL 25, 149 / 149 000 unit In 250 ml @ Per Protocol IV.CONT TITRATE PRN Rx #:[id number] Azactam Inj 1,000 MG In NS Inj 200 / 200 100 / 100 100 ML @ 200 mls/hr IV.SIG Q8H MERVAT Rx#:[id number] Levaquin 750 mg Premix Inj 150 150 / 150 ML @ 100 mls/hr IV.SIG Q24H MERVAT Rx#:[id number] Tube Feeding 750 / 750 347 / 347 Tube Irrigant 100 / 100 150 / 150 Output: Urine Amount (Catheter) 2099 1175 / 1175 Indwelling Temp Sensing 2099 1175 / 1175 Catheter Other: # Bowel Movements 0 Result Diagrams: 08/30/18 05:20 08/30/18 05:20 Objective Remarks: GEN: Elderly male lying in bed, intubated off all sedation >72 hours HEENT: NCAT, ETT in place NECK: Trachea midline CARDIO: Regular rate and rhythm RESP: Diminished breath sounds bilaterally, on bilevel settings on vent ABD/GI: Soft, non-distended EXT/MS: Right femoral art line present. Right femoral central line discontinued 08/29/2018 SKIN: Anasarca, fluid-filled blisters developing on upper extremities and trunk NEURO: Currently off all sedation for 72 hours. No spontaneous movements or eye opening. To deep noxious stimuli slight withdrawal of upper extremities and eye opening noted Assessment and Plan - Assessment and Plan Plan: 72yM presenting with cardiac arrest x 2, unclear rhythm by EMS/ ED reports, now with ROSC s/p targeted temperature management. Estimated downtime 30 minutes total (15 per arrest). 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 -Plan for MRI today CARDIO: -2D echo showed EF 65-70%, PAP 37 -Off pressors -Awaiting neurologic recovery before planning ischemic workup -Cardiology Dr. Beltrán PULJorgito: -Acute hypoxic respiratory failure secondary to cardiac arrest -CXR/ CT chest consistent with ARDS vs pneumonia * Continue aztreonam/ levaquin x 7 days, extend if needed * No PE noted on CTA -wean Flolan, wean bilevel to T low 0.7, P high to 26, T high to 4.8 -Vent bundle -Duonebs as needed -Repeat GEM this am, shows improving PO2 -Repeat chest x-ray in am -Attempt conversion to conventional ventilation with PC/AC today with high PEEP F/E/N: -TFs at goal -Keep K+ > 4.0, Mg > 2.0 RENAL: -BUN/ creatinine stable, UO stable -D/C bicarb -Diurese with IV Lasix 40 mg q12 ID: -Aztreonam/ levaquin for ICU- CAP as detailed above -Follow up cultures-08/25 sputum culture with Enterobacter pansensitive ENDO: -SSI, Accuchecks -Continue home dose of Synthroid PROPHY: -SCDs, SQH -PPI OVERALL: This patient is critically ill with multiple episodes of cardiac arrest. He requires intensive care and remains at high-risk for life- threatening decompensation. Appears to have sustained severe anoxic injury. Counseling/ Coordination of Care: Total critical care time: 36 minutes. This includes examining the patient, gathering history from someone other than the patient (i.e., chart review), discussing the patient's care with other providers, managing the patient's blood pressure and ventilator settings, ordering and interpreting radiology studies, ordering and interpreting laboratory studies, managing the patient's pain and sedation requirements, re-evaluation at frequent intervals, and documentation. All critical care time is separate and exclusive of procedures, teaching, and patient/ family updates.
[2018-08-30] MEDS: Albumin Human 25% Inj 100 ML IV.SIG SCH ×2 (09:39→21:27)
[2018-08-30] MEDS: Heparin Drip 25,000 UNIT/250 ML BAG IV.CONT PRN (10:45)
[2018-08-30] MEDS ORDERED: Epoprostenol (30,000/mL) Neb 80 ML in Sodium Chlor 0.9% Inj 20 ML INH SCH (12:00)
--- NOTE | 2018-08-30 14:35 | MR ---
EXAM DATE: 08/30/2018 12:31 PM EDT AGE/SEX: 72 years / Male INDICATIONS: . Anoxic brain injury post code. CLINICAL DATA: This is the patient's initial encounter. Patient reports that signs and symptoms have been present for 4 - 6 days and indicates a pain score of Nonresponsive. MEDICAL/SURGICAL HISTORY: Diabetes mellitus type II. Hypercholesterolemia. Coronary artery shaun nt. COMPARISON: [facility] – [place], CT HEAD W/O CONTRAST, 08/24/2018. . TECHNIQUE: Multiplanar, multisequence examination of the brain was performed without contrast. FINDINGS: Cerebrum: Moderate diffuse cerebral atrophy. The ventricles are normal for degree of atrophy. No ev idence of midline shift, mass lesion, hemorrhage or acute infarction. No extraaxial fluid collection s are seen. The pituitary gland and suprasellar cistern are normal in configuration. White Matter: Prominent periventricular and deep white matter T2 prolongation. Posterior Fossa: The cerebellum and brainstem are intact. The 4th ventricle is midline. The cerebel lopontine angle is unremarkable. The cerebellar tonsils are normal in position. Diffusion Imaging: No focal areas of restricted diffusion are seen. No evidence of acute infarction . Extracranial: The visualized portions of the orbits and paranasal sinuses are unremarkable. CONCLUSION: 1. Moderate diffuse cerebral atrophy with prominent periventricular ischemic white matter demyelinat ion. 2. No evidence for acute infarction or hemorrhage. Electronically signed by: Markel Maldonado MD 08/30/2018 2:34 PM EDT
--- NOTE | 2018-08-30 16:42 | P.CONNEU ---
History of Present Illness Service: Neurology Primary Care Provider: Christy Calvillo MD Chief Complaint: Recent cardiac arrest History of Present Illness: 72-year-old male admitted status post cardiac arrest out of hospital. EMS apparently found the patient unresponsive pulseless apneic. CPR performed and patient resuscitated. in the field is coded again. In the intensive care unit stabilized. Intubated and now has been off sedation but is not waking up. An MRI brain scan performed which not show any acute lesion chronic white matter changes. Review of Systems All other systems reviewed negative except as stated in [facility] - History History Provided By: Family Member - Surgical History Surgical History: Surgical History (Last Reviewed 08/24/18 @ 20:08 by Ruba Huggins MD) Hx of heart artery stent - Tobacco History Second Hand Smoke Exposure: No Tobacco Use In Past 30 Days: No Smoking Status: Never smoker - Alcohol History How Often Do You Have a Drink Containing Alcohol: Monthly or less - Substance Use History Substance History: No History of Abuse - Travel History Recent Travel in the [place] Within the Last 8 Weeks: No Recent Travel Out of the Country Within the Last 8 Weeks: No - Immunization History Tetanus Immunization: Unable to Assess Medications and Allergies Active Medications: Active Medications Acetaminophen (Tylenol) 650 mg PO Q6H PRN PRN Reason: PAIN 1-10 AND/OR FEVER >101F Last Admin: 08/30/18 13:00 Dose: 650 mg Al Hydroxide/Mg Hydroxide (Milk Of Ziggy [place]) 30 ml PO Q12H PRN PRN Reason: Mild Constipation Albuterol (Duoneb Neb (Prn)) 1 ampul NEB Q2HR NEB PRN PRN Reason: WHEEZING Last Admin: 08/24/18 22:54 Dose: 1 ampul Atropine Sulfate (Atropine Inj) 0.5 mg IV.PUSH Q5M PRN PRN Reason: SYMPTOMATIC BRADYCARDIA Bisacodyl (Dulcolax Supp) 10 mg RECTAL DAILY PRN PRN Reason: SEVERE CONSITIPATION Last Admin: 08/30/18 06:18 Dose: 10 mg Buspirone HCl (Buspar) 15 mg NG/OG BID PRN PRN Reason: SHIVERING Last Admin: 08/27/18 20:42 Dose: 15 mg Chlorhexidine Gluconate (Peridex 0.12% Oral Kit) 15 ml OROPHARYNG BID@0800, 2000 [facility] Last Admin: 08/30/18 08:36 Dose: 15 ml Citalopram Hydrobromide (Celexa) 10 mg PO DAILY [facility] Last Admin: 08/30/18 08:36 Dose: 10 mg Dextrose (D50w Vial) 50 ml IV.PUSH UNSCH PRN PRN Reason: PER HYPOGLYCEMIA PROTOCOL Famotidine (Pepcid) 20 mg PO BID [facility] Last Admin: 08/30/18 08:37 Dose: Not Given Famotidine (Pepcid Pf Inj) 20 mg IV.PUSH Q12HR [facility] Last Admin: 08/30/18 08:36 Dose: 20 mg Furosemide (Lasix Inj) 40 mg IV.PUSH BID@0900,1800 [facility] Last Admin: 08/30/18 08:38 Dose: 40 mg Glucagon (Glucagon Inj) 1 mg OTHER PRN PRN PRN Reason: for Hypoglycemia Protocol Heparin Sodium (Porcine) (Heparin Inj) 2,500 units IV.PUSH UNSCH PRN PRN Reason: aPTT 25-39 Last Admin: 08/30/18 06:49 Dose: 2,500 units Heparin Sodium (Porcine) (Heparin Inj) 5,000 units IV.PUSH UNSCH PRN PRN Reason: aPTT < 25 Hydralazine HCl (Apresoline Inj) 20 mg IV.PUSH Q2H PRN PRN Reason: SBP>160, DBP>90 Fentanyl (Fentanyl 10 Mcg/Ml Premix Drip) 2,500 mcg in 250 mls @ 5 mls/hr IV.SIG TITRATE PRN; Protocol PRN Reason: Per Protocol Last Titration: 08/28/18 00:10 Dose: Infused Magnesium Sulfate 4 gm/ Sodium (Chloride) 100 mls @ 50 mls/hr IV.SIG UNSCH PRN PRN Reason: For Magnesium 0.9 - 1.1 mg/dL Magnesium Sulfate 2 gm/ Sodium (Chloride) 100 mls @ 50 mls/hr IV.SIG UNSCH PRN PRN Reason: For Magnesium 1.2 - 1.6 mg/dL Last Infusion: 08/27/18 16:23 Dose: Infused Potassium Chloride (Kcl 40 Meq Premix Inj) 40 meq in 100 mls @ 25 mls/hr IV.SIG Q2H PRN PRN Reason: For Potassium 2.8 - 3.2 mEq/L Last Infusion: 08/26/18 14:23 Dose: Infused Potassium Chloride (Kcl 20 Meq Premix Inj) 20 meq in 100 mls @ 50 mls/hr IV.SIG Q2H PRN PRN Reason: For Potassium 3.3 - 3.5 mEq/L Potassium Chloride (Kcl 40 Meq Premix Inj) 40 meq in 100 mls @ 25 mls/hr IV.SIG UNSCH PRN PRN Reason: For Potassium 3.3 - 3.5 mEq/L Potassium Chloride (Kcl 20 Meq Premix Inj) 20 meq in 100 mls @ 50 mls/hr IV.SIG Q2H PRN PRN Reason: For Potassium 2.8 - 3.2 mEq/L Potassium Phosphate 30 mmol/ (Sodium Chloride) 260 mls @ 42 mls/hr IV.SIG UNSCH PRN PRN Reason: SEE LABEL COMMENTS Sodium Phosphate 30 mmol/ (Sodium Chloride) 260 mls @ 42 mls/hr IV.SIG UNSCH PRN PRN Reason: For Phosphorus < 2.5 mg/dL Aztreonam 1,000 mg/ Sodium (Chloride) 100 mls @ 200 mls/hr IV.SIG Q8H [facility] Stop: 09/01/18 09:59 Last Infusion: 08/30/18 12:23 Dose: Infused Levofloxacin/Dextrose (Levaquin 750 Mg Premix Inj) 150 mls @ 100 mls/hr IV.SIG Q24H [facility] Stop: 09/01/18 08:59 Last Infusion: 08/30/18 10:17 Dose: Infused Heparin Sodium/Dextrose (Heparin/D5w 25,000 U/250 Ml) 25,000 unit in 250 mls @ 0 mls/hr IV.CONT TITRATE PRN; Protocol PRN Reason: Per Protocol Last Admin: 08/30/18 10:45 Dose: 900 units/hr, 9 mls/hr Albumin Human (Flexbumin 25% Inj) 100 mls @ 60 mls/hr IV.SIG Q12H [facility] Last Infusion: 08/30/18 10:53 Dose: Infused Epoprostenol Sodium 80 ml/ (Sodium Chloride) 100 mls @ 5 mls/hr INH Q8H [facility] Stop: 08/30/18 19:59 Last Admin: 08/30/18 12:15 Dose: 8 mls/hr Epoprostenol Sodium 60 ml/ (Sodium Chloride) 100 mls @ 5 mls/hr INH Q8H [facility] Stop: 08/31/18 03:59 Epoprostenol Sodium 40 ml/ (Sodium Chloride) 100 mls @ 5 mls/hr INH Q8H [facility] Stop: 08/31/18 11:59 Epoprostenol Sodium 20 ml/ (Sodium Chloride) 100 mls @ 5 mls/hr INH Q8H [facility] Stop: 08/31/18 19:59 Insulin Aspart (Novolog Insulin Correctional Sugar Inj) 0 unit SQ Q6HR [facility]; Protocol Last Admin: 08/30/18 12:23 Dose: 10 unit Labetalol HCl (Trandate Inj) 20 mg IV.PUSH Q4H PRN PRN Reason: SYS BP GREATER THAN 170 MMHG Lactulose (Lactulose Liq) 30 ml PO DAILY PRN PRN Reason: SEVERE CONSITIPATION Last Admin: 08/29/18 18:17 Dose: 30 ml Levothyroxine Sodium (Synthroid) 25 mcg PO DAILY@0600 [facility] Last Admin: 08/30/18 05:51 Dose: 25 mcg Lorazepam (Ativan Inj) 1 mg IV.PUSH Q1H PRN PRN Reason: SEE LABEL COMMENTS Magnesium Oxide (Mag-Ox) 800 mg PO UNSCH PRN PRN Reason: For Magnesium 1.2 - 1.6 mg/dL Miscellaneous (Pill Splitter) 1 each OTHER UNSCH PRN PRN Reason: SEE LABEL COMMENTS Miscellaneous Medication () 1 each OROPHARYNG 0000,0400,1200,1600 [facility] Last Admin: 08/30/18 15:56 Dose: 1 each Morphine Sulfate (Morphine Inj) 2 mg IV.PUSH Q2H PRN PRN Reason: PAIN SCALE 6 TO 10 Ondansetron HCl (Zofran Inj) 4 mg IV.PUSH Q6H PRN PRN Reason: NAUSEA OR VOMITING Potassium Bicarb/Potassium Chloride (K-Lyte Cl Eff) 50 meq PO UNSCH PRN PRN Reason: For Potassium 3.3 - 3.5 mEq/L Potassium Bicarb/Potassium Chloride (K-Lyte Cl Eff) 25 meq NG/OG BID [facility] Last Admin: 08/30/18 08:36 Dose: 25 meq Potassium Phosphate (K-Phos Original) 2,000 mg PO UNSCH PRN PRN Reason: SEE LABEL COMMENTS Potassium Phosphate (K-Phos Original) 2,000 mg PO Q4H PRN PRN Reason: Phosphorus Less Than 2.5 mg/dL Senna/Docusate Sodium (Lenora-Colace) 1 tab PO BID [facility] Last Admin: 08/30/18 08:36 Dose: 1 tab Sennosides (Senokot) 17.2 mg PO Q12H PRN PRN Reason: Moderate Constipation Sodium Chloride (Ns Flush) 2 ml IV.FLUSH PRN PRN PRN Reason: FLUSH AFTER USING IV ACCESS Sodium Chloride (Ns Flush) 2 ml IV.FLUSH BID [facility] Last Admin: 08/30/18 08:38 Dose: 2 ml Sterile Water (Free Water) 0 ml NG/OG Q4HR [facility] Last Admin: 08/30/18 15:56 Dose: 1 ml Allergies Allergy/AdvReac Type Severity Reaction Status Date / Time pravastatin Allergy Severe Unverified 06/29/17 16:39 tetanus toxoid, adsorbed Allergy Severe Unverified 06/29/17 16:39 CRESTOR Allergy Severe Uncoded 01/12/12 07:54 Home Medications Medication Instructions Recorded Confirmed Type Aspir-81 81 mg PO DAILY 08/25/18 08/25/18 History Co Q-10 08/25/18 History allopurinol 100 mg PO DAILY 08/25/18 08/25/18 History amlodipine 10 mg PO DAILY 08/25/18 08/25/18 History atorvastatin 20 mg PO HS 08/25/18 08/25/18 History citalopram 10 mg PO DAILY 08/25/18 08/25/18 History cyanocobalamin-cobamamide [B12] 08/25/18 History insulin aspart U-100 [Novolog 5 unit SUBCUT PRN PRN 08/25/18 08/25/18 History U-100 Insulin aspart] insulin aspart U-100 [Novolog 15 unit SUBCUT TIDAC 08/25/18 08/25/18 History U-100 Insulin aspart] insulin degludec [Tresiba 45 unit SUBCUT HS 08/25/18 08/25/18 History FlexTouch U-100] isosorbide mononitrate 30 mg PO DAILY 08/25/18 08/25/18 History levothyroxine 25 mcg PO DAILY 08/25/18 08/25/18 History lisinopril 20 mg PO BID 08/25/18 08/25/18 History losartan 100 mg PO DAILY 08/25/18 08/25/18 History metformin 1,000 mg PO BID 08/25/18 08/25/18 History metoprolol succinate 25 mg PO DAILY 08/25/18 08/25/18 History multivitamin [Multiple Vitamins] 1 tab PO DAILY 08/25/18 08/25/18 History nitroglycerin [Nitrostat] 0.4 mg SUBLINGUAL Q5-15M PRN 08/25/18 08/25/18 History omeprazole 20 mg PO DAILY 08/25/18 08/25/18 History insulin aspart U-100 [Novolog 08/26/18 08/26/18 History U-100 Insulin aspart] metformin 1,000 mg PO BID 08/26/18 08/26/18 History Exam Vital signs: Vital Signs 08/29/18 17:01 08/29/18 19:00 08/29/18 19:53 Temperature 100.7 F H Pulse Rate 82 75 Respiratory Rate 10 L 11 L Blood Pressure 139/87 Pulse Oximetry 99 99 08/29/18 19:58 08/29/18 20:14 08/29/18 23:00 Temperature Pulse Rate 75 70 Respiratory Rate 10 L Blood Pressure 139/76 Pulse Oximetry 98 08/29/18 23:30 08/30/18 00:04 08/30/18 03:00 Temperature 99.5 F 100.9 F H Pulse Rate 71 71 Respiratory Rate 10 L 10 L 10 L Blood Pressure 144/76 H 146/74 H Pulse Oximetry 99 98 98 08/30/18 04:00 08/30/18 04:12 08/30/18 07:00 Temperature 101 F H Pulse Rate 71 66 Respiratory Rate 10 L 10 L Blood Pressure 162/79 H 142/70 H Pulse Oximetry 99 98 08/30/18 07:20 08/30/18 08:00 08/30/18 10:15 Temperature Pulse Rate 68 Respiratory Rate 10 L 16 Blood Pressure 142/70 H Pulse Oximetry 98 99 08/30/18 11:00 08/30/18 12:00 08/30/18 13:40 Temperature 101 F H Pulse Rate 65 74 Respiratory Rate 16 16 Blood Pressure 150/73 H Pulse Oximetry 99 100 08/30/18 14:58 08/30/18 15:00 08/30/18 15:23 Temperature 101.6 F H Pulse Rate 80 73 Respiratory Rate 16 Blood Pressure 157/76 H Pulse Oximetry 99 99 Intake & Output 08/29/18 08/30/18 08/30/18 18:59 06:59 18:59 Intake Total 1481 / 1481 698 / 698 350 / 350 Output Total 2099 1175 / 1175 Balance -619 / -619 -477 / -477 350 / 350 Weight 114 kg Intake: IV 631 / 631 201 / 201 350 / 350 Flolan (30,000 ng/mL) Neb 100 132 / 132 0 / 0 ML In Bag/Syringe 1 EACH @ 5 mls/hr INH Q8H [facility] Rx#:[id number] Heparin/D5W 25,000 U/250 mL 25, 149 / 149 101 / 101 000 unit In 250 ml @ Per Protocol IV.CONT TITRATE PRN Rx #:[id number] Flexbumin 25% Inj 100 ML @ 60 100 / 100 mls/hr IV.SIG Q12H [facility] Rx#: [id number] Azactam Inj 1,000 MG In NS Inj 200 / 200 100 / 100 100 / 100 100 ML @ 200 mls/hr IV.SIG Q8H [facility] Rx#:[id number] Levaquin 750 mg Premix Inj 150 150 / 150 150 / 150 ML @ 100 mls/hr IV.SIG Q24H [facility] Rx#:[id number] Tube Feeding 750 / 750 347 / 347 Tube Irrigant 100 / 100 150 / 150 Output: Urine Amount (Catheter) 2099 1175 / 1175 Indwelling Temp Sensing 2099 1175 / 1175 Catheter Other: Date of Last Bowel Movement 08/30/18 # Bowel Movements 0 Narrative: GENERAL: in NAD, SKIN: Warm and dry. HEAD: Atraumatic. Normocephalic. EYES: Pupils equal and round. No scleral icterus. ENT: No nasal bleeding or discharge. Mucous membranes pink and moist. NECK: Intubated CARDIOVASCULAR: Regular rate and rhythm. RESPIRATORY: No accessory muscle use. GASTROINTESTINAL: Abdomen soft, non-tender, nondistended. MUSCULOSKELETAL: Extremities without clubbing, cyanosis, or edema. No obvious deformities. NEUROLOGICAL: Intubated, off sedation, eyes partially open grimaces to tactile nonverbal not following pupils 3-2.5 mm approximately bilaterally no gaze deviation positive gag reflex able to breathe independently, no extremity movement plantarflex her no clonus PSYCHIATRIC: Intubated - Constitutional no acute distress Results - Labs CBC & Chem 7: 08/30/18 05:20 08/30/18 05:20 Labs: Laboratory Results - last 24 hr 08/29/18 08/29/18 08/29/18 15:15 17:10 23:20 WBC RBC Hgb Hct MCV MCH MCHC RDW Plt Count MPV Neut % (Auto) Lymph % (Auto) Webb % (Auto) Eos % (Auto) Baso % (Auto) Neut # (Auto) Lymph # (Auto) Webb # (Auto) Eos # (Auto) Baso # (Auto) WBC Differential Differential Comment PT INR APTT 34.9 H 40.4 H Sodium Potassium Chloride Carbon Dioxide Anion Gap BUN Creatinine Estimated GFR POC Glucose 197 H Random Glucose Calcium Phosphorus Magnesium Total Bilirubin AST ALT Alkaline Phosphatase Total Protein Albumin 08/29/18 08/30/18 08/30/18 23:27 05:20 05:20 WBC 6.5 RBC 3.34 L Hgb 10.7 L Hct 32.0 L MCV 95.6 MCH 31.9 MCHC 33.4 RDW 14.7 Plt Count 122 L MPV 8.9 Neut % (Auto) 75.1 H Lymph % (Auto) 11.5 Webb % (Auto) 13.3 H Eos % (Auto) 0.0 Baso % (Auto) 0.1 Neut # (Auto) 4.9 Lymph # (Auto) 0.7 L Webb # (Auto) 0.9 Eos # (Auto) 0.0 Baso # (Auto) 0.0 WBC Differential . Differential Comment Auto diff final PT 11.6 INR 1.1 APTT Sodium Potassium Chloride Carbon Dioxide Anion Gap BUN Creatinine Estimated GFR POC Glucose 246 H Random Glucose Calcium Phosphorus Magnesium Total Bilirubin AST ALT Alkaline Phosphatase Total Protein Albumin 08/30/18 08/30/18 08/30/18 05:20 05:20 05:48 WBC RBC Hgb Hct MCV MCH MCHC RDW Plt Count MPV Neut % (Auto) Lymph % (Auto) Webb % (Auto) Eos % (Auto) Baso % (Auto) Neut # (Auto) Lymph # (Auto) Webb # (Auto) Eos # (Auto) Baso # (Auto) WBC Differential Differential Comment PT INR APTT 33.4 H Sodium 150 H Potassium 4.0 Chloride 111 H Carbon Dioxide 31.9 Anion Gap 7 BUN 43 H Creatinine 1.19 Estimated GFR 60 L POC Glucose 257 H Random Glucose 281 H D Calcium 8.8 Phosphorus 3.1 Magnesium 2.5 Total Bilirubin 0.6 AST 79 H ALT 58 Alkaline Phosphatase 67 Total Protein 6.0 L Albumin 2.0 L 08/30/18 08/30/18 12:15 12:18 WBC RBC Hgb Hct MCV MCH MCHC RDW Plt Count MPV Neut % (Auto) Lymph % (Auto) Webb % (Auto) Eos % (Auto) Baso % (Auto) Neut # (Auto) Lymph # (Auto) Webb # (Auto) Eos # (Auto) Baso # (Auto) WBC Differential Differential Comment PT INR APTT 42.9 H D Sodium Potassium Chloride Carbon Dioxide Anion Gap BUN Creatinine Estimated GFR POC Glucose 301 H Random Glucose Calcium Phosphorus Magnesium Total Bilirubin AST ALT Alkaline Phosphatase Total Protein Albumin - Imaging Impressions Head MRI 08/30/18 00:00 CONCLUSION: 1. Moderate diffuse cerebral atrophy with prominent periventricular ischemic white matter demyelination. 2. No evidence for acute infarction or hemorrhage. Chest X-Ray 08/30/18 06:00 CONCLUSION: Diffuse edema versus pneumonia. The findings are similar to the prior exam. Review/Management - Diagnosis (1) Respiratory failure Code(s): J96.90 - Respiratory failure, unspecified, unspecified whether with hypoxia or hypercapnia Status: Acute Current Visit: Yes (2) Cardiac arrest Code(s): I46.9 - Cardiac arrest, cause unspecified Status: Acute Current Visit: Yes (3) PEA (Pulseless electrical activity) Code(s): I46.9 - Cardiac arrest, cause unspecified Status: Acute Current Visit: Yes (4) NSTEMI (non-ST elevated myocardial infarction) Code(s): I21.4 - Non-ST elevation (NSTEMI) myocardial infarction Status: Acute Current Visit: Yes (5) Anoxic encephalopathy Code(s): G93.1 - Anoxic brain damage, not elsewhere classified Status: Acute Current Visit: Yes - Review/Management Plan: Displays brainstem reflexes EEG shows severe encephalopathy but presence of cortical activity MRI brain scan reviewed no diffusion restriction noted He may develop superimposed hypoxic encephalopathy from ARDS/pneumonia Recommendation Follow-up EEG Cardiopulmonary management He can proceed with any necessary cardiac ischemic workup or other testing/ procedure that is needed from a neurologic standpoint Follow serial exams Should hopefully have a favorable outcome
[2018-08-30] MEDS: hydrALAZINE HCl Inj 20 MG/ML Vial IV.PUSH PRN (16:55)
[2018-08-30] MEDS: Labetalol HCl Inj 100 MG/20 ML Vial IV.PUSH PRN ×2 (17:38→21:31)
[2018-08-30] MEDS ORDERED: Epoprostenol (30,000/mL) Neb 60 ML in Sodium Chlor 0.9% Inj 40 ML INH SCH (20:00)
--- NOTE | 2018-08-31 00:06 | P.PNCA ---
Subjective Interval history: No change in function Plan for MRI today Medications and Allergies Active Medications: Active Medications Acetaminophen (Tylenol) 650 mg PO Q6H PRN PRN Reason: PAIN 1-10 AND/OR FEVER >101F Last Admin: 08/30/18 21:33 Dose: 650 mg Al Hydroxide/Mg Hydroxide (Milk Of Magnamaury Liq) 30 ml PO Q12H PRN PRN Reason: Mild Constipation Albuterol (Duoneb Neb (Prn)) 1 ampul NEB Q2HR NEB PRN PRN Reason: WHEEZING Last Admin: 08/24/18 22:54 Dose: 1 ampul Atropine Sulfate (Atropine Inj) 0.5 mg IV.PUSH Q5M PRN PRN Reason: SYMPTOMATIC BRADYCARDIA Bisacodyl (Dulcolax Supp) 10 mg RECTAL DAILY PRN PRN Reason: SEVERE CONSITIPATION Last Admin: 08/30/18 06:18 Dose: 10 mg Buspirone HCl (Buspar) 15 mg NG/OG BID PRN PRN Reason: SHIVERING Last Admin: 08/27/18 20:42 Dose: 15 mg Chlorhexidine Gluconate (Peridex 0.12% Oral Kit) 15 ml OROPHARYNG BID@0800, 2000 [facility] Last Admin: 08/30/18 21:27 Dose: 15 ml Citalopram Hydrobromide (Celexa) 10 mg PO DAILY [facility] Last Admin: 08/30/18 08:36 Dose: 10 mg Dextrose (D50w Vial) 50 ml IV.PUSH UNSCH PRN PRN Reason: PER HYPOGLYCEMIA PROTOCOL Famotidine (Pepcid) 20 mg PO BID [facility] Last Admin: 08/30/18 21:26 Dose: Not Given Famotidine (Pepcid Pf Inj) 20 mg IV.PUSH Q12HR [facility] Last Admin: 08/30/18 21:26 Dose: 20 mg Furosemide (Lasix Inj) 40 mg IV.PUSH BID@0900,1800 [facility] Last Admin: 08/30/18 17:27 Dose: 40 mg Glucagon (Glucagon Inj) 1 mg OTHER PRN PRN PRN Reason: for Hypoglycemia Protocol Heparin Sodium (Porcine) (Heparin Inj) 2,500 units IV.PUSH UNSCH PRN PRN Reason: aPTT 25-39 Last Admin: 08/30/18 19:21 Dose: 2,500 units Heparin Sodium (Porcine) (Heparin Inj) 5,000 units IV.PUSH UNSCH PRN PRN Reason: aPTT < 25 Hydralazine HCl (Apresoline Inj) 20 mg IV.PUSH Q2H PRN PRN Reason: SBP>160, DBP>90 Last Admin: 08/30/18 16:55 Dose: 20 mg Fentanyl (Fentanyl 10 Mcg/Ml Premix Drip) 2,500 mcg in 250 mls @ 5 mls/hr IV.SIG TITRATE PRN; Protocol PRN Reason: Per Protocol Last Titration: 08/28/18 00:10 Dose: Infused Magnesium Sulfate 4 gm/ Sodium (Chloride) 100 mls @ 50 mls/hr IV.SIG UNSCH PRN PRN Reason: For Magnesium 0.9 - 1.1 mg/dL Magnesium Sulfate 2 gm/ Sodium (Chloride) 100 mls @ 50 mls/hr IV.SIG UNSCH PRN PRN Reason: For Magnesium 1.2 - 1.6 mg/dL Last Infusion: 08/27/18 16:23 Dose: Infused Potassium Chloride (Kcl 40 Meq Premix Inj) 40 meq in 100 mls @ 25 mls/hr IV.SIG Q2H PRN PRN Reason: For Potassium 2.8 - 3.2 mEq/L Last Infusion: 08/26/18 14:23 Dose: Infused Potassium Chloride (Kcl 20 Meq Premix Inj) 20 meq in 100 mls @ 50 mls/hr IV.SIG Q2H PRN PRN Reason: For Potassium 3.3 - 3.5 mEq/L Potassium Chloride (Kcl 40 Meq Premix Inj) 40 meq in 100 mls @ 25 mls/hr IV.SIG UNSCH PRN PRN Reason: For Potassium 3.3 - 3.5 mEq/L Potassium Chloride (Kcl 20 Meq Premix Inj) 20 meq in 100 mls @ 50 mls/hr IV.SIG Q2H PRN PRN Reason: For Potassium 2.8 - 3.2 mEq/L Potassium Phosphate 30 mmol/ (Sodium Chloride) 260 mls @ 42 mls/hr IV.SIG UNSCH PRN PRN Reason: SEE LABEL COMMENTS Sodium Phosphate 30 mmol/ (Sodium Chloride) 260 mls @ 42 mls/hr IV.SIG UNSCH PRN PRN Reason: For Phosphorus < 2.5 mg/dL Aztreonam 1,000 mg/ Sodium (Chloride) 100 mls @ 200 mls/hr IV.SIG Q8H [facility] Stop: 09/01/18 09:59 Last Infusion: 08/30/18 18:21 Dose: Infused Levofloxacin/Dextrose (Levaquin 750 Mg Premix Inj) 150 mls @ 100 mls/hr IV.SIG Q24H [facility] Stop: 09/01/18 08:59 Last Infusion: 08/30/18 10:17 Dose: Infused Heparin Sodium/Dextrose (Heparin/D5w 25,000 U/250 Ml) 25,000 unit in 250 mls @ 0 mls/hr IV.CONT TITRATE PRN; Protocol PRN Reason: Per Protocol Last Titration: 08/30/18 19:22 Dose: 1,000 units/hr, 10 mls/hr Albumin Human (Flexbumin 25% Inj) 100 mls @ 60 mls/hr IV.SIG Q12H [facility] Last Admin: 08/30/18 21:27 Dose: 60 mls/hr Epoprostenol Sodium 60 ml/ (Sodium Chloride) 100 mls @ 5 mls/hr INH Q8H [facility] Stop: 08/31/18 03:59 Epoprostenol Sodium 40 ml/ (Sodium Chloride) 100 mls @ 5 mls/hr INH Q8H [facility] Stop: 18 11:59 Epoprostenol Sodium 20 ml/ (Sodium Chloride) 100 mls @ 5 mls/hr INH Q8H [facility] Stop: 08/31/18 19:59 Insulin Aspart (Novolog Insulin Correctional Sugar Inj) 0 unit SQ Q6HR [facility]; Protocol Last Admin: 08/30/18 17:28 Dose: 4 unit Labetalol HCl (Trandate Inj) 20 mg IV.PUSH Q4H PRN PRN Reason: SYS BP GREATER THAN 170 MMHG Last Admin: 08/30/18 21:31 Dose: 20 mg Lactulose (Lactulose Liq) 30 ml PO DAILY PRN PRN Reason: SEVERE CONSITIPATION Last Admin: 08/29/18 18:17 Dose: 30 ml Levothyroxine Sodium (Synthroid) 25 mcg PO DAILY@0600 [facility] Last Admin: 08/30/18 05:51 Dose: 25 mcg Lorazepam (Ativan Inj) 1 mg IV.PUSH Q1H PRN PRN Reason: SEE LABEL COMMENTS Magnesium Oxide (Mag-Ox) 800 mg PO UNSCH PRN PRN Reason: For Magnesium 1.2 - 1.6 mg/dL Miscellaneous (Pill Splitter) 1 each OTHER UNSCH PRN PRN Reason: SEE LABEL COMMENTS Miscellaneous Medication () 1 each OROPHARYNG 0000,0400,1200,1600 [facility] Last Admin: 08/30/18 15:56 Dose: 1 each Morphine Sulfate (Morphine Inj) 2 mg IV.PUSH Q2H PRN PRN Reason: PAIN SCALE 6 TO 10 Ondansetron HCl (Zofran Inj) 4 mg IV.PUSH Q6H PRN PRN Reason: NAUSEA OR VOMITING Potassium Bicarb/Potassium Chloride (K-Lyte Cl Eff) 50 meq PO UNSCH PRN PRN Reason: For Potassium 3.3 - 3.5 mEq/L Potassium Bicarb/Potassium Chloride (K-Lyte Cl Eff) 25 meq NG/OG BID [facility] Last Admin: 08/30/18 21:26 Dose: 25 meq Potassium Phosphate (K-Phos Original) 2,000 mg PO UNSCH PRN PRN Reason: SEE LABEL COMMENTS Potassium Phosphate (K-Phos Original) 2,000 mg PO Q4H PRN PRN Reason: Phosphorus Less Than 2.5 mg/dL Senna/Docusate Sodium (Lenora-Colace) 1 tab PO BID [facility] Last Admin: 08/30/18 21:30 Dose: 1 tab Sennosides (Senokot) 17.2 mg PO Q12H PRN PRN Reason: Moderate Constipation Sodium Chloride (Ns Flush) 2 ml IV.FLUSH PRN PRN PRN Reason: FLUSH AFTER USING IV ACCESS Sodium Chloride (Ns Flush) 2 ml IV.FLUSH BID [facility] Last Admin: 08/30/18 21:27 Dose: 2 ml Sterile Water (Free Water) 0 ml NG/OG Q4HR [facility] Last Admin: 08/30/18 21:28 Dose: 200 ml Allergies Allergy/AdvReac Type Severity Reaction Status Date / Time pravastatin Allergy Severe Unverified 06/29/17 16:39 tetanus toxoid, adsorbed Allergy Severe Unverified 06/29/17 16:39 CRESTOR Allergy Severe Uncoded 01/12/12 07:54 Home Medications Medication Instructions Recorded Confirmed Type Aspir-81 81 mg PO DAILY 08/25/18 08/25/18 History Co Q-10 08/25/18 History allopurinol 100 mg PO DAILY 08/25/18 08/25/18 History amlodipine 10 mg PO DAILY 08/25/18 08/25/18 History atorvastatin 20 mg PO HS 08/25/18 08/25/18 History citalopram 10 mg PO DAILY 08/25/18 08/25/18 History cyanocobalamin-cobamamide [B12] 08/25/18 History insulin aspart U-100 [Novolog 5 unit SUBCUT PRN PRN 08/25/18 08/25/18 History U-100 Insulin aspart] insulin aspart U-100 [Novolog 15 unit SUBCUT TIDAC 08/25/18 08/25/18 History U-100 Insulin aspart] insulin degludec [Tresiba 45 unit SUBCUT HS 08/25/18 08/25/18 History FlexTouch U-100] isosorbide mononitrate 30 mg PO DAILY 08/25/18 08/25/18 History levothyroxine 25 mcg PO DAILY 08/25/18 08/25/18 History lisinopril 20 mg PO BID 08/25/18 08/25/18 History losartan 100 mg PO DAILY 08/25/18 08/25/18 History metformin 1,000 mg PO BID 08/25/18 08/25/18 History metoprolol succinate 25 mg PO DAILY 08/25/18 08/25/18 History multivitamin [Multiple Vitamins] 1 tab PO DAILY 08/25/18 08/25/18 History nitroglycerin [Nitrostat] 0.4 mg SUBLINGUAL Q5-15M PRN 08/25/18 08/25/18 History omeprazole 20 mg PO DAILY 08/25/18 08/25/18 History insulin aspart U-100 [Novolog 08/26/18 08/26/18 History U-100 Insulin aspart] metformin 1,000 mg PO BID 08/26/18 08/26/18 History Physical Exam Vital signs: Vital Signs 08/30/18 03:00 08/30/18 04:00 08/30/18 04:12 Temperature 100.9 F H Pulse Rate 71 71 Respiratory Rate 10 L 10 L Blood Pressure 146/74 H 162/79 H Pulse Oximetry 98 99 08/30/18 07:00 08/30/18 07:20 08/30/18 08:00 Temperature 101 F H Pulse Rate 66 68 Respiratory Rate 10 L 10 L Blood Pressure 142/70 H 142/70 H Pulse Oximetry 98 98 08/30/18 10:15 08/30/18 11:00 08/30/18 12:00 Temperature 101 F H Pulse Rate 65 74 Respiratory Rate 16 16 Blood Pressure 150/73 H Pulse Oximetry 99 99 08/30/18 13:40 08/30/18 14:58 08/30/18 15:00 Temperature 101.6 F H Pulse Rate 80 Respiratory Rate 16 16 Blood Pressure 157/76 H Pulse Oximetry 100 99 99 08/30/18 15:23 08/30/18 17:20 08/30/18 19:00 Temperature 100.8 F H Pulse Rate 73 82 Respiratory Rate 16 16 Blood Pressure 169/78 H Pulse Oximetry 99 97 08/30/18 20:17 Temperature Pulse Rate Respiratory Rate 16 Blood Pressure Pulse Oximetry 96 Intake & Output 08/30/18 08/30/18 08/31/18 06:59 18:59 06:59 Intake Total 698 / 698 931 / 931 Output Total 1175 / 1175 2380 / 2380 Balance -477 / -477 -1449 / -1449 Weight 114 kg Intake: IV 201 / 201 561 / 561 Flolan (30,000 ng/mL) Neb 80 ML 55 / 55 In NS Inj 20 ML @ 5 mls/hr INH Q8H [facility] Rx#:[id number] Flolan (30,000 ng/mL) Neb 100 0 / 0 ML In Bag/Syringe 1 EACH @ 5 mls/hr INH Q8H [facility] Rx#:[id number] Heparin/D5W 25,000 U/250 mL 25, 101 / 101 56 / 56 000 unit In 250 ml @ Per Protocol IV.CONT TITRATE PRN Rx #:[id number] Flexbumin 25% Inj 100 ML @ 60 100 / 100 mls/hr IV.SIG Q12H [facility] Rx#: [id number] Azactam Inj 1,000 MG In NS Inj 100 / 100 200 / 200 100 ML @ 200 mls/hr IV.SIG Q8H [facility] Rx#:[id number] Levaquin 750 mg Premix Inj 150 150 / 150 ML @ 100 mls/hr IV.SIG Q24H [facility] Rx#:[id number] Tube Feeding 347 / 347 350 / 350 Tube Irrigant 150 / 150 Water Bolus Amount 20 / 20 Output: Urine Amount (Catheter) 1175 / 1175 2380 / 2380 Indwelling Temp Sensing 1175 / 1175 2380 / 2380 Catheter Other: Date of Last Bowel Movement 08/30/18 # Bowel Movements 0 1 Narrative: GENERAL: in NAD, SKIN: Warm and dry. HEAD: Atraumatic. Normocephalic. EYES: Pupils equal and round. No scleral icterus. ENT: No nasal bleeding or discharge. Mucous membranes pink and moist. NECK: Intubated CARDIOVASCULAR: Regular rate and rhythm. RESPIRATORY: No accessory muscle use. GASTROINTESTINAL: Abdomen soft, non-tender, nondistended. MUSCULOSKELETAL: Extremities without clubbing, cyanosis, or edema. No obvious deformities. NEUROLOGICAL: Intubated, off sedation, eyes partially open grimaces to tactile nonverbal not following pupils 3-2.5 mm approximately bilaterally no gaze deviation positive gag reflex able to breathe independently, no extremity movement plantarflex her no clonus PSYCHIATRIC: Intubated - Urinary Catheter Management Indwelling Urethral Catheter Cath placed during this visit: yes, but has since been removed by the nurse Reason for continuing: Continue criteria not met Insertion date: 08/24/18 Insertion time: 19:46 Removal date: 08/24/18 Removal time: 20:30 Indwelling Temp Sensing Catheter Cath placed during this visit: yes Reason for continuing: Hourly intake/output Insertion date: 08/24/18 Insertion time: 20:30 Results 08/30/18 05:20 08/30/18 05:20 Cardiac Enzymes 08/29/18 08/30/18 Range/Units 05:00 05:20 AST 120 H 79 H (15-37) U/L Coagulation 08/29/18 08/29/18 08/29/18 Range/Units 05:00 05:00 15:15 PT 11.6 (9.8-11.6) sec APTT 35.3 H D 34.9 H (24.3-30.1) sec 08/29/18 08/30/18 08/30/18 Range/Units 23:20 05:20 05:20 PT 11.6 (9.8-11.6) sec APTT 40.4 H 33.4 H (24.3-30.1) sec 08/30/18 08/30/18 Range/Units 12:15 17:48 PT (9.8-11.6) sec APTT 42.9 H D 37.5 H (24.3-30.1) sec CBC 08/29/18 08/30/18 Range/Units 05:00 05:20 WBC 7.7 6.5 (4.0-11.0) th/mm3 RBC 3.43 L 3.34 L (4.50-5.90) mil/mm3 Hgb 11.0 L 10.7 L (13.0-17.0) gm/dL Hct 32.9 L 32.0 L (39.0-51.0) % Plt Count 120 L 122 L (150-450) th/mm3 Neut # (Auto) 6.1 4.9 (1.8-7.7) th/mm3 Lymph # (Auto) 0.9 L 0.7 L (1.0-4.8) th/mm3 [place] # (Auto) 0.7 0.9 (0.0-0.9) th/mm3 Eos # (Auto) 0.0 0.0 (0.0-0.4) th/mm3 Baso # (Auto) 0.0 0.0 (0.0-0.2) th/mm3 Comprehensive Metabolic Panel 08/29/18 08/30/18 Range/Units 05:00 05:20 Sodium 149 H 150 H (136-145) meq/L Potassium 3.9 D 4.0 (3.5-5.1) meq/L Chloride 110 H 111 H (98-107) meq/L Carbon Dioxide 33.1 H 31.9 (21.0-32.0) meq/L BUN 43 H 43 H (7-18) mg/dL Creatinine 1.31 H 1.19 (0.60-1.30) mg/dL Calcium 8.4 L 8.8 (8.5-10.1) mg/dL AST 120 H 79 H (15-37) U/L ALT 69 58 (12-78) U/L Alkaline Phosphatase 67 67 (45-117) U/L Total Protein 6.0 L 6.0 L (6.4-8.2) g/dL Albumin 2.1 L 2.0 L (3.4-5.0) g/dL Intake and Output 08/30/18 08/30/18 08/31/18 14:59 22:59 06:59 Intake Total 350 / 350 581 / 581 Output Total 2380 / 2380 Balance 350 / 350 -1799 / -1799 Intake: IV 350 / 350 211 / 211 Flolan (30,000 ng/mL) Neb 80 ML 55 / 55 In NS Inj 20 ML @ 5 mls/hr INH Q8H [facility] Rx#:[id number] Heparin/D5W 25,000 U/250 mL 25, 56 / 56 000 unit In 250 ml @ Per Protocol IV.CONT TITRATE PRN Rx #:[id number] Flexbumin 25% Inj 100 ML @ 60 100 / 100 mls/hr IV.SIG Q12H [facility] Rx#: [id number] Azactam Inj 1,000 MG In NS Inj 100 / 100 100 / 100 100 ML @ 200 mls/hr IV.SIG Q8H [facility] Rx#:[id number] Levaquin 750 mg Premix Inj 150 150 / 150 ML @ 100 mls/hr IV.SIG Q24H [facility] Rx#:[id number] Tube Feeding 350 / 350 Water Bolus Amount 20 / 20 Output: Urine Amount (Catheter) 2380 / 2380 Indwelling Temp Sensing 2380 / 2380 Catheter Other: Date of Last Bowel Movement 08/30/18 # Bowel Movements 1 - Imaging and Cardiology Imaging: Impressions Chest X-Ray 08/29/18 10:00 CONCLUSION: 1. Stable ETT. NGT in the stomach. 2. Interstitial edema and pulmonary vascular congestion pattern. 3. Stable mild patchy bilateral lower lung zone airspace disease. Head MRI 08/30/18 00:00 CONCLUSION: 1. Moderate diffuse cerebral atrophy with prominent periventricular ischemic white matter demyelination. 2. No evidence for acute infarction or hemorrhage. Chest X-Ray 08/30/18 06:00 CONCLUSION: Diffuse edema versus pneumonia. The findings are similar to the prior exam. Assessment and Plan - Assessment (1) PEA (Pulseless electrical activity) Code(s): I46.9 - Cardiac arrest, cause unspecified Status: Acute (2) NSTEMI (non-ST elevated myocardial infarction) Code(s): I21.4 - Non-ST elevation (NSTEMI) myocardial infarction Status: Acute (3) Cardiac arrest Code(s): I46.9 - Cardiac arrest, cause unspecified Status: Acute - Plan 1) Cardiac arrest x2 Appears to be PEA, but received Amiodarone at some point without documentation of VT/Vfib Downtime 15-30 mins 2) NSTEMI Most likely Type 2 Does have a history of CAD with stents EKG showing no acute pathology 3) Will await neurologic recovery before deciding how to proceed from cardiology standpoint MRI today and Neuro consult 4) Supportive care
[2018-08-31] MEDS: Oral Hygiene Kit OROPHARYNG SCH ×4 (00:07→16:14)
[2018-08-31] MEDS: Insulin NovoLOG Aspart Correctional Sugar Inj SQ SCH ×4 (00:41→17:26)
[2018-08-31] MEDS ORDERED: Epoprostenol (30,000/mL) Neb 40 ML in Sodium Chlor 0.9% Inj 60 ML INH SCH (04:00)
[2018-08-31] MEDS: Labetalol HCl Inj 100 MG/20 ML Vial IV.PUSH PRN (04:01)
--- NOTE | 2018-08-31 05:07 | XR ---
EXAM DATE: 08/31/2018 6:00 AM EDT AGE/SEX: 72 years / Male INDICATIONS: Short of breath. CLINICAL DATA: This is the patient's subsequent encounter. Patient reports that signs and symptoms h ave been present for 4 - 6 days and indicates a pain score of 0/10. MEDICAL/SURGICAL HISTORY: Diabetes mellitus type II. Coronary artery stent. COMPARISON: [facility], CHEST 1V SINGLE AP, 08/30/2018. . FINDINGS: The cardiac silhouette is enlarged in transverse diameter. Support lines and tubes are in satisfactor y position. There is worsening pulmonary edema Small bilateral pleural effusions are identified. CONCLUSION: Worsening pulmonary edema. Electronically signed by: Francisco Javier King MD 08/31/2018 5:06 AM EDT
[2018-08-31 05:45] LABS: Hematocrit 24.2 % (39.0-51.0); Hemoglobin 8.4 gm/dL (13.0-17.0); Lymph # (Auto) 0.9 th/mm3 (1.0-4.8); Lymph % (Auto) 15.3 % (9.0-44.0); Mean Corpuscular HGB Conc 34.8 % (32.0-36.0); Mean Corpuscular Hemoglobin 32.8 pg (27.0-34.0); Mean Corpuscular Volume 94.3 fL (80.0-100.0); Mean Platelet Volume 9.1 fL (7.0-11.0); Mono # (Auto) 0.7 th/mm3 (0.0-0.9); Mono % (Auto) 10.7 % (0.0-8.0); Neut # (Auto) 4.6 th/mm3 (1.8-7.7); Platelet Count 97 th/mm3 (150-450); Red Blood Count 2.57 mil/mm3 (4.50-5.90); Red Cell Distribution Width 14.5 % (11.6-17.2); White Blood Count 6.2 th/mm3 (4.0-11.0)
[2018-08-31 05:57] LABS: Activated Partial Thrombo Time 55.7 sec (24.3-30.1); INR 1.4 Ratio; Prothrombin Time 13.8 sec (9.8-11.6)
[2018-08-31 06:17] LABS: Alanine Aminotransferase 39 U/L (12-78); Albumin 2.2 g/dL (3.4-5.0); Alkaline Phosphatase 52 U/L (45-117); Anion Gap 10 meq/L (5-15); Aspartate Aminotransferase 50 U/L (15-37); Blood Urea Nitrogen 40 mg/dL (7-18); Calcium 8.1 mg/dL (8.5-10.1); Carbon Dioxide 29.3 meq/L (21.0-32.0); Chloride 113 meq/L (98-107); Glomerular Filtration Rate 53 mL/min (>89); Glucose,Random 299 mg/dL (74-106); Magnesium 2.4 mg/dL (1.5-2.5); Phosphorus 2.8 mg/dL (2.5-4.9); Sodium 152 meq/L (136-145); Total Protein 5.5 g/dL (6.4-8.2)
[2018-08-31] MEDS: Potassium Chlor 20 mEq Premix 20 MEQ/100 ML PIGGYBACK IV.SIG PRN ×4 (07:22→13:13)
--- NOTE | 2018-08-31 08:28 | P.PNCC ---
Subjective Subjective Remarks/Hospital Course: 72-year-old male, past medical history significant for diabetes and coronary artery disease with 3 previous stents, who is presented post cardiac arrest. Per EMS and family he was doing work around the house when he stated that he did not feel right and thought something was off with his blood sugar. He then went to go sit down and when his turned around he was slumping over. She then called 911. On EMS arrival he was unresponsive pulseless and apneic. They began CPR. They temporarily achieved ROSC in the field prior to him coding again. They obtained ROSC again right before arrival. In total they gave 3 mg of epinephrine, 2 A of bicarbonate, 300 mg of amiodarone. EMS does not believe that he was without a pulse for more than 15 minutes at any time. He lost pulses again on arrival here. Again he was successfully resuscitated with return of spontaneous circulation within 15 minutes. 08/25: Patient admitted to CVICU, on targeted temperature management. 08/26: No significant overnight events, decreased UO this morning. Now being rewarmed. 08/27: Called to bedside by RN yesterday for facial swelling, CXR showed no evidence of PTX or subcut emphysema, CT scans ordered but was delayed by over 7 hours due to multiple trauma and stroke alerts taking priority in CT scan. When the patient was being prepared to move to CT around 6:30 PM, he became hypoxic to the high 80s and was too unstable for scan. He required increase in his bilevel settings and was started on flolan. This morning, he is stable, O2 sats 100% on current settings with much improved ABG. 08/28: Patient has been off pressors since yesterday afternoon, off all sedation x 24+ hours but still unresponsive. Only had a weak cough reflex. EEG negative for seizures. 08/29: Patient remains on bilevel, oxygenation improved however remains encephalopathy. To noxious central stimuli patient does weakly withdraw upper extremities and opens eyes. ABG shows pH of 7.47. Pressure high reduced to 28 from 32. 08/30: Remains on bilevel slightly improved oxygenation. Diuresis started yesterday with good urine output. Creatinine slightly improved. Remains severely encephalopathic off sedation more for more than 72 hours now. Attempt transition to PC/AC with high PEEP, if tolerated check MRI of the brain 08/31: Patient remains critical and hypoxemic however very slight improvement in neuro exam. MRI did not show any evidence of anoxic brain injury. Change from bilevel to QUALITY IMPROVEMENT COORDINATOR C yesterday. Tolerating well PEEP now reduced to 10. Chest x-ray shows persistent pulmonary edema continue diuresis. Start quarter normal saline with potassium 4 free water replacement. Urine output more than 4 L in 24 hours Objective Vital Signs / I&O: Vital Signs 08/30/18 10:15 08/30/18 11:00 08/30/18 12:00 Temperature 101 F H Pulse Rate 65 74 Respiratory Rate 16 16 Blood Pressure 150/73 H Pulse Oximetry 99 99 08/30/18 13:40 08/30/18 14:58 08/30/18 15:00 Temperature 101.6 F H Pulse Rate 80 Respiratory Rate 16 16 Blood Pressure 157/76 H Pulse Oximetry 100 99 99 08/30/18 15:23 08/30/18 17:20 08/30/18 19:00 Temperature 100.8 F H Pulse Rate 73 82 Respiratory Rate 16 16 Blood Pressure 169/78 H Pulse Oximetry 99 97 08/30/18 20:17 08/30/18 23:00 08/31/18 00:40 Temperature 101.2 F H Pulse Rate 79 Respiratory Rate 16 16 16 Blood Pressure 165/71 H Pulse Oximetry 96 98 98 08/31/18 03:00 08/31/18 03:45 08/31/18 03:46 Temperature 100.5 F H Pulse Rate 74 76 Respiratory Rate 16 16 Blood Pressure 182/85 H Pulse Oximetry 98 99 08/31/18 07:00 08/31/18 08:01 Temperature 100.2 F H Pulse Rate 75 Respiratory Rate 16 16 Blood Pressure 163/75 H Pulse Oximetry 98 98 Intake & Output 08/30/18 08/31/18 08/31/18 18:59 06:59 18:59 Intake Total 931 / 931 1304 / 1304 Output Total 2380 / 2380 1825 / 1825 Balance -1449 / -1449 -521 / -521 Weight 108.5 kg Intake: IV 561 / 561 200 / 200 Flolan (30,000 ng/mL) Neb 80 ML 55 / 55 In NS Inj 20 ML @ 5 mls/hr INH Q8H [facility] Rx#:[id number] Heparin/D5W 25,000 U/250 mL 25, 56 / 56 000 unit In 250 ml @ Per Protocol IV.CONT TITRATE PRN Rx #:[id number] Flexbumin 25% Inj 100 ML @ 60 100 / 100 100 / 100 mls/hr IV.SIG Q12H [facility] Rx#: [id number] Azactam Inj 1,000 MG In NS Inj 200 / 200 100 / 100 100 ML @ 200 mls/hr IV.SIG Q8H [facility] Rx#:[id number] Levaquin 750 mg Premix Inj 150 150 / 150 ML @ 100 mls/hr IV.SIG Q24H [facility] Rx#:[id number] Oral 0 / 0 Tube Feeding 350 / 350 404 / 404 Water Bolus Amount 20 / 20 700 / 700 Output: Urine Amount (Catheter) 2380 / 2380 1825 / 1825 Indwelling Temp Sensing 2380 / 2380 182 / 1825 Catheter Other: Date of Last Bowel Movement 08/30/18 08/30/18 # Bowel Movements 1 0 Result Diagrams: 08/31/18 04:39 08/31/18 04:39 Objective Remarks: GEN: Elderly male lying in bed, intubated off all sedation >4 days HEENT: NCAT, ETT in place NECK: Trachea midline CARDIO: Regular rate and rhythm RESP: Diminished breath sounds bilaterally, on PC/AC on vent ABD/GI: Soft, non-distended EXT/MS: Right femoral art line Dcd1. Right femoral central line discontinued 08/29/2018 SKIN: Anasarca, fluid-filled blisters developing on upper extremities and trunk NEURO: Currently off all sedation for 84 hours. No spontaneous movements or eye opening. To deep noxious stimuli withdrawal of upper extremities and eye opening noted. No spontaneous eye opening Assessment and Plan - Assessment and Plan Plan: 72yM presenting with cardiac arrest x 2, unclear rhythm by EMS/ ED reports, now with ROSC s/p targeted temperature management. Estimated downtime 30 minutes total (15 per arrest). 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 Beltrán, discussed with him, DC IV heparin -Aspirin PULM: -Acute hypoxic respiratory failure secondary to cardiac arrest -CXR/ CT chest consistent with ARDS vs pneumonia * Continue aztreonam 10 days. Enterobacter in sputum pansensitive * No PE noted on CTA -wean Flolan, transitioned from bilevel to QUALITY IMPROVEMENT COORDINATOR C yesterday 08/30/2018, tolerating well -Vent bundle, Duonebs -Repeat chest x-ray in am, today showed worsening pulmonary edema most likely from change from bilevel to conventional vent setting F/E/N: -TFs at goal -Keep K+ > 4.0, Mg > 2.0 RENAL: -BUN/ creatinine stable, UO stable -D/C bicarb -Diurese with IV Lasix 40 mg q12 -Free water replacement with quarter normal saline and free water flushes ID: -Aztreonam for ICU- CAP as detailed above -Follow up cultures-08/25 sputum culture with Enterobacter pansensitive ENDO: -SSI, Accuchecks -Continue home dose of Synthroid PROPHY: -SCDs, discontinue IV heparin, start Lovenox 40 mg daily -PPI OVERALL: This patient is critically ill with multiple episodes of cardiac arrest. He requires intensive care and remains at high-risk for life- threatening decompensation. Appears to have sustained severe anoxic injury. Counseling/ Coordination of Care: Total critical care time: 36 minutes. This includes examining the patient, gathering history from someone other than the patient (i.e., chart review), discussing the patient's care with other providers, managing the patient's blood pressure and ventilator settings, ordering and interpreting radiology studies, ordering and interpreting laboratory studies, managing the patient's pain and sedation requirements, re-evaluation at frequent intervals, and documentation. All critical care time is separate and exclusive of procedures, teaching, and patient/ family updates.
--- NOTE | 2018-08-31 08:29 | P.PNNEU ---
Subjective Subjective Comments: no acute events. no sedation. no sz Active Medications: Active Medications Acetaminophen (Tylenol) 650 mg PO Q6H PRN PRN Reason: PAIN 1-10 AND/OR FEVER >101F Last Admin: 08/30/18 21:33 Dose: 650 mg Al Hydroxide/Mg Hydroxide (Milk Of Magnamaury Liq) 30 ml PO Q12H PRN PRN Reason: Mild Constipation Albuterol (Duoneb Neb (Prn)) 1 ampul NEB Q2HR NEB PRN PRN Reason: WHEEZING Last Admin: 08/24/18 22:54 Dose: 1 ampul Albuterol (Duoneb Neb (Mervat)) 1 ampul NEB Q6HR NEB MERVAT Aspirin (Aspirin Chew) 81 mg PO DAILY [facility] Atropine Sulfate (Atropine Inj) 0.5 mg IV.PUSH Q5M PRN PRN Reason: SYMPTOMATIC BRADYCARDIA Bisacodyl (Dulcolax Supp) 10 mg RECTAL DAILY PRN PRN Reason: SEVERE CONSITIPATION Last Admin: 08/30/18 06:18 Dose: 10 mg Chlorhexidine Gluconate (Peridex 0.12% Oral Kit) 15 ml OROPHARYNG BID@0800, 2000 [facility] Last Admin: 08/30/18 21:27 Dose: 15 ml Citalopram Hydrobromide (Celexa) 10 mg PO DAILY [facility] Last Admin: 08/30/18 08:36 Dose: 10 mg Dextrose (D50w Vial) 50 ml IV.PUSH UNSCH PRN PRN Reason: PER HYPOGLYCEMIA PROTOCOL Famotidine (Pepcid Pf Inj) 20 mg IV.PUSH Q12HR [facility] Last Admin: 08/30/18 21:26 Dose: 20 mg Furosemide (Lasix Inj) 40 mg IV.PUSH BID@0900,1800 [facility] Last Admin: 08/30/18 17:27 Dose: 40 mg Glucagon (Glucagon Inj) 1 mg OTHER PRN PRN PRN Reason: for Hypoglycemia Protocol Heparin Sodium (Porcine) (Heparin Inj) 2,500 units IV.PUSH UNSCH PRN PRN Reason: aPTT 25-39 Last Admin: 08/30/18 19:21 Dose: 2,500 units Heparin Sodium (Porcine) (Heparin Inj) 5,000 units IV.PUSH UNSCH PRN PRN Reason: aPTT < 25 Hydralazine HCl (Apresoline Inj) 20 mg IV.PUSH Q2H PRN PRN Reason: SBP>160, DBP>90 Last Admin: 08/30/18 16:55 Dose: 20 mg Magnesium Sulfate 4 gm/ Sodium (Chloride) 100 mls @ 50 mls/hr IV.SIG UNSCH PRN PRN Reason: For Magnesium 0.9 - 1.1 mg/dL Magnesium Sulfate 2 gm/ Sodium (Chloride) 100 mls @ 50 mls/hr IV.SIG UNSCH PRN PRN Reason: For Magnesium 1.2 - 1.6 mg/dL Last Infusion: 08/27/18 16:23 Dose: Infused Potassium Chloride (Kcl 40 Meq Premix Inj) 40 meq in 100 mls @ 25 mls/hr IV.SIG Q2H PRN PRN Reason: For Potassium 2.8 - 3.2 mEq/L Last Infusion: 08/26/18 14:23 Dose: Infused Potassium Chloride (Kcl 20 Meq Premix Inj) 20 meq in 100 mls @ 50 mls/hr IV.SIG Q2H PRN PRN Reason: For Potassium 3.3 - 3.5 mEq/L Potassium Chloride (Kcl 40 Meq Premix Inj) 40 meq in 100 mls @ 25 mls/hr IV.SIG UNSCH PRN PRN Reason: For Potassium 3.3 - 3.5 mEq/L Potassium Chloride (Kcl 20 Meq Premix Inj) 20 meq in 100 mls @ 50 mls/hr IV.SIG Q2H PRN PRN Reason: For Potassium 2.8 - 3.2 mEq/L Last Admin: 08/31/18 07:22 Dose: 50 mls/hr Potassium Phosphate 30 mmol/ (Sodium Chloride) 260 mls @ 42 mls/hr IV.SIG UNSCH PRN PRN Reason: SEE LABEL COMMENTS Sodium Phosphate 30 mmol/ (Sodium Chloride) 260 mls @ 42 mls/hr IV.SIG UNSCH PRN PRN Reason: For Phosphorus < 2.5 mg/dL Aztreonam 1,000 mg/ Sodium (Chloride) 100 mls @ 200 mls/hr IV.SIG Q8H MERVAT Stop: 09/01/18 09:59 Last Infusion: 08/31/18 02:55 Dose: Infused Levofloxacin/Dextrose (Levaquin 750 Mg Premix Inj) 150 mls @ 100 mls/hr IV.SIG Q24H MERVAT Stop: 09/01/18 08:59 Last Infusion: 08/30/18 10:17 Dose: Infused Heparin Sodium/Dextrose (Heparin/D5w 25,000 U/250 Ml) 25,000 unit in 250 mls @ 0 mls/hr IV.CONT TITRATE PRN; Protocol PRN Reason: Per Protocol Last Titration: 08/31/18 01:00 Dose: 1,000 units/hr, 10 mls/hr Albumin Human (Flexbumin 25% Inj) 100 mls @ 60 mls/hr IV.SIG Q12H MERVAT Last Infusion: 08/30/18 23:30 Dose: Infused Epoprostenol Sodium 40 ml/ (Sodium Chloride) 100 mls @ 5 mls/hr INH Q8H MERVAT Stop: 08/31/18 11:59 Epoprostenol Sodium 20 ml/ (Sodium Chloride) 100 mls @ 5 mls/hr INH Q8H MERVAT Stop: 08/31/18 19:59 Potassium Chloride 20 meq/Sodium Chloride 38.5 meq/Sterile Water 1,019.625 mls @ 50 mls/hr IV.CONT .[id number] [facility] Insulin Aspart (Novolog Insulin Correctional Sugar Inj) 0 unit SQ Q6HR MERVAT; Protocol Last Admin: 08/31/18 05:29 Dose: 7 unit Labetalol HCl (Trandate Inj) 20 mg IV.PUSH Q4H PRN PRN Reason: SYS BP GREATER THAN 170 MMHG Last Admin: 08/31/18 04:01 Dose: 20 mg Lactulose (Lactulose Liq) 30 ml PO DAILY PRN PRN Reason: SEVERE CONSITIPATION Last Admin: 08/29/18 18:17 Dose: 30 ml Levothyroxine Sodium (Synthroid) 25 mcg PO DAILY@0600 [facility] Last Admin: 08/31/18 05:29 Dose: 25 mcg Lorazepam (Ativan Inj) 1 mg IV.PUSH Q1H PRN PRN Reason: SEE LABEL COMMENTS Magnesium Oxide (Mag-Ox) 800 mg PO UNSCH PRN PRN Reason: For Magnesium 1.2 - 1.6 mg/dL Miscellaneous (Pill Splitter) 1 each OTHER UNSCH PRN PRN Reason: SEE LABEL COMMENTS Miscellaneous Medication () 1 each OROPHARYNG 0000,0400,1200,1600 [facility] Last Admin: 08/31/18 03:46 Dose: 1 each Ondansetron HCl (Zofran Inj) 4 mg IV.PUSH Q6H PRN PRN Reason: NAUSEA OR VOMITING Potassium Bicarb/Potassium Chloride (K-Lyte Cl Eff) 50 meq PO UNSCH PRN PRN Reason: For Potassium 3.3 - 3.5 mEq/L Potassium Bicarb/Potassium Chloride (K-Lyte Cl Eff) 25 meq NG/OG BID [facility] Last Admin: 08/30/18 21:26 Dose: 25 meq Potassium Phosphate (K-Phos Original) 2,000 mg PO UNSCH PRN PRN Reason: SEE LABEL COMMENTS Potassium Phosphate (K-Phos Original) 2,000 mg PO Q4H PRN PRN Reason: Phosphorus Less Than 2.5 mg/dL Senna/Docusate Sodium (Lenora-Colace) 1 tab PO BID [facility] Last Admin: 08/30/18 21:30 Dose: 1 tab Sennosides (Senokot) 17.2 mg PO Q12H PRN PRN Reason: Moderate Constipation Sodium Chloride (Ns Flush) 2 ml IV.FLUSH PRN PRN PRN Reason: FLUSH AFTER USING IV ACCESS Sodium Chloride (Ns Flush) 2 ml IV.FLUSH BID [facility] Last Admin: 08/30/18 21:27 Dose: 2 ml Sterile Water (Free Water) 200 ml NG/OG Q4HR [facility] Allergies/Adverse Reactions: Allergies Allergy/AdvReac Type Severity Reaction Status Date / Time pravastatin Allergy Severe Unverified 06/29/17 16:39 tetanus toxoid, adsorbed Allergy Severe Unverified 06/29/17 16:39 CRESTOR Allergy Severe Uncoded 01/12/12 07:54 Review of Systems unobtainable due to endotracheal tube, unobtainable due to mental status Physical Exam Vital signs: Vital Signs 08/30/18 10:15 08/30/18 11:00 08/30/18 12:00 Temperature 101 F H Pulse Rate 65 74 Respiratory Rate 16 16 Blood Pressure 150/73 H Pulse Oximetry 99 99 08/30/18 13:40 08/30/18 14:58 08/30/18 15:00 Temperature 101.6 F H Pulse Rate 80 Respiratory Rate 16 16 Blood Pressure 157/76 H Pulse Oximetry 100 99 99 08/30/18 15:23 08/30/18 17:20 08/30/18 19:00 Temperature 100.8 F H Pulse Rate 73 82 Respiratory Rate 16 16 Blood Pressure 169/78 H Pulse Oximetry 99 97 08/30/18 20:17 08/30/18 23:00 08/31/18 00:40 Temperature 101.2 F H Pulse Rate 79 Respiratory Rate 16 16 16 Blood Pressure 165/71 H Pulse Oximetry 96 98 98 08/31/18 03:00 08/31/18 03:45 08/31/18 03:46 Temperature 100.5 F H Pulse Rate 74 76 Respiratory Rate 16 16 Blood Pressure 182/85 H Pulse Oximetry 98 99 08/31/18 07:00 08/31/18 08:01 Temperature 100.2 F H Pulse Rate 75 Respiratory Rate 16 16 Blood Pressure 163/75 H Pulse Oximetry 98 98 Intake & Output 08/30/18 08/31/18 08/31/18 18:59 06:59 18:59 Intake Total 931 / 931 1304 / 1304 Output Total 2380 / 2380 1825 / 1825 Balance -1449 / -1449 -521 / -521 Weight 108.5 kg Intake: IV 561 / 561 200 / 200 Flolan (30,000 ng/mL) Neb 80 ML 55 / 55 In NS Inj 20 ML @ 5 mls/hr INH Q8H MERVAT Rx#:[id number] Heparin/D5W 25,000 U/250 mL 25, 56 / 56 000 unit In 250 ml @ Per Protocol IV.CONT TITRATE PRN Rx #:[id number] Flexbumin 25% Inj 100 ML @ 60 100 / 100 100 / 100 mls/hr IV.SIG Q12H MERVAT Rx#: [id number] Azactam Inj 1,000 MG In NS Inj 200 / 200 100 / 100 100 ML @ 200 mls/hr IV.SIG Q8H MERVAT Rx#:[id number] Levaquin 750 mg Premix Inj 150 150 / 150 ML @ 100 mls/hr IV.SIG Q24H MERVAT Rx#:[id number] Oral 0 / 0 Tube Feeding 350 / 350 404 / 404 Water Bolus Amount 20 / 20 700 / 700 Output: Urine Amount (Catheter) 2380 / 2380 1825 / 1825 Indwelling Temp Sensing 2380 / 2380 1825 / 1825 Catheter Other: Date of Last Bowel Movement 08/30/18 08/30/18 # Bowel Movements 1 0 Narrative: GENERAL: in NAD, SKIN: Warm and dry. HEAD: Atraumatic. Normocephalic. EYES: Pupils equal and round. No scleral icterus. ENT: No nasal bleeding or discharge. Mucous membranes pink and moist. NECK: Intubated CARDIOVASCULAR: Regular rate and rhythm. RESPIRATORY: No accessory muscle use. GASTROINTESTINAL: Abdomen soft, non-tender, nondistended. MUSCULOSKELETAL: Extremities without clubbing, cyanosis, or edema. No obvious deformities. NEUROLOGICAL: Intubated, not awake, coma state, minimal grimace, pupils 3 mm sluggish, approximately bilaterally no gaze deviation, no extremity movement plantarflex her no clonus PSYCHIATRIC: Intubated - Constitutional no acute distress - Routine HEENT Exam Head: Present: normocephalic - Urinary Catheter Management Indwelling Urethral Catheter Cath placed during this visit: yes, but has since been removed by the nurse Reason for continuing: Continue criteria not met Insertion date: 08/24/18 Insertion time: 19:46 Removal date: 08/24/18 Removal time: 20:30 Indwelling Temp Sensing Catheter Cath placed during this visit: yes Reason for continuing: Hourly intake/output Insertion date: 08/24/18 Insertion time: 20:30 Objective Laboratory Results - last 24 hr 08/30/18 08/30/18 08/30/18 12:15 12:18 17:23 WBC RBC Hgb Hct MCV MCH MCHC RDW Plt Count MPV Prelim Diff (Auto) Neut % (Auto) Lymph % (Auto) [place] % (Auto) Eos % (Auto) Baso % (Auto) Neut # (Auto) Lymph # (Auto) [place] # (Auto) Eos # (Auto) Baso # (Auto) Differential Comment PT INR APTT 42.9 H D Sodium Potassium Chloride Carbon Dioxide Anion Gap BUN Creatinine Estimated GFR POC Glucose 301 H 246 H Random Glucose Calcium Phosphorus Magnesium Total Bilirubin AST ALT Alkaline Phosphatase Total Protein Albumin 08/30/18 08/31/18 08/31/18 17:48 00:26 00:36 WBC RBC Hgb Hct MCV MCH MCHC RDW Plt Count MPV Prelim Diff (Auto) Neut % (Auto) Lymph % (Auto) [place] % (Auto) Eos % (Auto) Baso % (Auto) Neut # (Auto) Lymph # (Auto) [place] # (Auto) Eos # (Auto) Baso # (Auto) Differential Comment PT INR APTT 37.5 H 58.3 H D Sodium Potassium Chloride Carbon Dioxide Anion Gap BUN Creatinine Estimated GFR POC Glucose 340 H Random Glucose Calcium Phosphorus Magnesium Total Bilirubin AST ALT Alkaline Phosphatase Total Protein Albumin 08/31/18 08/31/18 08/31/18 04:39 04:39 04:39 WBC 6.2 RBC 2.57 L Hgb 8.4 L D Hct 24.2 L MCV 94.3 MCH 32.8 MCHC 34.8 RDW 14.5 Plt Count 97 L MPV 9.1 Prelim Diff (Auto) Slide review pending Neut % (Auto) 74.0 H Lymph % (Auto) 15.3 [place] % (Auto) 10.7 H Eos % (Auto) 0.0 Baso % (Auto) 0.0 Neut # (Auto) 4.6 Lymph # (Auto) 0.9 L [place] # (Auto) 0.7 Eos # (Auto) 0.0 Baso # (Auto) 0.0 Differential Comment . PT 13.8 H INR 1.4 APTT 55.7 H Sodium 152 H Potassium 3.0 L D Chloride 113 H Carbon Dioxide 29.3 Anion Gap 10 BUN 40 H Creatinine 1.32 H Estimated GFR 53 L POC Glucose Random Glucose 299 H Calcium 8.1 L Phosphorus 2.8 Magnesium 2.4 Total Bilirubin 1.0 AST 50 H ALT 39 Alkaline Phosphatase 52 Total Protein 5.5 L Albumin 2.2 L 08/31/18 05:23 WBC RBC Hgb Hct MCV MCH MCHC RDW Plt Count MPV Prelim Diff (Auto) Neut % (Auto) Lymph % (Auto) [place] % (Auto) Eos % (Auto) Baso % (Auto) Neut # (Auto) Lymph # (Auto) [place] # (Auto) Eos # (Auto) Baso # (Auto) Differential Comment PT INR APTT Sodium Potassium Chloride Carbon Dioxide Anion Gap BUN Creatinine Estimated GFR POC Glucose 297 H Random Glucose Calcium Phosphorus Magnesium Total Bilirubin AST ALT Alkaline Phosphatase Total Protein Albumin Microbiology 08/25/18 12:41 Aerobic Blood Culture - Final Blood - Peripheral No growth in 5 days Anaerobic Blood Culture - Final No growth in 5 days 08/25/18 12:30 Aerobic Blood Culture - Final Blood - Line No growth in 5 days Anaerobic Blood Culture - Final No growth in 5 days Review/Management - Diagnosis (1) Anoxic encephalopathy Code(s): G93.1 - Anoxic brain damage, not elsewhere classified Status: Acute Current Visit: Yes (2) Respiratory failure Code(s): J96.90 - Respiratory failure, unspecified, unspecified whether with hypoxia or hypercapnia Status: Acute Current Visit: Yes (3) Cardiac arrest Code(s): I46.9 - Cardiac arrest, cause unspecified Status: Acute Current Visit: Yes (4) PEA (Pulseless electrical activity) Code(s): I46.9 - Cardiac arrest, cause unspecified Status: Acute Current Visit: Yes (5) NSTEMI (non-ST elevated myocardial infarction) Code(s): I21.4 - Non-ST elevation (NSTEMI) myocardial infarction Status: Acute Current Visit: Yes - Review/Management Plan: Displays brainstem reflexes EEG shows severe encephalopathy but presence of cortical activity MRI brain scan reviewed no diffusion restriction noted He may develop superimposed hypoxic encephalopathy from ARDS/pneumonia Recommendation Follow-up EEG; pending less awake/responsive this am Cardiopulmonary management He can proceed with any necessary cardiac ischemic workup or other testing/ procedure that is needed from a neurologic standpoint Follow serial exams d/w son at bedside
[2018-08-31] MEDS: Chlorhexidine 0.12% Oral Kit 15 ML UDC OROPHARYNG SCH (08:32)
[2018-08-31] MEDS: Albumin Human 25% Inj 100 ML IV.SIG SCH ×2 (08:33→20:51)
[2018-08-31] MEDS: Potassium Chloride 25 MEQ Effervescent Tablet NG/OG SCH ×2 (08:33→20:52)
[2018-08-31] MEDS: Famotidine PF Inj 20 MG/2 ML Vial IV.PUSH SCH ×2 (08:33→20:52)
[2018-08-31] MEDS: Senna/Docusate Sodium 8.6/50 MG Tablet PO SCH ×2 (08:34→20:52)
[2018-08-31 08:49] LABS: ABG Base Excess 7.1 mmol/L (-2-2); ABG PCO2 28 mmHg (38-42); ABG PO2 92 mmHG (61-120)
[2018-08-31] MEDS: hydrALAZINE HCl Inj 20 MG/ML Vial IV.PUSH PRN ×3 (09:16→21:16)
[2018-08-31 09:47] LABS: Lymphocytes 14 % (9-44); Monocytes 10 % (0-8)
[2018-08-31 09:48] LABS: Platelet Morphology Normal (Normal); Toxic Granulation 2+
[2018-08-31 10:00] LABS: ABG Base Excess 7.6 mmol/L (-2-2); ABG PCO2 40 mmHg (38-42); ABG PO2 176 mmHG (61-120)
[2018-08-31] MEDS: Acetaminophen 325 MG Tablet PO PRN (11:13)
[2018-08-31] MEDS ORDERED: Epoprostenol (30,000/mL) Neb 20 ML in Sodium Chlor 0.9% Inj 80 ML INH SCH (12:00)
[2018-08-31] MEDS: Potassium Chloride Inj 20 MEQ, Sodium Chloride 23.4% Inj 38.5 MEQ in Water for Inj, Ste... IV.CONT SCH (15:17)
[2018-08-31 15:36] LABS: Alanine Aminotransferase 38 U/L (12-78); Albumin 2.6 g/dL (3.4-5.0); Anion Gap 4 meq/L (5-15); Aspartate Aminotransferase 43 U/L (15-37); Blood Urea Nitrogen 40 mg/dL (7-18); Calcium 8.2 mg/dL (8.5-10.1); Carbon Dioxide 31.8 meq/L (21.0-32.0); Chloride 115 meq/L (98-107); Glomerular Filtration Rate 54 mL/min (>89); Glucose,Random 317 mg/dL (74-106); Potassium 3.8 meq/L (3.5-5.1); Sodium 151 meq/L (136-145)
[2018-08-31 15:38] LABS: Alkaline Phosphatase 55 U/L (45-117); Total Protein 5.8 g/dL (6.4-8.2)
[2018-08-31] MEDS: Enoxaparin Inj 40 MG/0.4 ML Syringe SQ SCH (16:15)
--- NOTE | 2018-08-31 20:49 | MG ---
cc: Ayden Purdy MD EEG NUMBER: [id number] FINDINGS: Findings are 1-3 Hz delta activity, 5-10 microvolts with burst low-amplitude theta activity occurring. Occasional isolated jerk occurring, also myoclonic type EEG potential. Limited driving with photic stimulation. Limited EEG reactivity. Mild variability. Single lead EKG showing sinus rhythm. INTERPRETATION: Moderate to severe encephalopathy with burst suppression type state occurring. No epileptic activity. Clinical correlation. MD TUSHAR Amos/chiqui , 08:38 PM , 08:43 PM
[2018-09-01] MEDS: Insulin NovoLOG Aspart Correctional Sugar Inj SQ SCH ×4 (01:26→17:58)
[2018-09-01] MEDS: Oral Hygiene Kit OROPHARYNG SCH ×4 (01:29→16:49)
[2018-09-01] MEDS: Chlorhexidine 0.12% Oral Kit 15 ML UDC OROPHARYNG SCH ×3 (01:29→20:50)
--- NOTE | 2018-09-01 04:08 | XR ---
EXAM DATE: 09/01/2018 6:00 AM EDT AGE/SEX: 72 years / Male INDICATIONS: Shortness of breath, possible pulmonary disease. CLINICAL DATA: This is the patient's subsequent encounter. Patient reports that signs and symptoms h ave been present for 4 - 6 days and indicates a pain score of Nonresponsive. MEDICAL/SURGICAL HISTORY: Diabetes mellitus type II. Coronary artery stent. COMPARISON: [facility] [place] [facility] [place] 1[place] SINGLE AP, 08/31/2018. . FINDINGS: The cardiac silhouette is enlarged in transverse diameter. Support lines and tubes are in satisfactor y position. There are findings of congestive heart failure with interstitial and alveolar opacity franki aterally. There is bilateral lower lobe atelectasis versus pneumonia. Small bilateral pleural effusi ons are identified. CONCLUSION: Cardiomegaly and findings of congestive heart failure. The findings are similar to the prior exam. Electronically signed by: Francisco Javier King MD 09/01/2018 4:06 AM EDT
[2018-09-01 04:26] LABS: Hematocrit 24.2 % (39.0-51.0); Hemoglobin 8.1 gm/dL (13.0-17.0); Mean Corpuscular HGB Conc 33.4 % (32.0-36.0); Mean Corpuscular Hemoglobin 32.4 pg (27.0-34.0); Mean Platelet Volume 10.1 fL (7.0-11.0); Platelet Count 123 th/mm3 (150-450); Red Cell Distribution Width 14.9 % (11.6-17.2); White Blood Count 8.5 th/mm3 (4.0-11.0)
[2018-09-01 04:45] LABS: Albumin 2.9 g/dL (3.4-5.0); Anion Gap 9 meq/L (5-15); Aspartate Aminotransferase 46 U/L (15-37); Blood Urea Nitrogen 43 mg/dL (7-18); Calcium 8.7 mg/dL (8.5-10.1); Carbon Dioxide 27.6 meq/L (21.0-32.0); Chloride 113 meq/L (98-107); Glomerular Filtration Rate 57 mL/min (>89); Glucose,Random 352 mg/dL (74-106); Magnesium 2.4 mg/dL (1.5-2.5); Potassium 3.4 meq/L (3.5-5.1); Sodium 150 meq/L (136-145)
[2018-09-01 04:46] LABS: Alanine Aminotransferase 36 U/L (12-78)
[2018-09-01 04:48] LABS: Alkaline Phosphatase 58 U/L (45-117); Total Protein 6.3 g/dL (6.4-8.2)
[2018-09-01] MEDS: Labetalol HCl Inj 100 MG/20 ML Vial IV.PUSH PRN (05:04)
[2018-09-01] MEDS: hydrALAZINE HCl Inj 20 MG/ML Vial IV.PUSH PRN (07:31)
[2018-09-01] MEDS: Potassium Chlor 20 mEq Premix 20 MEQ/100 ML PIGGYBACK IV.SIG PRN (07:32)
--- NOTE | 2018-09-01 08:04 | P.PNCC ---
Subjective Subjective Remarks/Hospital Course: DUPLICATE NOTE Objective Vital Signs / I&O: Vital Signs 08/31/18 11:00 08/31/18 12:35 08/31/18 15:00 Temperature 100.6 F H 100.5 F H Pulse Rate 103 H 105 H Respiratory Rate 16 18 18 Blood Pressure 153/77 H 156/80 H Pulse Oximetry 93 L 95 95 08/31/18 15:39 08/31/18 15:43 08/31/18 17:36 Temperature Pulse Rate 105 H Respiratory Rate 21 20 Blood Pressure 179/79 H Pulse Oximetry 95 08/31/18 17:46 08/31/18 18:10 08/31/18 19:00 Temperature 100.3 F H Pulse Rate 109 H Respiratory Rate 24 22 Blood Pressure 148/74 H 160/79 H Pulse Oximetry 96 97 08/31/18 20:20 08/31/18 20:24 08/31/18 23:00 Temperature 100.4 F H Pulse Rate 106 H 111 H Respiratory Rate 23 21 25 H Blood Pressure 111/90 Pulse Oximetry 96 97 09/01/18 03:00 09/01/18 03:31 09/01/18 03:39 Temperature 100.2 F H Pulse Rate 103 H 100 H Respiratory Rate 22 23 23 Blood Pressure 155/77 H Pulse Oximetry 97 97 Intake & Output 08/31/18 09/01/18 09/01/18 18:59 06:59 18:59 Intake Total 1487 / 1487 995 / 995 Output Total 2700 / 2700 2700 / 2700 Balance -1213 / -1213 -1705 / -1705 Weight 108 kg Intake: IV 1087 / 1087 100 / 100 Flolan (30,000 ng/mL) Neb 20 ML 10 / 10 In NS Inj 80 ML @ 5 mls/hr INH Q8H M[facility]AT Rx#:[id number] Heparin/D5W 25,000 U/250 mL 25, 32 / 32 000 unit In 250 ml @ Per Protocol IV.CONT TITRATE PRN Rx #:[id number] KCl Inj 20 MEQ Sodium Chloride 141 / 141 23.4% Inj 38.5 MEQ In Sterile Water for Inj 1,000 ML @ 50 mls /hr IV.CONT .[id number] MERVAT Rx#: [id number] Flexbumin 25% Inj 100 ML @ 60 100 / 100 100 / 100 mls/hr IV.SIG Q12H [facility] Rx#: [id number] Azactam Inj 1,000 MG In NS Inj 200 / 200 100 ML @ 200 mls/hr IV.SIG Q8H [facility]AT Rx#:[id number] Levaquin 750 mg Premix Inj 150 150 / 150 ML @ 100 mls/hr IV.SIG Q24H [facility] Rx#:[id number] KCl 20 mEq Premix Inj 20 meq In 400 / 400 100 ml @ 50 mls/hr IV.SIG Q2H PRN Rx#:[id number] Oral 0 / 0 Tube Feeding 400 / 400 295 / 295 Water Bolus Amount 600 / 600 Output: Urine Amount (Catheter) 2700 / 2700 2700 / 2700 Indwelling Temp Sensing 2700 / 2700 2700 / 2700 Catheter Other: Date of Last Bowel Movement 08/30/18 08/30/18 # Bowel Movements 0 Result Diagrams: 09/01/18 02:37 09/01/18 02:37 Assessment and Plan - Assessment and Plan Plan: DUPLICATE NOTE
[2018-09-01] MEDS ORDERED: Vancomycin Consult Pharmacy OTHER PRN (08:15)
--- NOTE | 2018-09-01 08:19 | P.PNCC ---
Subjective Subjective Remarks/Hospital Course: 72-year-old male, past medical history significant for diabetes and coronary artery disease with 3 previous stents, who is presented post cardiac arrest. Per EMS and family he was doing work around the house when he stated that he did not feel right and thought something was off with his blood sugar. He then went to go sit down and when his turned around he was slumping over. She then called 911. On EMS arrival he was unresponsive pulseless and apneic. They began CPR. They temporarily achieved ROSC in the field prior to him coding again. They obtained ROSC again right before arrival. In total they gave 3 mg of epinephrine, 2 A of bicarbonate, 300 mg of amiodarone. EMS does not believe that he was without a pulse for more than 15 minutes at any time. He lost pulses again on arrival here. Again he was successfully resuscitated with return of spontaneous circulation within 15 minutes. 08/25: Patient admitted to CVICU, on targeted temperature management. 08/26: No significant overnight events, decreased UO this morning. Now being rewarmed. 08/27: Called to bedside by RN yesterday for facial swelling, CXR showed no evidence of PTX or subcut emphysema, CT scans ordered but was delayed by over 7 hours due to multiple trauma and stroke alerts taking priority in CT scan. When the patient was being prepared to move to CT around 6:30 PM, he became hypoxic to the high 80s and was too unstable for scan. He required increase in his bilevel settings and was started on flolan. This morning, he is stable, O2 sats 100% on current settings with much improved ABG. 08/28: Patient has been off pressors since yesterday afternoon, off all sedation x 24+ hours but still unresponsive. Only had a weak cough reflex. EEG negative for seizures. 08/29: Patient remains on bilevel, oxygenation improved however remains encephalopathy. To noxious central stimuli patient does weakly withdraw upper extremities and opens eyes. ABG shows pH of 7.47. Pressure high reduced to 28 from 32. 08/30: Remains on bilevel slightly improved oxygenation. Diuresis started yesterday with good urine output. Creatinine slightly improved. Remains severely encephalopathic off sedation more for more than 72 hours now. Attempt transition to PC/AC with high PEEP, if tolerated check MRI of the brain 08/31: Patient remains critical and hypoxemic however very slight improvement in neuro exam. MRI did not show any evidence of anoxic brain injury. Change from bilevel to [employer] C yesterday. Tolerating well PEEP now reduced to 10. Chest x-ray shows persistent pulmonary edema continue diuresis. Start quarter normal saline with potassium 4 free water replacement. Urine output more than 4 L in 24 hours 09/01: Clinically no significant improvement. Intermittent spontaneous eye opening but no tracking. Intermittent twitching questionable myoclonus. EEG yesterday showed no seizures but showed burst suppression pattern indicating brain injury. MRI though was negative. Will get palliative care involved Objective Vital Signs / I&O: Vital Signs 08/31/18 11:00 08/31/18 12:35 08/31/18 15:00 Temperature 100.6 F H 100.5 F H Pulse Rate 103 H 105 H Respiratory Rate 16 18 18 Blood Pressure 153/77 H 156/80 H Pulse Oximetry 93 L 95 95 08/31/18 15:39 08/31/18 15:43 08/31/18 17:36 Temperature Pulse Rate 105 H Respiratory Rate 21 20 Blood Pressure 179/79 H Pulse Oximetry 95 08/31/18 17:46 08/31/18 18:10 08/31/18 19:00 Temperature 100.3 F H Pulse Rate 109 H Respiratory Rate 24 22 Blood Pressure 148/74 H 160/79 H Pulse Oximetry 96 97 08/31/18 20:20 08/31/18 20:24 08/31/18 23:00 Temperature 100.4 F H Pulse Rate 106 H 111 H Respiratory Rate 23 21 25 H Blood Pressure 111/90 Pulse Oximetry 96 97 09/01/18 03:00 09/01/18 03:31 09/01/18 03:39 Temperature 100.2 F H Pulse Rate 103 H 100 H Respiratory Rate 22 23 23 Blood Pressure 155/77 H Pulse Oximetry 97 97 Intake & Output 08/31/18 09/01/18 09/01/18 18:59 06:59 18:59 Intake Total 1487 / 1487 995 / 995 Output Total 2700 / 2700 2700 / 2700 Balance -1213 / -1213 -1705 / -1705 Weight 108 kg Intake: IV 1087 / 1087 100 / 100 Flolan (30,000 ng/mL) Neb 20 ML In NS Inj 80 ML @ 5 mls/hr INH Q8H MERVAT Rx#:[id number] Heparin/D5W 25,000 U/250 mL 25, 32 / 32 000 unit In 250 ml @ Per Protocol IV.CONT TITRATE PRN Rx #:[id number] KCl Inj 20 MEQ Sodium Chloride 141 / 141 23.4% Inj 38.5 MEQ In Sterile Water for Inj 1,000 ML @ 50 mls /hr IV.CONT .[id number] MERVAT Rx#: [id number] Flexbumin 25% Inj 100 ML @ 60 100 / 100 100 / 100 mls/hr IV.SIG Q12H MERVAT Rx#: [id number] Azactam Inj 1,000 MG In NS Inj 200 / 200 100 ML @ 200 mls/hr IV.SIG Q8H MERVAT Rx#:[id number] Levaquin 750 mg Premix Inj 150 150 / 150 ML @ 100 mls/hr IV.SIG Q24H MERVAT Rx#:[id number] KCl 20 mEq Premix Inj 20 meq In 400 / 400 100 ml @ 50 mls/hr IV.SIG Q2H PRN Rx#:[id number] Oral 0 / 0 Tube Feeding 400 / 400 295 / 295 Water Bolus Amount 600 / 600 Output: Urine Amount (Catheter) 2700 / 2700 2700 / 2700 Indwelling Temp Sensing 2700 / 2700 2700 / 2700 Catheter Other: Date of Last Bowel Movement 08/30/18 08/30/18 # Bowel Movements 0 Result Diagrams: 09/01/18 02:37 09/01/18 02:37 Objective Remarks: GEN: Elderly male lying in bed, intubated off all sedation >5 days. Intermittent twitching of shoulders noted HEENT: NCAT, ETT in place NECK: Trachea midline CARDIO: Regular rate and rhythm RESP: Diminished breath sounds bilaterally, on ACV on vent ABD/GI: Soft, non-distended EXT/MS: Right femoral art line Dcd 08/30/18. Right femoral central line discontinued 08/29/2018 SKIN: Anasarca, fluid-filled blisters developing on upper extremities and trunk NEURO: Currently off all sedation for 5 days. No spontaneous movements or eye opening. To deep noxious stimuli withdrawal of upper extremities and eye opening noted. Intermittent twitching of bilateral upper extremities/shoulders concerning for myoclonus Assessment and Plan - Assessment and Plan Plan: 72yM presenting with cardiac arrest x 2, unclear rhythm by EMS/ ED reports, now with ROSC s/p targeted temperature management. Estimated downtime 30 minutes total (15 per arrest). 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 Purdy following -Stat EEG ordered for questionable seizure activity, give Ativan 2 mg x1 -If myoclonus prognosis poor -Palliative care consult CARDIO: -2D echo showed EF 65-70%, PAP 37 -Off pressors -Awaiting neurologic recovery before planning ischemic workup -Cardiology Dr. Beltrán, discussed with him, DC IV heparin -Aspirin -IV Lasix PULM: -Acute hypoxic respiratory failure secondary to cardiac arrest -CXR/ CT chest consistent with ARDS vs pneumonia * Continue aztreonam 10 days. Enterobacter in sputum pansensitive * No PE noted on CTA -Weaned off Flolan, transitioned from bilevel to conventional 08/30/2018, tolerating well -Vent bundle, Duonebs -Repeat chest x-ray persistent CHF, pulmonary edema F/E/N: -TFs at goal -Keep K+ > 4.0, Mg > 2.0 RENAL: -BUN/ creatinine stable, UO stable -Diurese with IV Lasix 40 mg q12 -Free water replacement with quarter normal saline and free water flushes ID: -Aztreonam for ICU- CAP as detailed above -Add vancomycin for persistent fever, repeat blood sputum and urine cultures -Follow up cultures-08/25 sputum culture with Enterobacter pansensitive ENDO: -SSI, Accuchecks -Start Levemir 12 units twice daily -Continue home dose of Synthroid PROPHY: -SCDs, Lovenox 40 mg daily -PPI OVERALL: This patient is critically ill with multiple episodes of cardiac arrest. He requires intensive care and remains at high-risk for life- threatening decompensation. Appears to have sustained severe anoxic injury. Despite MRI being negative there is no improvement in neuro exam for 5 days of sedation. EEG showing burst suppression pattern. Prognosis appears poor especially if patient is having myoclonus. Will get palliative care involved to address goals of care Counseling/ Coordination of Care: Total critical care time: 36 minutes. This includes examining the patient, gathering history from someone other than the patient (i.e., chart review), discussing the patient's care with other providers, managing the patient's blood pressure and ventilator settings, ordering and interpreting radiology studies, ordering and interpreting laboratory studies, managing the patient's pain and sedation requirements, re-evaluation at frequent intervals, and documentation. All critical care time is separate and exclusive of procedures, teaching, and patient/ family updates.
--- NOTE | 2018-09-01 09:24 | P.CONPAL ---
Consult Service: Palliative Care Requesting Physician: Ngoc Romero Reason for Consult: a. To assist with evaluation and management of symptoms including:dyspnea, debility b. To assist medical decision maker(s) with: better understanding of current medical conditions; weighing benefits/burdens of medical treatment options; making medical treatment decisions. Primary Care Provider: Christy Calvillo MD History of Present Illness History of Present Illness: Mr. Bryant 72-year-old male with past medical history of diabetes, coronary artery disease with 3 previous stent, hypothyroidism, hypertension, cirrhosis transported to [place] emergency room via EMS after witnessed cardiac arrest. Patient was doing work around his house when he stated he did not feel well and went inside to rest. His states that she was conversing with him for a few minutes then got up to make him a sandwich at which point he called out that he felt ill again. When she turned around she found him slumping over. He began to deteriorate rapidly from this point. 911 was called and when EMS arrived on the scene the patient was unresponsive, pulseless, and apneic. They began CPR and temporarily achieved ROSC before he began to deteriorate again and they had to code him prior to ER arrival. EMS states they do not believe he was without a pulse for more than 15 minutes at any time. He lost pulse again upon arrival to the emergency room was coded again. Once again ROSC was achieved and post-arrest hypothermia protocol was initiated. The patient was admitted to the CVICU for further care and evaluation. Initial emergency room evaluation revealed: * Pule 122, respirator rate 14, BP 150/72, Pulse oximetry 97% * WBC 15.9, RBC 3.62, Hgb 11.4, Hct 35.5, Plt 172, PT 12.2, INR 1.2, APTT 26.4 * Na 143, K+ 2.8, Cl 106, C02 19.6,Ca 7.7, BUN 12, Creatinine 1.32, estimated GFR 53, glucose 217 * Lactic Acid 12.2, Ammonia 79, total bili 0.4, AST 93, ALT 88, Alk Phos 68, CK 98, Troponin 0.06 * Urine tox screen negative * EKG: left axis deviation, inferior myocardial infarction, nonspecific T wave abnormality * Chest CTA: 1.No CT evidence for pulmonary artery embolism, 2. Diffuse groundglass opacities which appear more confluent in the right upper lobe. Pulmonary edema vs. ARDS, 3. prominent coronary artery calcifications * CXR: Diffuse airspace disease throughout the right lung mostly prominent in the right upper and midlung zones * Head CT: 1. no acute hemorrhage or mass effect, 2. Extensive low density seen throughout the cerebral white matter likely related to small vessel ischemic change Cardiology was consulted as the etiology of the DE was unclear. It was also unclear if the patient has a Vfib arrest as oppose to a PEA arrest. Given his grave condition with multiple arrests they are awaiting to see if he has any neurological recovery prior to proceeding with coronary angiogram. Heparin gtt was withheld at this time due to high bleeding risk and patient's personal monique beliefs(Anabaptism). Neurology (Dr. Purdy) was consulted due to the patient's severe encephalopathy. He has been following with serial EEG's but remains hopeful since there appears to be cortical activity. Given events of today with possible seizure-like activity, STAT EEG is pending The patient has had a difficult course in the ICU, becoming hypoxic and requiring dynamic ventilation settings as well as the use of Flolan. He was able to come of pressor support on 08/28/18 and at that point had been off all sedation for greater than 24 hours though remained unresponsive. EEG from showed diffuse slowing consistent with severe encephalopathy but no seizure activity. Ventilation status minimally improved over the next few days, however the patient remained severely encephalopathic. As of 09/01/18 there was no clinically significant improvement. The patient had slight ventilation improvements though still had episodes of hypoxia. Some intermittent, spontaneous eye opening but no tracking. There is questionable myoclonus movement. Repeat EEG on 08/31/18 reported severe encephalopathy with burst suppression type state. This is felt to be consistent with anoxic brain injury. MRI of head on 08/30/17 showed diffuse cerebral atrophy but no acute infarction or hemorrhage. Palliative care was consulted to assist with symptom management as well as to assist with goals of medical treatment. Function/Cognitive Trajectory: Prior to this event, the patient was independent of ambulation and all ADL's. He was living at home with his and was able to keep up with the yard work on their property [place] acres. He is described as very active Review of Systems unobtainable due to endotracheal tube PMFSH - History History Provided By: Family Member, Medical Record - Medical History Medical History: Medical History (Last Updated 09/01/18 @ 13:35 by DELGADO Titus) Coronary artery disease Diabetes Hepatic cirrhosis Hypertension Hypothyroidism - Surgical History Surgical History: Surgical History (Last Reviewed 08/24/18 @ 20:08 by Rbua Huggins MD) Hx of heart artery stent - Family History Family History: Family History (Last Updated 09/01/18 @ 13:36 by DELGADO Titus) Other No pertinent family history - Social History I have reviewed the patient's Social History: Yes - Tobacco History Second Hand Smoke Exposure: No Tobacco Use In Past 30 Days: No Smoking Status: Never smoker - Alcohol History How Often Do You Have a Drink Containing Alcohol: Monthly or less - Substance Use History Substance History: No History of Abuse - Travel History Recent Travel in the [place] Within the Last 8 Weeks: No Recent Travel Out of the Country Within the Last 8 Weeks: No - Immunization History Tetanus Immunization: Unable to Assess Medications and Allergies Active Medications: Active Medications Acetaminophen (Tylenol) 650 mg PO Q6H PRN PRN Reason: PAIN 1-10 AND/OR FEVER >101F Last Admin: 08/31/18 11:13 Dose: 650 mg Al Hydroxide/Mg Hydroxide (Milk Of Ziggy Liq) 30 ml PO Q12H PRN PRN Reason: Mild Constipation Albuterol (Duoneb Neb (Prn)) 1 ampul NEB Q2HR NEB PRN PRN Reason: WHEEZING Last Admin: 08/24/18 22:54 Dose: 1 ampul Albuterol (Duoneb Neb (Yanely)) 1 ampul NEB Q6HR NEB YANELY Last Admin: 09/01/18 08:15 Dose: 1 ampul Aspirin (Aspirin Chew) 81 mg PO DAILY [facility] Last Admin: 08/31/18 09:16 Dose: 81 mg Atropine Sulfate (Atropine Inj) 0.5 mg IV.PUSH Q5M PRN PRN Reason: SYMPTOMATIC BRADYCARDIA Bisacodyl (Dulcolax Supp) 10 mg RECTAL DAILY PRN PRN Reason: SEVERE CONSITIPATION Last Admin: 08/30/18 06:18 Dose: 10 mg Chlorhexidine Gluconate (Peridex 0.12% Oral Kit) 15 ml OROPHARYNG BID@0800, 2000 [facility] Last Admin: 09/01/18 01:29 Dose: 15 ml Citalopram Hydrobromide (Celexa) 10 mg PO DAILY [facility] Last Admin: 08/30/18 08:36 Dose: 10 mg Dextrose (D50w Vial) 50 ml IV.PUSH UNSCH PRN PRN Reason: PER HYPOGLYCEMIA PROTOCOL Enoxaparin Sodium (Lovenox Inj) 40 mg SQ DAILY [facility] Last Admin: 08/31/18 16:15 Dose: 40 mg Famotidine (Pepcid Pf Inj) 20 mg IV.PUSH Q12HR [facility] Last Admin: 08/31/18 20:52 Dose: 20 mg Furosemide (Lasix Inj) 40 mg IV.PUSH BID@0900,1800 [facility] Last Admin: 08/31/18 17:25 Dose: 40 mg Glucagon (Glucagon Inj) 1 mg OTHER PRN PRN PRN Reason: for Hypoglycemia Protocol Hydralazine HCl (Apresoline Inj) 20 mg IV.PUSH Q2H PRN PRN Reason: SBP>160, DBP>90 Last Admin: 09/01/18 07:31 Dose: 20 mg Magnesium Sulfate 4 gm/ Sodium (Chloride) 100 mls @ 50 mls/hr IV.SIG UNSCH PRN PRN Reason: For Magnesium 0.9 - 1.1 mg/dL Magnesium Sulfate 2 gm/ Sodium (Chloride) 100 mls @ 50 mls/hr IV.SIG UNSCH PRN PRN Reason: For Magnesium 1.2 - 1.6 mg/dL Last Infusion: 08/27/18 16:23 Dose: Infused Potassium Chloride (Kcl 40 Meq Premix Inj) 40 meq in 100 mls @ 25 mls/hr IV.SIG Q2H PRN PRN Reason: For Potassium 2.8 - 3.2 mEq/L Last Infusion: 08/26/18 14:23 Dose: Infused Potassium Chloride (Kcl 20 Meq Premix Inj) 20 meq in 100 mls @ 50 mls/hr IV.SIG Q2H PRN PRN Reason: For Potassium 3.3 - 3.5 mEq/L Last Admin: 09/01/18 07:32 Dose: 50 mls/hr Potassium Chloride (Kcl 40 Meq Premix Inj) 40 meq in 100 mls @ 25 mls/hr IV.SIG UNSCH PRN PRN Reason: For Potassium 3.3 - 3.5 mEq/L Potassium Chloride (Kcl 20 Meq Premix Inj) 20 meq in 100 mls @ 50 mls/hr IV.SIG Q2H PRN PRN Reason: For Potassium 2.8 - 3.2 mEq/L Last Infusion: 08/31/18 13:13 Dose: Infused Potassium Phosphate 30 mmol/ (Sodium Chloride) 260 mls @ 42 mls/hr IV.SIG UNSCH PRN PRN Reason: SEE LABEL COMMENTS Sodium Phosphate 30 mmol/ (Sodium Chloride) 260 mls @ 42 mls/hr IV.SIG UNSCH PRN PRN Reason: For Phosphorus < 2.5 mg/dL Aztreonam 1,000 mg/ Sodium (Chloride) 100 mls @ 200 mls/hr IV.SIG Q8H YANELY Stop: 09/01/18 09:59 Last Admin: 09/01/18 01:27 Dose: 100 mls/hr Albumin Human (Flexbumin 25% Inj) 100 mls @ 60 mls/hr IV.SIG Q12H YANELY Last Infusion: 08/31/18 22:35 Dose: Infused Potassium Chloride 20 meq/Sodium Chloride 38.5 meq/Sterile Water 1,019.625 mls @ 50 mls/hr IV.CONT .[id number] YANELY Last Infusion: 08/31/18 18:32 Dose: 50 mls/hr Vancomycin HCl 1,250 mg/ (Sodium Chloride) 262.5 mls @ 250 mls/hr IV.SIG ONCE ONE Stop: 09/01/18 11:02 Insulin Aspart (Novolog Insulin Correctional Sugar Inj) 0 unit SQ Q6HR YANELY; Protocol Last Admin: 09/01/18 01:26 Dose: 10 unit Insulin Detemir (Levemir Inj) 12 unit SQ BID YANELY Labetalol HCl (Trandate Inj) 20 mg IV.PUSH Q4H PRN PRN Reason: SYS BP GREATER THAN 170 MMHG Last Admin: 09/01/18 05:04 Dose: 20 mg Lactulose (Lactulose Liq) 30 ml PO DAILY PRN PRN Reason: SEVERE CONSITIPATION Last Admin: 08/29/18 18:17 Dose: 30 ml Levothyroxine Sodium (Synthroid) 25 mcg PO DAILY@0600 [facility] Last Admin: 09/01/18 05:04 Dose: 25 mcg Lorazepam (Ativan Inj) 1 mg IV.PUSH Q1H PRN PRN Reason: SEE LABEL COMMENTS Magnesium Oxide (Mag-Ox) 800 mg PO UNSCH PRN PRN Reason: For Magnesium 1.2 - 1.6 mg/dL Miscellaneous (Pill Splitter) 1 each OTHER UNSCH PRN PRN Reason: SEE LABEL COMMENTS Miscellaneous Medication () 1 each OROPHARYNG 0000,0400,1200,1600 [facility] Last Admin: 09/01/18 05:03 Dose: 1 each Ondansetron HCl (Zofran Inj) 4 mg IV.PUSH Q6H PRN PRN Reason: NAUSEA OR VOMITING Pharmacy Profile Note (Vancomycin Consult Pharmacy) 1 each OTHER UNSCH PRN PRN Reason: Pharmacy to dose Potassium Bicarb/Potassium Chloride (K-Lyte Cl Eff) 50 meq PO UNSCH PRN PRN Reason: For Potassium 3.3 - 3.5 mEq/L Potassium Bicarb/Potassium Chloride (K-Lyte Cl Eff) 25 meq NG/OG BID [facility] Last Admin: 08/31/18 20:52 Dose: 25 meq Potassium Phosphate (K-Phos Original) 2,000 mg PO UNSCH PRN PRN Reason: SEE LABEL COMMENTS Potassium Phosphate (K-Phos Original) 2,000 mg PO Q4H PRN PRN Reason: Phosphorus Less Than 2.5 mg/dL Senna/Docusate Sodium (Lenora-Colace) 1 tab PO BID [facility] Last Admin: 08/31/18 20:52 Dose: 1 tab Sennosides (Senokot) 17.2 mg PO Q12H PRN PRN Reason: Moderate Constipation Sodium Chloride (Ns Flush) 2 ml IV.FLUSH PRN PRN PRN Reason: FLUSH AFTER USING IV ACCESS Sodium Chloride (Ns Flush) 2 ml IV.FLUSH BID [facility] Last Admin: 09/01/18 01:29 Dose: 2 ml Sterile Water (Free Water) 200 ml NG/OG Q4HR [facility] Last Admin: 09/01/18 05:03 Dose: 200 ml Allergies Allergy/AdvReac Type Severity Reaction Status Date / Time pravastatin Allergy Severe Unverified 06/29/17 16:39 tetanus toxoid, adsorbed Allergy Severe Unverified 06/29/17 16:39 CRESTOR Allergy Severe Uncoded 01/12/12 07:54 Home Medications Medication Instructions Recorded Confirmed Type Aspir-81 81 mg PO DAILY 08/25/18 08/25/18 History Co Q-10 08/25/18 History allopurinol 100 mg PO DAILY 08/25/18 08/25/18 History amlodipine 10 mg PO DAILY 08/25/18 08/25/18 History atorvastatin 20 mg PO HS 08/25/18 08/25/18 History citalopram 10 mg PO DAILY 08/25/18 08/25/18 History cyanocobalamin-cobamamide [B12] 08/25/18 History insulin aspart U-100 [Novolog 5 unit SUBCUT PRN PRN 08/25/18 08/25/18 History U-100 Insulin aspart] insulin aspart U-100 [Novolog 15 unit SUBCUT TIDAC 08/25/18 08/25/18 History U-100 Insulin aspart] insulin degludec [Tresiba 45 unit SUBCUT HS 08/25/18 08/25/18 History FlexTouch U-100] isosorbide mononitrate 30 mg PO DAILY 08/25/18 08/25/18 History levothyroxine 25 mcg PO DAILY 08/25/18 08/25/18 History lisinopril 20 mg PO BID 08/25/18 08/25/18 History losartan 100 mg PO DAILY 08/25/18 08/25/18 History metformin 1,000 mg PO BID 08/25/18 08/25/18 History metoprolol succinate 25 mg PO DAILY 08/25/18 08/25/18 History multivitamin [Multiple Vitamins] 1 tab PO DAILY 08/25/18 08/25/18 History nitroglycerin [Nitrostat] 0.4 mg SUBLINGUAL Q5-15M PRN 08/25/18 08/25/18 History omeprazole 20 mg PO DAILY 08/25/18 08/25/18 History insulin aspart U-100 [Novolog 08/26/18 08/26/18 History U-100 Insulin aspart] metformin 1,000 mg PO BID 08/26/18 08/26/18 History Advance Directives Living Will: No Healthcare Surrogate: No Power of Quarrying Specialist: No Documented care wishes: The patient does not have a documented living will or power of patent prosecution attorney Today's verbally stated goals: Mr. Bryant is currently unable to participate in his own healthcare decisions. Family/friends goals: The family states that they never had an explicit discussion concerning healthcare goals. For now they wish to proceed with full code and aggressive care pending results of today's EEG. Should their father not show improvement in the next few days they would like to meet again to discuss possible de- escalation of care. Ethical and Legal Issues: In the absence of a documented living will, per [place] statutes, healthcare decision-making falls to the patient's Kendra Bryant. There are currently no known ethical issues impacting care at this time. Physical Exam Vital Signs: Vital Signs - 24 hr 08/31/18 11:00 08/31/18 12:35 08/31/18 15:00 Temperature 100.6 F H 100.5 F H Pulse Rate 103 H 105 H Respiratory Rate 16 18 18 Blood Pressure 153/77 H 156/80 H Pulse Oximetry 93 L 95 95 08/31/18 15:39 08/31/18 15:43 08/31/18 17:36 Temperature Pulse Rate 105 H Respiratory Rate 21 20 Blood Pressure 179/79 H Pulse Oximetry 95 08/31/18 17:46 08/31/18 18:10 08/31/18 19:00 Temperature 100.3 F H Pulse Rate 109 H Respiratory Rate 24 22 Blood Pressure 148/74 H 160/79 H Pulse Oximetry 96 97 08/31/18 20:20 08/31/18 20:24 08/31/18 23:00 Temperature 100.4 F H Pulse Rate 106 H 111 H Respiratory Rate 23 21 25 H Blood Pressure 111/90 Pulse Oximetry 96 97 09/01/18 03:00 09/01/18 03:31 09/01/18 03:39 Temperature 100.2 F H Pulse Rate 103 H 100 H Respiratory Rate 22 23 23 Blood Pressure 155/77 H Pulse Oximetry 97 97 09/01/18 08:00 09/01/18 08:13 09/01/18 08:40 Temperature Pulse Rate 123 H Respiratory Rate 36 H 35 H 28 H Blood Pressure Pulse Oximetry 96 I&O: Intake & Output 08/30/18 08/31/18 09/01/18 09/02/18 06:59 06:59 06:59 06:59 Intake Total 2179 / 2179 2235 / 2235 2482 / 2482 Output Total 3275 / 3275 4205 / 4205 5400 / 5400 Balance -1096 / -1096 -1969 / -1969 -2917 / -2917 Weight 114 kg 108.5 kg 108 kg Physical Exam: CONSTITUTIONAL/GENERAL: Intubated, not currently sedated. Unresponsive TUBES/LINES/DRAINS: ETT, PIV, OGT, bilateral soft wrist restraints, Molina cath SKIN: No jaundice, rashes, or lesions. Large, intact bulla to RUE No wounds seen anteriorly. Skin temperature warm HEAD: Atraumatic. Normocephalic. EYES: Pupils equal and round and reactive. Pt has continual upward gaze. Slight scleral icterus. No injection or drainage. Fundi not examined. ENT: unable to assess hearing due to clinical condition. Nose without bleeding or purulent drainage. Throat without visible erythema, exudates, masses, or lesions. NECK: Trachea midline. Supple, nontender. No palpable thyroid enlargement or nodularity. CARDIOVASCULAR: Tachycardic with rhythm, no murmurs, gallops, or rubs. No JVD. Peripheral pulses symmetric. RESPIRATORY/CHEST: Symmetric, unlabored respirations, mechanically ventilated . Scattered rhonchi throughout, worse RML/RLL. Minimal air movement heard RLL GASTROINTESTINAL: Abdomen soft, non-tender, distended. No hepato-splenomegaly, or palpable masses. No guarding. Bowel sounds intermittent. GENITOURINARY: Without palpable bladder distension. Molina catheter in place. Scrotal edema noted MUSCULOSKELETAL: BUEwith 1+ edema, BLE with trace edema. No joint effusion noted. No mottling or clubbing. LYMPHATICS: No palpable cervical or supraclavicular adenopathy. NEUROLOGICAL: Unresponsive. +cough/gag though weak. No eye opening. Does not withdraw to noxious stimuli. Persistent upward gaze PSYCHIATRIC:unable to assess due to clinical condition Diagnostic Tests Laboratory: Laboratory Results - last 72 hr 08/29/18 08/29/18 08/29/18 12:00 15:15 17:10 WBC RBC Hgb Hct MCV MCH MCHC RDW Plt Count MPV Prelim Diff (Auto) Neut % (Auto) Lymph % (Auto) [place] % (Auto) Eos % (Auto) Baso % (Auto) Neut # (Auto) Lymph # (Auto) [place] # (Auto) Eos # (Auto) Baso # (Auto) WBC Differential Seg Neuts % (Manual) Band Neuts % (Manual) Lymphocytes % (Manual) Monocytes % (Manual) Abs Neuts (Manual) Differential Comment Toxic Granulation Platelet Estimate Platelet Morphology Basophilic Stippling PT INR APTT 34.9 H Puncture Site Patient Temperature O2 Saturation ABG pH ABG pCO2 ABG pO2 ABG HCO3 ABG O2 Content ABG Base Excess ABG Methemoglobin Cory Test Hemoglobin Carboxyhemoglobin O2 Delivery Device Vent Setting Inspired O2 Critical Value Sodium Potassium Chloride Carbon Dioxide Anion Gap BUN Creatinine Estimated GFR POC Glucose 183 H 197 H Random Glucose Calcium Phosphorus Magnesium Total Bilirubin AST ALT Alkaline Phosphatase Ammonia Total Protein Albumin TSH 08/29/18 08/29/18 08/30/18 23:20 23:27 05:20 WBC 6.5 RBC 3.34 L Hgb 10.7 L Hct 32.0 L MCV 95.6 MCH 31.9 MCHC 33.4 RDW 14.7 Plt Count 122 L MPV 8.9 Prelim Diff (Auto) Neut % (Auto) 75.1 H Lymph % (Auto) 11.5 [place] % (Auto) 13.3 H Eos % (Auto) 0.0 Baso % (Auto) 0.1 Neut # (Auto) 4.9 Lymph # (Auto) 0.7 L [place] # (Auto) 0.9 Eos # (Auto) 0.0 Baso # (Auto) 0.0 WBC Differential . Seg Neuts % (Manual) Band Neuts % (Manual) Lymphocytes % (Manual) Monocytes % (Manual) Abs Neuts (Manual) Differential Comment Auto diff final Toxic Granulation Platelet Estimate Platelet Morphology Basophilic Stippling PT INR APTT 40.4 H Puncture Site Patient Temperature O2 Saturation ABG pH ABG pCO2 ABG pO2 ABG HCO3 ABG O2 Content ABG Base Excess ABG Methemoglobin Cory Test Hemoglobin Carboxyhemoglobin O2 Delivery Device Vent Setting Inspired O2 Critical Value Sodium Potassium Chloride Carbon Dioxide Anion Gap BUN Creatinine Estimated GFR POC Glucose 246 H Random Glucose Calcium Phosphorus Magnesium Total Bilirubin AST ALT Alkaline Phosphatase Ammonia Total Protein Albumin TSH 08/30/18 08/30/18 08/30/18 05:20 05:20 05:20 WBC RBC Hgb Hct MCV MCH MCHC RDW Plt Count MPV Prelim Diff (Auto) Neut % (Auto) Lymph % (Auto) [place] % (Auto) Eos % (Auto) Baso % (Auto) Neut # (Auto) Lymph # (Auto) [place] # (Auto) Eos # (Auto) Baso # (Auto) WBC Differential Seg Neuts % (Manual) Band Neuts % (Manual) Lymphocytes % (Manual) Monocytes % (Manual) Abs Neuts (Manual) Differential Comment Toxic Granulation Platelet Estimate Platelet Morphology Basophilic Stippling PT 11.6 INR 1.1 APTT 33.4 H Puncture Site Patient Temperature O2 Saturation ABG pH ABG pCO2 ABG pO2 ABG HCO3 ABG O2 Content ABG Base Excess ABG Methemoglobin Cory Test Hemoglobin Carboxyhemoglobin O2 Delivery Device Vent Setting Inspired O2 Critical Value Sodium 150 H Potassium 4.0 Chloride 111 H Carbon Dioxide 31.9 Anion Gap 7 BUN 43 H Creatinine 1.19 Estimated GFR 60 L POC Glucose Random Glucose 281 H D Calcium 8.8 Phosphorus 3.1 Magnesium 2.5 Total Bilirubin 0.6 AST 79 H ALT 58 Alkaline Phosphatase 67 Ammonia Total Protein 6.0 L Albumin 2.0 L TSH 08/30/18 08/30/18 08/30/18 05:48 12:15 12:18 WBC RBC Hgb Hct MCV MCH MCHC RDW Plt Count MPV Prelim Diff (Auto) Neut % (Auto) Lymph % (Auto) [place] % (Auto) Eos % (Auto) Baso % (Auto) Neut # (Auto) Lymph # (Auto) [place] # (Auto) Eos # (Auto) Baso # (Auto) WBC Differential Seg Neuts % (Manual) Band Neuts % (Manual) Lymphocytes % (Manual) Monocytes % (Manual) Abs Neuts (Manual) Differential Comment Toxic Granulation Platelet Estimate Platelet Morphology Basophilic Stippling PT INR APTT 42.9 H D Puncture Site Patient Temperature O2 Saturation ABG pH ABG pCO2 ABG pO2 ABG HCO3 ABG O2 Content ABG Base Excess ABG Methemoglobin Cory Test Hemoglobin Carboxyhemoglobin O2 Delivery Device Vent Setting Inspired O2 Critical Value Sodium Potassium Chloride Carbon Dioxide Anion Gap BUN Creatinine Estimated GFR POC Glucose 257 H 301 H Random Glucose Calcium Phosphorus Magnesium Total Bilirubin AST ALT Alkaline Phosphatase Ammonia Total Protein Albumin TSH 08/30/18 08/30/18 08/31/18 17:23 17:48 00:26 WBC RBC Hgb Hct MCV MCH MCHC RDW Plt Count MPV Prelim Diff (Auto) Neut % (Auto) Lymph % (Auto) [place] % (Auto) Eos % (Auto) Baso % (Auto) Neut # (Auto) Lymph # (Auto) [place] # (Auto) Eos # (Auto) Baso # (Auto) WBC Differential Seg Neuts % (Manual) Band Neuts % (Manual) Lymphocytes % (Manual) Monocytes % (Manual) Abs Neuts (Manual) Differential Comment Toxic Granulation Platelet Estimate Platelet Morphology Basophilic Stippling PT INR APTT 37.5 H 58.3 H D Puncture Site Patient Temperature O2 Saturation ABG pH ABG pCO2 ABG pO2 ABG HCO3 ABG O2 Content ABG Base Excess ABG Methemoglobin Cory Test Hemoglobin Carboxyhemoglobin O2 Delivery Device Vent Setting Inspired O2 Critical Value Sodium Potassium Chloride Carbon Dioxide Anion Gap BUN Creatinine Estimated GFR POC Glucose 246 H Random Glucose Calcium Phosphorus Magnesium Total Bilirubin AST ALT Alkaline Phosphatase Ammonia Total Protein Albumin TSH 08/31/18 08/31/18 08/31/18 00:36 04:39 04:39 WBC 6.2 RBC 2.57 L Hgb 8.4 L D Hct 24.2 L MCV 94.3 MCH 32.8 MCHC 34.8 RDW 14.5 Plt Count 97 L MPV 9.1 Prelim Diff (Auto) Slide review pending Neut % (Auto) 74.0 H Lymph % (Auto) 15.3 [place] % (Auto) 10.7 H Eos % (Auto) 0.0 Baso % (Auto) 0.0 Neut # (Auto) 4.6 Lymph # (Auto) 0.9 L [place] # (Auto) 0.7 Eos # (Auto) 0.0 Baso # (Auto) 0.0 WBC Differential Manual diff final Seg Neuts % (Manual) 68 Band Neuts % (Manual) 8 H Lymphocytes % (Manual) 14 Monocytes % (Manual) 10 H Abs Neuts (Manual) 4.7 Differential Comment . Toxic Granulation 2+ H Platelet Estimate Low L Platelet Morphology Normal Basophilic Stippling Faint H PT INR APTT Puncture Site Patient Temperature O2 Saturation ABG pH ABG pCO2 ABG pO2 ABG HCO3 ABG O2 Content ABG Base Excess ABG Methemoglobin Cory Test Hemoglobin Carboxyhemoglobin O2 Delivery Device Vent Setting Inspired O2 Critical Value Sodium 152 H Potassium 3.0 L D Chloride 113 H Carbon Dioxide 29.3 Anion Gap 10 BUN 40 H Creatinine 1.32 H Estimated GFR 53 L POC Glucose 340 H Random Glucose 299 H Calcium 8.1 L Phosphorus 2.8 Magnesium 2.4 Total Bilirubin 1.0 AST 50 H ALT 39 Alkaline Phosphatase 52 Ammonia Total Protein 5.5 L Albumin 2.2 L TSH 08/31/18 08/31/18 08/31/18 04:39 05:23 08:31 WBC RBC Hgb Hct MCV MCH MCHC RDW Plt Count MPV Prelim Diff (Auto) Neut % (Auto) Lymph % (Auto) [place] % (Auto) Eos % (Auto) Baso % (Auto) Neut # (Auto) Lymph # (Auto) [place] # (Auto) Eos # (Auto) Baso # (Auto) WBC Differential Seg Neuts % (Manual) Band Neuts % (Manual) Lymphocytes % (Manual) Monocytes % (Manual) Abs Neuts (Manual) Differential Comment Toxic Granulation Platelet Estimate Platelet Morphology Basophilic Stippling PT 13.8 H INR 1.4 APTT 55.7 H Puncture Site Right radial Patient Temperature 98.6 O2 Saturation 95 ABG pH 7.63 H* ABG pCO2 28 L ABG pO2 92 ABG HCO3 29 H ABG O2 Content 14.5 ABG Base Excess 7.1 H ABG Methemoglobin 1.7 Cory Test Present Hemoglobin 10.8 L Carboxyhemoglobin 0.9 O2 Delivery Device Ventilator Vent Setting Pcac [id number] Inspired O2 50 Critical Value Yes Sodium Potassium Chloride Carbon Dioxide Anion Gap BUN Creatinine Estimated GFR POC Glucose 297 H Random Glucose Calcium Phosphorus Magnesium Total Bilirubin AST ALT Alkaline Phosphatase Ammonia Total Protein Albumin TSH 08/31/18 08/31/18 08/31/18 09:42 10:55 10:55 WBC RBC Hgb Hct MCV MCH MCHC RDW Plt Count MPV Prelim Diff (Auto) Neut % (Auto) Lymph % (Auto) [place] % (Auto) Eos % (Auto) Baso % (Auto) Neut # (Auto) Lymph # (Auto) [place] # (Auto) Eos # (Auto) Baso # (Auto) WBC Differential Seg Neuts % (Manual) Band Neuts % (Manual) Lymphocytes % (Manual) Monocytes % (Manual) Abs Neuts (Manual) Differential Comment Toxic Granulation Platelet Estimate Platelet Morphology Basophilic Stippling PT INR APTT Puncture Site Right radial Patient Temperature 98.6 O2 Saturation 97 ABG pH 7.50 H ABG pCO2 40 ABG pO2 176 H ABG HCO3 31 H ABG O2 Content 13.4 ABG Base Excess 7.6 H ABG Methemoglobin 1.5 Cory Test Present Hemoglobin 9.6 L Carboxyhemoglobin 0.7 O2 Delivery Device Ventilator Vent Setting [id number] Inspired O2 50 Critical Value No Sodium Potassium Chloride Carbon Dioxide Anion Gap BUN Creatinine Estimated GFR POC Glucose Random Glucose Calcium Phosphorus Magnesium Total Bilirubin AST ALT Alkaline Phosphatase Ammonia 35 H Total Protein Albumin TSH 1.880 08/31/18 08/31/18 08/31/18 12:01 15:00 17:22 WBC RBC Hgb Hct MCV MCH MCHC RDW Plt Count MPV Prelim Diff (Auto) Neut % (Auto) Lymph % (Auto) [place] % (Auto) Eos % (Auto) Baso % (Auto) Neut # (Auto) Lymph # (Auto) [place] # (Auto) Eos # (Auto) Baso # (Auto) WBC Differential Seg Neuts % (Manual) Band Neuts % (Manual) Lymphocytes % (Manual) Monocytes % (Manual) Abs Neuts (Manual) Differential Comment Toxic Granulation Platelet Estimate Platelet Morphology Basophilic Stippling PT INR APTT Puncture Site Patient Temperature O2 Saturation ABG pH ABG pCO2 ABG pO2 ABG HCO3 ABG O2 Content ABG Base Excess ABG Methemoglobin Cory Test Hemoglobin Carboxyhemoglobin O2 Delivery Device Vent Setting Inspired O2 Critical Value Sodium 151 H Potassium 3.8 D Chloride 115 H Carbon Dioxide 31.8 Anion Gap 4 L BUN 40 H Creatinine 1.31 H Estimated GFR 54 L POC Glucose 314 H 314 H Random Glucose 317 H Calcium 8.2 L Phosphorus Magnesium Total Bilirubin 0.8 AST 43 H ALT 38 Alkaline Phosphatase 55 Ammonia Total Protein 5.8 L Albumin 2.6 L TSH 09/01/18 09/01/18 09/01/18 01:19 02:37 02:37 WBC 8.5 RBC 2.50 L Hgb 8.1 L Hct 24.2 L MCV 97.0 MCH 32.4 MCHC 33.4 RDW 14.9 Plt Count 123 L MPV 10.1 Prelim Diff (Auto) Neut % (Auto) Lymph % (Auto) [place] % (Auto) Eos % (Auto) Baso % (Auto) Neut # (Auto) Lymph # (Auto) [place] # (Auto) Eos # (Auto) Baso # (Auto) WBC Differential Seg Neuts % (Manual) Band Neuts % (Manual) Lymphocytes % (Manual) Monocytes % (Manual) Abs Neuts (Manual) Differential Comment Toxic Granulation Platelet Estimate Platelet Morphology Basophilic Stippling PT INR APTT Puncture Site Patient Temperature O2 Saturation ABG pH ABG pCO2 ABG pO2 ABG HCO3 ABG O2 Content ABG Base Excess ABG Methemoglobin Cory Test Hemoglobin Carboxyhemoglobin O2 Delivery Device Vent Setting Inspired O2 Critical Value Sodium 150 H Potassium 3.4 L Chloride 113 H Carbon Dioxide 27.6 Anion Gap 9 BUN 43 H Creatinine 1.24 Estimated GFR 57 L POC Glucose 348 H Random Glucose 352 H Calcium 8.7 Phosphorus Magnesium 2.4 Total Bilirubin 1.0 AST 46 H ALT 36 Alkaline Phosphatase 58 Ammonia Total Protein 6.3 L Albumin 2.9 L TSH 09/01/18 09/01/18 02:37 05:43 WBC RBC Hgb Hct MCV MCH MCHC RDW Plt Count MPV Prelim Diff (Auto) Neut % (Auto) Lymph % (Auto) [place] % (Auto) Eos % (Auto) Baso % (Auto) Neut # (Auto) Lymph # (Auto) [place] # (Auto) Eos # (Auto) Baso # (Auto) WBC Differential Seg Neuts % (Manual) Band Neuts % (Manual) Lymphocytes % (Manual) Monocytes % (Manual) Abs Neuts (Manual) Differential Comment Toxic Granulation Platelet Estimate Platelet Morphology Basophilic Stippling PT INR APTT 27.6 D Puncture Site Patient Temperature O2 Saturation ABG pH ABG pCO2 ABG pO2 ABG HCO3 ABG O2 Content ABG Base Excess ABG Methemoglobin Cory Test Hemoglobin Carboxyhemoglobin O2 Delivery Device Vent Setting Inspired O2 Critical Value Sodium Potassium Chloride Carbon Dioxide Anion Gap BUN Creatinine Estimated GFR POC Glucose 343 H Random Glucose Calcium Phosphorus Magnesium Total Bilirubin AST ALT Alkaline Phosphatase Ammonia Total Protein Albumin TSH Result Diagrams: 09/01/18 02:37 09/01/18 02:37 Microbiology: Microbiology 08/25/18 12:41 Aerobic Blood Culture - Final Blood - Peripheral No growth in 5 days Anaerobic Blood Culture - Final No growth in 5 days 08/25/18 12:30 Aerobic Blood Culture - Final Blood - Line No growth in 5 days Anaerobic Blood Culture - Final No growth in 5 days Imaging: Impressions Head MRI 08/30/18 00:00 CONCLUSION: 1. Moderate diffuse cerebral atrophy with prominent periventricular ischemic white matter demyelination. 2. No evidence for acute infarction or hemorrhage. Chest X-Ray 08/31/18 06:00 CONCLUSION: Worsening pulmonary edema. Chest X-Ray 09/01/18 06:00 CONCLUSION: Cardiomegaly and findings of congestive heart failure. The findings are similar to the prior exam. Procedures: 08/24/18: Intubated post-arrest hypothermia protocol initiated Right groin arterial line placed Right groin central line placed 08/26/18: Re-warming completed approximately @11am Patient/Family Conference Present at Family Conference: Kendra Bryant, Maikel Bryant Jr, son cco & president Conference Location: Bedside Issues Discussed: * Palliative care role, purpose, approach * Additional medical, psychosocial, and spiritual history * Patients general health, functional status, and cognitive changes in the months leading up to the current hospitalization * Patient/family understanding of the current medical problems * Patient/family understanding of prognosis * Patients goals of care as best understood from conversations and/or values * Current medical treatment options and benefits/burdens of those options * Questions answered to the best of my ability * Palliative care contact information provided Case discussed with Dr. Romero and RN at bedside Mr. Bryant currently does not have the capacity to participate in his own healthcare decision making. In the absence of a living will or documented power of patent prosecution attorney, per [place] statutes, healthcare decision making falls to his Kendra Bryant ([phone]) goals remain aggressive at this time. Should the results of today's EEG show further neurological decline the family will be open to discussing possible de-escalation of care. 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 He was born and raised in [place]. The couple have 3 adult children together, 2 sons (Maikel Trevino & Tc) and 1 daughter Yanique. The patient enjoyed [employer] and [employer] projects. He was able to care for their [place].[address] acre property usually by himself. Spiritual:Anabaptism Legal: In the absence of a documented living will or durable power of patent prosecution attorney, decision making falls to the patient's , Kendra Bryant Ethical issues impacting care: There are currently no known ethical issues impacting care at this time Important Contacts: Kendra Bryant, /HCP [phone] Maikel Bryant Jr, son [phone] Tc Bryant, son [phone] Prognosis: The patient remains critically ill, requiring a large amount of ventilation support. Given his multiple arrests, and suspected seizure activity, he is at high risk for further decline, decompensation, and Code Status: Full Code Plan: * LEGAL DECISION MAKER:Mr. Bryant currently does not have the capacity to participate in his own healthcare decision making. In the absence of a living will or documented power of patent prosecution attorney, per [place] statutes, healthcare decision making falls to his Kendra Bryant ([phone]) * GOALS: goals remain aggressive at this time. Should the results of today's EEG show further neurological decline the family will be open to discussing possible de-escalation of care. * CODE STATUS: FULL CODE * SYMPTOMS: Dyspnea -the patient is currently intubated and mechanically ventilated. Dynamic vent settings are being weaned according. CXR today relatively unchanged , showing bilateral infiltrates. Continue with current critical care recommendations. Debility -patient has been in bed now for 8 days, has been too unstable for any type of physical therapy. Should his neurological function improved will need aggressive physical therapy to regain his prior level of functionality Palliative care will continue to follow during hospital course as condition evolves, to assist patient/decision maker with understanding of medical conditions, weighing benefits/burdens of treatment options, for clarification of goals of treatment. Additionally will assist with any symptoms of palliative concern. Appreciation Thank you for the opportunity to participate in the care of Maikel Bryant. Attestation Attestation: To help prompt me to consider important information that might be impacting today's encounter and assessment, information from prior notes written by myself or my colleagues may have been "brought forward" into today's note. My signature on this note, however, is an attestation that I personally performed the exam, history, and/or decision-making noted today, and, unless otherwise indicated, the interactions with patient, family, and staff as well as the review of records all occurred today. I also attest that the listed assessment and stated plan reflect my best clinical judgment today based on the combination of historical information, prior notes, and today's exam/ interactions. When time spent is documented, it refers only to time spent today by the signer, or if indicated, combined time spent today by collaborating physician/nurse practitioner.
[2018-09-01] MEDS ORDERED: Vancomycin Inj 1,250 MG in Sodium Chlor 0.9% Inj 250 ML IV.SIG ONE (10:00)
[2018-09-01] MEDS: Enoxaparin Inj 40 MG/0.4 ML Syringe SQ SCH (10:36)
[2018-09-01] MEDS: Senna/Docusate Sodium 8.6/50 MG Tablet PO SCH ×2 (10:36→20:51)
[2018-09-01] MEDS: Insulin Detemir Inj 1,000 UNIT/10 ML Vial SQ SCH ×2 (10:38→21:46)
[2018-09-01] MEDS: Albumin Human 25% Inj 100 ML IV.SIG SCH ×2 (10:41→20:48)
[2018-09-01] MEDS: Famotidine PF Inj 20 MG/2 ML Vial IV.PUSH SCH ×2 (10:44→20:51)
[2018-09-01] MEDS: Potassium Chloride Inj 20 MEQ, Sodium Chloride 23.4% Inj 38.5 MEQ in Water for Inj, Ste... IV.CONT SCH (11:41)
[2018-09-01] MEDS: Potassium Chloride 25 MEQ Effervescent Tablet NG/OG SCH ×2 (11:43→20:51)
[2018-09-01] MEDS: Vancomycin Inj 1,500 MG in Sodium Chlor 0.9% Inj 500 ML IV.SIG SCH (12:26)
--- NOTE | 2018-09-01 14:32 | P.DIET ---
Nutritional Evaluation Type of nutrition evaluation: follow-up Nutrition consult regarding: Tube Feeding Objective - Diagnosis Cardiac Arrest - Objective % IBW: 126 (IBW = 178#) Body Weight Used for Calculations: IBW (81 kg) Energy Needs - Lower Range (kCal/kg): 25 Energy Needs - Upper Range (kCal/kg): 30 Lower Limit kCal/kg (kCals): 2,023 Upper Limit kCal/kg (kCals): 2,430 Lower Limit Protein Factor (Grams per Kg): 1.0 Upper Limit Protein Factor (Grams per Kg): 1.5 Lower Protein Needs (Protein): 81 Upper Protein Needs (Protein): 122 Dietitian Reviewed in Medical Record: Curent medications, Intake & Output, Labs , Medical history, Tube feeding Diet Order: NPO Objective Comments: Meds include synthroid Assessment Assessment: Pt at high nutrition risk s/p cardiac arrest x 2. Current order is for Glucerna 1.5 @ 35 mls/hr. Recommend goal of Glucerna 1.5 @ 65 mls/hr x 22 hrs (d /t synthroid) to provide 2145 kcals, 118 gms protein and 1085 mls of free water. TF needs to be held one hour before and one hour after the synthroid is given. Labs, wts and clinical course reviewed. Recommendations: When goal rate is needed: Glucerna 1.5 @ 65 mls/hr x 22 hours Dietitian to Monitor: Lab values, Glucose level, Intake & Output, Tube feeding tolerance, Weight change, Medical course
[2018-09-01] MEDS: Acetaminophen 325 MG Tablet PO PRN (15:23)
--- NOTE | 2018-09-01 21:31 | MG ---
cc: Ayden Purdy MD ELECTROENCEPHALOGRAM RECORD NUMBER: [id number] DESCRIPTION: Generalized 1-2 Hz delta activity occurring at 10-15 microvolts. Single-lead EKG showing tachycardia. No significant reactivity to deep tactile stimuli. INTERPRETATION: Severe encephalopathy. Clinical correlation. MD TUSHAR Amos/lencho , 08:44 PM , 08:47 PM
[2018-09-02] MEDS: Insulin NovoLOG Aspart Correctional Sugar Inj SQ SCH ×5 (00:19→23:59)
[2018-09-02] MEDS: Oral Hygiene Kit OROPHARYNG SCH ×4 (00:28→18:19)
[2018-09-02] MEDS: Vancomycin Inj 1,500 MG in Sodium Chlor 0.9% Inj 500 ML IV.SIG SCH ×2 (05:51→23:39)
[2018-09-02] MEDS: Potassium Chloride Inj 20 MEQ, Sodium Chloride 23.4% Inj 38.5 MEQ in Water for Inj, Ste... IV.CONT SCH (07:43)
[2018-09-02] MEDS: hydrALAZINE HCl Inj 20 MG/ML Vial IV.PUSH PRN (07:43)
[2018-09-02] MEDS: Potassium Chloride 25 MEQ Effervescent Tablet NG/OG SCH (08:38)
[2018-09-02] MEDS: Insulin Detemir Inj 1,000 UNIT/10 ML Vial SQ SCH ×2 (08:38→20:35)
[2018-09-02] MEDS: Chlorhexidine 0.12% Oral Kit 15 ML UDC OROPHARYNG SCH ×2 (08:38→20:03)
[2018-09-02] MEDS: Famotidine PF Inj 20 MG/2 ML Vial IV.PUSH SCH ×2 (08:39→20:02)
[2018-09-02] MEDS: Enoxaparin Inj 40 MG/0.4 ML Syringe SQ SCH (08:39)
[2018-09-02] MEDS: Senna/Docusate Sodium 8.6/50 MG Tablet PO SCH ×2 (08:39→20:02)
[2018-09-02] MEDS: Albumin Human 25% Inj 100 ML IV.SIG SCH ×2 (08:41→20:03)
[2018-09-02 09:06] LABS: Baso % (Auto) 0.1 % (0.0-2.0); Eos % (Auto) 0.1 % (0.0-4.0); Hematocrit 22.4 % (39.0-51.0); Hemoglobin 7.4 gm/dL (13.0-17.0); Lymph # (Auto) 1.2 th/mm3 (1.0-4.8); Lymph % (Auto) 12.1 % (9.0-44.0); Mean Corpuscular Hemoglobin 32.1 pg (27.0-34.0); Mean Corpuscular Volume 97.3 fL (80.0-100.0); Mean Platelet Volume 9.8 fL (7.0-11.0); Mono # (Auto) 0.7 th/mm3 (0.0-0.9); Mono % (Auto) 7.5 % (0.0-8.0); Neut # (Auto) 7.9 th/mm3 (1.8-7.7); Neut % (Auto) 80.2 % (16.0-70.0); Platelet Count 163 th/mm3 (150-450); Red Blood Count 2.31 mil/mm3 (4.50-5.90); Red Cell Distribution Width 15.1 % (11.6-17.2); White Blood Count 9.8 th/mm3 (4.0-11.0)
[2018-09-02 09:28] LABS: Alanine Aminotransferase 32 U/L (12-78); Alkaline Phosphatase 55 U/L (45-117); Anion Gap 8 meq/L (5-15); Aspartate Aminotransferase 35 U/L (15-37); Blood Urea Nitrogen 42 mg/dL (7-18); Calcium 8.5 mg/dL (8.5-10.1); Carbon Dioxide 26.4 meq/L (21.0-32.0); Chloride 119 meq/L (98-107); Glomerular Filtration Rate 66 mL/min (>89); Glucose,Random 251 mg/dL (74-106); Magnesium 2.4 mg/dL (1.5-2.5); Phosphorus 2.6 mg/dL (2.5-4.9); Potassium 3.6 meq/L (3.5-5.1); Sodium 153 meq/L (136-145); Total Protein 6.2 g/dL (6.4-8.2)
[2018-09-02] MEDS: Labetalol HCl Inj 100 MG/20 ML Vial IV.PUSH PRN (12:01)
--- NOTE | 2018-09-02 13:06 | P.PNPAL ---
Reason for Visit Reason for visit: a. To assist with evaluation and management of symptoms including:dyspnea, debility b. To assist medical decision maker(s) with: better understanding of current medical conditions; weighing benefits/burdens of medical treatment options; making medical treatment decisions. Subjective Subjective/Interval History: Mr. Bryant 72-year-old male with past medical history of diabetes, coronary artery disease with 3 previous stent, hypothyroidism, hypertension, cirrhosis transported to [place] emergency room via EMS after witnessed cardiac arrest. Patient was doing work around his house when he stated he did not feel well and went inside to rest. His states that she was conversing with him for a few minutes then got up to make him a sandwich at which point he called out that he felt ill again. When she turned around she found him slumping over. He began to deteriorate rapidly from this point. 911 was called and when EMS arrived on the scene the patient was unresponsive, pulseless, and apneic. They began CPR and temporarily achieved ROSC before he began to deteriorate again and they had to code him prior to ER arrival. EMS states they do not believe he was without a pulse for more than 15 minutes at any time. He lost pulse again upon arrival to the emergency room was coded again. Once again ROSC was achieved and post-arrest hypothermia protocol was initiated. The patient was admitted to the CVICU for further care and evaluation. The patient still remains encephalopathic. Less spontaneous eye opening than yesterday. Still appears to have twitching-like motion bilateral upper extremities and left lower. Now appears to have downward gaze questionable cough and gag much less than yesterday. Does not withdraw periphery to noxious stimuli. Has been having frequent bouts of PACs with some slight runs of V. tach (2-3 beats or less), slightly more tachycardic today, intermittent low- grade fevers. He does continue to breathe slightly over the vent. FiO2 was weaned down to 40%. Today's clinical value is as follows: * W BC 9.8, Hgb 7.4, HCT 22.4, platelets 163 * NA 153, K+ 3.6, CL 119, CO2 26.4, BUN 42, 1.09, glucose 251 * EEG showed severe encephalopathy Case discussed with attending and RN (Mallory) at bedside Family/Friend Interactions: LM for and son (Maikel Qiu) to call for update 1601 09/02/18 Family meeting at bedside with , all 3 adult children, and family friend. Discussed results of EEG on 09/01/[address] Purdy's clinical findings. We discussed that at this time, the patient does not appear to have much room for meaningful neurological recovery. We discussed trial of Keppra per neurology. The family would like to wait until Wednesday before making any more decisions regarding care. This would be 13 days intubated. Advance Directives Living Will: Never completed Health Care Surrogate: Never completed Durable Power of Document Controller: Never completed Documented care wishes:: The patient does not have a documented living will or power of compliance attorney Significant change in goals:: The family would like to give the patient until Wednesday to see if he is able to make any meaningful neurological recovery. If it does not appear as the case, they would like to discuss the options of trach and peg vs. comfort care. Objective Vital Signs: Vital Signs 09/01/18 15:00 09/01/18 16:21 09/01/18 19:00 Temperature 101.8 F H 99.6 F Pulse Rate 108 H 95 H 111 H Respiratory Rate 25 H 21 25 H Blood Pressure 135/65 147/82 H Pulse Oximetry 95 94 L 09/01/18 20:25 09/01/18 20:26 09/01/18 23:00 Temperature 99.6 F Pulse Rate 107 H 95 H Respiratory Rate 23 23 20 Blood Pressure 137/72 Pulse Oximetry 94 L 97 09/01/18 23:55 09/02/18 03:00 09/02/18 04:52 Temperature 99.4 F Pulse Rate 99 H 108 H Respiratory Rate 20 23 25 H Blood Pressure 151/83 H Pulse Oximetry 97 95 09/02/18 04:55 09/02/18 07:30 09/02/18 07:32 Temperature 99.7 F H Pulse Rate 108 H 109 H Respiratory Rate 24 23 Blood Pressure 173/81 H Pulse Oximetry 91 L 09/02/18 09:38 09/02/18 12:09 Temperature Pulse Rate 113 H Respiratory Rate 26 H 24 Blood Pressure Pulse Oximetry 94 L 94 L Intake & Output 09/01/18 09/02/18 09/02/18 18:59 06:59 18:59 Intake Total 3132.625 / 3132.625 1831 / 1831 878.625 / 878.625 Output Total 3170 / 3170 1999 Balance -37.375 / -37.375 -169 / -169 878.625 / 878.625 Weight 103.5 kg Intake: IV 1593.625 / 1593.625 950 / 950 878.625 / 878.625 KCl Inj 20 MEQ Sodium Chloride 878.625 / 878.625 850 / 850 878.625 / 878.625 23.4% Inj 38.5 MEQ In Sterile Water for Inj 1,000 ML @ 50 mls /hr IV.CONT .[id number] [facility] Rx#: [id number] Ofirmev Inj 1,000 mg In 100 ml 100 / 100 @ 400 mls/hr IV.SIG ONCE ONE Rx #:[id number] Flexbumin 25% Inj 100 ML @ 60 100 / 100 100 / 100 mls/hr IV.SIG Q12H [facility] Rx#: [id number] Vancomycin Inj 1,500 MG In NS 515 / 515 Inj 500 ML @ 250 mls/hr IV.SIG Q18H [facility] Rx#:[id number] Tube Feeding 939 / 939 281 / 281 Water Bolus Amount 600 / 600 600 / 600 Output: Urine Amount (Catheter) 3170 / 3170 1999 Indwelling Temp Sensing 3170 / 3170 1999 Catheter Other: Date of Last Bowel Movement 08/30/18 Physical Exam: CONSTITUTIONAL/GENERAL: Intubated, not currently sedated. Unresponsive TUBES/LINES/DRAINS: ETT, PIV, OGT, bilateral soft wrist restraints, Molina cath SKIN: No jaundice, rashes, or lesions. Large, intact bulla to RUE and left hip. No wounds seen anteriorly. Skin temperature warm HEAD: Atraumatic. Normocephalic. EYES: Pupils equal and round and reactive. Now with downward gaze. Slight scleral icterus. No injection or drainage. Fundi not examined. ENT: unable to assess hearing due to clinical condition. Nose without bleeding or purulent drainage. Throat without visible erythema, exudates, masses, or lesions. CARDIOVASCULAR: Tachycardic with sinus arrhythmia, no murmurs, gallops, or rubs. No JVD. Peripheral pulses symmetric. RESPIRATORY/CHEST: Symmetric, unlabored respirations, mechanically ventilated . Scattered rhonchi throughout, worse RML/RLL. Minimal air movement heard RLL GASTROINTESTINAL: Abdomen soft, non-tender, slightly distended. Bowel sounds intermittent. GENITOURINARY: Without palpable bladder distension. Molina catheter in place. Scrotal edema noted MUSCULOSKELETAL: BUE with 1+ edema, BLE with trace edema. No joint effusion noted. No mottling or clubbing. NEUROLOGICAL: Unresponsive. Cough/gag questionable. no eye opening. Does not withdraw to noxious stimuli. Persistent downward gaze PSYCHIATRIC:unable to assess due to clinical condition Diagnostic Tests Laboratory: Laboratory Results - last 24 hr 09/02/18 09/02/18 09/02/18 00:15 06:36 08:14 WBC 9.8 RBC 2.31 L Hgb 7.4 L Hct 22.4 L MCV 97.3 MCH 32.1 MCHC 33.0 RDW 15.1 Plt Count 163 D MPV 9.8 Neut % (Auto) 80.2 H Lymph % (Auto) 12.1 [place] % (Auto) 7.5 Eos % (Auto) 0.1 Baso % (Auto) 0.1 Neut # (Auto) 7.9 H Lymph # (Auto) 1.2 [place] # (Auto) 0.7 Eos # (Auto) 0.0 Baso # (Auto) 0.0 WBC Differential . Differential Comment Auto diff final Sodium Potassium Chloride Carbon Dioxide Anion Gap BUN Creatinine Estimated GFR POC Glucose 323 H 292 H Random Glucose Calcium Phosphorus Magnesium Total Bilirubin AST ALT Alkaline Phosphatase Total Protein Albumin 09/02/18 09/02/18 08:14 12:07 WBC RBC Hgb Hct MCV MCH MCHC RDW Plt Count MPV Neut % (Auto) Lymph % (Auto) [place] % (Auto) Eos % (Auto) Baso % (Auto) Neut # (Auto) Lymph # (Auto) [place] # (Auto) Eos # (Auto) Baso # (Auto) WBC Differential Differential Comment Sodium 153 H Potassium 3.6 Chloride 119 H Carbon Dioxide 26.4 Anion Gap 8 BUN 42 H Creatinine 1.09 Estimated GFR 66 L POC Glucose 318 H Random Glucose 251 H D Calcium 8.5 Phosphorus 2.6 Magnesium 2.4 Total Bilirubin 1.0 AST 35 ALT 32 Alkaline Phosphatase 55 Total Protein 6.2 L Albumin 3.0 L Result Diagrams: 09/02/18 08:14 09/02/18 08:14 Microbiology: Microbiology 09/01/18 08:30 Urine Culture - Preliminary Catheterized Urine No growth in 24 hours 08/31/18 15:00 Aerobic Blood Culture - Preliminary Blood - Peripheral No growth in 2 days Anaerobic Blood Culture - Preliminary No growth in 2 days 08/31/18 15:05 Aerobic Blood Culture - Preliminary Blood - Peripheral No growth in 2 days Anaerobic Blood Culture - Preliminary No growth in 2 days 09/01/18 10:50 Gram Stain - Final Sputum - Oral Tracheal Aspirate 08/25/18 12:41 Aerobic Blood Culture - Final Blood - Peripheral No growth in 5 days Anaerobic Blood Culture - Final No growth in 5 days 08/25/18 12:30 Aerobic Blood Culture - Final Blood - Line No growth in 5 days Anaerobic Blood Culture - Final No growth in 5 days Imaging: Impressions Chest X-Ray 09/01/18 06:00 CONCLUSION: Cardiomegaly and findings of congestive heart failure. The findings are similar to the prior exam. 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 He was born and raised in [place]. The couple have 3 adult children together, 2 sons (Maikel Trevino & Tc) and 1 daughter Yanique. The patient enjoyed fishing and home improvement projects. He was able to care for their [place].5 acre property usually by himself. Spiritual:Rastafarian Legal: In the absence of a documented living will or durable power of compliance attorney, decision making falls to the patient's , Kendra Bryant Ethical issues impacting care: There are currently no known ethical issues impacting care at this time Important Contacts: Kendra Bryant, /HCP [phone] Maikel Bryant Jr, son [phone] Tc Bryant, son [phone] Prognosis: The patient remains critically ill, requiring a large amount of ventilation support. Neurologically appears to have poor prognosis. Given his multiple arrests, and suspected seizure activity, he is at high risk for further decline , decompensation, and Code Status: Full Code Plan: * LEGAL DECISION MAKER:Mr. Bryant currently does not have the capacity to participate in his own healthcare decision making. In the absence of a living will or documented power of compliance attorney, per [place] statutes, healthcare decision making falls to his Kendra Bryant ([phone]) * GOALS: goals remain aggressive at this time. Family is hopeful but guarded about Keppra trial. Would like to meet again on Wednesday to discuss trach and peg vs. comfort care * CODE STATUS: FULL CODE * SYMPTOMS: Dyspnea -the patient is currently intubated and mechanically ventilated. Dynamic vent settings are being weaned according. Continue with current critical care recommendations. Debility -patient has been in bed now for 9 days, has been too unstable for any type of physical therapy. Should his neurological function improved will need aggressive physical therapy to regain his prior level of functionality Palliative care will continue to follow during hospital course as condition evolves, to assist patient/decision maker with understanding of medical conditions, weighing benefits/burdens of treatment options, for clarification of goals of treatment. Additionally will assist with any symptoms of palliative concern. Attestation Attestation: To help prompt me to consider important information that might be impacting today's encounter and assessment, information from prior notes written by myself or my colleagues may have been "brought forward" into today's note. My signature on this note, however, is an attestation that I personally performed the exam, history, and/or decision-making noted today, and, unless otherwise indicated, the interactions with patient, family, and staff as well as the review of records all occurred today. I also attest that the listed assessment and stated plan reflect my best clinical judgment today based on the combination of historical information, prior notes, and today's exam/ interactions. When time spent is documented, it refers only to time spent today by the signer, or if indicated, combined time spent today by collaborating physician/nurse practitioner.
[2018-09-02] MEDS ORDERED: Potassium Chloride 25 MEQ Effervescent Tablet PO ONE (14:00)
--- NOTE | 2018-09-02 14:06 | P.PNCC ---
Subjective Subjective Remarks/Hospital Course: 72-year-old male, past medical history significant for diabetes and coronary artery disease with 3 previous stents, who is presented post cardiac arrest. Per EMS and family he was doing work around the house when he stated that he did not feel right and thought something was off with his blood sugar. He then went to go sit down and when his turned around he was slumping over. She then called 911. On EMS arrival he was unresponsive pulseless and apneic. They began CPR. They temporarily achieved ROSC in the field prior to him coding again. They obtained ROSC again right before arrival. In total they gave 3 mg of epinephrine, 2 A of bicarbonate, 300 mg of amiodarone. EMS does not believe that he was without a pulse for more than 15 minutes at any time. He lost pulses again on arrival here. Again he was successfully resuscitated with return of spontaneous circulation within 15 minutes. 08/25: Patient admitted to CVICU, on targeted temperature management. 08/26: No significant overnight events, decreased UO this morning. Now being rewarmed. 08/27: Called to bedside by RN yesterday for facial swelling, CXR showed no evidence of PTX or subcut emphysema, CT scans ordered but was delayed by over 7 hours due to multiple trauma and stroke alerts taking priority in CT scan. When the patient was being prepared to move to CT around 6:30 PM, he became hypoxic to the high 80s and was too unstable for scan. He required increase in his bilevel settings and was started on flolan. This morning, he is stable, O2 sats 100% on current settings with much improved ABG. 08/28: Patient has been off pressors since yesterday afternoon, off all sedation x 24+ hours but still unresponsive. Only had a weak cough reflex. EEG negative for seizures. 08/29: Patient remains on bilevel, oxygenation improved however remains encephalopathy. To noxious central stimuli patient does weakly withdraw upper extremities and opens eyes. ABG shows pH of 7.47. Pressure high reduced to 28 from 32. 08/30: Remains on bilevel slightly improved oxygenation. Diuresis started yesterday with good urine output. Creatinine slightly improved. Remains severely encephalopathic off sedation more for more than 72 hours now. Attempt transition to PC/AC with high PEEP, if tolerated check MRI of the brain 08/31: Patient remains critical and hypoxemic however very slight improvement in neuro exam. MRI did not show any evidence of anoxic brain injury. Change from bilevel to [employer] C yesterday. Tolerating well PEEP now reduced to 10. Chest x-ray shows persistent pulmonary edema continue diuresis. Start quarter normal saline with potassium 4 free water replacement. Urine output more than 4 L in 24 hours 09/01: Clinically no significant improvement. Intermittent spontaneous eye opening but no tracking. Intermittent twitching questionable myoclonus. EEG yesterday showed no seizures but showed burst suppression pattern indicating brain injury. MRI though was negative. Will get palliative care involved Subjective 09/02: Hypertensive overnight. T-max 99.8. Intermittently opens eyes. Intermittent twitching questionable myoclonus. EEG 09/01 revealed severe encephalopathy. No epileptic activity. Objective Vital Signs / I&O: Vital Signs 09/01/18 15:00 09/01/18 16:21 09/01/18 19:00 Temperature 101.8 F H 99.6 F Pulse Rate 108 H 95 H 111 H Respiratory Rate 25 H 21 25 H Blood Pressure 135/65 147/82 H Pulse Oximetry 95 94 L 09/01/18 20:25 09/01/18 20:26 09/01/18 23:00 Temperature 99.6 F Pulse Rate 107 H 95 H Respiratory Rate 23 23 20 Blood Pressure 137/72 Pulse Oximetry 94 L 97 09/01/18 23:55 09/02/18 03:00 09/02/18 04:52 Temperature 99.4 F Pulse Rate 99 H 108 H Respiratory Rate 20 23 25 H Blood Pressure 151/83 H Pulse Oximetry 97 95 09/02/18 04:55 09/02/18 07:30 09/02/18 07:32 Temperature 99.7 F H Pulse Rate 108 H 109 H Respiratory Rate 24 23 Blood Pressure 173/81 H Pulse Oximetry 91 L 09/02/18 09:38 09/02/18 11:00 09/02/18 12:09 Temperature 99.8 F H Pulse Rate 113 H 145 H Respiratory Rate 26 H 24 24 Blood Pressure 171/82 H Pulse Oximetry 94 L 94 L Intake & Output 09/01/18 09/02/18 09/02/18 18:59 06:59 18:59 Intake Total 3132.625 / 3132.625 1831 / 1831 878.625 / 878.625 Output Total 3170 / 3170 1999 Balance -37.375 / -37.375 -169 / -169 878.625 / 878.625 Weight 103.5 kg Intake: IV 1593.625 / 1593.625 950 / 950 878.625 / 878.625 KCl Inj 20 MEQ Sodium Chloride 878.625 / 878.625 850 / 850 878.625 / 878.625 23.4% Inj 38.5 MEQ In Sterile Water for Inj 1,000 ML @ 50 mls /hr IV.CONT .[id number] [facility] Rx#: [id number] Ofirmev Inj 1,000 mg In 100 ml 100 / 100 @ 400 mls/hr IV.SIG ONCE ONE Rx #:[id number] Flexbumin 25% Inj 100 ML @ 60 100 / 100 100 / 100 mls/hr IV.SIG Q12H [facility] Rx#: [id number] Vancomycin Inj 1,500 MG In NS 515 / 515 Inj 500 ML @ 250 mls/hr IV.SIG Q18H [facility] Rx#:[id number] Tube Feeding 939 / 939 281 / 281 Water Bolus Amount 600 / 600 600 / 600 Output: Urine Amount (Catheter) 3170 / 3170 1999 Indwelling Temp Sensing 3170 / 3170 1999 Catheter Other: Date of Last Bowel Movement 08/30/18 Result Diagrams: 09/02/18 08:14 09/02/18 08:14 Other Results: Microbiology 09/01/18 10:50 Sputum - Oral Tracheal Aspirate Gram Stain - Final 09/01/18 10:50 Sputum - Oral Tracheal Aspirate Sputum Culture - Preliminary gram negative rods 09/01/18 08:30 Catheterized Urine Urine Culture - Preliminary No growth in 24 hours 08/31/18 15:00 Blood - Peripheral Aerobic Blood Culture - Preliminary No growth in 2 days 08/31/18 15:00 Blood - Peripheral Anaerobic Blood Culture - Preliminary No growth in 2 days 08/31/18 15:05 Blood - Peripheral Aerobic Blood Culture - Preliminary No growth in 2 days 08/31/18 15:05 Blood - Peripheral Anaerobic Blood Culture - Preliminary No growth in 2 days 08/25/18 12:41 Blood - Peripheral Aerobic Blood Culture - Final No growth in 5 days 08/25/18 12:41 Blood - Peripheral Anaerobic Blood Culture - Final No growth in 5 days 08/25/18 12:30 Blood - Line Aerobic Blood Culture - Final No growth in 5 days 08/25/18 12:30 Blood - Line Anaerobic Blood Culture - Final No growth in 5 days 08/25/18 11:15 Sputum - Endotracheal Gram Stain - Final 08/25/18 11:15 Sputum - Endotracheal Sputum Culture - Final Enterobacter aerogenes Imaging: Chest CTA 08/24/18 00:00 CONCLUSION: 1. No CT evidence for pulmonary artery embolism as questioned. 2. Diffuse groundglass opacities which appear more confluent in the right upper lobe. Differential considerations include pulmonary edema versus ARDS versus diffuse/atypical infection. 3. Prominent coronary artery calcifications. Chest X-Ray 08/24/18 19:10 CONCLUSION: 1. ETT in good position. NGT beyond the GE junction. 2. Diffuse airspace disease throughout the right lung most prominently in the right upper and midlung zones. Differential considerations include multilobar/ atypical pneumonia, aspiration, or atypical pulmonary edema. Head CT 08/24/18 19:11 CONCLUSION: 1. No areas of acute hemorrhage or mass effect are seen. 2. Extensive low density seen throughout the cerebral white matter likely related to small vessel ischemic change. 3. Motion artifact. . Chest X-Ray 08/26/18 11:39 CONCLUSION: Resolution of the airspace disease involving the right lung. Interstitial prominence throughout both lungs is new and could relate to interstitial edema. Chest X-Ray 08/29/18 10:00 CONCLUSION: 1. Stable ETT. NGT in the stomach. 2. Interstitial edema and pulmonary vascular congestion pattern. 3. Stable mild patchy bilateral lower lung zone airspace disease. Head MRI 08/30/18 00:00 CONCLUSION: 1. Moderate diffuse cerebral atrophy with prominent periventricular ischemic white matter demyelination. 2. No evidence for acute infarction or hemorrhage. Chest X-Ray 08/30/18 06:00 CONCLUSION: Diffuse edema versus pneumonia. The findings are similar to the prior exam. Chest X-Ray 08/31/18 06:00 CONCLUSION: Worsening pulmonary edema. Chest X-Ray 09/01/18 06:00 CONCLUSION: Cardiomegaly and findings of congestive heart failure. The findings are similar to the prior exam. Objective Remarks: GEN: 72-year-old male currently orotracheally intubated HEENT: NCAT, ETT in place NECK: Trachea midline CARDIO: Regular rate and rhythm. S1, S2 no S4. RESP: Diminished breath sounds bilaterally, on ACV on vent ABD/GI: Soft, non-distended. Hypoactive bowel sounds EXT/MS: 1+ peripheral edema. SKIN: Anasarca, fluid-filled blisters developing on upper extremities and trunk NEURO: No spontaneous movements or eye opening. Intermittently opens eyes to loud voice. To deep noxious stimuli withdrawal of upper extremities. 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 Purdy following -If myoclonus prognosis poor -Palliative care consult CARDIO: Essential hypertension -2D echo showed EF 65-70%, PAP 37 -Off all pressors -Awaiting neurologic recovery before planning ischemic workup -Cardiology Dr. Beltrán, Dr. Romero discussed with him, DC IV heparin -Aspirin 81 mg daily -IV might 40 mg IV daily -Metoprolol tartrate 12.5 mg twice daily and isosorbide dinitrate 10 mg 3 times daily. PULM: Acute hypoxic respiratory failure secondary to cardiac arrest -CXR/ CT chest consistent with ARDS vs pneumonia * Continue aztreonam 10 days. Enterobacter in sputum pansensitive * No PE noted on CTA -Weaned off Prostin all, transitioned from bilevel to conventional ACV 2017, tolerating well -Vent bundle, albuterol/ipratropium aerosols every 6 hours with albuterol aerosols every 2 hours as needed dyspnea -Repeat chest x-ray persistent CHF, pulmonary edema F/E/N: -TFs recommend Glucerna 1.5 at 65 cc now. Currently at 35 cc an hour. -Famotidine for GI prophylaxis -Docusate sodium/senna 1 tablet twice daily for bowel regimen -Keep K+ > 4.0, Mg > 2.0 RENAL: -BUN/ creatinine stable, UO stable -Diurese with IV furosemide 40 mg q24 -Free water replacement 200 cc every 4 hours ID: -Aztreonam for ICU- CAP as detailed above -Add vancomycin for persistent fever, repeat blood sputum and urine cultures -Follow up cultures-08/25 sputum culture with Enterobacter pansensitive ENDO: -SSI, Accuchecks -Recently started on insulin detemir 12 units twice daily -Continue home dose of levothyroxine 25 mcg daily. TSH 1.88 HEME: Normocytic anemia monitor CBC daily. Follow trends. PROPHY: -SCDs, enoxaparin 40 mg daily -Famotidine Level 2 follow-up
--- NOTE | 2018-09-02 14:40 | P.PNNEU ---
Subjective Subjective Comments: No acute events, occasional twitching Active Medications: Active Medications Acetaminophen (Tylenol) 650 mg PO Q6H PRN PRN Reason: PAIN 1-10 AND/OR FEVER >101F Last Admin: 09/01/18 15:23 Dose: 650 mg Al Hydroxide/Mg Hydroxide (Milk Of Ziggy [place]) 30 ml PO Q12H PRN PRN Reason: Mild Constipation Albuterol (Duoneb Neb (Prn)) 1 ampul NEB Q2HR NEB PRN PRN Reason: WHEEZING Last Admin: 08/24/18 22:54 Dose: 1 ampul Albuterol (Duoneb Neb (Yanely)) 1 ampul NEB Q6HR NEB [facility] Last Admin: 09/02/18 09:19 Dose: 1 ampul Artificial Tears (Tears Naturale Opth Drops) 1 drop EACH EYE Q8H YANELY Aspirin (Aspirin Chew) 81 mg PO DAILY [facility] Last Admin: 09/02/18 08:39 Dose: 81 mg Atropine Sulfate (Atropine Inj) 0.5 mg IV.PUSH Q5M PRN PRN Reason: SYMPTOMATIC BRADYCARDIA Bisacodyl (Dulcolax Supp) 10 mg RECTAL DAILY PRN PRN Reason: SEVERE CONSITIPATION Last Admin: 08/30/18 06:18 Dose: 10 mg Chlorhexidine Gluconate (Peridex 0.12% Oral Kit) 15 ml OROPHARYNG BID@0800, 2000 [facility] Last Admin: 09/02/18 08:38 Dose: 15 ml Citalopram Hydrobromide (Celexa) 10 mg PO DAILY [facility] Last Admin: 08/30/18 08:36 Dose: 10 mg Dextrose (D50w Vial) 50 ml IV.PUSH UNSCH PRN PRN Reason: PER HYPOGLYCEMIA PROTOCOL Enoxaparin Sodium (Lovenox Inj) 40 mg SQ DAILY [facility] Last Admin: 09/02/18 08:39 Dose: 40 mg Famotidine (Pepcid Pf Inj) 20 mg IV.PUSH Q12HR [facility] Last Admin: 09/02/18 08:39 Dose: 20 mg Famotidine (Pepcid) 20 mg PO BID [facility] Furosemide (Lasix Inj) 40 mg IV.PUSH DAILY [facility] Glucagon (Glucagon Inj) 1 mg OTHER PRN PRN PRN Reason: for Hypoglycemia Protocol Hydralazine HCl (Apresoline Inj) 20 mg IV.PUSH Q2H PRN PRN Reason: SBP>160, DBP>90 Last Admin: 09/02/18 07:43 Dose: 20 mg Magnesium Sulfate 4 gm/ Sodium (Chloride) 100 mls @ 50 mls/hr IV.SIG UNSCH PRN PRN Reason: For Magnesium 0.9 - 1.1 mg/dL Magnesium Sulfate 2 gm/ Sodium (Chloride) 100 mls @ 50 mls/hr IV.SIG UNSCH PRN PRN Reason: For Magnesium 1.2 - 1.6 mg/dL Last Infusion: 08/27/18 16:23 Dose: Infused Potassium Chloride (Kcl 40 Meq Premix Inj) 40 meq in 100 mls @ 25 mls/hr IV.SIG Q2H PRN PRN Reason: For Potassium 2.8 - 3.2 mEq/L Last Infusion: 08/26/18 14:23 Dose: Infused Potassium Chloride (Kcl 20 Meq Premix Inj) 20 meq in 100 mls @ 50 mls/hr IV.SIG Q2H PRN PRN Reason: For Potassium 3.3 - 3.5 mEq/L Last Admin: 09/01/18 07:32 Dose: 50 mls/hr Potassium Chloride (Kcl 40 Meq Premix Inj) 40 meq in 100 mls @ 25 mls/hr IV.SIG UNSCH PRN PRN Reason: For Potassium 3.3 - 3.5 mEq/L Potassium Chloride (Kcl 20 Meq Premix Inj) 20 meq in 100 mls @ 50 mls/hr IV.SIG Q2H PRN PRN Reason: For Potassium 2.8 - 3.2 mEq/L Last Infusion: 08/31/18 13:13 Dose: Infused Potassium Phosphate 30 mmol/ (Sodium Chloride) 260 mls @ 42 mls/hr IV.SIG UNSCH PRN PRN Reason: SEE LABEL COMMENTS Sodium Phosphate 30 mmol/ (Sodium Chloride) 260 mls @ 42 mls/hr IV.SIG UNSCH PRN PRN Reason: For Phosphorus < 2.5 mg/dL Albumin Human (Flexbumin 25% Inj) 100 mls @ 60 mls/hr IV.SIG Q12H [facility] Last Admin: 09/02/18 08:41 Dose: 100 mls/hr Potassium Chloride 20 meq/Sodium Chloride 38.5 meq/Sterile Water 1,019.625 mls @ 50 mls/hr IV.CONT .[id number] [facility] Last Admin: 09/02/18 07:43 Dose: 50 mls/hr Vancomycin HCl 1,500 mg/ (Sodium Chloride) 515 mls @ 250 mls/hr IV.SIG Q18H [facility] Last Admin: 09/02/18 05:51 Dose: 250 mls/hr Insulin Aspart (Novolog Insulin Correctional Sugar Inj) 0 unit SQ Q6HR [facility]; Protocol Last Admin: 09/02/18 12:32 Dose: 10 unit Insulin Detemir (Levemir Inj) 12 unit SQ BID [facility] Last Admin: 09/02/18 08:38 Dose: 12 unit Isosorbide Dinitrate (Isordil) 5 mg PO TIDAC [facility] Labetalol HCl (Trandate Inj) 20 mg IV.PUSH Q4H PRN PRN Reason: SYS BP GREATER THAN 170 [facility] Last Admin: 09/02/18 12:01 Dose: 20 mg Lactulose (Lactulose Liq) 30 ml PO DAILY PRN PRN Reason: SEVERE CONSITIPATION Last Admin: 08/29/18 18:17 Dose: 30 ml Levothyroxine Sodium (Synthroid) 25 mcg PO DAILY@0600 [facility] Last Admin: 09/02/18 05:51 Dose: 25 mcg Lorazepam (Ativan Inj) 1 mg IV.PUSH Q1H PRN PRN Reason: SEE LABEL COMMENTS Magnesium Oxide (Mag-Ox) 800 mg PO UNSCH PRN PRN Reason: For Magnesium 1.2 - 1.6 mg/dL Metoprolol Tartrate (Lopressor) 12.5 mg PO BID [facility] Miscellaneous (Pill Splitter) 1 each OTHER UNSCH PRN PRN Reason: SEE LABEL COMMENTS Miscellaneous Information ([facility] Ordered Lab Info) 0 each OTHER ONCE ONE Stop: 09/03/18 17:46 Miscellaneous Medication () 1 each OROPHARYNG 0000,0400,1200,1600 [facility] Last Admin: 09/02/18 05:48 Dose: 1 each Ondansetron HCl (Zofran Inj) 4 mg IV.PUSH Q6H PRN PRN Reason: NAUSEA OR VOMITING Pharmacy Profile Note (Vancomycin Consult Pharmacy) 1 each OTHER UNSCH PRN PRN Reason: Pharmacy to dose Potassium Bicarb/Potassium Chloride (K-Lyte Cl Eff) 50 meq PO UNSCH PRN PRN Reason: For Potassium 3.3 - 3.5 mEq/L Last Admin: 09/01/18 10:45 Dose: 50 meq Potassium Bicarb/Potassium Chloride (K-Lyte Cl Eff) 25 meq PO ONCE ONE Stop: 09/02/18 14:01 Potassium Bicarb/Potassium Chloride (K-Lyte Cl Eff) 25 meq NG/OG DAILY [facility] Potassium Phosphate (K-Phos Original) 2,000 mg PO UNSCH PRN PRN Reason: SEE LABEL COMMENTS Potassium Phosphate (K-Phos Original) 2,000 mg PO Q4H PRN PRN Reason: Phosphorus Less Than 2.5 mg/dL Senna/Docusate Sodium (Lenora-Colace) 1 tab PO BID [facility] Last Admin: 09/02/18 08:39 Dose: 1 tab Sennosides (Senokot) 17.2 mg PO Q12H PRN PRN Reason: Moderate Constipation Sodium Chloride (Ns Flush) 2 ml IV.FLUSH PRN PRN PRN Reason: FLUSH AFTER USING IV ACCESS Sodium Chloride (Ns Flush) 2 ml IV.FLUSH BID [facility] Last Admin: 09/02/18 08:42 Dose: 2 ml Sterile Water (Free Water) 200 ml NG/OG Q4HR [facility] Last Admin: 09/02/18 12:02 Dose: 200 ml Allergies/Adverse Reactions: Allergies Allergy/AdvReac Type Severity Reaction Status Date / Time pravastatin Allergy Severe Unverified 06/29/17 16:39 tetanus toxoid, adsorbed Allergy Severe Unverified 06/29/17 16:39 CRESTOR Allergy Severe Uncoded 01/12/12 07:54 Review of Systems All other systems reviewed negative except as stated in HPI Physical Exam Vital signs: Vital Signs 09/01/18 15:00 09/01/18 16:21 09/01/18 19:00 Temperature 101.8 F H 99.6 F Pulse Rate 108 H 95 H 111 H Respiratory Rate 25 H 21 25 H Blood Pressure 135/65 147/82 H Pulse Oximetry 95 94 L 09/01/18 20:25 09/01/18 20:26 09/01/18 23:00 Temperature 99.6 F Pulse Rate 107 H 95 H Respiratory Rate 23 23 20 Blood Pressure 137/72 Pulse Oximetry 94 L 97 09/01/18 23:55 09/02/18 03:00 09/02/18 04:52 Temperature 99.4 F Pulse Rate 99 H 108 H Respiratory Rate 20 23 25 H Blood Pressure 151/83 H Pulse Oximetry 97 95 09/02/18 04:55 09/02/18 07:30 09/02/18 07:32 Temperature 99.7 F H Pulse Rate 108 H 109 H Respiratory Rate 24 23 Blood Pressure 173/81 H Pulse Oximetry 91 L 09/02/18 09:38 09/02/18 11:00 09/02/18 12:09 Temperature 99.8 F H Pulse Rate 113 H 145 H Respiratory Rate 26 H 24 24 Blood Pressure 171/82 H Pulse Oximetry 94 L 94 L Intake & Output 09/01/18 09/02/18 09/02/18 18:59 06:59 18:59 Intake Total 3132.625 / 3132.625 1831 / 1831 878.625 / 878.625 Output Total 3170 / 3170 1999 Balance -37.375 / -37.375 -169 / -169 878.625 / 878.625 Weight 103.5 kg Intake: IV 1593.625 / 1593.625 950 / 950 878.625 / 878.625 KCl Inj 20 MEQ Sodium Chloride 878.625 / 878.625 850 / 850 878.625 / 878.625 23.4% Inj 38.5 MEQ In Sterile Water for Inj 1,000 ML @ 50 mls /hr IV.CONT .[id number] [facility] Rx#: [id number] Ofirmev Inj 1,000 mg In 100 ml 100 / 100 @ 400 mls/hr IV.SIG ONCE ONE Rx #:[id number] Flexbumin 25% Inj 100 ML @ 60 100 / 100 100 / 100 mls/hr IV.SIG Q12H [facility] Rx#: [id number] Vancomycin Inj 1,500 MG In NS 515 / 515 Inj 500 ML @ 250 mls/hr IV.SIG Q18H [facility] Rx#:[id number] Tube Feeding 939 / 939 281 / 281 Water Bolus Amount 600 / 600 600 / 600 Output: Urine Amount (Catheter) 3170 / 3170 1999 Indwelling Temp Sensing 3170 / 3170 1999 Catheter Other: Date of Last Bowel Movement 08/30/18 Narrative: GENERAL: in NAD, SKIN: Warm and dry. HEAD: Atraumatic. Normocephalic. EYES: Sluggishly reactive ENT: No nasal bleeding or discharge. Mucous membranes pink and moist. NECK: Intubated CARDIOVASCULAR: Regular rate and rhythm. RESPIRATORY: No accessory muscle use. GASTROINTESTINAL: Abdomen soft, non-tender, nondistended. MUSCULOSKELETAL: Extremities without clubbing, cyanosis, or edema. No obvious deformities. NEUROLOGICAL: Intubated, not awake, coma state, not following, no attempted verbalization, occasional myoclonic jerk occurring in different extremities quick minimal grimace, pupils 3 mm sluggish, approximately bilaterally no gaze deviation, no extremity movement plantarflex her no clonus PSYCHIATRIC: Intubated - Constitutional no acute distress - Routine HEENT Exam Head: Present: normocephalic - Urinary Catheter Management Indwelling Urethral Catheter Cath placed during this visit: yes, but has since been removed by the nurse Reason for continuing: Continue criteria not met Insertion date: 08/24/18 Insertion time: 19:46 Removal date: 08/24/18 Removal time: 20:30 Indwelling Temp Sensing Catheter Cath placed during this visit: yes, but has since been removed by the nurse Reason for continuing: Terminally ill/Comfort care Insertion date: 08/24/18 Insertion time: 20:30 Removal date: 08/31/18 Removal time: 12:22 Objective Laboratory Results - last 24 hr 09/01/18 09/02/18 09/02/18 16:26 00:15 06:36 WBC RBC Hgb Hct MCV MCH MCHC RDW Plt Count MPV Neut % (Auto) Lymph % (Auto) [place] % (Auto) Eos % (Auto) Baso % (Auto) Neut # (Auto) Lymph # (Auto) [place] # (Auto) Eos # (Auto) Baso # (Auto) WBC Differential Differential Comment Sodium Potassium Chloride Carbon Dioxide Anion Gap BUN Creatinine Estimated GFR POC Glucose 356 H 323 H 292 H Random Glucose Calcium Phosphorus Magnesium Total Bilirubin AST ALT Alkaline Phosphatase Total Protein Albumin 09/02/18 09/02/18 09/02/18 08:14 08:14 12:07 WBC 9.8 RBC 2.31 L Hgb 7.4 L Hct 22.4 L MCV 97.3 MCH 32.1 MCHC 33.0 RDW 15.1 Plt Count 163 D MPV 9.8 Neut % (Auto) 80.2 H Lymph % (Auto) 12.1 [place] % (Auto) 7.5 Eos % (Auto) 0.1 Baso % (Auto) 0.1 Neut # (Auto) 7.9 H Lymph # (Auto) 1.2 [place] # (Auto) 0.7 Eos # (Auto) 0.0 Baso # (Auto) 0.0 WBC Differential . Differential Comment Auto diff final Sodium 153 H Potassium 3.6 Chloride 119 H Carbon Dioxide 26.4 Anion Gap 8 BUN 42 H Creatinine 1.09 Estimated GFR 66 L POC Glucose 318 H Random Glucose 251 H D Calcium 8.5 Phosphorus 2.6 Magnesium 2.4 Total Bilirubin 1.0 AST 35 ALT 32 Alkaline Phosphatase 55 Total Protein 6.2 L Albumin 3.0 L Microbiology 09/01/18 10:50 Gram Stain - Final Sputum - Oral Tracheal Aspirate Sputum Culture - Preliminary gram negative rods 09/01/18 08:30 Urine Culture - Preliminary Catheterized Urine No growth in 24 hours 08/31/18 15:00 Aerobic Blood Culture - Preliminary Blood - Peripheral No growth in 2 days Anaerobic Blood Culture - Preliminary No growth in 2 days 08/31/18 15:05 Aerobic Blood Culture - Preliminary Blood - Peripheral No growth in 2 days Anaerobic Blood Culture - Preliminary No growth in 2 days Review/Management - Diagnosis (1) Anoxic encephalopathy Code(s): G93.1 - Anoxic brain damage, not elsewhere classified Status: Acute Current Visit: Yes (2) Post hypoxic myoclonus Code(s): G25.3 - Myoclonus Status: Acute Current Visit: Yes (3) Respiratory failure Code(s): J96.90 - Respiratory failure, unspecified, unspecified whether with hypoxia or hypercapnia Status: Acute Current Visit: Yes (4) Cardiac arrest Code(s): I46.9 - Cardiac arrest, cause unspecified Status: Acute Current Visit: Yes (5) PEA (Pulseless electrical activity) Code(s): I46.9 - Cardiac arrest, cause unspecified Status: Acute Current Visit: Yes (6) NSTEMI (non-ST elevated myocardial infarction) Code(s): I21.4 - Non-ST elevation (NSTEMI) myocardial infarction Status: Acute Current Visit: Yes - Review/Management Plan: Impaired cortical function with brainstem reflexes MRI brain scan reviewed no diffusion restriction noted He may develop superimposed hypoxic encephalopathy from ARDS/pneumonia Most recent EEG showing very low voltage generalized delta activity; no seizure activity Developed post hypoxic myoclonus Recommendation We will add trial of Keppra for myoclonus Exam unchanged May look a repeat MRI scan in the near future Prognosis guarded and indeterminate for meaningful neurologic recovery at this time Discussed options of trach and PEG and long-term care facility with the son will further discuss with his mother and brother
[2018-09-02] MEDS: levETIRAcetam 500 MG Tablet PO SCH ×2 (15:13→20:02)
[2018-09-02] MEDS: Artificial Tears Opth Drops 15 ML Bottle EACH EYE SCH ×3 (18:18→23:38)
[2018-09-02] MEDS: Famotidine 20 MG Tablet PO SCH (20:02)
[2018-09-02] MEDS: Metoprolol Tartrate 25 MG Tablet PO SCH (20:02)
[2018-09-03] MEDS: Potassium Chloride Inj 20 MEQ, Sodium Chloride 23.4% Inj 38.5 MEQ in Water for Inj, Ste... IV.CONT SCH (04:33)
[2018-09-03] MEDS: hydrALAZINE HCl Inj 20 MG/ML Vial IV.PUSH PRN (04:34)
--- NOTE | 2018-09-03 04:36 | XR ---
EXAM DATE: 09/03/2018 6:00 AM EDT AGE/SEX: 72 years / Male INDICATIONS: Shortness of breath, possible pulmonary disease. CLINICAL DATA: This is the patient's subsequent encounter. Patient reports that signs and symptoms h ave been present for 1 week and indicates a pain score of Nonresponsive. MEDICAL/SURGICAL HISTORY: Diabetes mellitus type II. Coronary artery stent. COMPARISON: C, CHEST 1V SINGLE AP, 09/01/2018. . FINDINGS: A single AP view of the chest demonstrates cardiomegaly with bilateral airspace disease. Endotracheal tube and nasogastric tube unchanged. Osseous structures are intact. CONCLUSION: Cardiomegaly and bilateral airspace disease. Electronically signed by: Carson Devine MD 09/03/2018 4:35 AM EDT
[2018-09-03 04:48] LABS: Baso % (Auto) 0.1 % (0.0-2.0); Eos % (Auto) 0.3 % (0.0-4.0); Lymph % (Auto) 10.6 % (9.0-44.0); Mean Corpuscular HGB Conc 33.4 % (32.0-36.0); Mean Corpuscular Hemoglobin 32.8 pg (27.0-34.0); Mean Platelet Volume 9.9 fL (7.0-11.0); Mono # (Auto) 0.7 th/mm3 (0.0-0.9); Mono % (Auto) 7.7 % (0.0-8.0); Neut # (Auto) 7.6 th/mm3 (1.8-7.7); Neut % (Auto) 81.3 % (16.0-70.0); Platelet Count 181 th/mm3 (150-450); Red Cell Distribution Width 15.1 % (11.6-17.2); White Blood Count 9.3 th/mm3 (4.0-11.0)
[2018-09-03] MEDS: Oral Hygiene Kit OROPHARYNG SCH ×4 (04:54→15:15)
[2018-09-03 05:00] LABS: Hematocrit 20.6 % (39.0-51.0); Hemoglobin 6.9 gm/dL (13.0-17.0)
[2018-09-03 05:08] LABS: Albumin 3.1 g/dL (3.4-5.0); Anion Gap 6 meq/L (5-15); Aspartate Aminotransferase 40 U/L (15-37); Blood Urea Nitrogen 43 mg/dL (7-18); Calcium 8.4 mg/dL (8.5-10.1); Carbon Dioxide 27.7 meq/L (21.0-32.0); Chloride 118 meq/L (98-107); Glomerular Filtration Rate 72 mL/min (>89); Glucose,Random 265 mg/dL (74-106); Magnesium 2.6 mg/dL (1.5-2.5); Potassium 3.8 meq/L (3.5-5.1); Sodium 152 meq/L (136-145)
[2018-09-03 05:09] LABS: Alanine Aminotransferase 32 U/L (12-78); Phosphorus 2.9 mg/dL (2.5-4.9)
[2018-09-03 05:11] LABS: Alkaline Phosphatase 62 U/L (45-117); Total Protein 6.2 g/dL (6.4-8.2)
[2018-09-03] MEDS: Insulin NovoLOG Aspart Correctional Sugar Inj SQ SCH ×3 (06:46→17:02)
[2018-09-03] MEDS: Artificial Tears Opth Drops 15 ML Bottle EACH EYE SCH ×3 (07:51→22:22)
[2018-09-03] MEDS: Chlorhexidine 0.12% Oral Kit 15 ML UDC OROPHARYNG SCH ×2 (07:52→22:21)
[2018-09-03] MEDS: Insulin Detemir Inj 1,000 UNIT/10 ML Vial SQ SCH ×3 (08:29→22:21)
[2018-09-03] MEDS: Senna/Docusate Sodium 8.6/50 MG Tablet PO SCH ×2 (08:30→22:21)
[2018-09-03] MEDS: Metoprolol Tartrate 25 MG Tablet PO SCH ×3 (08:31→22:21)
[2018-09-03] MEDS: Famotidine 20 MG Tablet PO SCH ×2 (08:31→22:21)
[2018-09-03] MEDS: levETIRAcetam 500 MG Tablet PO SCH ×2 (08:31→22:21)
[2018-09-03] MEDS: Potassium Chloride 25 MEQ Effervescent Tablet NG/OG SCH (08:31)
[2018-09-03] MEDS: Enoxaparin Inj 40 MG/0.4 ML Syringe SQ SCH (08:32)
[2018-09-03] MEDS ORDERED: Potassium Chloride 25 MEQ Effervescent Tablet PO ONE (08:55)
--- NOTE | 2018-09-03 08:55 | P.PNCC ---
Subjective Subjective Remarks/Hospital Course: 72-year-old male, past medical history significant for diabetes and coronary artery disease with 3 previous stents, who is presented post cardiac arrest. Per EMS and family he was doing work around the house when he stated that he did not feel right and thought something was off with his blood sugar. He then went to go sit down and when his turned around he was slumping over. She then called 911. On EMS arrival he was unresponsive pulseless and apneic. They began CPR. They temporarily achieved ROSC in the field prior to him coding again. They obtained ROSC again right before arrival. In total they gave 3 mg of epinephrine, 2 A of bicarbonate, 300 mg of amiodarone. EMS does not believe that he was without a pulse for more than 15 minutes at any time. He lost pulses again on arrival here. Again he was successfully resuscitated with return of spontaneous circulation within 15 minutes. 08/25: Patient admitted to CVICU, on targeted temperature management. 08/26: No significant overnight events, decreased UO this morning. Now being rewarmed. 08/27: Called to bedside by RN yesterday for facial swelling, CXR showed no evidence of PTX or subcut emphysema, CT scans ordered but was delayed by over 7 hours due to multiple trauma and stroke alerts taking priority in CT scan. When the patient was being prepared to move to CT around 6:30 PM, he became hypoxic to the high 80s and was too unstable for scan. He required increase in his bilevel settings and was started on flolan. This morning, he is stable, O2 sats 100% on current settings with much improved ABG. 08/28: Patient has been off pressors since yesterday afternoon, off all sedation x 24+ hours but still unresponsive. Only had a weak cough reflex. EEG negative for seizures. 08/29: Patient remains on bilevel, oxygenation improved however remains encephalopathy. To noxious central stimuli patient does weakly withdraw upper extremities and opens eyes. ABG shows pH of 7.47. Pressure high reduced to 28 from 32. 08/30: Remains on bilevel slightly improved oxygenation. Diuresis started yesterday with good urine output. Creatinine slightly improved. Remains severely encephalopathic off sedation more for more than 72 hours now. Attempt transition to PC/AC with high PEEP, if tolerated check MRI of the brain 08/31: Patient remains critical and hypoxemic however very slight improvement in neuro exam. MRI did not show any evidence of anoxic brain injury. Change from bilevel to [employer] C yesterday. Tolerating well PEEP now reduced to 10. Chest x-ray shows persistent pulmonary edema continue diuresis. Start quarter normal saline with potassium 4 free water replacement. Urine output more than 4 L in 24 hours 09/01: Clinically no significant improvement. Intermittent spontaneous eye opening but no tracking. Intermittent twitching questionable myoclonus. EEG yesterday showed no seizures but showed burst suppression pattern indicating brain injury. MRI though was negative. Will get palliative care involved 09/02: Hypertensive overnight. T-max 99.8. Intermittently opens eyes. Intermittent twitching questionable myoclonus. EEG 09/01 revealed severe encephalopathy. No epileptic activity. Subjective 09/03: Remains hypertensive. Currently not opening eyes. Started on levetiracetam yesterday for questionable myoclonus. Reviewed neurology's notes. Likely MRI next week. Trach decision will come on next Wednesday. Objective Vital Signs / I&O: Vital Signs 09/02/18 09:38 09/02/18 11:00 09/02/18 12:09 Temperature 99.8 F H Pulse Rate 113 H 145 H Respiratory Rate 26 H 24 24 Blood Pressure 171/82 H Pulse Oximetry 94 L 94 L 09/02/18 15:00 09/02/18 16:18 09/02/18 19:00 Temperature 99.8 F H 99.6 F Pulse Rate 97 H 96 H 92 H Respiratory Rate 23 22 20 Blood Pressure 158/92 H 145/78 H Pulse Oximetry 97 96 09/02/18 19:44 09/02/18 19:45 09/02/18 23:00 Temperature 98.8 F Pulse Rate 94 H 90 Respiratory Rate 21 21 21 Blood Pressure 135/76 Pulse Oximetry 98 94 L 09/03/18 00:30 09/03/18 03:00 09/03/18 03:28 Temperature 98.6 F Pulse Rate 94 H 91 H Respiratory Rate 22 21 22 Blood Pressure 177/92 H Pulse Oximetry 94 L 95 09/03/18 03:30 09/03/18 07:43 09/03/18 07:46 Temperature 99 F Pulse Rate 117 H 117 H Respiratory Rate 21 21 Blood Pressure 156/89 H Pulse Oximetry 94 L 95 Intake & Output 09/02/18 09/03/18 09/03/18 18:59 06:59 18:59 Intake Total 1960.625 / 2644.738 1216 / 2839 273 / 273 Output Total 1944 1150 / 1150 Balance 15.625 / 15.625 1689 / 1689 273 / 273 Weight 103.5 kg 103.5 kg Intake: IV 978.625 / 663.938 9532 / 1880 273 / 273 KCl Inj 20 MEQ Sodium Chloride 878.625 / 878.625 850 / 850 73 / 73 23.4% Inj 38.5 MEQ In Sterile Water for Inj 1,000 ML @ 50 mls /hr IV.CONT .[id number] [facility] Rx#: [id number] Flexbumin 25% Inj 100 ML @ 60 100 / 100 100 / 100 mls/hr IV.SIG Q12H [facility] Rx#: [id number] KCl 20 mEq Premix Inj 20 meq In 100 / 100 100 ml @ 50 mls/hr IV.SIG Q2H PRN Rx#:[id number] Vancomycin Inj 1,500 MG In NS 1030 / 1030 Inj 500 ML @ 250 mls/hr IV.SIG Q18H [facility] Rx#:[id number] Tube Feeding 382 / 382 359 / 359 Water Bolus Amount 600 / 600 600 / 600 Output: Urine Amount (Catheter) 1944 1150 / 1150 Indwelling Temp Sensing 1944 1150 / 1150 Catheter Other: Date of Last Bowel Movement 08/30/18 08/30/18 Result Diagrams: 09/03/18 03:31 09/03/18 03:31 Other Results: Microbiology 09/01/18 10:50 Sputum - Oral Tracheal Aspirate Gram Stain - Final 09/01/18 10:50 Sputum - Oral Tracheal Aspirate Sputum Culture - Preliminary gram negative rods 09/01/18 08:30 Catheterized Urine Urine Culture - Preliminary No growth in 24 hours 08/31/18 15:00 Blood - Peripheral Aerobic Blood Culture - Preliminary No growth in 2 days 08/31/18 15:00 Blood - Peripheral Anaerobic Blood Culture - Preliminary No growth in 2 days 08/31/18 15:05 Blood - Peripheral Aerobic Blood Culture - Preliminary No growth in 2 days 08/31/18 15:05 Blood - Peripheral Anaerobic Blood Culture - Preliminary No growth in 2 days 08/25/18 12:41 Blood - Peripheral Aerobic Blood Culture - Final No growth in 5 days 08/25/18 12:41 Blood - Peripheral Anaerobic Blood Culture - Final No growth in 5 days 08/25/18 12:30 Blood - Line Aerobic Blood Culture - Final No growth in 5 days 08/25/18 12:30 Blood - Line Anaerobic Blood Culture - Final No growth in 5 days 08/25/18 11:15 Sputum - Endotracheal Gram Stain - Final 08/25/18 11:15 Sputum - Endotracheal Sputum Culture - Final Enterobacter aerogenes Imaging: Chest CTA 08/24/18 00:00 CONCLUSION: 1. No CT evidence for pulmonary artery embolism as questioned. 2. Diffuse groundglass opacities which appear more confluent in the right upper lobe. Differential considerations include pulmonary edema versus ARDS versus diffuse/atypical infection. 3. Prominent coronary artery calcifications. Chest X-Ray 08/24/18 19:10 CONCLUSION: 1. ETT in good position. NGT beyond the GE junction. 2. Diffuse airspace disease throughout the right lung most prominently in the right upper and midlung zones. Differential considerations include multilobar/ atypical pneumonia, aspiration, or atypical pulmonary edema. Head CT 08/24/18 19:11 CONCLUSION: 1. No areas of acute hemorrhage or mass effect are seen. 2. Extensive low density seen throughout the cerebral white matter likely related to small vessel ischemic change. 3. Motion artifact. . Chest X-Ray 08/26/18 11:39 CONCLUSION: Resolution of the airspace disease involving the right lung. Interstitial prominence throughout both lungs is new and could relate to interstitial edema. Chest X-Ray 08/29/18 10:00 CONCLUSION: 1. Stable ETT. NGT in the stomach. 2. Interstitial edema and pulmonary vascular congestion pattern. 3. Stable mild patchy bilateral lower lung zone airspace disease. Head MRI 08/30/18 00:00 CONCLUSION: 1. Moderate diffuse cerebral atrophy with prominent periventricular ischemic white matter demyelination. 2. No evidence for acute infarction or hemorrhage. Chest X-Ray 08/30/18 06:00 CONCLUSION: Diffuse edema versus pneumonia. The findings are similar to the prior exam. Chest X-Ray 08/31/18 06:00 CONCLUSION: Worsening pulmonary edema. Chest X-Ray 09/01/18 06:00 CONCLUSION: Cardiomegaly and findings of congestive heart failure. The findings are similar to the prior exam. Chest X-Ray 09/03/18 06:00 CONCLUSION: Cardiomegaly and bilateral airspace disease. Objective Remarks: GEN: 72-year-old male currently orotracheally intubated HEENT: NCAT, ETT in place NECK: Trachea midline CARDIO: Regular rate and rhythm. S1, S2 no S4. RESP: Diminished breath sounds bilaterally, on ACV on vent ABD/GI: Soft, non-distended. Hypoactive bowel sounds EXT/MS: 1+ peripheral edema. SKIN: Anasarca, fluid-filled blisters developing on upper extremities and trunk NEURO: No spontaneous movements or eye opening. Intermittently opens eyes to loud voice. To deep noxious stimuli withdrawal of upper extremities. 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 Purdy following -If myoclonus prognosis poor -Palliative care consult -Started on levetiracetam 500 twice daily. Likely repeat MRI early next week CARDIO: Essential hypertension -2D echo showed EF 65-70%, PAP 37 -Off all pressors -Awaiting neurologic recovery before planning ischemic workup -Cardiology Dr. Beltrán, Dr. Romero discussed with him, DC IV heparin -Aspirin 81 mg daily -IV furosemide 40 mg IV daily -Metoprolol tartrate 25 mg twice daily and isosorbide dinitrate 10 mg 3 times daily. PULM: Acute hypoxic respiratory failure secondary to cardiac arrest -CXR/ CT chest consistent with ARDS vs pneumonia * Continue aztreonam 10 days. Enterobacter in sputum pansensitive * No PE noted on CTA -Weaned off epoprostenol aerosolized, transitioned from bilevel to conventional ACV 08/30/2018, tolerating well -Vent bundle, albuterol/ipratropium aerosols every 6 hours with albuterol aerosols every 2 hours as needed dyspnea -Repeat chest x-ray persistent CHF, pulmonary edema F/E/N: -TFs recommend Glucerna 1.5 at 65 cc/hour -Famotidine for GI prophylaxis -Docusate sodium/senna 1 tablet twice daily for bowel regimen -Keep K+ > 4.0, Mg > 2.0 RENAL: -BUN/ creatinine stable, UO stable -Diurese with IV furosemide 40 mg q24 -Free water replacement 200 cc every 4 hours ID: Enterobacter sputum positive -Aztreonam for ICU- CAP as detailed above Discontinued vancomycin 09/03 -Follow up cultures-08/25 sputum culture with Enterobacter pansensitive. Replete sputum 09/01 gram-negative anand ENDO: -SSI, Accuchecks -Recently started on insulin detemir 12 units twice daily -Continue home dose of levothyroxine 25 mcg daily. TSH 1.88 HEME: Normocytic anemia monitor CBC daily. Follow trends. Will attempt to clarify blood transfusion. Hemoglobin currently 6.9. PROPHY: -SCDs, enoxaparin 40 mg daily -Famotidine Level 2 follow-up
[2018-09-03 09:11] LABS: Eosinophils 1 % (0-4); Lymphocytes 10 % (9-44); Metamyelocytes 1 % (0-1); Monocytes 1 % (0-8)
[2018-09-03 09:12] LABS: Platelet Estimate Normal (Normal); Platelet Morphology Normal (Normal); Toxic Granulation 2+
[2018-09-03] MEDS: Aztreonam Inj 2 GM in Sodium Chloride 0.9% Inj 100 ML IV.SIG SCH ×2 (10:35→16:57)
--- NOTE | 2018-09-03 15:39 | P.PNNEU ---
Subjective Subjective Comments: No acute events Active Medications: Active Medications Acetaminophen (Tylenol) 650 mg PO Q6H PRN PRN Reason: PAIN 1-10 AND/OR FEVER >101F Last Admin: 09/01/18 15:23 Dose: 650 mg Al Hydroxide/Mg Hydroxide (Milk Of Magnamaury Liq) 30 ml PO Q12H PRN PRN Reason: Mild Constipation Last Admin: 09/02/18 15:13 Dose: 30 ml Albuterol (Duoneb Neb (Mervat)) 1 ampul NEB Q6HR NEB [facility] Last Admin: 09/03/18 09:35 Dose: 1 ampul Albuterol (Albuterol Neb (Prn)) 2.5 mg NEB Q2HR NEB PRN PRN Reason: DYSPNEA Artificial Tears (Tears Naturale Opth Drops) 1 drop EACH EYE Q8H [facility] Last Admin: 09/03/18 15:15 Dose: 1 drop Aspirin (Aspirin Chew) 81 mg PO DAILY [facility] Last Admin: 09/03/18 08:32 Dose: 81 mg Atropine Sulfate (Atropine Inj) 0.5 mg IV.PUSH Q5M PRN PRN Reason: SYMPTOMATIC BRADYCARDIA Bisacodyl (Dulcolax Supp) 10 mg RECTAL DAILY PRN PRN Reason: SEVERE CONSITIPATION Last Admin: 08/30/18 06:18 Dose: 10 mg Chlorhexidine Gluconate (Peridex 0.12% Oral Kit) 15 ml OROPHARYNG BID@0800, 2000 [facility] Last Admin: 09/03/18 07:52 Dose: 15 ml Citalopram Hydrobromide (Celexa) 10 mg PO DAILY [facility] Last Admin: 08/30/18 08:36 Dose: 10 mg Dextrose (D50w Vial) 50 ml IV.PUSH UNSCH PRN PRN Reason: PER HYPOGLYCEMIA PROTOCOL Enoxaparin Sodium (Lovenox Inj) 40 mg SQ DAILY [facility] Last Admin: 09/03/18 08:32 Dose: 40 mg Famotidine (Pepcid) 20 mg PO BID [facility] Last Admin: 09/03/18 08:31 Dose: 20 mg Furosemide (Lasix Inj) 40 mg IV.PUSH DAILY [facility] Last Admin: 09/03/18 08:31 Dose: 40 mg Glucagon (Glucagon Inj) 1 mg OTHER PRN PRN PRN Reason: for Hypoglycemia Protocol Hydralazine HCl (Apresoline Inj) 20 mg IV.PUSH Q2H PRN PRN Reason: SBP>160, DBP>90 Last Admin: 09/03/18 04:34 Dose: 20 mg Magnesium Sulfate 4 gm/ Sodium (Chloride) 100 mls @ 50 mls/hr IV.SIG UNSCH PRN PRN Reason: For Magnesium 0.9 - 1.1 mg/dL Magnesium Sulfate 2 gm/ Sodium (Chloride) 100 mls @ 50 mls/hr IV.SIG UNSCH PRN PRN Reason: For Magnesium 1.2 - 1.6 mg/dL Last Infusion: 08/27/18 16:23 Dose: Infused Potassium Chloride (Kcl 40 Meq Premix Inj) 40 meq in 100 mls @ 25 mls/hr IV.SIG Q2H PRN PRN Reason: For Potassium 2.8 - 3.2 mEq/L Last Infusion: 08/26/18 14:23 Dose: Infused Potassium Chloride (Kcl 20 Meq Premix Inj) 20 meq in 100 mls @ 50 mls/hr IV.SIG Q2H PRN PRN Reason: For Potassium 3.3 - 3.5 mEq/L Last Infusion: 09/03/18 07:42 Dose: Infused Potassium Chloride (Kcl 40 Meq Premix Inj) 40 meq in 100 mls @ 25 mls/hr IV.SIG UNSCH PRN PRN Reason: For Potassium 3.3 - 3.5 mEq/L Potassium Chloride (Kcl 20 Meq Premix Inj) 20 meq in 100 mls @ 50 mls/hr IV.SIG Q2H PRN PRN Reason: For Potassium 2.8 - 3.2 mEq/L Last Infusion: 08/31/18 13:13 Dose: Infused Potassium Phosphate 30 mmol/ (Sodium Chloride) 260 mls @ 42 mls/hr IV.SIG UNSCH PRN PRN Reason: SEE LABEL COMMENTS Sodium Phosphate 30 mmol/ (Sodium Chloride) 260 mls @ 42 mls/hr IV.SIG UNSCH PRN PRN Reason: For Phosphorus < 2.5 mg/dL Aztreonam 2 gm/ Sodium (Chloride) 100 mls @ 200 mls/hr IV.SIG Q8H MERVAT Last Infusion: 09/03/18 11:13 Dose: Infused Insulin Aspart (Novolog Insulin Correctional Sugar Inj) 0 unit SQ Q6HR MERVAT; Protocol Last Admin: 09/03/18 11:37 Dose: 7 unit Insulin Detemir (Levemir Inj) 18 unit SQ BID [facility] Last Admin: 09/03/18 09:06 Dose: 6 unit Isosorbide Dinitrate (Isordil) 10 mg PO TIDAC [facility] Last Admin: 09/03/18 15:15 Dose: Not Given Labetalol HCl (Trandate Inj) 20 mg IV.PUSH Q4H PRN PRN Reason: SYS BP GREATER THAN 170 MMHG Last Admin: 09/02/18 12:01 Dose: 20 mg Lactulose (Lactulose Liq) 30 ml PO DAILY PRN PRN Reason: SEVERE CONSITIPATION Last Admin: 08/29/18 18:17 Dose: 30 ml Levetiracetam (Keppra) 500 mg PO BID [facility] Last Admin: 09/03/18 08:31 Dose: 500 mg Levothyroxine Sodium (Synthroid) 25 mcg PO DAILY@0600 [facility] Last Admin: 09/03/18 06:47 Dose: 25 mcg Lorazepam (Ativan Inj) 1 mg IV.PUSH Q1H PRN PRN Reason: SEE LABEL COMMENTS Magnesium Oxide (Mag-Ox) 800 mg PO UNSCH PRN PRN Reason: For Magnesium 1.2 - 1.6 mg/dL Metoprolol Tartrate (Lopressor) 25 mg PO BID [facility] Last Admin: 09/03/18 09:06 Dose: 12.5 mg Miscellaneous (Pill Splitter) 1 each OTHER UNSCH PRN PRN Reason: SEE LABEL COMMENTS Miscellaneous Medication () 1 each OROPHARYNG 0000,0400,1200,1600 [facility] Last Admin: 09/03/18 15:15 Dose: 1 each Ondansetron HCl (Zofran Inj) 4 mg IV.PUSH Q6H PRN PRN Reason: NAUSEA OR VOMITING Potassium Bicarb/Potassium Chloride (K-Lyte Cl Eff) 50 meq PO UNSCH PRN PRN Reason: For Potassium 3.3 - 3.5 mEq/L Last Admin: 09/01/18 10:45 Dose: 50 meq Potassium Bicarb/Potassium Chloride (K-Lyte Cl Eff) 25 meq NG/OG DAILY [facility] Last Admin: 09/03/18 08:31 Dose: 25 meq Potassium Phosphate (K-Phos Original) 2,000 mg PO UNSCH PRN PRN Reason: SEE LABEL COMMENTS Potassium Phosphate (K-Phos Original) 2,000 mg PO Q4H PRN PRN Reason: Phosphorus Less Than 2.5 mg/dL Senna/Docusate Sodium (Lenora-Colace) 1 tab PO BID [facility] Last Admin: 09/03/18 08:30 Dose: 1 tab Sennosides (Senokot) 17.2 mg PO Q12H PRN PRN Reason: Moderate Constipation Sodium Chloride (Ns Flush) 2 ml IV.FLUSH PRN PRN PRN Reason: FLUSH AFTER USING IV ACCESS Sodium Chloride (Ns Flush) 2 ml IV.FLUSH BID [facility] Last Admin: 09/03/18 08:30 Dose: 2 ml Sterile Water (Free Water) 200 ml NG/OG Q4HR [facility] Last Admin: 09/03/18 15:15 Dose: 200 ml Allergies/Adverse Reactions: Allergies Allergy/AdvReac Type Severity Reaction Status Date / Time pravastatin Allergy Severe Unverified 06/29/17 16:39 tetanus toxoid, adsorbed Allergy Severe Unverified 06/29/17 16:39 CRESTOR Allergy Severe Uncoded 01/12/12 07:54 Review of Systems unobtainable due to endotracheal tube, unobtainable due to mental status Physical Exam Vital signs: Vital Signs 09/02/18 16:18 09/02/18 19:00 09/02/18 19:44 Temperature 99.6 F Pulse Rate 96 H 92 H Respiratory Rate 22 20 21 Blood Pressure 145/78 H Pulse Oximetry 97 96 98 09/02/18 19:45 09/02/18 23:00 09/03/18 00:30 Temperature 98.8 F Pulse Rate 94 H 90 Respiratory Rate 21 21 22 Blood Pressure 135/76 Pulse Oximetry 94 L 94 L 09/03/18 03:00 09/03/18 03:28 09/03/18 03:30 Temperature 98.6 F Pulse Rate 94 H 91 H Respiratory Rate 21 22 21 Blood Pressure 177/92 H Pulse Oximetry 95 94 L 09/03/18 07:43 09/03/18 07:46 09/03/18 09:36 Temperature 99 F Pulse Rate 117 H 117 H 93 H Respiratory Rate 21 17 Blood Pressure 156/89 H Pulse Oximetry 95 98 09/03/18 10:55 09/03/18 10:57 09/03/18 11:35 Temperature 99 F Pulse Rate 88 88 Respiratory Rate 18 18 Blood Pressure 136/69 Pulse Oximetry 96 97 09/03/18 13:58 09/03/18 15:07 09/03/18 15:09 Temperature 99.9 F H Pulse Rate 91 H 91 H Respiratory Rate 17 16 Blood Pressure 147/74 H Pulse Oximetry 96 96 Intake & Output 09/02/18 09/03/18 09/03/18 18:59 06:59 18:59 Intake Total 1960.625 / 1899.971 3917 / 2839 373 / 373 Output Total 1944 / 1944 1150 / 1150 Balance 15.625 / 15.625 1689 / 1689 373 / 373 Weight 103.5 kg 103.5 kg Intake: IV 978.625 / 497.931 1558 / 1880 373 / 373 KCl Inj 20 MEQ Sodium Chloride 878.625 / 878.625 850 / 850 73 / 73 23.4% Inj 38.5 MEQ In Sterile Water for Inj 1,000 ML @ 50 mls /hr IV.CONT .[id number] MERVAT Rx#: [id number] Flexbumin 25% Inj 100 ML @ 60 100 / 100 100 / 100 mls/hr IV.SIG Q12H [facility]ERV[facility] Rx#: [id number] Azactam Inj 2 GM In NS Inj 100 100 / 100 ML @ 200 mls/hr IV.SIG Q8H [facility] Rx#:[id number] KCl 20 mEq Premix Inj 20 meq In 100 / 100 100 ml @ 50 mls/hr IV.SIG Q2H PRN Rx#:[id number] Vancomycin Inj 1,500 MG In NS 1030 / 1030 Inj 500 ML @ 250 mls/hr IV.SIG Q18H [facility]ERVAT Rx#:[id number] Tube Feeding 382 / 382 359 / 359 Water Bolus Amount 600 / 600 600 / 600 Output: Urine Amount (Catheter) 1944 1150 / 1150 Indwelling Temp Sensing 1944 1150 / 1150 Catheter Other: Date of Last Bowel Movement 08/30/18 08/30/18 Narrative: GENERAL: in NAD, SKIN: Warm and dry. HEAD: Atraumatic. Normocephalic. EYES: Sluggishly reactive ENT: No nasal bleeding or discharge. Mucous membranes pink and moist. NECK: Intubated CARDIOVASCULAR: Regular rate and rhythm. RESPIRATORY: No accessory muscle use. NEUROLOGICAL: Intubated, not awake, coma state, not following, no attempted verbalization, quick myoclonic twitch occurring in the eyelids at times in the shoulders, pupils 3 to 2.5 mm, no gaze deviation but has roving eye movements at times, no extremity movement plantarflex her no clonus PSYCHIATRIC: Intubated - Constitutional no acute distress - Routine HEENT Exam Head: Present: normocephalic - Urinary Catheter Management Indwelling Urethral Catheter Cath placed during this visit: yes, but has since been removed by the nurse Reason for continuing: Continue criteria not met Insertion date: 08/24/18 Insertion time: 19:46 Removal date: 08/24/18 Removal time: 20:30 Indwelling Temp Sensing Catheter Cath placed during this visit: yes, but has since been removed by the nurse Reason for continuing: Hourly intake/output Insertion date: 08/24/18 Insertion time: 20:30 Removal date: 08/31/18 Removal time: 12:22 Objective Laboratory Results - last 24 hr 09/02/18 09/02/18 09/03/18 18:08 23:36 03:31 WBC 9.3 RBC 2.10 L Hgb 6.9 L* Hct 20.6 L* MCV 98.0 MCH 32.8 MCHC 33.4 RDW 15.1 Plt Count 181 MPV 9.9 Prelim Diff (Auto) Slide review pending Neut % (Auto) 81.3 H Lymph % (Auto) 10.6 [place] % (Auto) 7.7 Eos % (Auto) 0.3 Baso % (Auto) 0.1 Neut # (Auto) 7.6 Lymph # (Auto) 1.0 [place] # (Auto) 0.7 Eos # (Auto) 0.0 Baso # (Auto) 0.0 WBC Differential Manual diff final Seg Neuts % (Manual) 75 H Band Neuts % (Manual) 12 H Lymphocytes % (Manual) 10 Monocytes % (Manual) 1 Eosinophils % (Manual) 1 Metamyelocytes % (Man) 1 Abs Neuts (Manual) 8.2 H Differential Comment . Toxic Granulation 2+ H Platelet Estimate Normal Platelet Morphology Normal Sodium Potassium Chloride Carbon Dioxide Anion Gap BUN Creatinine Estimated GFR POC Glucose 271 H 336 H Random Glucose Calcium Phosphorus Magnesium Total Bilirubin AST ALT Alkaline Phosphatase Total Protein Albumin 09/03/18 09/03/18 09/03/18 03:31 06:43 11:35 WBC RBC Hgb Hct MCV MCH MCHC RDW Plt Count MPV Prelim Diff (Auto) Neut % (Auto) Lymph % (Auto) [place] % (Auto) Eos % (Auto) Baso % (Auto) Neut # (Auto) Lymph # (Auto) [place] # (Auto) Eos # (Auto) Baso # (Auto) WBC Differential Seg Neuts % (Manual) Band Neuts % (Manual) Lymphocytes % (Manual) Monocytes % (Manual) Eosinophils % (Manual) Metamyelocytes % (Man) Abs Neuts (Manual) Differential Comment Toxic Granulation Platelet Estimate Platelet Morphology Sodium 152 H Potassium 3.8 Chloride 118 H Carbon Dioxide 27.7 Anion Gap 6 BUN 43 H Creatinine 1.01 Estimated GFR 72 L POC Glucose 303 H 285 H Random Glucose 265 H Calcium 8.4 L Phosphorus 2.9 Magnesium 2.6 H Total Bilirubin 0.9 AST 40 H ALT 32 Alkaline Phosphatase 62 Total Protein 6.2 L Albumin 3.1 L Microbiology 08/31/18 15:00 Aerobic Blood Culture - Preliminary Blood - Peripheral No growth in 3 days Anaerobic Blood Culture - Preliminary No growth in 3 days 08/31/18 15:05 Aerobic Blood Culture - Preliminary Blood - Peripheral No growth in 3 days Anaerobic Blood Culture - Preliminary No growth in 3 days 09/01/18 10:50 Gram Stain - Final Sputum - Oral Tracheal Aspirate Sputum Culture - Preliminary Enterobacter aerogenes S. aureus MRSA 09/01/18 08:30 Urine Culture - Final Catheterized Urine No growth in 48 hours Review/Management - Diagnosis (1) Anoxic encephalopathy Code(s): G93.1 - Anoxic brain damage, not elsewhere classified Status: Acute Current Visit: Yes (2) Post hypoxic myoclonus Code(s): G25.3 - Myoclonus Status: Acute Current Visit: Yes (3) Respiratory failure Code(s): J96.90 - Respiratory failure, unspecified, unspecified whether with hypoxia or hypercapnia Status: Acute Current Visit: Yes (4) Cardiac arrest Code(s): I46.9 - Cardiac arrest, cause unspecified Status: Acute Current Visit: Yes (5) PEA (Pulseless electrical activity) Code(s): I46.9 - Cardiac arrest, cause unspecified Status: Acute Current Visit: Yes (6) NSTEMI (non-ST elevated myocardial infarction) Code(s): I21.4 - Non-ST elevation (NSTEMI) myocardial infarction Status: Acute Current Visit: Yes - Review/Management Plan: Impaired cortical function with brainstem reflexes MRI brain scan reviewed no diffusion restriction noted He may develop superimposed hypoxic encephalopathy from ARDS/pneumonia Most recent EEG showing very low voltage generalized delta activity; no seizure activity post hypoxic myoclonus Recommendation Follow-up EEG Add Depakote to Keppra Prognosis guarded and indeterminate for meaningful neurologic recovery at this time
[2018-09-03] MEDS ORDERED: Pharmacy Ordered Lab Info OTHER ONE (17:45)
[2018-09-03] MEDS: Divalproex 500 MG ER Tablet PO SCH (23:30)
[2018-09-04] MEDS: Aztreonam Inj 2 GM in Sodium Chloride 0.9% Inj 100 ML IV.SIG SCH ×3 (00:15→17:02)
[2018-09-04] MEDS: Oral Hygiene Kit OROPHARYNG SCH ×4 (00:15→16:23)
[2018-09-04] MEDS: Insulin NovoLOG Aspart Correctional Sugar Inj SQ SCH ×4 (00:15→17:08)
[2018-09-04] MEDS: Labetalol HCl Inj 100 MG/20 ML Vial IV.PUSH PRN (03:09)
--- NOTE | 2018-09-04 04:00 | XR ---
EXAM DATE: 09/04/2018 6:00 AM EDT AGE/SEX: 72 years / Male INDICATIONS: Shortness of breath, possible pulmonary disease. CLINICAL DATA: This is the patient's subsequent encounter. Patient reports that signs and symptoms h ave been present for 1 week and indicates a pain score of Nonresponsive. MEDICAL/SURGICAL HISTORY: Diabetes mellitus type II. Coronary artery stent. COMPARISON: [facility] [place], CHEST 1V SINGLE AP, 09/03/2018. . FINDINGS: A single AP view of the chest demonstrates bibasilar airspace disease. Heart mildly enlarged. Endotra cheal tube and nasogastric tube unchanged. Probable small pleural effusions bilaterally. Osseous str uctures are intact. CONCLUSION: Bibasilar airspace disease slightly more prominent in the left lung base when compared to previous st y. Probable small pleural effusions. Electronically signed by: Carson Devine MD 09/04/2018 3:59 AM EDT
[2018-09-04 04:17] LABS: Baso % (Auto) 0.2 % (0.0-2.0); Eos % (Auto) 0.5 % (0.0-4.0); Hematocrit 22.6 % (39.0-51.0); Hemoglobin 7.4 gm/dL (13.0-17.0); Lymph # (Auto) 1.1 th/mm3 (1.0-4.8); Mean Corpuscular HGB Conc 32.7 % (32.0-36.0); Mean Corpuscular Volume 97.9 fL (80.0-100.0); Mean Platelet Volume 9.8 fL (7.0-11.0); Mono # (Auto) 0.9 th/mm3 (0.0-0.9); Neut # (Auto) 7.8 th/mm3 (1.8-7.7); Neut % (Auto) 79.3 % (16.0-70.0); Platelet Count 248 th/mm3 (150-450); Red Blood Count 2.31 mil/mm3 (4.50-5.90); White Blood Count 9.8 th/mm3 (4.0-11.0)
[2018-09-04 04:39] LABS: Alanine Aminotransferase 30 U/L (12-78); Albumin 2.7 g/dL (3.4-5.0); Anion Gap 7 meq/L (5-15); Aspartate Aminotransferase 30 U/L (15-37); Blood Urea Nitrogen 41 mg/dL (7-18); Calcium 8.6 mg/dL (8.5-10.1); Carbon Dioxide 27.7 meq/L (21.0-32.0); Chloride 117 meq/L (98-107); Glomerular Filtration Rate 67 mL/min (>89); Glucose,Random 271 mg/dL (74-106); Magnesium 2.4 mg/dL (1.5-2.5); Phosphorus 3.8 mg/dL (2.5-4.9); Sodium 152 meq/L (136-145)
[2018-09-04 04:42] LABS: Alkaline Phosphatase 72 U/L (45-117); Total Protein 6.1 g/dL (6.4-8.2)
[2018-09-04] MEDS: Artificial Tears Opth Drops 15 ML Bottle EACH EYE SCH ×3 (06:02→23:06)
[2018-09-04] MEDS: Chlorhexidine 0.12% Oral Kit 15 ML UDC OROPHARYNG SCH ×2 (07:47→20:21)
--- NOTE | 2018-09-04 08:00 | MG ---
cc: Ayden Purdy MD 1-2 Hz delta activity, 10-20 microvolts with occasional 3-5 Hz beta activity occurring. No driving with photic stimulation. Episodes of twitching during the electroencephalogram without any epileptic correlation. Single lead EKG showing sinus rhythm. INTERPRETATION: Severe encephalopathy. No epileptic activity. Clinical correlation. MD TUSHAR Amos/sp , 06:45 AM , 06:49 AM
[2018-09-04] MEDS: Divalproex 500 MG ER Tablet PO SCH ×2 (08:28→20:20)
[2018-09-04] MEDS: Potassium Chloride 25 MEQ Effervescent Tablet NG/OG SCH (08:28)
[2018-09-04] MEDS: Metoprolol Tartrate 25 MG Tablet PO SCH ×2 (08:28→20:20)
[2018-09-04] MEDS: Famotidine 20 MG Tablet PO SCH ×2 (08:28→20:20)
[2018-09-04] MEDS: Senna/Docusate Sodium 8.6/50 MG Tablet PO SCH ×2 (08:28→20:20)
[2018-09-04] MEDS: Enoxaparin Inj 40 MG/0.4 ML Syringe SQ SCH (08:29)
[2018-09-04] MEDS: levETIRAcetam 500 MG Tablet PO SCH ×2 (08:29→20:20)
[2018-09-04] MEDS: Insulin Detemir Inj 1,000 UNIT/10 ML Vial SQ SCH (08:31)
[2018-09-04] MEDS ORDERED: Vancomycin Consult Pharmacy OTHER PRN (09:58)
--- NOTE | 2018-09-04 10:05 | P.PNCC ---
Subjective Subjective Remarks/Hospital Course: 72-year-old male, past medical history significant for diabetes and coronary artery disease with 3 previous stents, who is presented post cardiac arrest. Per EMS and family he was doing work around the house when he stated that he did not feel right and thought something was off with his blood sugar. He then went to go sit down and when his turned around he was slumping over. She then called 911. On EMS arrival he was unresponsive pulseless and apneic. They began CPR. They temporarily achieved ROSC in the field prior to him coding again. They obtained ROSC again right before arrival. In total they gave 3 mg of epinephrine, 2 A of bicarbonate, 300 mg of amiodarone. EMS does not believe that he was without a pulse for more than 15 minutes at any time. He lost pulses again on arrival here. Again he was successfully resuscitated with return of spontaneous circulation within 15 minutes. 08/25: Patient admitted to CVICU, on targeted temperature management. 08/26: No significant overnight events, decreased UO this morning. Now being rewarmed. 08/27: Called to bedside by RN yesterday for facial swelling, CXR showed no evidence of PTX or subcut emphysema, CT scans ordered but was delayed by over 7 hours due to multiple trauma and stroke alerts taking priority in CT scan. When the patient was being prepared to move to CT around 6:30 PM, he became hypoxic to the high 80s and was too unstable for scan. He required increase in his bilevel settings and was started on flolan. This morning, he is stable, O2 sats 100% on current settings with much improved ABG. 08/28: Patient has been off pressors since yesterday afternoon, off all sedation x 24+ hours but still unresponsive. Only had a weak cough reflex. EEG negative for seizures. 08/29: Patient remains on bilevel, oxygenation improved however remains encephalopathy. To noxious central stimuli patient does weakly withdraw upper extremities and opens eyes. ABG shows pH of 7.47. Pressure high reduced to 28 from 32. 08/30: Remains on bilevel slightly improved oxygenation. Diuresis started yesterday with good urine output. Creatinine slightly improved. Remains severely encephalopathic off sedation more for more than 72 hours now. Attempt transition to PC/AC with high PEEP, if tolerated check MRI of the brain 08/31: Patient remains critical and hypoxemic however very slight improvement in neuro exam. MRI did not show any evidence of anoxic brain injury. Change from bilevel to B[employer] DESIGN[employer] C yesterday. Tolerating well PEEP now reduced to 10. Chest x-ray shows persistent pulmonary edema continue diuresis. Start quarter normal saline with potassium 4 free water replacement. Urine output more than 4 L in 24 hours 09/01: Clinically no significant improvement. Intermittent spontaneous eye opening but no tracking. Intermittent twitching questionable myoclonus. EEG yesterday showed no seizures but showed burst suppression pattern indicating brain injury. MRI though was negative. Will get palliative care involved 09/02: Hypertensive overnight. T-max 99.8. Intermittently opens eyes. Intermittent twitching questionable myoclonus. EEG 09/01 revealed severe encephalopathy. No epileptic activity. 09/03: Remains hypertensive. Currently not opening eyes. Started on levetiracetam yesterday for questionable myoclonus. Reviewed neurology's notes. Likely MRI next week. Trach decision will come on next Wednesday. Subjective 09/04: Afebrile. Started on diet valproic acid yesterday 5 mg twice daily. EEG revealed severe encephalopathy. No epileptic activity. Tube feeds currently at 35 cc an hour. Goal 65 cc an hour. Likely MRI brain next Wednesday or Wednesday. Objective Vital Signs / I&O: Vital Signs 09/03/18 10:55 09/03/18 10:57 09/03/18 11:35 Temperature 99 F Pulse Rate 88 88 Respiratory Rate 18 18 Blood Pressure 136/69 Pulse Oximetry 96 97 09/03/18 13:58 09/03/18 15:07 09/03/18 15:09 Temperature 99.9 F H Pulse Rate 91 H 91 H Respiratory Rate 17 16 Blood Pressure 147/74 H Pulse Oximetry 96 96 09/03/18 16:03 09/03/18 19:00 09/03/18 19:59 Temperature 100 F H Pulse Rate 86 93 H Respiratory Rate 23 18 18 Blood Pressure 165/87 H Pulse Oximetry 97 96 96 09/03/18 20:09 09/03/18 21:16 09/03/18 23:00 Temperature 100 F H Pulse Rate 93 H 94 H 90 Respiratory Rate 18 17 Blood Pressure 160/80 H Pulse Oximetry 95 09/03/18 23:10 09/04/18 00:34 09/04/18 03:00 Temperature 99.9 F H Pulse Rate 88 95 H Respiratory Rate 17 17 Blood Pressure 145/73 H Pulse Oximetry 97 95 09/04/18 03:42 09/04/18 07:31 09/04/18 07:37 Temperature 99.6 F Pulse Rate 83 87 87 Respiratory Rate 17 18 Blood Pressure 158/88 H Pulse Oximetry 96 96 09/04/18 07:38 09/04/18 07:41 Temperature Pulse Rate 90 Respiratory Rate 16 18 Blood Pressure Pulse Oximetry 95 Intake & Output 09/03/18 09/04/18 09/04/18 18:59 06:59 18:59 Intake Total 1462 / 1462 1075 / 1075 100 / 100 Output Total 1850 / 1850 1130 / 1130 Balance -388 / -388 -55 / -55 100 / 100 Weight 102 kg Intake: IV 473 / 473 100 / 100 100 / 100 KCl Inj 20 MEQ Sodium Chloride 73 / 73 23.4% Inj 38.5 MEQ In Sterile Water for Inj 1,000 ML @ 50 mls /hr IV.CONT .[id number] MERVAT Rx#: [id number] Flexbumin 25% Inj 100 ML @ 60 100 / 100 mls/hr IV.SIG Q12H MERVAT Rx#: [id number] Azactam Inj 2 GM In NS Inj 100 200 / 200 100 / 100 100 / 100 ML @ 200 mls/hr IV.SIG Q8H MERVAT Rx#:[id number] KCl 20 mEq Premix Inj 20 meq In 100 / 100 100 ml @ 50 mls/hr IV.SIG Q2H PRN Rx#:[id number] Tube Feeding 389 / 389 375 / 375 Water Bolus Amount 600 / 600 600 / 600 Output: Stool 0 / 0 Urine Amount (Catheter) 1850 / 1850 1130 / 1130 Indwelling Temp Sensing 1850 / 1850 1130 / 1130 Catheter Other: Date of Last Bowel Movement 08/30/18 08/30/18 08/30/18 Result Diagrams: 09/04/18 04:08 09/04/18 04:08 Other Results: Microbiology 09/01/18 10:50 Sputum - Oral Tracheal Aspirate Gram Stain - Final 09/01/18 10:50 Sputum - Oral Tracheal Aspirate Sputum Culture - Preliminary Enterobacter aerogenes S. aureus MRSA 08/31/18 15:00 Blood - Peripheral Aerobic Blood Culture - Preliminary No growth in 3 days 08/31/18 15:00 Blood - Peripheral Anaerobic Blood Culture - Preliminary No growth in 3 days 08/31/18 15:05 Blood - Peripheral Aerobic Blood Culture - Preliminary No growth in 3 days 08/31/18 15:05 Blood - Peripheral Anaerobic Blood Culture - Preliminary No growth in 3 days 09/01/18 08:30 Catheterized Urine Urine Culture - Final No growth in 48 hours 08/25/18 12:41 Blood - Peripheral Aerobic Blood Culture - Final No growth in 5 days 08/25/18 12:41 Blood - Peripheral Anaerobic Blood Culture - Final No growth in 5 days 08/25/18 12:30 Blood - Line Aerobic Blood Culture - Final No growth in 5 days 08/25/18 12:30 Blood - Line Anaerobic Blood Culture - Final No growth in 5 days 08/25/18 11:15 Sputum - Endotracheal Gram Stain - Final 08/25/18 11:15 Sputum - Endotracheal Sputum Culture - Final Enterobacter aerogenes Imaging: Chest CTA 08/24/18 00:00 CONCLUSION: 1. No CT evidence for pulmonary artery embolism as questioned. 2. Diffuse groundglass opacities which appear more confluent in the right upper lobe. Differential considerations include pulmonary edema versus ARDS versus diffuse/atypical infection. 3. Prominent coronary artery calcifications. Chest X-Ray 08/24/18 19:10 CONCLUSION: 1. ETT in good position. NGT beyond the GE junction. 2. Diffuse airspace disease throughout the right lung most prominently in the right upper and midlung zones. Differential considerations include multilobar/ atypical pneumonia, aspiration, or atypical pulmonary edema. Head CT 08/24/18 19:11 CONCLUSION: 1. No areas of acute hemorrhage or mass effect are seen. 2. Extensive low density seen throughout the cerebral white matter likely related to small vessel ischemic change. 3. Motion artifact. . Chest X-Ray 08/26/18 11:39 CONCLUSION: Resolution of the airspace disease involving the right lung. Interstitial prominence throughout both lungs is new and could relate to interstitial edema. Chest X-Ray 08/29/18 10:00 CONCLUSION: 1. Stable ETT. NGT in the stomach. 2. Interstitial edema and pulmonary vascular congestion pattern. 3. Stable mild patchy bilateral lower lung zone airspace disease. Head MRI 08/30/18 00:00 CONCLUSION: 1. Moderate diffuse cerebral atrophy with prominent periventricular ischemic white matter demyelination. 2. No evidence for acute infarction or hemorrhage. Chest X-Ray 08/30/18 06:00 CONCLUSION: Diffuse edema versus pneumonia. The findings are similar to the prior exam. Chest X-Ray 08/31/18 06:00 CONCLUSION: Worsening pulmonary edema. Chest X-Ray 09/01/18 06:00 CONCLUSION: Cardiomegaly and findings of congestive heart failure. The findings are similar to the prior exam. Chest X-Ray 09/03/18 06:00 CONCLUSION: Cardiomegaly and bilateral airspace disease. Chest X-Ray 09/04/18 06:00 CONCLUSION: Bibasilar airspace disease slightly more prominent in the left lung base when compared to previous study. Probable small pleural effusions. Objective Remarks: GEN: 72-year-old male currently orotracheally intubated resting in bed in no acute distress HEENT: NCAT, ETT in place NECK: Trachea midline CARDIO: Regular rate and rhythm. S1, S2 no S4. No murmur RESP: Diminished breath sounds bilaterally, no wheezing rales or rhonchi ABD/GI: Soft, non-distended. Hypoactive bowel sounds EXT/MS: 1+ peripheral edema. SKIN: Anasarca, fluid-filled blisters developing on upper extremities and trunk NEURO: No spontaneous movements or eye opening. Intermittently opens eyes to loud voice. To deep noxious stimuli withdrawal of upper extremities. 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 No upper from activity -EEG 09/01 negative for seizures, show severe encephalopathy -Repeat EEG 08/31/2018 shows burst suppression pattern -MRI done 08/30/2018 shows no evidence of anoxic brain injury -Neurology Dr. Purdy following -If myoclonus prognosis poor -Palliative care consult -Started on levetiracetam 500 twice daily. Initiated on day of valproic acid 500 mg twice daily on 09/03. Check level in a.m. 09/05 likely repeat MRI early next week CARDIO: Essential hypertension -2D echo showed EF 65-70%, PAP 37 -Off all pressors -Awaiting neurologic recovery before planning ischemic workup -Cardiology Dr. Beltrán, Dr. Romero discussed with him, DC IV heparin -Aspirin 81 mg daily -IV furosemide 40 mg IV daily -Metoprolol tartrate 25 mg twice daily and isosorbide dinitrate 10 mg 3 times daily. PULM: Acute hypoxic respiratory failure secondary to cardiac arrest -CXR/ CT chest consistent with ARDS vs pneumonia * Continue aztreonam 10 days. Enterobacter in sputum pansensitive noted MRSA in sputum. Restarted on vancomycin see below * No PE noted on CTA -Weaned off epoprostenol aerosolized, transitioned from bilevel to conventional ACV 08/30/2018, tolerating well -Vent bundle, albuterol/ipratropium aerosols every 6 hours with albuterol aerosols every 2 hours as needed dyspnea -Repeat chest x-ray persistent CHF, pulmonary edema F/E/N: -TFs recommend Glucerna 1.5 at 65 cc/hour. Currently at 35 cc an hour -Famotidine for GI prophylaxis -Docusate sodium/senna 1 tablet twice daily for bowel regimen -Keep K+ > 4.0, Mg > 2.0 RENAL: -BUN/ creatinine stable, UO stable -Diurese with IV furosemide 40 mg q24 -Free water replacement 200 cc every 4 hours ID: Enterobacter sputum positive -Aztreonam for ICU- CAP as detailed above Discontinued vancomycin 09/03 restarted 09/04. Tinea aztreonam as above. -Follow up cultures-08/25 sputum culture with Enterobacter pansensitive. Replete sputum 09/01 gram-negative anand and MRSA. ENDO: -SSI, Accuchecks -Recently started on insulin detemir 12 units twice daily. Increase to 25 units twice daily -Continue home dose of levothyroxine 25 mcg daily. TSH 1.88 HEME: Normocytic anemia monitor CBC daily. Follow trends. Will attempt to clarify blood transfusion. Hemoglobin currently 7.4. Consult Dr. Rm for Jehovah witness Epogen/iron. PROPHY: -SCDs, enoxaparin 40 mg daily -Famotidine Level 2 follow-up
--- NOTE | 2018-09-04 12:54 | P.CON ---
History of Present Illness Service: Hematology/oncology. Consult date: 09/04/18 Requesting Physician: Rubio Estrella Reason for Consult: Anemia. Primary Care Provider: Christy Calvillo MD Chief Complaint: Cardiac arrest. History of Present Illness: Mr. Bryatn is a 72-year-old male with the medical comorbid conditions documented below. Mr. Bryant suffered cardiac arrest at home, his was at home with him at the time. She found him on the floor unconscious without a pulse. EMS was called, there was an estimated 7-8-minute. When he while he was pulseless, CPR and ACLS was initiated immediately upon arrival of the EMS. The patient regained his pulse but later had to be coded again because he had another cardiac arrest. Upon arrival to [facility] he was initiated on the hypothermic protocol. Repeated imaging studies of the brain and EEG studies indicate significant hypoxic brain injury. The patient is nonresponsive and is without purposeful movements. He remains intubated as he requires mechanical ventilator support. The hematology service is been asked to see him today for management of anemia. The patient is a steadfast [employer] as is his family. Because the patient's hemoglobin dropped down to 6.9 g/dL yesterday there was questions about initiation of erythropoietin and iron. I have been asked to see the patient to help coordinate care and manage the patient's anemia. Thankfully, today his hemoglobin has improved to 7.4 g/dL spontaneously. There is no evidence of active bleeding. Review of Systems unobtainable due to endotracheal tube PMFSH - History History Provided By: Family Member, Medical Record - Medical History Medical History: Medical History (Last Reviewed 09/04/18 @ 12:48 by Oliverio Rm MD) Coronary artery disease Diabetes Hepatic cirrhosis Hypertension Hypothyroidism - Surgical History Surgical History: Surgical History (Last Reviewed 09/04/18 @ 12:48 by Oliverio Rm MD) Hx of heart artery stent - Family History Family History: Family History (Last Reviewed 09/04/18 @ 12:48 by Oliverio Rm MD) Other No pertinent family history - Social History I have reviewed the patient's Social History: No - Tobacco History Second Hand Smoke Exposure: No Tobacco Use In Past 30 Days: No Smoking Status: Never smoker - Alcohol History How Often Do You Have a Drink Containing Alcohol: Monthly or less - Substance Use History Substance History: No History of Abuse - Travel History Recent Travel in the [place] Within the Last 8 Weeks: No Recent Travel Out of the Country Within the Last 8 Weeks: No - Immunization History Tetanus Immunization: Unable to Assess Medications and Allergies Active Medications: Active Medications Acetaminophen (Tylenol) 650 mg PO Q6H PRN PRN Reason: PAIN 1-10 AND/OR FEVER >101F Last Admin: 09/01/18 15:23 Dose: 650 mg Al Hydroxide/Mg Hydroxide (Milk Of Magnamaury Liq) 30 ml PO Q12H PRN PRN Reason: Mild Constipation Last Admin: 09/02/18 15:13 Dose: 30 ml Albuterol (Duoneb Neb (Yanely)) 1 ampul NEB Q6HR NEB [facility] Last Admin: 09/04/18 07:41 Dose: 1 ampul Albuterol (Albuterol Neb (Prn)) 2.5 mg NEB Q2HR NEB PRN PRN Reason: DYSPNEA Artificial Tears (Tears Naturale Opth Drops) 1 drop EACH EYE Q8H [facility] Last Admin: 09/04/18 06:02 Dose: 1 drop Aspirin (Aspirin Chew) 81 mg PO DAILY [facility] Last Admin: 09/04/18 08:28 Dose: 81 mg Atropine Sulfate (Atropine Inj) 0.5 mg IV.PUSH Q5M PRN PRN Reason: SYMPTOMATIC BRADYCARDIA Bisacodyl (Dulcolax Supp) 10 mg RECTAL DAILY PRN PRN Reason: SEVERE CONSITIPATION Last Admin: 08/30/18 06:18 Dose: 10 mg Chlorhexidine Gluconate (Peridex 0.12% Oral Kit) 15 ml OROPHARYNG BID@0800, 2000 [facility] Last Admin: 09/04/18 07:47 Dose: 15 ml Citalopram Hydrobromide (Celexa) 10 mg PO DAILY [facility] Last Admin: 08/30/18 08:36 Dose: 10 mg Dextrose (D50w Vial) 50 ml IV.PUSH UNSCH PRN PRN Reason: PER HYPOGLYCEMIA PROTOCOL Divalproex Sodium (Depakote Er) 500 mg PO BID [facility] Last Admin: 09/04/18 08:28 Dose: 500 mg Enoxaparin Sodium (Lovenox Inj) 40 mg SQ DAILY [facility] Last Admin: 09/04/18 08:29 Dose: 40 mg Famotidine (Pepcid) 20 mg PO BID [facility] Last Admin: 09/04/18 08:28 Dose: 20 mg Furosemide (Lasix Inj) 40 mg IV.PUSH DAILY [facility] Last Admin: 09/04/18 08:29 Dose: 40 mg Glucagon (Glucagon Inj) 1 mg OTHER PRN PRN PRN Reason: for Hypoglycemia Protocol Hydralazine HCl (Apresoline Inj) 20 mg IV.PUSH Q2H PRN PRN Reason: SBP>160, DBP>90 Last Admin: 09/03/18 04:34 Dose: 20 mg Magnesium Sulfate 4 gm/ Sodium (Chloride) 100 mls @ 50 mls/hr IV.SIG UNSCH PRN PRN Reason: For Magnesium 0.9 - 1.1 mg/dL Magnesium Sulfate 2 gm/ Sodium (Chloride) 100 mls @ 50 mls/hr IV.SIG UNSCH PRN PRN Reason: For Magnesium 1.2 - 1.6 mg/dL Last Infusion: 08/27/18 16:23 Dose: Infused Potassium Chloride (Kcl 40 Meq Premix Inj) 40 meq in 100 mls @ 25 mls/hr IV.SIG Q2H PRN PRN Reason: For Potassium 2.8 - 3.2 mEq/L Last Infusion: 08/26/18 14:23 Dose: Infused Potassium Chloride (Kcl 20 Meq Premix Inj) 20 meq in 100 mls @ 50 mls/hr IV.SIG Q2H PRN PRN Reason: For Potassium 3.3 - 3.5 mEq/L Last Infusion: 09/03/18 07:42 Dose: Infused Potassium Chloride (Kcl 40 Meq Premix Inj) 40 meq in 100 mls @ 25 mls/hr IV.SIG UNSCH PRN PRN Reason: For Potassium 3.3 - 3.5 mEq/L Potassium Chloride (Kcl 20 Meq Premix Inj) 20 meq in 100 mls @ 50 mls/hr IV.SIG Q2H PRN PRN Reason: For Potassium 2.8 - 3.2 mEq/L Last Infusion: 08/31/18 13:13 Dose: Infused Potassium Phosphate 30 mmol/ (Sodium Chloride) 260 mls @ 42 mls/hr IV.SIG UNSCH PRN PRN Reason: SEE LABEL COMMENTS Sodium Phosphate 30 mmol/ (Sodium Chloride) 260 mls @ 42 mls/hr IV.SIG UNSCH PRN PRN Reason: For Phosphorus < 2.5 mg/dL Aztreonam 2 gm/ Sodium (Chloride) 100 mls @ 200 mls/hr IV.SIG Q8H [facility] Last Infusion: 09/04/18 09:37 Dose: Infused Vancomycin HCl 1,750 mg/ (Sodium Chloride) 517.5 mls @ 250 mls/hr IV.SIG Q24H [facility] Insulin Aspart (Novolog Insulin Correctional Sugar Inj) 0 unit SQ Q6HR [facility]; Protocol Last Admin: 09/04/18 11:40 Dose: 10 unit Insulin Detemir (Levemir Inj) 25 unit SQ BID [facility] Isosorbide Dinitrate (Isordil) 10 mg PO TIDAC [facility] Last Admin: 09/04/18 11:40 Dose: 10 mg Labetalol HCl (Trandate Inj) 20 mg IV.PUSH Q4H PRN PRN Reason: SYS BP GREATER THAN 170 MMHG Last Admin: 09/04/18 03:09 Dose: 20 mg Lactulose (Lactulose Liq) 30 ml PO DAILY PRN PRN Reason: SEVERE CONSITIPATION Last Admin: 08/29/18 18:17 Dose: 30 ml Levetiracetam (Keppra) 500 mg PO BID [facility] Last Admin: 09/04/18 08:29 Dose: 500 mg Levothyroxine Sodium (Synthroid) 25 mcg PO DAILY@0600 [facility] Last Admin: 09/04/18 05:47 Dose: 25 mcg Lorazepam (Ativan Inj) 1 mg IV.PUSH Q1H PRN PRN Reason: SEE LABEL COMMENTS Magnesium Oxide (Mag-Ox) 800 mg PO UNSCH PRN PRN Reason: For Magnesium 1.2 - 1.6 mg/dL Metoprolol Tartrate (Lopressor) 25 mg PO BID [facility] Last Admin: 09/04/18 08:28 Dose: 25 mg Miscellaneous (Pill Splitter) 1 each OTHER UNSCH PRN PRN Reason: SEE LABEL COMMENTS Miscellaneous Information ([facility] Ordered Lab Info) 0 each OTHER ONCE ONE Stop: 09/06/18 19:46 Miscellaneous Medication () 1 each OROPHARYNG 0000,0400,1200,1600 [facility] Last Admin: 09/04/18 11:40 Dose: 1 each Ondansetron HCl (Zofran Inj) 4 mg IV.PUSH Q6H PRN PRN Reason: NAUSEA OR VOMITING Pharmacy Profile Note (Vancomycin Consult Pharmacy) 1 each OTHER UNSCH PRN PRN Reason: Pharmacy to dose Potassium Bicarb/Potassium Chloride (K-Lyte Cl Eff) 50 meq PO UNSCH PRN PRN Reason: For Potassium 3.3 - 3.5 mEq/L Last Admin: 09/01/18 10:45 Dose: 50 meq Potassium Bicarb/Potassium Chloride (K-Lyte Cl Eff) 25 meq NG/OG DAILY [facility] Last Admin: 09/04/18 08:28 Dose: 25 meq Potassium Phosphate (K-Phos Original) 2,000 mg PO UNSCH PRN PRN Reason: SEE LABEL COMMENTS Potassium Phosphate (K-Phos Original) 2,000 mg PO Q4H PRN PRN Reason: Phosphorus Less Than 2.5 mg/dL Senna/Docusate Sodium (Lenora-Colace) 1 tab PO BID [facility] Last Admin: 09/04/18 08:28 Dose: 1 tab Sennosides (Senokot) 17.2 mg PO Q12H PRN PRN Reason: Moderate Constipation Sodium Chloride (Ns Flush) 2 ml IV.FLUSH PRN PRN PRN Reason: FLUSH AFTER USING IV ACCESS Sodium Chloride (Ns Flush) 2 ml IV.FLUSH BID [facility] Last Admin: 09/04/18 08:30 Dose: 2 ml Sterile Water (Free Water) 200 ml NG/OG Q4HR [facility] Last Admin: 09/04/18 11:40 Dose: 200 ml Allergies Allergy/AdvReac Type Severity Reaction Status Date / Time pravastatin Allergy Severe Unverified 06/29/17 16:39 tetanus toxoid, adsorbed Allergy Severe Unverified 06/29/17 16:39 CRESTOR Allergy Severe Uncoded 01/12/12 07:54 Home Medications Medication Instructions Recorded Confirmed Type Aspir-81 81 mg PO DAILY 08/25/18 08/25/18 History Co Q-10 08/25/18 History allopurinol 100 mg PO DAILY 08/25/18 08/25/18 History amlodipine 10 mg PO DAILY 08/25/18 08/25/18 History atorvastatin 20 mg PO HS 08/25/18 08/25/18 History citalopram 10 mg PO DAILY 08/25/18 08/25/18 History cyanocobalamin-cobamamide [B12] 08/25/18 History insulin aspart U-100 [Novolog 5 unit SUBCUT PRN PRN 08/25/18 08/25/18 History U-100 Insulin aspart] insulin aspart U-100 [Novolog 15 unit SUBCUT TIDAC 08/25/18 08/25/18 History U-100 Insulin aspart] insulin degludec [Tresiba 45 unit SUBCUT HS 08/25/18 08/25/18 History FlexTouch U-100] isosorbide mononitrate 30 mg PO DAILY 08/25/18 08/25/18 History levothyroxine 25 mcg PO DAILY 08/25/18 08/25/18 History lisinopril 20 mg PO BID 08/25/18 08/25/18 History losartan 100 mg PO DAILY 08/25/18 08/25/18 History metformin 1,000 mg PO BID 08/25/18 08/25/18 History metoprolol succinate 25 mg PO DAILY 08/25/18 08/25/18 History multivitamin [Multiple Vitamins] 1 tab PO DAILY 08/25/18 08/25/18 History nitroglycerin [Nitrostat] 0.4 mg SUBLINGUAL Q5-15M PRN 08/25/18 08/25/18 History omeprazole 20 mg PO DAILY 08/25/18 08/25/18 History insulin aspart U-100 [Novolog 08/26/18 08/26/18 History U-100 Insulin aspart] metformin 1,000 mg PO BID 08/26/18 08/26/18 History Physical Exam Vital signs: Vital Signs 09/03/18 13:58 09/03/18 15:07 09/03/18 15:09 Temperature 99.9 F H Pulse Rate 91 H 91 H Respiratory Rate 17 16 Blood Pressure 147/74 H Pulse Oximetry 96 96 09/03/18 16:03 09/03/18 19:00 09/03/18 19:59 Temperature 100 F H Pulse Rate 86 93 H Respiratory Rate 23 18 18 Blood Pressure 165/87 H Pulse Oximetry 97 96 96 09/03/18 20:09 09/03/18 21:16 09/03/18 23:00 Temperature 100 F H Pulse Rate 93 H 94 H 90 Respiratory Rate 18 17 Blood Pressure 160/80 H Pulse Oximetry 95 09/03/18 23:10 09/04/18 00:34 09/04/18 03:00 Temperature 99.9 F H Pulse Rate 88 95 H Respiratory Rate 17 17 Blood Pressure 145/73 H Pulse Oximetry 97 95 09/04/18 03:42 09/04/18 07:31 09/04/18 07:37 Temperature 99.6 F Pulse Rate 83 87 87 Respiratory Rate 17 18 Blood Pressure 158/88 H Pulse Oximetry 96 96 09/04/18 07:38 09/04/18 07:41 09/04/18 10:49 Temperature Pulse Rate 90 81 Respiratory Rate 16 18 Blood Pressure Pulse Oximetry 95 09/04/18 11:03 09/04/18 11:45 Temperature 99.5 F Pulse Rate 79 Respiratory Rate 17 17 Blood Pressure 162/82 H Pulse Oximetry 96 95 Intake & Output 09/03/18 09/04/18 09/04/18 18:59 06:59 18:59 Intake Total 1462 / 1462 1075 / 1075 100 / 100 Output Total 185 / 1849 1130 / 1130 Balance -388 / -388 -55 / -55 100 / 100 Weight 102 kg Intake: IV 473 / 473 100 / 100 100 / 100 KCl Inj 20 MEQ Sodium Chloride 73 / 73 23.4% Inj 38.5 MEQ In Sterile Water for Inj 1,000 ML @ 50 mls /hr IV.CONT .[id number] YANELY Rx#: [id number] Flexbumin 25% Inj 100 ML @ 60 100 / 100 mls/hr IV.SIG Q12H YANELY Rx#: [id number] Azactam Inj 2 GM In NS Inj 100 200 / 200 100 / 100 100 / 100 ML @ 200 mls/hr IV.SIG Q8H YANELY Rx#:[id number] KCl 20 mEq Premix Inj 20 meq In 100 / 100 100 ml @ 50 mls/hr IV.SIG Q2H PRN Rx#:[id number] Tube Feeding 389 / 389 375 / 375 Water Bolus Amount 600 / 600 600 / 600 Output: Stool 0 / 0 Urine Amount (Catheter) 1849 1130 / 1130 Indwelling Temp Sensing 1849 1130 / 1130 Catheter Other: Date of Last Bowel Movement 08/30/18 08/30/18 08/30/18 Narrative: Elderly male, he is intubated, he is nonresponsive. No spontaneous movements no purposeful movements. He does have periodic twitches of the arms and legs and in fact the whole body. - Routine HEENT Exam Head: Present: normocephalic, atraumatic Eye: Absent: conjunctival icterus, scleral injection, periorbital ecchymosis, periorbital swelling ENT: Present: mucous membranes moist Comments: Eye examination: His pupils react sluggishly. He does have extraocular movements, I am not certain if he is tracking purposely. - Routine Neck Exam Present: supple. Absent: lymphadenopathy - Routine Respiratory Exam Present: patient mechanically ventilated. Absent: accessory muscle use, rhonchi , stridor, wheezes - Routine Cardiovascular Exam Present: RRR, S1, S2. Absent: murmur, gallop, rubs, S3, S4 - Routine Abdominal Exam Present: soft - Routine Extremities Exam Present: edema - Routine Skin Exam Present: intact, dry - Routine Neurological Exam Absent: alert, oriented X3, CN II-XII intact Unable to assess neurologic status. He is nonresponsive, no spontaneous purposeful movements. - Detailed Neurological Exam: Coma Scale Eye Opening: None Verbal Response: None Motor Response: None [place] Coma Scale Total: 3 - Routine Psychiatric Exam Present: unable to assess - Urinary Catheter Management Indwelling Urethral Catheter Cath placed during this visit: yes, but has since been removed by the nurse Reason for continuing: Continue criteria not met Insertion date: 08/24/18 Insertion time: 19:46 Removal date: 08/24/18 Removal time: 20:30 Indwelling Temp Sensing Catheter Cath placed during this visit: yes, but has since been removed by the nurse Reason for continuing: Hourly intake/output Insertion date: 08/24/18 Insertion time: 20:30 Removal date: 08/31/18 Removal time: 12:22 Assessment and Plan - Plan Mr. Bryant is a 72-year-old male who suffered cardiac arrest, this was not witnessed by his . She found him laying on the floor, after he was found on the floor unconscious and unresponsive and without a pulse it was approximately 7-8 minutes before EMS arrived to initiate CPR. Following recovery of his pulse the patient had another cardiac arrest which required ACLS and CPR. Upon arrival to [facility] he was initiated on the hypothermia protocol for cardiac arrest. The patient not been responsive since initial presentation, imaging studies of the brain and EEG studies point towards significant hypoxic brain injury. From a hematologic standpoint he has been increasingly anemic. The patient is a [employer] and the family will not accept blood product transfusion. On 09/03/2018 his hemoglobin was down to 6.9 g/dL. As of today his hemoglobin has spontaneously improved to 7.4 g/dL. Recommendations: For management of anemia I would advise initiation of Epogen x1 10,000 units subcu x1. I will empirically start him on IV iron replacement therapy. At this time I do not suspect his moderate anemia is contributing to his neurologic issues. I explained to the patient and his family that therapeutic intervention for management of anemia is not indicated today given the hemoglobin level of 7.4 g/ dL.
[2018-09-04] MEDS: Vancomycin Inj 1,750 MG in Sodium Chlor 0.9% Inj 500 ML IV.SIG SCH (13:20)
[2018-09-04] MEDS: Iron Sucrose Inj 100 MG in Sodium Chlor 0.9% Inj 100 ML IV.SIG SCH (16:20)
[2018-09-04] MEDS ORDERED: Insulin Detemir Inj 1,000 UNIT/10 ML Vial SQ SCH (21:00)
[2018-09-05] MEDS: Insulin NovoLOG Aspart Correctional Sugar Inj SQ SCH ×3 (00:09→11:56)
[2018-09-05] MEDS: Aztreonam Inj 2 GM in Sodium Chloride 0.9% Inj 100 ML IV.SIG SCH ×2 (00:09→08:33)
[2018-09-05] MEDS: Oral Hygiene Kit OROPHARYNG SCH ×3 (00:10→15:37)
[2018-09-05] MEDS: hydrALAZINE HCl Inj 20 MG/ML Vial IV.PUSH PRN (02:11)
--- NOTE | 2018-09-05 03:58 | XR ---
EXAM DATE: 09/05/2018 6:00 AM EDT AGE/SEX: 72 years / Male INDICATIONS: Shortness of breath, possible pulmonary disease. CLINICAL DATA: This is the patient's subsequent encounter. Patient reports that signs and symptoms h ave been present for 1 week and indicates a pain score of Nonresponsive. MEDICAL/SURGICAL HISTORY: Diabetes mellitus type II. Coronary artery stent. COMPARISON: [facility], CHEST 1V SINGLE AP, 09/04/2018. . FINDINGS: The ET tube and NG tube are well placed. The heart size is enlarged. There is increased density at th e mid and lower lungs bilaterally being worse in the left. There is silhouetting of the left hemidiap hragm. CONCLUSION: Bibasilar areas of consolidation or atelectasis being worse than left. Some degree of left effusion c an be considered. Electronically signed by: Nick Huynh MD 09/05/2018 3:56 AM EDT
[2018-09-05 04:03] LABS: Baso % (Auto) 0.2 % (0.0-2.0); Eos # (Auto) 0.1 th/mm3 (0.0-0.4); Eos % (Auto) 0.6 % (0.0-4.0); Hematocrit 23.8 % (39.0-51.0); Hemoglobin 8.2 gm/dL (13.0-17.0); Lymph # (Auto) 1.4 th/mm3 (1.0-4.8); Mean Corpuscular HGB Conc 34.3 % (32.0-36.0); Mean Corpuscular Hemoglobin 33.4 pg (27.0-34.0); Mean Corpuscular Volume 97.5 fL (80.0-100.0); Mean Platelet Volume 9.6 fL (7.0-11.0); Mono # (Auto) 1.1 th/mm3 (0.0-0.9); Mono % (Auto) 8.4 % (0.0-8.0); Neut % (Auto) 79.8 % (16.0-70.0); Platelet Count 305 th/mm3 (150-450); Red Blood Count 2.44 mil/mm3 (4.50-5.90); Red Cell Distribution Width 15.1 % (11.6-17.2); White Blood Count 12.5 th/mm3 (4.0-11.0)
[2018-09-05 04:14] LABS: Calcium 8.8 mg/dL (8.5-10.1); Magnesium 2.5 mg/dL (1.5-2.5); Potassium 3.9 meq/L (3.5-5.1)
[2018-09-05 04:16] LABS: Phosphorus 3.2 mg/dL (2.5-4.9)
[2018-09-05] MEDS: Artificial Tears Opth Drops 15 ML Bottle EACH EYE SCH ×2 (07:15→15:37)
[2018-09-05] MEDS: Enoxaparin Inj 40 MG/0.4 ML Syringe SQ SCH (08:33)
[2018-09-05] MEDS: Potassium Chloride 25 MEQ Effervescent Tablet NG/OG SCH (08:33)
[2018-09-05] MEDS: Iron Sucrose Inj 100 MG in Sodium Chlor 0.9% Inj 100 ML IV.SIG SCH (08:34)
[2018-09-05] MEDS: levETIRAcetam 500 MG Tablet PO SCH (08:35)
[2018-09-05] MEDS: Senna/Docusate Sodium 8.6/50 MG Tablet PO SCH (08:35)
[2018-09-05] MEDS: Metoprolol Tartrate 25 MG Tablet PO SCH (08:35)
[2018-09-05] MEDS: Famotidine 20 MG Tablet PO SCH (08:35)
[2018-09-05] MEDS: Divalproex 500 MG ER Tablet PO SCH (08:35)
[2018-09-05] MEDS ORDERED: Insulin Detemir Inj 1,000 UNIT/10 ML Vial SQ SCH (09:00)
--- NOTE | 2018-09-05 09:09 | P.PNNEU ---
Subjective Subjective Comments: No acute events Active Medications: Active Medications Acetaminophen (Tylenol) 650 mg PO Q6H PRN PRN Reason: PAIN 1-10 AND/OR FEVER >101F Last Admin: 09/01/18 15:23 Dose: 650 mg Al Hydroxide/Mg Hydroxide (Milk Of Magnamaury Liq) 30 ml PO Q12H PRN PRN Reason: Mild Constipation Last Admin: 09/02/18 15:13 Dose: 30 ml Albuterol (Duoneb Neb (Mervat)) 1 ampul NEB Q6HR NEB [facility] Last Admin: 09/05/18 03:06 Dose: 1 ampul Albuterol (Albuterol Neb (Prn)) 2.5 mg NEB Q2HR NEB PRN PRN Reason: DYSPNEA Artificial Tears (Tears Naturale Opth Drops) 1 drop EACH EYE Q8H [facility] Last Admin: 09/05/18 07:15 Dose: 1 drop Aspirin (Aspirin Chew) 81 mg PO DAILY [facility] Last Admin: 09/05/18 08:34 Dose: 81 mg Atropine Sulfate (Atropine Inj) 0.5 mg IV.PUSH Q5M PRN PRN Reason: SYMPTOMATIC BRADYCARDIA Bisacodyl (Dulcolax Supp) 10 mg RECTAL DAILY PRN PRN Reason: SEVERE CONSITIPATION Last Admin: 08/30/18 06:18 Dose: 10 mg Chlorhexidine Gluconate (Peridex 0.12% Oral Kit) 15 ml OROPHARYNG BID@0800, 2000 [facility] Last Admin: 09/04/18 20:21 Dose: 15 ml Citalopram Hydrobromide (Celexa) 10 mg PO DAILY [facility] Last Admin: 08/30/18 08:36 Dose: 10 mg Dextrose (D50w Vial) 50 ml IV.PUSH UNSCH PRN PRN Reason: PER HYPOGLYCEMIA PROTOCOL Divalproex Sodium (Depakote Er) 500 mg PO BID [facility] Last Admin: 09/05/18 08:35 Dose: 500 mg Enoxaparin Sodium (Lovenox Inj) 40 mg SQ DAILY [facility] Last Admin: 09/05/18 08:33 Dose: 40 mg Famotidine (Pepcid) 20 mg PO BID [facility] Last Admin: 09/05/18 08:35 Dose: 20 mg Furosemide (Lasix Inj) 40 mg IV.PUSH DAILY [facility] Last Admin: 09/05/18 08:34 Dose: 40 mg Glucagon (Glucagon Inj) 1 mg OTHER PRN PRN PRN Reason: for Hypoglycemia Protocol Hydralazine HCl (Apresoline Inj) 20 mg IV.PUSH Q2H PRN PRN Reason: SBP>160, DBP>90 Last Admin: 09/05/18 02:11 Dose: 20 mg Magnesium Sulfate 4 gm/ Sodium (Chloride) 100 mls @ 50 mls/hr IV.SIG UNSCH PRN PRN Reason: For Magnesium 0.9 - 1.1 mg/dL Magnesium Sulfate 2 gm/ Sodium (Chloride) 100 mls @ 50 mls/hr IV.SIG UNSCH PRN PRN Reason: For Magnesium 1.2 - 1.6 mg/dL Last Infusion: 08/27/18 16:23 Dose: Infused Potassium Chloride (Kcl 40 Meq Premix Inj) 40 meq in 100 mls @ 25 mls/hr IV.SIG Q2H PRN PRN Reason: For Potassium 2.8 - 3.2 mEq/L Last Infusion: 08/26/18 14:23 Dose: Infused Potassium Chloride (Kcl 20 Meq Premix Inj) 20 meq in 100 mls @ 50 mls/hr IV.SIG Q2H PRN PRN Reason: For Potassium 3.3 - 3.5 mEq/L Last Infusion: 09/03/18 07:42 Dose: Infused Potassium Chloride (Kcl 40 Meq Premix Inj) 40 meq in 100 mls @ 25 mls/hr IV.SIG UNSCH PRN PRN Reason: For Potassium 3.3 - 3.5 mEq/L Potassium Chloride (Kcl 20 Meq Premix Inj) 20 meq in 100 mls @ 50 mls/hr IV.SIG Q2H PRN PRN Reason: For Potassium 2.8 - 3.2 mEq/L Last Infusion: 08/31/18 13:13 Dose: Infused Potassium Phosphate 30 mmol/ (Sodium Chloride) 260 mls @ 42 mls/hr IV.SIG UNSCH PRN PRN Reason: SEE LABEL COMMENTS Sodium Phosphate 30 mmol/ (Sodium Chloride) 260 mls @ 42 mls/hr IV.SIG UNSCH PRN PRN Reason: For Phosphorus < 2.5 mg/dL Aztreonam 2 gm/ Sodium (Chloride) 100 mls @ 200 mls/hr IV.SIG Q8H [facility] Last Admin: 09/05/18 08:33 Dose: 200 mls/hr Vancomycin HCl 1,750 mg/ (Sodium Chloride) 517.5 mls @ 250 mls/hr IV.SIG Q24H [facility] Last Infusion: 09/04/18 17:33 Dose: Infused Iron Sucrose 100 mg/ Sodium (Chloride) 105 mls @ 105 mls/hr IV.SIG DAILY [facility] Stop: 09/06/18 09:59 Last Admin: 09/05/18 08:34 Dose: 105 mls/hr Insulin Aspart (Novolog Insulin Correctional Sugar Inj) 0 unit SQ Q6HR [facility]; Protocol Last Admin: 09/05/18 05:53 Dose: 7 unit Insulin Detemir (Levemir Inj) 32 unit SQ BID [facility] Isosorbide Dinitrate (Isordil) 10 mg PO TIDAC [facility] Last Admin: 09/05/18 08:35 Dose: 10 mg Labetalol HCl (Trandate Inj) 20 mg IV.PUSH Q4H PRN PRN Reason: SYS BP GREATER THAN 170 MMHG Last Admin: 09/04/18 03:09 Dose: 20 mg Lactulose (Lactulose Liq) 30 ml PO DAILY PRN PRN Reason: SEVERE CONSITIPATION Last Admin: 08/29/18 18:17 Dose: 30 ml Levetiracetam (Keppra) 500 mg PO BID [facility] Last Admin: 09/05/18 08:35 Dose: 500 mg Levothyroxine Sodium (Synthroid) 25 mcg PO DAILY@0600 [facility] Last Admin: 09/05/18 05:53 Dose: 25 mcg Lorazepam (Ativan Inj) 1 mg IV.PUSH Q1H PRN PRN Reason: SEE LABEL COMMENTS Magnesium Oxide (Mag-Ox) 800 mg PO UNSCH PRN PRN Reason: For Magnesium 1.2 - 1.6 mg/dL Metoprolol Tartrate (Lopressor) 25 mg PO BID [facility] Last Admin: 09/05/18 08:35 Dose: 25 mg Miscellaneous (Pill Splitter) 1 each OTHER UNSCH PRN PRN Reason: SEE LABEL COMMENTS Miscellaneous Information ([facility] Ordered Lab Info) 0 each OTHER ONCE ONE Stop: 09/06/18 19:46 Miscellaneous Medication () 1 each OROPHARYNG 0000,0400,1200,1600 [facility] Last Admin: 09/05/18 04:55 Dose: 1 each Ondansetron HCl (Zofran Inj) 4 mg IV.PUSH Q6H PRN PRN Reason: NAUSEA OR VOMITING Pharmacy Profile Note (Vancomycin Consult Pharmacy) 1 each OTHER UNSCH PRN PRN Reason: Pharmacy to dose Potassium Bicarb/Potassium Chloride (K-Lyte Cl Eff) 50 meq PO UNSCH PRN PRN Reason: For Potassium 3.3 - 3.5 mEq/L Last Admin: 09/01/18 10:45 Dose: 50 meq Potassium Bicarb/Potassium Chloride (K-Lyte Cl Eff) 25 meq NG/OG DAILY [facility] Last Admin: 09/05/18 08:33 Dose: 25 meq Potassium Phosphate (K-Phos Original) 2,000 mg PO UNSCH PRN PRN Reason: SEE LABEL COMMENTS Potassium Phosphate (K-Phos Original) 2,000 mg PO Q4H PRN PRN Reason: Phosphorus Less Than 2.5 mg/dL Senna/Docusate Sodium (Lenora-Colace) 1 tab PO BID [facility] Last Admin: 09/05/18 08:35 Dose: 1 tab Sennosides (Senokot) 17.2 mg PO Q12H PRN PRN Reason: Moderate Constipation Sodium Chloride (Ns Flush) 2 ml IV.FLUSH PRN PRN PRN Reason: FLUSH AFTER USING IV ACCESS Sodium Chloride (Ns Flush) 2 ml IV.FLUSH BID [facility] Last Admin: 09/04/18 20:21 Dose: 2 ml Sterile Water (Free Water) 200 ml NG/OG Q4HR [facility] Last Admin: 09/05/18 08:33 Dose: 200 ml Allergies/Adverse Reactions: Allergies Allergy/AdvReac Type Severity Reaction Status Date / Time pravastatin Allergy Severe Unverified 06/29/17 16:39 tetanus toxoid, adsorbed Allergy Severe Unverified 06/29/17 16:39 CRESTOR Allergy Severe Uncoded 01/12/12 07:54 Review of Systems All other systems reviewed negative except as stated in HPI Physical Exam Vital signs: Vital Signs 09/04/18 10:49 09/04/18 11:03 09/04/18 11:45 Temperature 99.5 F Pulse Rate 81 79 Respiratory Rate 17 17 Blood Pressure 162/82 H Pulse Oximetry 96 95 09/04/18 14:54 09/04/18 15:01 09/04/18 16:37 Temperature 99.5 F Pulse Rate 81 88 92 H Respiratory Rate 16 18 Blood Pressure 140/84 Pulse Oximetry 96 94 L 09/04/18 19:00 09/04/18 19:59 09/04/18 20:56 Temperature 100.1 F H Pulse Rate 94 H 93 H Respiratory Rate 18 19 18 Blood Pressure 171/91 H Pulse Oximetry 94 L 95 09/04/18 23:00 09/04/18 23:10 09/04/18 23:45 Temperature 100.4 F H Pulse Rate 84 91 H Respiratory Rate 17 18 Blood Pressure 167/86 H Pulse Oximetry 96 95 09/05/18 03:00 09/05/18 03:08 09/05/18 03:15 Temperature 99.8 F H Pulse Rate 93 H 94 H 96 H Respiratory Rate 19 16 Blood Pressure 161/86 H Pulse Oximetry 96 96 09/05/18 07:00 Temperature 98.9 F Pulse Rate 92 H Respiratory Rate 19 Blood Pressure 146/86 H Pulse Oximetry 97 Intake & Output 09/04/18 09/05/18 09/05/18 18:59 06:59 18:59 Intake Total 2193.5 / 2193.5 1300 / 1300 Output Total 2149 / 2149 1230 / 1230 Balance 43.5 / 43.5 70 / 70 Weight 101 kg Intake: IV 722.5 / 722.5 200 / 200 Azactam Inj 2 GM In NS Inj 100 100 / 100 200 / 200 ML @ 200 mls/hr IV.SIG Q8H [facility] Rx#:[id number] Venofer Inj 100 MG In NS Inj 105 / 105 100 ML @ 105 mls/hr IV.SIG DAILY [facility] Rx#:[id number] Vancomycin Inj 1,750 MG In NS 517.5 / 517.5 Inj 500 ML @ 250 mls/hr IV.SIG Q24H [facility] Rx#:[id number] Tube Feeding 871 / 871 500 / 500 Water Bolus Amount 600 / 600 600 / 600 Output: Stool 0 / 0 Urine Amount (Catheter) 2149 / 0 1230 / 1230 Indwelling Temp Sensing 2149 / 2149 1230 / 1230 Catheter Other: Date of Last Bowel Movement 08/30/18 08/30/18 08/30/18 Narrative: GENERAL: in NAD, SKIN: Warm and dry. HEAD: Atraumatic. Normocephalic. EYES: Sluggishly reactive ENT: No nasal bleeding or discharge. Mucous membranes pink and moist. NECK: Intubated CARDIOVASCULAR: Regular rate and rhythm. RESPIRATORY: No accessory muscle use. NEUROLOGICAL: Intubated, not awake, coma state, not following, no attempted verbalization, partially opens eyes to tactile stimuli, pupils 3 to 2.5 mm, no gaze deviation but has roving eye movements at times, no twitching, no involuntary movements noted no extremity movement plantarflex her no clonus PSYCHIATRIC: Intubated - Constitutional no acute distress - Routine HEENT Exam Head: Present: normocephalic Eye: Present: EOMI - Urinary Catheter Management Indwelling Urethral Catheter Cath placed during this visit: yes, but has since been removed by the nurse Reason for continuing: Continue criteria not met Insertion date: 08/24/18 Insertion time: 19:46 Removal date: 08/24/18 Removal time: 20:30 Indwelling Temp Sensing Catheter Cath placed during this visit: yes, but has since been removed by the nurse Reason for continuing: Hourly intake/output Insertion date: 08/24/18 Insertion time: 20:30 Removal date: 08/31/18 Removal time: 12:22 Objective Laboratory Results - last 24 hr 09/04/18 09/04/18 09/05/18 11:36 17:05 00:03 WBC RBC Hgb Hct MCV MCH MCHC RDW Plt Count MPV Neut % (Auto) Lymph % (Auto) [place] % (Auto) Eos % (Auto) Baso % (Auto) Neut # (Auto) Lymph # (Auto) [place] # (Auto) Eos # (Auto) Baso # (Auto) WBC Differential Differential Comment Sodium Potassium Chloride Carbon Dioxide Anion Gap BUN Creatinine Estimated GFR POC Glucose 302 H 327 H 243 H Random Glucose Calcium Phosphorus Magnesium Valproic Acid 09/05/18 09/05/18 09/05/18 03:44 03:44 05:48 WBC 12.5 H RBC 2.44 L Hgb 8.2 L Hct 23.8 L MCV 97.5 MCH 33.4 MCHC 34.3 RDW 15.1 Plt Count 305 MPV 9.6 Neut % (Auto) 79.8 H Lymph % (Auto) 11.0 [place] % (Auto) 8.4 H Eos % (Auto) 0.6 Baso % (Auto) 0.2 Neut # (Auto) 10.0 H Lymph # (Auto) 1.4 [place] # (Auto) 1.1 H Eos # (Auto) 0.1 Baso # (Auto) 0.0 WBC Differential . Differential Comment Auto diff final Sodium 154 H Potassium 3.9 Chloride 119 H Carbon Dioxide 28.0 Anion Gap 7 BUN 39 H Creatinine 1.01 Estimated GFR 72 L POC Glucose 285 H Random Glucose 254 H Calcium 8.8 Phosphorus 3.2 Magnesium 2.5 Valproic Acid 31 L Microbiology 08/31/18 15:00 Aerobic Blood Culture - Preliminary Blood - Peripheral No growth in 4 days Anaerobic Blood Culture - Preliminary No growth in 4 days 08/31/18 15:05 Aerobic Blood Culture - Preliminary Blood - Peripheral No growth in 4 days Anaerobic Blood Culture - Preliminary No growth in 4 days 09/01/18 10:50 Gram Stain - Final Sputum - Oral Tracheal Aspirate Sputum Culture - Final Enterobacter aerogenes S. 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 - Myoclonus Status: Acute Current Visit: Yes (3) Respiratory failure Code(s): J96.90 - Respiratory failure, unspecified, unspecified whether with hypoxia or hypercapnia Status: Acute Current Visit: Yes (4) Cardiac arrest Code(s): I46.9 - Cardiac arrest, cause unspecified Status: Acute Current Visit: Yes (5) PEA (Pulseless electrical activity) Code(s): I46.9 - Cardiac arrest, cause unspecified Status: Acute Current Visit: Yes (6) NSTEMI (non-ST elevated myocardial infarction) Code(s): I21.4 - Non-ST elevation (NSTEMI) myocardial infarction Status: Acute Current Visit: Yes - Review/Management Plan: Impaired cortical function with brainstem reflexes MRI brain scan reviewed no diffusion restriction noted He may develop superimposed hypoxic encephalopathy from ARDS/pneumonia post hypoxic myoclonus; repeat EEG is negative for any epileptic activity. Currently on Keppra and Depakote Recommendation Neuro unchanged Will likely require trach, PEG if patient and family's wishes and long-term care facility Prognosis guarded and indeterminate for meaningful neurologic recovery at this time
[2018-09-05] MEDS: Chlorhexidine 0.12% Oral Kit 15 ML UDC OROPHARYNG SCH ×2 (09:36→20:42)
--- NOTE | 2018-09-05 11:44 | P.PNCC ---
Subjective Subjective Remarks/Hospital Course: 72-year-old male, past medical history significant for diabetes and coronary artery disease with 3 previous stents, who is presented post cardiac arrest. Per EMS and family he was doing work around the house when he stated that he did not feel right and thought something was off with his blood sugar. He then went to go sit down and when his turned around he was slumping over. She then called 911. On EMS arrival he was unresponsive pulseless and apneic. They began CPR. They temporarily achieved ROSC in the field prior to him coding again. They obtained ROSC again right before arrival. In total they gave 3 mg of epinephrine, 2 A of bicarbonate, 300 mg of amiodarone. EMS does not believe that he was without a pulse for more than 15 minutes at any time. He lost pulses again on arrival here. Again he was successfully resuscitated with return of spontaneous circulation within 15 minutes. 08/25: Patient admitted to CVICU, on targeted temperature management. 08/26: No significant overnight events, decreased UO this morning. Now being rewarmed. 08/27: Called to bedside by RN yesterday for facial swelling, CXR showed no evidence of PTX or subcut emphysema, CT scans ordered but was delayed by over 7 hours due to multiple trauma and stroke alerts taking priority in CT scan. When the patient was being prepared to move to CT around 6:30 PM, he became hypoxic to the high 80s and was too unstable for scan. He required increase in his bilevel settings and was started on flolan. This morning, he is stable, O2 sats 100% on current settings with much improved ABG. 08/28: Patient has been off pressors since yesterday afternoon, off all sedation x 24+ hours but still unresponsive. Only had a weak cough reflex. EEG negative for seizures. 08/29: Patient remains on bilevel, oxygenation improved however remains encephalopathy. To noxious central stimuli patient does weakly withdraw upper extremities and opens eyes. ABG shows pH of 7.47. Pressure high reduced to 28 from 32. 08/30: Remains on bilevel slightly improved oxygenation. Diuresis started yesterday with good urine output. Creatinine slightly improved. Remains severely encephalopathic off sedation more for more than 72 hours now. Attempt transition to PC/AC with high PEEP, if tolerated check MRI of the brain 08/31: Patient remains critical and hypoxemic however very slight improvement in neuro exam. MRI did not show any evidence of anoxic brain injury. Change from bilevel to HEMODIALYSIS PATIENT CARE SPECIALIST C yesterday. Tolerating well PEEP now reduced to 10. Chest x-ray shows persistent pulmonary edema continue diuresis. Start quarter normal saline with potassium 4 free water replacement. Urine output more than 4 L in 24 hours 09/01: Clinically no significant improvement. Intermittent spontaneous eye opening but no tracking. Intermittent twitching questionable myoclonus. EEG yesterday showed no seizures but showed burst suppression pattern indicating brain injury. MRI though was negative. Will get palliative care involved 09/02: Hypertensive overnight. T-max 99.8. Intermittently opens eyes. Intermittent twitching questionable myoclonus. EEG 09/01 revealed severe encephalopathy. No epileptic activity. 09/03: Remains hypertensive. Currently not opening eyes. Started on levetiracetam yesterday for questionable myoclonus. Reviewed neurology's notes. Likely MRI next week. Trach decision will come on next Wednesday. 09/04: Afebrile. Started on diet valproic acid yesterday 500 mg twice daily. EEG revealed severe encephalopathy. No epileptic activity. Tube feeds currently at 35 cc an hour. Goal 65 cc an hour. Likely MRI brain next Wednesday or Wednesday. Subjective 09/05: Afebrile. Received IV iron sucrose overnight. Hemoglobin is currently 8.4. Tolerating tube feeding. Intermittent myoclonus persist. No change in neurological examination. Objective Vital Signs / I&O: Vital Signs 09/04/18 11:45 09/04/18 14:54 09/04/18 15:01 Temperature 99.5 F Pulse Rate 81 88 Respiratory Rate 17 16 Blood Pressure 140/84 Pulse Oximetry 95 96 09/04/18 16:37 09/04/18 19:00 09/04/18 19:59 Temperature 100.1 F H Pulse Rate 92 H 94 H Respiratory Rate 18 18 19 Blood Pressure 171/91 H Pulse Oximetry 94 L 94 L 95 09/04/18 20:56 09/04/18 23:00 09/04/18 23:10 Temperature 100.4 F H Pulse Rate 93 H 84 91 H Respiratory Rate 18 17 Blood Pressure 167/86 H Pulse Oximetry 96 09/04/18 23:45 09/05/18 03:00 09/05/18 03:08 Temperature 99.8 F H Pulse Rate 93 H 94 H Respiratory Rate 18 19 16 Blood Pressure 161/86 H Pulse Oximetry 95 96 96 09/05/18 03:15 09/05/18 07:00 09/05/18 11:00 Temperature 98.9 F Pulse Rate 96 H 92 H 81 Respiratory Rate 19 Blood Pressure 146/86 H Pulse Oximetry 97 09/05/18 11:03 09/05/18 11:04 Temperature Pulse Rate 80 Respiratory Rate 17 Blood Pressure Pulse Oximetry 97 Intake & Output 09/04/18 09/05/18 09/05/18 18:59 06:59 18:59 Intake Total 2193.5 / 2193.5 1300 / 1300 200 / 200 Output Total 2150 / 2150 1230 / 1230 Balance 43.5 / 43.5 70 / 70 200 / 200 Weight 101 kg Intake: IV 722.5 / 722.5 200 / 200 200 / 200 Azactam Inj 2 GM In NS Inj 100 100 / 100 200 / 200 100 / 100 ML @ 200 mls/hr IV.SIG Q8H MERVAT Rx#:[id number] Venofer Inj 100 MG In NS Inj 105 / 105 100 / 100 100 ML @ 105 mls/hr IV.SIG DAILY MERVAT Rx#:[id number] Vancomycin Inj 1,750 MG In NS 517.5 / 517.5 Inj 500 ML @ 250 mls/hr IV.SIG Q24H MERVAT Rx#:[id number] Tube Feeding 871 / 871 500 / 500 Water Bolus Amount 600 / 600 600 / 600 Output: Stool 0 / 0 Urine Amount (Catheter) 2150 / 2150 1230 / 1230 Indwelling Temp Sensing 2150 / 2150 1230 / 1230 Catheter Other: Date of Last Bowel Movement 08/30/18 08/30/18 08/30/18 Result Diagrams: 09/05/18 03:44 09/05/18 03:44 Other Results: Microbiology 08/31/18 15:00 Blood - Peripheral Aerobic Blood Culture - Final No growth in 5 days 08/31/18 15:00 Blood - Peripheral Anaerobic Blood Culture - Final No growth in 5 days 08/31/18 15:05 Blood - Peripheral Aerobic Blood Culture - Final No growth in 5 days 08/31/18 15:05 Blood - Peripheral Anaerobic Blood Culture - Final No growth in 5 days 09/01/18 10:50 Sputum - Oral Tracheal Aspirate Gram Stain - Final 09/01/18 10:50 Sputum - Oral Tracheal Aspirate Sputum Culture - Final Enterobacter aerogenes S. aureus MRSA 09/01/18 08:30 Catheterized Urine Urine Culture - Final No growth in 48 hours 08/25/18 12:41 Blood - Peripheral Aerobic Blood Culture - Final No growth in 5 days 08/25/18 12:41 Blood - Peripheral Anaerobic Blood Culture - Final No growth in 5 days 08/25/18 12:30 Blood - Line Aerobic Blood Culture - Final No growth in 5 days 08/25/18 12:30 Blood - Line Anaerobic Blood Culture - Final No growth in 5 days 08/25/18 11:15 Sputum - Endotracheal Gram Stain - Final 08/25/18 11:15 Sputum - Endotracheal Sputum Culture - Final Enterobacter aerogenes Imaging: Chest CTA 08/24/18 00:00 CONCLUSION: 1. No CT evidence for pulmonary artery embolism as questioned. 2. Diffuse groundglass opacities which appear more confluent in the right upper lobe. Differential considerations include pulmonary edema versus ARDS versus diffuse/atypical infection. 3. Prominent coronary artery calcifications. Chest X-Ray 08/24/18 19:10 CONCLUSION: 1. ETT in good position. NGT beyond the GE junction. 2. Diffuse airspace disease throughout the right lung most prominently in the right upper and midlung zones. Differential considerations include multilobar/ atypical pneumonia, aspiration, or atypical pulmonary edema. Head CT 08/24/18 19:11 CONCLUSION: 1. No areas of acute hemorrhage or mass effect are seen. 2. Extensive low density seen throughout the cerebral white matter likely related to small vessel ischemic change. 3. Motion artifact. . Chest X-Ray 08/26/18 11:39 CONCLUSION: Resolution of the airspace disease involving the right lung. Interstitial prominence throughout both lungs is new and could relate to interstitial edema. Chest X-Ray 08/29/18 10:00 CONCLUSION: 1. Stable ETT. NGT in the stomach. 2. Interstitial edema and pulmonary vascular congestion pattern. 3. Stable mild patchy bilateral lower lung zone airspace disease. Head MRI 08/30/18 00:00 CONCLUSION: 1. Moderate diffuse cerebral atrophy with prominent periventricular ischemic white matter demyelination. 2. No evidence for acute infarction or hemorrhage. Chest X-Ray 08/30/18 06:00 CONCLUSION: Diffuse edema versus pneumonia. The findings are similar to the prior exam. Chest X-Ray 08/31/18 06:00 CONCLUSION: Worsening pulmonary edema. Chest X-Ray 09/01/18 06:00 CONCLUSION: Cardiomegaly and findings of congestive heart failure. The findings are similar to the prior exam. Chest X-Ray 09/03/18 06:00 CONCLUSION: Cardiomegaly and bilateral airspace disease. Chest X-Ray 09/04/18 06:00 CONCLUSION: Bibasilar airspace disease slightly more prominent in the left lung base when compared to previous study. Probable small pleural effusions. Chest X-Ray 09/05/18 06:00 CONCLUSION: Bibasilar areas of consolidation or atelectasis being worse than left. Some degree of left effusion can be considered. Objective Remarks: GEN: 72-year-old male currently orotracheally intubated resting in bed in no acute distress HEENT: NCAT, ETT in place NECK: Trachea midline CARDIO: Regular rate and rhythm. S1, S2 no S4. No murmur RESP: Diminished breath sounds bilaterally, no wheezing rales or rhonchi ABD/GI: Soft, non-distended. Hypoactive bowel sounds EXT/MS: 1+ peripheral edema. SKIN: Anasarca, fluid-filled blisters developing on upper extremities and trunk NEURO: No spontaneous movements or eye opening. Intermittently opens eyes to loud voice. But does not follow command. Nonfocal. To deep noxious stimuli withdrawal of upper extremities. 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 No upper from activity -EEG 09/01 negative for seizures, show severe encephalopathy -Repeat EEG 08/31/2018 shows burst suppression pattern -MRI done 08/30/2018 shows no evidence of anoxic brain injury -Neurology Dr. Purdy following -If myoclonus prognosis poor -Palliative care consult -Started on levetiracetam 500 twice daily. Initiated on day of valproic acid 500 mg twice daily on 09/03. Check level in a.m. 09/05 31. Likely repeat MRI later this week CARDIO: Essential hypertension -2D echo showed EF 65-70%, PAP 37 -Off all pressors -Awaiting neurologic recovery before planning ischemic workup -Cardiology Dr. Beltrán, Dr. Romero discussed with him, DC IV heparin -Aspirin 81 mg daily -IV furosemide 40 mg IV daily -Metoprolol tartrate 25 mg twice daily and isosorbide dinitrate 10 mg 3 times daily. PULM: Acute hypoxic respiratory failure secondary to cardiac arrest -CXR/ CT chest consistent with ARDS vs pneumonia * Continue aztreonam 10 days. Enterobacter in sputum pansensitive noted MRSA in sputum. Restarted on vancomycin see below * No PE noted on CTA -Weaned off epoprostenol aerosolized, transitioned from bilevel to conventional ACV 08/30/2018, tolerating well -Vent bundle, albuterol/ipratropium aerosols every 6 hours with albuterol aerosols every 2 hours as needed dyspnea -Repeat chest x-ray persistent CHF, pulmonary edema. Recheck 09/07 F/E/N: -TFs recommend Glucerna 1.5 at 65 cc/hour. -Famotidine for GI prophylaxis -Docusate sodium/senna 1 tablet twice daily for bowel regimen -Keep K+ > 4.0, Mg > 2.0 RENAL: -BUN/ creatinine stable, UO stable -Diurese with IV furosemide 40 mg q24 -Free water replacement 200 cc every 4 hours ID: Enterobacter/MRSA sputum positive -Aztreonam for ICU- CAP as detailed above Discontinued vancomycin 09/03 restarted 09/04. Continue aztreonam as above. -Follow up cultures-08/25 sputum culture with Enterobacter pansensitive. Replete sputum 09/01 gram-negative anand and MRSA. ENDO: -SSI, Accuchecks -Recently started on insulin detemir 32 units twice daily. Increase to 25 units twice daily -Continue home dose of levothyroxine 25 mcg daily. TSH 1.88 HEME: Normocytic anemia Leukocytosis monitor CBC daily. Follow trends. Hemoglobin currently 8.4. Appreciate recommendations Dr. Rm for Jehov[employer] witness Epogen/iron. Currently on iron sucrose 100 mg IV daily day #2 3 PROPHY: -SCDs, enoxaparin 40 mg daily -Famotidine Level 2 follow-up
--- NOTE | 2018-09-05 12:18 | P.PNPAL ---
Reason for Visit Reason for visit: a. To assist with evaluation and management of symptoms including:dyspnea, pain , anxiety b. To assist medical decision maker(s) with: better understanding of current medical conditions; weighing benefits/burdens of medical treatment options; making medical treatment decisions. Subjective Subjective/Interval History: Mr. Bryant 72-year-old male with past medical history of diabetes, coronary artery disease with 3 previous stent, hypothyroidism, hypertension, cirrhosis transported to [place] emergency room via EMS after witnessed cardiac arrest. Patient was doing work around his house when he stated he did not feel well and went inside to rest. His states that she was conversing with him for a few minutes then got up to make him a sandwich at which point he called out that he felt ill again. When she turned around she found him slumping over. He began to deteriorate rapidly from this point. 911 was called and when EMS arrived on the scene the patient was unresponsive, pulseless, and apneic. They began CPR and temporarily achieved ROSC before he began to deteriorate again and they had to code him prior to ER arrival. EMS states they do not believe he was without a pulse for more than 15 minutes at any time. He lost pulse again upon arrival to the emergency room was coded again. Once again ROSC was achieved and post-arrest hypothermia protocol was initiated. The patient was admitted to the CVICU for further care and evaluation. Not much change neurologically. EEG from 09/04/18 shows severe encephalopathy consistent with anoxic brain injury. Patient remains intubated on no sedation. No eye opening, no withdrawal. Eyes with no definitive gaze but a roving effect. Intermittent hypoxic seizure-like activity noted. Patient now on droplet isolation for MRSA in the sputum. Family meeting scheduled for later this afternoon. Today's clinical data includes: * WBC 12.5, Hgb 8.2, HCT 23.8, platelets 305, absolute neutrophil count 10.0 * NA 154, K+ 3.9, CL 119, CO2 28, BUN 39, creatinine 1.01, glucose 254 * CXR:Bibasilar areas of consolidation or atelectasis being worse than left. Some degree of left effusion can be considered. Case discussed with attending and RN (Jaylin) at bedside Family/Friend Interactions: Family meeting this afternoon; 15:18 09/05/18 Family Meeting: Family conference with patient's Kendra's and son Maikel Kay as well as daughter Suzette. CostelloJeramy Malone [facility] for palliative care also in attendance. Discussed patient's clinical status as well as results from EEG done 09/04/18. All clinical data correlates to no significant neurological change or improvement. Patient's , Kendra states that she would like to transition to comfort care today. She also voiced interest in having hospice on board. Advance Directives Living Will: Never completed Health Care Surrogate: Never completed Durable Power of Small Business Sales Representative: Never completed Documented care wishes:: The patient does not have a documented living will or power of litigation attorney Significant change in goals:: The family has elected to make the patient DNR, will transition to comfort measures with compassionate withdrawal today. Also wish for consult to hospice. Objective Vital Signs: Vital Signs 09/04/18 14:54 09/04/18 15:01 09/04/18 16:37 Temperature 99.5 F Pulse Rate 81 88 92 H Respiratory Rate 16 18 Blood Pressure 140/84 Pulse Oximetry 96 94 L 09/04/18 19:00 09/04/18 19:59 09/04/18 20:56 Temperature 100.1 F H Pulse Rate 94 H 93 H Respiratory Rate 18 19 18 Blood Pressure 171/91 H Pulse Oximetry 94 L 95 09/04/18 23:00 09/04/18 23:10 09/04/18 23:45 Temperature 100.4 F H Pulse Rate 84 91 H Respiratory Rate 17 18 Blood Pressure 167/86 H Pulse Oximetry 96 95 09/05/18 03:00 09/05/18 03:08 09/05/18 03:15 Temperature 99.8 F H Pulse Rate 93 H 94 H 96 H Respiratory Rate 19 16 Blood Pressure 161/86 H Pulse Oximetry 96 96 09/05/18 07:00 09/05/18 11:00 09/05/18 11:03 Temperature 98.9 F 98.8 F Pulse Rate 92 H 81 80 Respiratory Rate 19 18 17 Blood Pressure 146/86 H 155/81 H Pulse Oximetry 97 98 09/05/18 11:04 Temperature Pulse Rate Respiratory Rate Blood Pressure Pulse Oximetry 97 Intake & Output 09/04/18 09/05/18 09/05/18 18:59 06:59 18:59 Intake Total 2193.5 / 2193.5 1300 / 1300 200 / 200 Output Total 2149 / 2150 1230 / 1230 Balance 43.5 / 43.5 70 / 70 200 / 200 Weight 101 kg Intake: IV 722.5 / 722.5 200 / 200 200 / 200 Azactam Inj 2 GM In NS Inj 100 100 / 100 200 / 200 100 / 100 ML @ 200 mls/hr IV.SIG Q8H MERVAT Rx#:[id number] Venofer Inj 100 MG In NS Inj 105 / 105 100 / 100 100 ML @ 105 mls/hr IV.SIG DAILY MERVAT Rx#:[id number] Vancomycin Inj 1,750 MG In NS 517.5 / 517.5 Inj 500 ML @ 250 mls/hr IV.SIG Q24H MERVAT Rx#:[id number] Tube Feeding 871 / 871 500 / 500 Water Bolus Amount 600 / 600 600 / 600 Output: Stool 0 / 0 Urine Amount (Catheter) 2149 / 0 1230 / 1230 Indwelling Temp Sensing 2149 1230 / 1230 Catheter Other: Date of Last Bowel Movement 08/30/18 08/30/18 08/30/18 Physical Exam: CONSTITUTIONAL/GENERAL: Intubated, not currently sedated. Unresponsive TUBES/LINES/DRAINS: ETT, PIV, OGT, bilateral soft wrist restraints, Molina cath SKIN: No jaundice, rashes, or lesions. Large, intact bulla to RUE and left hip. No wounds seen anteriorly. Skin temperature warm EYES: Pupils equal and round and reactive. Roving gaze. Slight scleral icterus. No injection or drainage. Fundi not examined. ENT: unable to assess hearing due to clinical condition. Nose without bleeding or purulent drainage. Throat without visible erythema, exudates, masses, or lesions. CARDIOVASCULAR: regular rate and rhythm, no murmurs, gallops, or rubs. No JVD. Peripheral pulses symmetric. RESPIRATORY/CHEST: Symmetric, unlabored respirations, mechanically ventilated . Scattered rhonchi throughout, worse RML/RLL. Minimal air movement heard RLL GASTROINTESTINAL: Abdomen soft, non-tender, slightly distended. Bowel sounds intermittent. GENITOURINARY: Without palpable bladder distension. Molina catheter in place. Scrotal edema noted MUSCULOSKELETAL: BUE with 1+ edema, BLE with trace edema. No joint effusion noted. No mottling or clubbing. NEUROLOGICAL: Unresponsive. Cough/gag questionable. no eye opening. Does not withdraw to noxious stimuli. Roving eye movement PSYCHIATRIC:unable to assess due to clinical condition Diagnostic Tests Laboratory: Laboratory Results - last 72 hr 09/02/18 09/02/18 09/03/18 18:08 23:36 03:31 WBC 9.3 RBC 2.10 L Hgb 6.9 L* Hct 20.6 L* MCV 98.0 MCH 32.8 MCHC 33.4 RDW 15.1 Plt Count 181 MPV 9.9 Prelim Diff (Auto) Slide review pending Neut % (Auto) 81.3 H Lymph % (Auto) 10.6 Haskell % (Auto) 7.7 Eos % (Auto) 0.3 Baso % (Auto) 0.1 Neut # (Auto) 7.6 Lymph # (Auto) 1.0 Haskell # (Auto) 0.7 Eos # (Auto) 0.0 Baso # (Auto) 0.0 WBC Differential Manual diff final Seg Neuts % (Manual) 75 H Band Neuts % (Manual) 12 H Lymphocytes % (Manual) 10 Monocytes % (Manual) 1 Eosinophils % (Manual) 1 Metamyelocytes % (Man) 1 Abs Neuts (Manual) 8.2 H Differential Comment . Toxic Granulation 2+ H Platelet Estimate Normal Platelet Morphology Normal Sodium Potassium Chloride Carbon Dioxide Anion Gap BUN Creatinine Estimated GFR POC Glucose 271 H 336 H Random Glucose Calcium Phosphorus Magnesium Total Bilirubin AST ALT Alkaline Phosphatase Total Protein Albumin Valproic Acid 09/03/18 09/03/18 09/03/18 03:31 06:43 11:35 WBC RBC Hgb Hct MCV MCH MCHC RDW Plt Count MPV Prelim Diff (Auto) Neut % (Auto) Lymph % (Auto) Haskell % (Auto) Eos % (Auto) Baso % (Auto) Neut # (Auto) Lymph # (Auto) Haskell # (Auto) Eos # (Auto) Baso # (Auto) WBC Differential Seg Neuts % (Manual) Band Neuts % (Manual) Lymphocytes % (Manual) Monocytes % (Manual) Eosinophils % (Manual) Metamyelocytes % (Man) Abs Neuts (Manual) Differential Comment Toxic Granulation Platelet Estimate Platelet Morphology Sodium 152 H Potassium 3.8 Chloride 118 H Carbon Dioxide 27.7 Anion Gap 6 BUN 43 H Creatinine 1.01 Estimated GFR 72 L POC Glucose 303 H 285 H Random Glucose 265 H Calcium 8.4 L Phosphorus 2.9 Magnesium 2.6 H Total Bilirubin 0.9 AST 40 H ALT 32 Alkaline Phosphatase 62 Total Protein 6.2 L Albumin 3.1 L Valproic Acid 09/03/18 09/04/18 09/04/18 17:00 00:21 04:08 WBC 9.8 RBC 2.31 L Hgb 7.4 L Hct 22.6 L MCV 97.9 MCH 32.0 MCHC 32.7 RDW 15.0 Plt Count 248 D MPV 9.8 Prelim Diff (Auto) Neut % (Auto) 79.3 H Lymph % (Auto) 11.0 Haskell % (Auto) 9.0 H Eos % (Auto) 0.5 Baso % (Auto) 0.2 Neut # (Auto) 7.8 H Lymph # (Auto) 1.1 Haskell # (Auto) 0.9 Eos # (Auto) 0.0 Baso # (Auto) 0.0 WBC Differential . Seg Neuts % (Manual) Band Neuts % (Manual) Lymphocytes % (Manual) Monocytes % (Manual) Eosinophils % (Manual) Metamyelocytes % (Man) Abs Neuts (Manual) Differential Comment Auto diff final Toxic Granulation Platelet Estimate Platelet Morphology Sodium Potassium Chloride Carbon Dioxide Anion Gap BUN Creatinine Estimated GFR POC Glucose 314 H 267 H Random Glucose Calcium Phosphorus Magnesium Total Bilirubin AST ALT Alkaline Phosphatase Total Protein Albumin Valproic Acid 09/04/18 09/04/18 09/04/18 04:08 05:44 11:36 WBC RBC Hgb Hct MCV MCH MCHC RDW Plt Count MPV Prelim Diff (Auto) Neut % (Auto) Lymph % (Auto) [place] % (Auto) Eos % (Auto) Baso % (Auto) Neut # (Auto) Lymph # (Auto) Haskell # (Auto) Eos # (Auto) Baso # (Auto) WBC Differential Seg Neuts % (Manual) Band Neuts % (Manual) Lymphocytes % (Manual) Monocytes % (Manual) Eosinophils % (Manual) Metamyelocytes % (Man) Abs Neuts (Manual) Differential Comment Toxic Granulation Platelet Estimate Platelet Morphology Sodium 152 H Potassium 4.0 Chloride 117 H Carbon Dioxide 27.7 Anion Gap 7 BUN 41 H Creatinine 1.08 Estimated GFR 67 L POC Glucose 288 H 302 H Random Glucose 271 H Calcium 8.6 Phosphorus 3.8 Magnesium 2.4 Total Bilirubin 0.6 AST 30 ALT 30 Alkaline Phosphatase 72 Total Protein 6.1 L Albumin 2.7 L Valproic Acid 09/04/18 09/05/18 09/05/18 17:05 00:03 03:44 WBC RBC Hgb Hct MCV MCH MCHC RDW Plt Count MPV Prelim Diff (Auto) Neut % (Auto) Lymph % (Auto) [place] % (Auto) Eos % (Auto) Baso % (Auto) Neut # (Auto) Lymph # (Auto) Haskell # (Auto) Eos # (Auto) Baso # (Auto) WBC Differential Seg Neuts % (Manual) Band Neuts % (Manual) Lymphocytes % (Manual) Monocytes % (Manual) Eosinophils % (Manual) Metamyelocytes % (Man) Abs Neuts (Manual) Differential Comment Toxic Granulation Platelet Estimate Platelet Morphology Sodium 154 H Potassium 3.9 Chloride 119 H Carbon Dioxide 28.0 Anion Gap 7 BUN 39 H Creatinine 1.01 Estimated GFR 72 L POC Glucose 327 H 243 H Random Glucose 254 H Calcium 8.8 Phosphorus 3.2 Magnesium 2.5 Total Bilirubin AST ALT Alkaline Phosphatase Total Protein Albumin Valproic Acid 31 L 09/05/18 09/05/18 09/05/18 03:44 05:48 11:04 WBC 12.5 H RBC 2.44 L Hgb 8.2 L Hct 23.8 L MCV 97.5 MCH 33.4 MCHC 34.3 RDW 15.1 Plt Count 305 MPV 9.6 Prelim Diff (Auto) Neut % (Auto) 79.8 H Lymph % (Auto) 11.0 Haskell % (Auto) 8.4 H Eos % (Auto) 0.6 Baso % (Auto) 0.2 Neut # (Auto) 10.0 H Lymph # (Auto) 1.4 Haskell # (Auto) 1.1 H Eos # (Auto) 0.1 Baso # (Auto) 0.0 WBC Differential . Seg Neuts % (Manual) Band Neuts % (Manual) Lymphocytes % (Manual) Monocytes % (Manual) Eosinophils % (Manual) Metamyelocytes % (Man) Abs Neuts (Manual) Differential Comment Auto diff final Toxic Granulation Platelet Estimate Platelet Morphology Sodium Potassium Chloride Carbon Dioxide Anion Gap BUN Creatinine Estimated GFR POC Glucose 285 H 298 H Random Glucose Calcium Phosphorus Magnesium Total Bilirubin AST ALT Alkaline Phosphatase Total Protein Albumin Valproic Acid Result Diagrams: 09/05/18 03:44 09/05/18 03:44 Microbiology: Microbiology 08/31/18 15:00 Aerobic Blood Culture - Final Blood - Peripheral No growth in 5 days Anaerobic Blood Culture - Final No growth in 5 days 08/31/18 15:05 Aerobic Blood Culture - Final Blood - Peripheral No growth in 5 days Anaerobic Blood Culture - Final No growth in 5 days 09/01/18 10:50 Gram Stain - Final Sputum - Oral Tracheal Aspirate Sputum Culture - Final Enterobacter aerogenes S. aureus MRSA 09/01/18 08:30 Urine Culture - Final Catheterized Urine No growth in 48 hours Imaging: Impressions Chest X-Ray 09/04/18 06:00 CONCLUSION: Bibasilar airspace disease slightly more prominent in the left lung base when compared to previous study. Probable small pleural effusions. Chest X-Ray 09/05/18 06:00 CONCLUSION: Bibasilar areas of consolidation or atelectasis being worse than left. Some degree of left effusion can be considered. 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 He was born and raised in [place]. The couple have 3 adult children together, 2 sons (Maikel Trevino & Tc) and 1 daughter Yanique. The patient enjoyed [employer] and home [employer] projects. He was able to care for their [place] acre property usually by himself. Spiritual:Jainism Legal: In the absence of a documented living will or durable power of litigation attorney, decision making falls to the patient's , Kendra Bryant Ethical issues impacting care: There are currently no known ethical issues impacting care at this time Important Contacts: Kendra Bryant, /HCP [phone] Maikel Bryant Jr, son [phone] Tc Bryant, son [phone] Prognosis: The patient remains critically ill, requiring a large amount of ventilation support. Neurologically appears to have poor prognosis. Given his multiple arrests, and suspected seizure activity, he is at high risk for further decline , decompensation, and Code Status: No Code DNR Plan: * LEGAL DECISION MAKER: Mr. Bryant currently does not have the capacity to participate in his own healthcare decision making. In the absence of a living will or documented power of litigation attorney, per [place] statutes, healthcare decision making falls to his Kendra Bryant ([phone]) * GOALS: The family wishes to transition to comfort care only. Would like compassionate withdrawal later today * CODE STATUS: DNR * SYMPTOMS: Dyspnea -the patient will be compassionately withdrawn later today. Appropriate medications will be given pre-extubation as well as during and post Pain -multifactorial considering withdrawal and multiple invasive tubes. Will be medicated appropriately to ensure maximal comfort. Will transfer to Hospice Care center in the AM if applicable Anxietypatient will be medicated pre-extubation as well as the time of. As needed medications will be available post extubation to ensure maximal comfort Palliative care will continue to follow during hospital course as condition evolves, to assist patient/decision maker with understanding of medical conditions, weighing benefits/burdens of treatment options, for clarification of goals of treatment. Additionally will assist with any symptoms of palliative concern.
[2018-09-05] MEDS: Vancomycin Inj 1,750 MG in Sodium Chlor 0.9% Inj 500 ML IV.SIG SCH (15:36)
[2018-09-05] MEDS ORDERED: Morphine Sulfate Inj 8 MG/ML Vial IV.PUSH ONE (16:30)
[2018-09-05] MEDS ORDERED: Hyoscyamine Inj 0.5 MG/ML Ampul IV.PUSH ONE (16:30)
[2018-09-05] MEDS: Hyoscyamine Inj 0.5 MG/ML Ampul IV.PUSH PRN (16:55)
[2018-09-05] MEDS ORDERED: Bisacodyl 10 MG Supp RECTAL PRN (17:00)
[2018-09-05] MEDS ORDERED: Morphine Sulfate Inj 8 MG/ML Vial IV.PUSH PRN (17:00)
[2018-09-05] MEDS ORDERED: Morphine Inj 4 MG/ML Vial IV.PUSH ONE (17:00)
[2018-09-05] MEDS ORDERED: Acetaminophen 650 MG Supp RECTAL PRN (17:00)
[2018-09-05] MEDS: Morphine Inj 4 MG/ML Vial IV.PUSH PRN ×2 (17:48→19:46)
[2018-09-05] MEDS: Morphine Inj 4 MG/ML Vial IV.PUSH SCH (22:49)
[2018-09-06] MEDS: Artificial Tears Opth Drops 15 ML Bottle EACH EYE SCH ×2 (00:41→10:59)
[2018-09-06] MEDS: Morphine Inj 4 MG/ML Vial IV.PUSH SCH ×4 (01:08→12:06)
[2018-09-06] MEDS: Hyoscyamine Inj 0.5 MG/ML Ampul IV.PUSH PRN (02:05)
[2018-09-06] MEDS: Morphine Inj 4 MG/ML Vial IV.PUSH PRN (02:05)
[2018-09-06 03:19] VITALS: RESP 20
[2018-09-06] MEDS: Chlorhexidine 0.12% Oral Kit 15 ML UDC OROPHARYNG SCH (10:59)
[2018-09-06 11:18] VITALS: BP 121/66; PULSE 92; TEMP 98.9; O2SAT 77
--- NOTE | 2018-09-06 11:26 | P.PNCC ---
Subjective Subjective Remarks/Hospital Course: 72-year-old male, past medical history significant for diabetes and coronary artery disease with 3 previous stents, who is presented post cardiac arrest. Per EMS and family he was doing work around the house when he stated that he did not feel right and thought something was off with his blood sugar. He then went to go sit down and when his turned around he was slumping over. She then called 911. On EMS arrival he was unresponsive pulseless and apneic. They began CPR. They temporarily achieved ROSC in the field prior to him coding again. They obtained ROSC again right before arrival. In total they gave 3 mg of epinephrine, 2 A of bicarbonate, 300 mg of amiodarone. EMS does not believe that he was without a pulse for more than 15 minutes at any time. He lost pulses again on arrival here. Again he was successfully resuscitated with return of spontaneous circulation within 15 minutes. 08/25: Patient admitted to CVICU, on targeted temperature management. 08/26: No significant overnight events, decreased UO this morning. Now being rewarmed. 08/27: Called to bedside by RN yesterday for facial swelling, CXR showed no evidence of PTX or subcut emphysema, CT scans ordered but was delayed by over 7 hours due to multiple trauma and stroke alerts taking priority in CT scan. When the patient was being prepared to move to CT around 6:30 PM, he became hypoxic to the high 80s and was too unstable for scan. He required increase in his bilevel settings and was started on flolan. This morning, he is stable, O2 sats 100% on current settings with much improved ABG. 08/28: Patient has been off pressors since yesterday afternoon, off all sedation x 24+ hours but still unresponsive. Only had a weak cough reflex. EEG negative for seizures. 08/29: Patient remains on bilevel, oxygenation improved however remains encephalopathy. To noxious central stimuli patient does weakly withdraw upper extremities and opens eyes. ABG shows pH of 7.47. Pressure high reduced to 28 from 32. 08/30: Remains on bilevel slightly improved oxygenation. Diuresis started yesterday with good urine output. Creatinine slightly improved. Remains severely encephalopathic off sedation more for more than 72 hours now. Attempt transition to PC/AC with high PEEP, if tolerated check MRI of the brain 08/31: Patient remains critical and hypoxemic however very slight improvement in neuro exam. MRI did not show any evidence of anoxic brain injury. Change from bilevel to [employer] C yesterday. Tolerating well PEEP now reduced to 10. Chest x-ray shows persistent pulmonary edema continue diuresis. Start quarter normal saline with potassium 4 free water replacement. Urine output more than 4 L in 24 hours 09/01: Clinically no significant improvement. Intermittent spontaneous eye opening but no tracking. Intermittent twitching questionable myoclonus. EEG yesterday showed no seizures but showed burst suppression pattern indicating brain injury. MRI though was negative. Will get palliative care involved 09/02: Hypertensive overnight. T-max 99.8. Intermittently opens eyes. Intermittent twitching questionable myoclonus. EEG 09/01 revealed severe encephalopathy. No epileptic activity. 09/03: Remains hypertensive. Currently not opening eyes. Started on levetiracetam yesterday for questionable myoclonus. Reviewed neurology's notes. Likely MRI next week. Trach decision will come on next Wednesday. 09/04: Afebrile. Started on diet valproic acid yesterday 500 mg twice daily. EEG revealed severe encephalopathy. No epileptic activity. Tube feeds currently at 35 cc an hour. Goal 65 cc an hour. Likely MRI brain next Wednesday or Wednesday. 09/05: Afebrile. Received IV iron sucrose overnight. Hemoglobin is currently 8.4. Tolerating tube feeding. Intermittent myoclonus persist. No change in neurological examination. Subjective 09/06: Afebrile. Plan to withdraw care made yesterday. Articles signed. Saturations currently 70%. Appears comfortable. Objective Vital Signs / I&O: Vital Signs 09/05/18 15:00 09/05/18 19:00 09/05/18 23:00 Temperature 98.7 F 98.8 F 98.9 F Pulse Rate 90 98 H 97 H Respiratory Rate Blood Pressure 154/82 H 123/65 125/68 Pulse Oximetry 98 79 L 84 L 09/06/18 03:00 09/06/18 07:00 09/06/18 11:00 Temperature 99.2 F 98.9 F Pulse Rate 95 H 95 H 92 H Respiratory Rate 20 20 20 Blood Pressure 116/63 123/63 121/66 Pulse Oximetry 82 L 78 L 77 L Intake & Output 09/05/18 09/06/1818 18:59 06:59 18:59 Intake Total 200 / 200 0 / 0 Output Total 1000 / 1000 850 / 850 Balance -800 / -800 -850 / -850 Weight 104 kg Intake: IV 200 / 200 Azactam Inj 2 GM In NS Inj 100 100 / 100 ML @ 200 mls/hr IV.SIG Q8H MERVAT Rx#:[id number] Venofer Inj 100 MG In NS Inj 100 / 100 100 ML @ 105 mls/hr IV.SIG DAILY MERVAT Rx#:[id number] Oral 0 / 0 0 / 0 Output: Stool 0 / 0 0 / 0 Urine Amount (Catheter) 1000 / 1000 850 / 850 Indwelling Temp Sensing 1000 / 1000 850 / 850 Catheter Other: Date of Last Bowel Movement 08/30/18 08/30/18 08/30/18 Result Diagrams: 09/05/18 03:44 09/05/18 03:44 Other Results: Microbiology 08/31/18 15:00 Blood - Peripheral Aerobic Blood Culture - Final No growth in 5 days 08/31/18 15:00 Blood - Peripheral Anaerobic Blood Culture - Final No growth in 5 days 08/31/18 15:05 Blood - Peripheral Aerobic Blood Culture - Final No growth in 5 days 08/31/18 15:05 Blood - Peripheral Anaerobic Blood Culture - Final No growth in 5 days 09/01/18 10:50 Sputum - Oral Tracheal Aspirate Gram Stain - Final 09/01/18 10:50 Sputum - Oral Tracheal Aspirate Sputum Culture - Final Enterobacter aerogenes S. aureus MRSA 09/01/18 08:30 Catheterized Urine Urine Culture - Final No growth in 48 hours 08/25/18 12:41 Blood - Peripheral Aerobic Blood Culture - Final No growth in 5 days 08/25/18 12:41 Blood - Peripheral Anaerobic Blood Culture - Final No growth in 5 days 08/25/18 12:30 Blood - Line Aerobic Blood Culture - Final No growth in 5 days 08/25/18 12:30 Blood - Line Anaerobic Blood Culture - Final No growth in 5 days 08/25/18 11:15 Sputum - Endotracheal Gram Stain - Final 08/25/18 11:15 Sputum - Endotracheal Sputum Culture - Final Enterobacter aerogenes Imaging: Chest CTA 08/24/18 00:00 CONCLUSION: 1. No CT evidence for pulmonary artery embolism as questioned. 2. Diffuse groundglass opacities which appear more confluent in the right upper lobe. Differential considerations include pulmonary edema versus ARDS versus diffuse/atypical infection. 3. Prominent coronary artery calcifications. Chest X-Ray 08/24/18 19:10 CONCLUSION: 1. ETT in good position. NGT beyond the GE junction. 2. Diffuse airspace disease throughout the right lung most prominently in the right upper and midlung zones. Differential considerations include multilobar/ atypical pneumonia, aspiration, or atypical pulmonary edema. Head CT 08/24/18 19:11 CONCLUSION: 1. No areas of acute hemorrhage or mass effect are seen. 2. Extensive low density seen throughout the cerebral white matter likely related to small vessel ischemic change. 3. Motion artifact. . Chest X-Ray 08/26/18 11:39 CONCLUSION: Resolution of the airspace disease involving the right lung. Interstitial prominence throughout both lungs is new and could relate to interstitial edema. Chest X-Ray 08/29/18 10:00 CONCLUSION: 1. Stable ETT. NGT in the stomach. 2. Interstitial edema and pulmonary vascular congestion pattern. 3. Stable mild patchy bilateral lower lung zone airspace disease. Head MRI 08/30/18 00:00 CONCLUSION: 1. Moderate diffuse cerebral atrophy with prominent periventricular ischemic white matter demyelination. 2. No evidence for acute infarction or hemorrhage. Chest X-Ray 08/30/18 06:00 CONCLUSION: Diffuse edema versus pneumonia. The findings are similar to the prior exam. Chest X-Ray 08/31/18 06:00 CONCLUSION: Worsening pulmonary edema. Chest X-Ray 09/01/18 06:00 CONCLUSION: Cardiomegaly and findings of congestive heart failure. The findings are similar to the prior exam. Chest X-Ray 09/03/18 06:00 CONCLUSION: Cardiomegaly and bilateral airspace disease. Chest X-Ray 09/04/18 06:00 CONCLUSION: Bibasilar airspace disease slightly more prominent in the left lung base when compared to previous study. Probable small pleural effusions. Chest X-Ray 09/05/18 06:00 CONCLUSION: Bibasilar areas of consolidation or atelectasis being worse than left. Some degree of left effusion can be considered. Objective Remarks: GEN: 72-year-old male currently resting in bed unresponsive HEENT: NCAT, NECK: Trachea midline CARDIO: Regular rate and rhythm. S1, S2 no S4. No murmur RESP: Diminished breath sounds bilaterally, no wheezing rales or rhonchi ABD/GI: Soft, non-distended. Hypoactive bowel sounds EXT/MS: 1+ peripheral edema. SKIN: Anasarca, fluid-filled blisters developing on upper extremities and trunk NEURO: No spontaneous movements or eye opening. Intermittently opens eyes to loud voice. But does not follow command. Nonfocal. 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 Severe encephalopathy Probable myoclonus Currently on as needed acetaminophen/Lorazepam CARDIO: Essential hypertension As needed furosemide every 6 hours PULM: Acute hypoxic respiratory failure secondary to cardiac arrest Albuterol/ipratropium aerosols every 6 hours with albuterol aerosols every 2 hours as needed dyspnea Oxygen for comfort F/E/N: Advance diet as tolerated RENAL: No indication to monitor urine output ID: Enterobacter/MRSA sputum positive Antibiotics to be discontinued ENDO: -Levothyroxine is been discontinued HEME: Normocytic anemia Leukocytosis No indication for following PROPHY: -SCDs, enoxaparin 40 mg daily is been discontinued -Famotidine Level 2 follow-up. Likely transition to hospice care center today.
--- NOTE | 2018-09-06 12:48 | P.DS ---
Date of admission: 08/24/18 19:43 Primary care physician: Christy Calvillo MD Attending physician on discharge: Melvin Hunter Anticipated date of discharge: 09/06/18 Brief History from admission: 72-year-old male, past medical history significant for diabetes and coronary artery disease with 3 previous stents, who is presented post cardiac arrest. Per EMS and family he was doing work around the house when he stated that he did not feel right and thought something was off with his blood sugar. He then went to go sit down and when his turned around he was slumping over. She then called 911. On EMS arrival he was unresponsive pulseless and apneic. They began CPR. They temporarily achieved ROSC in the field prior to him coding again. They obtained ROSC again right before arrival. In total they gave 3 mg of epinephrine, 2 A of bicarbonate, 300 mg of amiodarone. EMS does not believe that he was without a pulse for more than 15 minutes at any time. He lost pulses again on arrival here. Again he was successfully resuscitated with return of spontaneous circulation within 15 minutes. Patient update on day of discharge: Patient withdrawal of care 09/05. Extubated. Plan to hospice care center today 09/06. DS: Diagnosis - Discharge Diagnosis (1) Anoxic encephalopathy Status: Acute (2) Cardiac arrest Status: Acute (3) NSTEMI (non-ST elevated myocardial infarction) Status: Acute (4) PEA (Pulseless electrical activity) Status: Acute (5) Post hypoxic myoclonus Status: Acute (6) Respiratory failure Status: Acute DS: Summary Hospital Course: 72-year-old male, past medical history significant for diabetes and coronary artery disease with 3 previous stents, who is presented post cardiac arrest. Per EMS and family he was doing work around the house when he stated that he did not feel right and thought something was off with his blood sugar. He then went to go sit down and when his turned around he was slumping over. She then called 911. On EMS arrival he was unresponsive pulseless and apneic. They began CPR. They temporarily achieved ROSC in the field prior to him coding again. They obtained ROSC again right before arrival. In total they gave 3 mg of epinephrine, 2 A of bicarbonate, 300 mg of amiodarone. EMS does not believe that he was without a pulse for more than 15 minutes at any time. He lost pulses again on arrival here. Again he was successfully resuscitated with return of spontaneous circulation within 15 minutes. 08/25: Patient admitted to CVICU, on targeted temperature management. 08/26: No significant overnight events, decreased UO this morning. Now being rewarmed. 08/27: Called to bedside by RN yesterday for facial swelling, CXR showed no evidence of PTX or subcut emphysema, CT scans ordered but was delayed by over 7 hours due to multiple trauma and stroke alerts taking priority in CT scan. When the patient was being prepared to move to CT around 6:30 PM, he became hypoxic to the high 80s and was too unstable for scan. He required increase in his bilevel settings and was started on flolan. This morning, he is stable, O2 sats 100% on current settings with much improved ABG. 08/28: Patient has been off pressors since yesterday afternoon, off all sedation x 24+ hours but still unresponsive. Only had a weak cough reflex. EEG negative for seizures. 08/29: Patient remains on bilevel, oxygenation improved however remains encephalopathy. To noxious central stimuli patient does weakly withdraw upper extremities and opens eyes. ABG shows pH of 7.47. Pressure high reduced to 28 from 32. 08/30: Remains on bilevel slightly improved oxygenation. Diuresis started yesterday with good urine output. Creatinine slightly improved. Remains severely encephalopathic off sedation more for more than 72 hours now. Attempt transition to PC/AC with high PEEP, if tolerated check MRI of the brain 08/31: Patient remains critical and hypoxemic however very slight improvement in neuro exam. MRI did not show any evidence of anoxic brain injury. Change from bilevel to HEART DOCTOR C yesterday. Tolerating well PEEP now reduced to 10. Chest x-ray shows persistent pulmonary edema continue diuresis. Start quarter normal saline with potassium 4 free water replacement. Urine output more than 4 L in 24 hours 09/01: Clinically no significant improvement. Intermittent spontaneous eye opening but no tracking. Intermittent twitching questionable myoclonus. EEG yesterday showed no seizures but showed burst suppression pattern indicating brain injury. MRI though was negative. Will get palliative care involved 09/02: Hypertensive overnight. T-max 99.8. Intermittently opens eyes. Intermittent twitching questionable myoclonus. EEG 09/01 revealed severe encephalopathy. No epileptic activity. 09/03: Remains hypertensive. Currently not opening eyes. Started on levetiracetam yesterday for questionable myoclonus. Reviewed neurology's notes. Likely MRI next week. Trach decision will come on next Wednesday. 09/04: Afebrile. Started on diet valproic acid yesterday 500 mg twice daily. EEG revealed severe encephalopathy. No epileptic activity. Tube feeds currently at 35 cc an hour. Goal 65 cc an hour. Likely MRI brain next Wednesday or Wednesday. 09/05: Afebrile. Received IV iron sucrose overnight. Hemoglobin is currently 8.4. Tolerating tube feeding. Intermittent myoclonus persist. No change in neurological examination. Subjective 09/06: Afebrile. Plan to withdraw care made yesterday. Articles signed. Saturations currently 70%. Appears comfortable. - Time Spent with Patient Total time spent providing and/or coordinating discharge services: Less than 30 minutes - Quality: VTE Deep Vein Thrombosis/Pulmonary Embolism Present on Admission: No Exam Vital signs: Vital Signs 09/05/18 15:00 09/05/18 19:00 09/05/18 23:00 Temperature 98.7 F 98.8 F 98.9 F Pulse Rate 90 98 H 97 H Respiratory Rate 18 22 22 Blood Pressure 154/82 H 123/65 125/68 Pulse Oximetry 98 79 L 84 L 09/06/18 03:00 09/06/18 07:00 09/06/18 11:00 Temperature 99.2 F 98.9 F Pulse Rate 95 H 95 H 92 H Respiratory Rate 20 20 20 Blood Pressure 116/63 123/63 121/66 Pulse Oximetry 82 L 78 L 77 L Intake & Output 09/05/18 09/06/18 09/06/18 18:59 06:59 18:59 Intake Total 200 / 200 0 / 0 Output Total 1000 / 1000 850 / 850 Balance -800 / -800 -850 / -850 Weight 104 kg Intake: IV 200 / 200 Azactam Inj 2 GM In NS Inj 100 100 / 100 ML @ 200 mls/hr IV.SIG Q8H MERVAT Rx#:[id number] Venofer Inj 100 MG In NS Inj 100 / 100 100 ML @ 105 mls/hr IV.SIG DAILY MERVAT Rx#:[id number] Oral 0 / 0 0 / 0 Output: Stool 0 / 0 0 / 0 Urine Amount (Catheter) 1000 / 1000 850 / 850 Indwelling Temp Sensing 1000 / 1000 850 / 850 Catheter Other: Date of Last Bowel Movement 08/30/18 08/30/18 08/30/18 - Constitutional no acute distress - Routine HEENT Exam Head: Present: normocephalic, atraumatic Eye: Present: EOMI, PERRL, normal accommodation ENT: Present: mucous membranes moist - Routine Neck Exam Present: supple - Routine Chest/Breast/Axilla Exam Chest wall: Absent: tenderness Breast: Absent: tenderness Axillae: Absent: lymphadenopathy - Routine Respiratory Exam Present: rhonchi. Absent: accessory muscle use - Routine Cardiovascular Exam Present: S1, S2, bradycardia - Routine Abdominal Exam Present: soft, normoactive bowel sounds - Routine Extremities Exam Present: edema. Absent: cyanosis, clubbing - Routine Skin Exam Present: intact, petechiae, ecchymosis - Routine Neurological Exam Absent: alert, oriented X3, CN II-XII intact Results Procedures completed during hospitalization: Targeted temperature monitoring with Quatro catheter Completed studies during hospitalization: Chest CTA 08/24/18 00:00 CONCLUSION: 1. No CT evidence for pulmonary artery embolism as questioned. 2. Diffuse groundglass opacities which appear more confluent in the right upper lobe. Differential considerations include pulmonary edema versus ARDS versus diffuse/atypical infection. 3. Prominent coronary artery calcifications. Chest X-Ray 08/24/18 19:10 CONCLUSION: 1. ETT in good position. NGT beyond the GE junction. 2. Diffuse airspace disease throughout the right lung most prominently in the right upper and midlung zones. Differential considerations include multilobar/ atypical pneumonia, aspiration, or atypical pulmonary edema. Head CT 08/24/18 19:11 CONCLUSION: 1. No areas of acute hemorrhage or mass effect are seen. 2. Extensive low density seen throughout the cerebral white matter likely related to small vessel ischemic change. 3. Motion artifact. . Chest X-Ray 08/26/18 11:39 CONCLUSION: Resolution of the airspace disease involving the right lung. Interstitial prominence throughout both lungs is new and could relate to interstitial edema. Chest X-Ray 08/29/18 10:00 CONCLUSION: 1. Stable ETT. NGT in the stomach. 2. Interstitial edema and pulmonary vascular congestion pattern. 3. Stable mild patchy bilateral lower lung zone airspace disease. Head MRI 08/30/18 00:00 CONCLUSION: 1. Moderate diffuse cerebral atrophy with prominent periventricular ischemic white matter demyelination. 2. No evidence for acute infarction or hemorrhage. Chest X-Ray 08/30/18 06:00 CONCLUSION: Diffuse edema versus pneumonia. The findings are similar to the prior exam. Chest X-Ray 08/31/18 06:00 CONCLUSION: Worsening pulmonary edema. Chest X-Ray 09/01/18 06:00 CONCLUSION: Cardiomegaly and findings of congestive heart failure. The findings are similar to the prior exam. Chest X-Ray 09/03/18 06:00 CONCLUSION: Cardiomegaly and bilateral airspace disease. Chest X-Ray 09/04/18 06:00 CONCLUSION: Bibasilar airspace disease slightly more prominent in the left lung base when compared to previous study. Probable small pleural effusions. Chest X-Ray 09/05/18 06:00 CONCLUSION: Bibasilar areas of consolidation or atelectasis being worse than left. Some degree of left effusion can be considered. Pending studies at discharge: None Labs on day of discharge: Laboratory Tests 08/24/18 08/24/18 08/24/18 19:20 19:20 19:20 WBC 15.9 H RBC 3.62 L Hgb 11.4 L Hct 35.5 L MCV 97.9 MCH 31.5 MCHC 32.1 RDW 13.8 Plt Count 172 MPV 8.4 Prelim Diff (Auto) Slide review pending Neut % (Auto) 45.9 Lymph % (Auto) 47.1 H [place] % (Auto) 5.4 Eos % (Auto) 1.1 Baso % (Auto) 0.5 Neut # (Auto) 7.3 Lymph # (Auto) 7.5 H [place] # (Auto) 0.9 Eos # (Auto) 0.2 Baso # (Auto) 0.1 WBC Differential Manual diff final Seg Neuts % (Manual) 44 Band Neuts % (Manual) 11 H Lymphocytes % (Manual) 38 Monocytes % (Manual) 4 Eosinophils % (Manual) Metamyelocytes % (Man) 2 H Myelocytes % (Man) 1 H Abs Neuts (Manual) 9.2 H Differential Comment . Toxic Granulation Dohle Bodies Present H Platelet Estimate Normal Platelet Morphology Normal Basophilic Stippling PT 12.2 H INR 1.2 APTT 26.4 Puncture Site Patient Temperature O2 Saturation ABG pH ABG pCO2 ABG pO2 ABG HCO3 ABG O2 Content ABG Base Excess ABG Methemoglobin Cory Test Hemoglobin Carboxyhemoglobin O2 Delivery Device Vent Setting Inspired O2 Critical Value Sodium 143 Potassium 2.8 L* Chloride 106 Carbon Dioxide 19.6 L Anion Gap 17 H BUN 12 Creatinine 1.32 H Estimated GFR 53 L POC Glucose Random Glucose 217 H Lactic Acid Calcium 8.5 Prot Corrected Calcium Phosphorus Magnesium Total Bilirubin 0.3 Direct Bilirubin Indirect Bilirubin AST 93 H ALT 88 H Alkaline Phosphatase 68 Ammonia Total Creatine Kinase 98 Troponin I 0.06 H Total Protein 4.9 L Albumin 2.3 L TSH Urine Color Urine Clarity Urine pH Ur Specific [place] Urine Protein Urine Glucose (UA) Urine Ketones Urine Occult Blood Urine Nitrate Urine Bilirubin Urine Urobilinogen Ur Leukocyte Esterase Urine RBC Urine WBC Urine Mucus Micro UA Comment Ur Microscopic Review Urine Culture Comments Nasal Screen MRSA (PCR) Urine Opiates Screen Ur Barbiturates Screen Valproic Acid Ur Amphetamines Screen U Benzodiazepines Scrn Urine Cocaine Screen U Cannabinoids Screen Blood Type Blood Type Recheck Antibody Screen 08/24/18 08/24/18 08/24/18 19:20 19:20 19:20 WBC RBC Hgb Hct MCV MCH MCHC RDW Plt Count MPV Prelim Diff (Auto) Neut % (Auto) Lymph % (Auto) [place] % (Auto) Eos % (Auto) Baso % (Auto) Neut # (Auto) Lymph # (Auto) [place] # (Auto) Eos # (Auto) Baso # (Auto) WBC Differential Seg Neuts % (Manual) Band Neuts % (Manual) Lymphocytes % (Manual) Monocytes % (Manual) Eosinophils % (Manual) Metamyelocytes % (Man) Myelocytes % (Man) Abs Neuts (Manual) Differential Comment Toxic Granulation Dohle Bodies Platelet Estimate Platelet Morphology Basophilic Stippling PT INR APTT Puncture Site Patient Temperature O2 Saturation ABG pH ABG pCO2 ABG pO2 ABG HCO3 ABG O2 Content ABG Base Excess ABG Methemoglobin Cory Test Hemoglobin Carboxyhemoglobin O2 Delivery Device Vent Setting Inspired O2 Critical Value Sodium Potassium Chloride Carbon Dioxide Anion Gap BUN Creatinine Estimated GFR POC Glucose Random Glucose Lactic Acid 12.2 H* Calcium Prot Corrected Calcium Phosphorus Magnesium Total Bilirubin Direct Bilirubin Indirect Bilirubin AST ALT Alkaline Phosphatase Ammonia 79 H Total Creatine Kinase Troponin I Total Protein Albumin TSH Urine Color Urine Clarity Urine pH Ur Specific [place] Urine Protein Urine Glucose (UA) Urine Ketones Urine Occult Blood Urine Nitrate Urine Bilirubin Urine Urobilinogen Ur Leukocyte Esterase Urine RBC Urine WBC Urine Mucus Micro UA Comment Ur Microscopic Review Urine Culture Comments Nasal Screen MRSA (PCR) Urine Opiates Screen Ur Barbiturates Screen Valproic Acid Ur Amphetamines Screen U Benzodiazepines Scrn Urine Cocaine Screen U Cannabinoids Screen Blood Type O Positive Blood Type Recheck Required Antibody Screen Negative 08/24/18 08/24/18 08/24/18 19:20 19:20 19:20 WBC RBC Hgb Hct MCV MCH MCHC RDW Plt Count MPV Prelim Diff (Auto) Neut % (Auto) Lymph % (Auto) [place] % (Auto) Eos % (Auto) Baso % (Auto) Neut # (Auto) Lymph # (Auto) [place] # (Auto) Eos # (Auto) Baso # (Auto) WBC Differential Seg Neuts % (Manual) Band Neuts % (Manual) Lymphocytes % (Manual) Monocytes % (Manual) Eosinophils % (Manual) Metamyelocytes % (Man) Myelocytes % (Man) Abs Neuts (Manual) Differential Comment Toxic Granulation Dohle Bodies Platelet Estimate Platelet Morphology Basophilic Stippling PT INR APTT Puncture Site Patient Temperature O2 Saturation ABG pH ABG pCO2 ABG pO2 ABG HCO3 ABG O2 Content ABG Base Excess ABG Methemoglobin Cory Test Hemoglobin Carboxyhemoglobin O2 Delivery Device Vent Setting Inspired O2 Critical Value Sodium Potassium Chloride Carbon Dioxide Anion Gap BUN Creatinine Estimated GFR POC Glucose Random Glucose Lactic Acid Calcium Prot Corrected Calcium Phosphorus Magnesium Cancelled Total Bilirubin Direct Bilirubin Indirect Bilirubin AST ALT Alkaline Phosphatase Ammonia Total Creatine Kinase Troponin I Total Protein Albumin TSH Urine Color Yellow Urine Clarity Hazy H Urine pH 5.0 Ur Specific [place] 1.018 Urine Protein Negative Urine Glucose (UA) 50 Urine Ketones Negative Urine Occult Blood Negative Urine Nitrate Negative Urine Bilirubin Negative Urine Urobilinogen Less than 2 Ur Leukocyte Esterase Negative Urine RBC Less than 1 Urine WBC 1 Urine Mucus Few H Micro UA Comment Cath-culture not ind Ur Microscopic Review Not Reportable Urine Culture Comments Cath-cult not ind Nasal Screen MRSA (PCR) Urine Opiates Screen Neg Ur Barbiturates Screen Neg Valproic Acid Ur Amphetamines Screen Neg U Benzodiazepines Scrn Neg Urine Cocaine Screen Neg U Cannabinoids Screen Neg Blood Type Blood Type Recheck Antibody Screen 08/24/18 08/24/18 08/24/18 21:05 21:15 21:15 WBC RBC Hgb Hct MCV MCH MCHC RDW Plt Count MPV Prelim Diff (Auto) Neut % (Auto) Lymph % (Auto) [place] % (Auto) Eos % (Auto) Baso % (Auto) Neut # (Auto) Lymph # (Auto) [place] # (Auto) Eos # (Auto) Baso # (Auto) WBC Differential Seg Neuts % (Manual) Band Neuts % (Manual) Lymphocytes % (Manual) Monocytes % (Manual) Eosinophils % (Manual) Metamyelocytes % (Man) Myelocytes % (Man) Abs Neuts (Manual) Differential Comment Toxic Granulation Dohle Bodies Platelet Estimate Platelet Morphology Basophilic Stippling PT INR APTT Puncture Site Art line Patient Temperature 98.6 O2 Saturation 96 ABG pH 7.27 L* ABG pCO2 42 ABG pO2 169 H ABG HCO3 18 L ABG O2 Content 17.6 ABG Base Excess -7.3 L ABG Methemoglobin 1.7 Cory Test Hemoglobin 12.7 Carboxyhemoglobin 0.1 O2 Delivery Device Ventilator Vent Setting Prvc/ac Inspired O2 100 Critical Value Yes Sodium 139 Potassium 2.9 L* Chloride 110 H Carbon Dioxide 20.1 L Anion Gap 9 BUN 14 Creatinine 1.39 H Estimated GFR 50 L POC Glucose Random Glucose 220 H Lactic Acid Calcium 7.7 L D Prot Corrected Calcium Phosphorus Magnesium 1.9 Total Bilirubin 0.4 Direct Bilirubin 0.2 Indirect Bilirubin 0.2 AST 171 H ALT 137 H Alkaline Phosphatase 87 Ammonia Total Creatine Kinase Troponin I Total Protein 6.0 L D Albumin 2.9 L D TSH Urine Color Urine Clarity Urine pH Ur Specific [place] Urine Protein Urine Glucose (UA) Urine Ketones Urine Occult Blood Urine Nitrate Urine Bilirubin Urine Urobilinogen Ur Leukocyte Esterase Urine RBC Urine WBC Urine Mucus Micro UA Comment Ur Microscopic Review Urine Culture Comments Nasal Screen MRSA (PCR) Urine Opiates Screen Ur Barbiturates Screen Valproic Acid Ur Amphetamines Screen U Benzodiazepines Scrn Urine Cocaine Screen U Cannabinoids Screen Blood Type Blood Type Recheck Antibody Screen 08/24/18 08/24/18 08/25/18 22:50 22:50 04:10 WBC 16.9 H RBC 4.17 L Hgb 13.4 D Hct 40.3 MCV 96.7 MCH 32.2 MCHC 33.3 RDW 14.3 Plt Count 209 MPV 8.3 Prelim Diff (Auto) Neut % (Auto) 86.4 H Lymph % (Auto) 5.1 L [place] % (Auto) 8.4 H Eos % (Auto) 0.0 Baso % (Auto) 0.1 Neut # (Auto) 14.6 H Lymph # (Auto) 0.9 L [place] # (Auto) 1.4 H Eos # (Auto) 0.0 Baso # (Auto) 0.0 WBC Differential . Seg Neuts % (Manual) Band Neuts % (Manual) Lymphocytes % (Manual) Monocytes % (Manual) Eosinophils % (Manual) Metamyelocytes % (Man) Myelocytes % (Man) Abs Neuts (Manual) Differential Comment Auto diff final Toxic Granulation Dohle Bodies Platelet Estimate Platelet Morphology Basophilic Stippling PT INR APTT Puncture Site Patient Temperature O2 Saturation ABG pH ABG pCO2 ABG pO2 ABG HCO3 ABG O2 Content ABG Base Excess ABG Methemoglobin Cory Test Hemoglobin Carboxyhemoglobin O2 Delivery Device Vent Setting Inspired O2 Critical Value Sodium Potassium Chloride Carbon Dioxide Anion Gap BUN Creatinine Estimated GFR POC Glucose Random Glucose Lactic Acid 6.4 H* Calcium Prot Corrected Calcium Phosphorus Magnesium Total Bilirubin Direct Bilirubin Indirect Bilirubin AST ALT Alkaline Phosphatase Ammonia Total Creatine Kinase Troponin I Total Protein Albumin TSH Urine Color Urine Clarity Urine pH Ur Specific [place] Urine Protein Urine Glucose (UA) Urine Ketones Urine Occult Blood Urine Nitrate Urine Bilirubin Urine Urobilinogen Ur Leukocyte Esterase Urine RBC Urine WBC Urine Mucus Micro UA Comment Ur Microscopic Review Urine Culture Comments Nasal Screen MRSA (PCR) Not detected Urine Opiates Screen Ur Barbiturates Screen Valproic Acid Ur Amphetamines Screen U Benzodiazepines Scrn Urine Cocaine Screen U Cannabinoids Screen Blood Type Blood Type Recheck Antibody Screen 08/25/18 08/25/18 08/25/18 04:10 04:10 05:38 WBC RBC Hgb Hct MCV MCH MCHC RDW Plt Count MPV Prelim Diff (Auto) Neut % (Auto) Lymph % (Auto) [place] % (Auto) Eos % (Auto) Baso % (Auto) Neut # (Auto) Lymph # (Auto) [place] # (Auto) Eos # (Auto) Baso # (Auto) WBC Differential Seg Neuts % (Manual) Band Neuts % (Manual) Lymphocytes % (Manual) Monocytes % (Manual) Eosinophils % (Manual) Metamyelocytes % (Man) Myelocytes % (Man) Abs Neuts (Manual) Differential Comment Toxic Granulation Dohle Bodies Platelet Estimate Platelet Morphology Basophilic Stippling PT 12.0 H INR 1.2 APTT 26.8 Puncture Site Patient Temperature O2 Saturation ABG pH ABG pCO2 ABG pO2 ABG HCO3 ABG O2 Content ABG Base Excess ABG Methemoglobin Cory Test Hemoglobin Carboxyhemoglobin O2 Delivery Device Vent Setting Inspired O2 Critical Value Sodium 143 Potassium 3.6 Chloride 107 Carbon Dioxide 16.6 L Anion Gap 19 H BUN 16 Creatinine 1.31 H Estimated GFR 54 L POC Glucose 332 H Random Glucose 317 H Lactic Acid Calcium 7.4 L* Prot Corrected Calcium 8.1 L Phosphorus 2.5 Magnesium 1.6 Total Bilirubin 0.8 Direct Bilirubin Indirect Bilirubin AST 226 H ALT 136 H Alkaline Phosphatase 64 Ammonia Total Creatine Kinase Troponin I 9.15 H* Total Protein 5.8 L Albumin 2.8 L TSH Urine Color Urine Clarity Urine pH Ur Specific [place] Urine Protein Urine Glucose (UA) Urine Ketones Urine Occult Blood Urine Nitrate Urine Bilirubin Urine Urobilinogen Ur Leukocyte Esterase Urine RBC Urine WBC Urine Mucus Micro UA Comment Ur Microscopic Review Urine Culture Comments Nasal Screen MRSA (PCR) Urine Opiates Screen Ur Barbiturates Screen Valproic Acid Ur Amphetamines Screen U Benzodiazepines Scrn Urine Cocaine Screen U Cannabinoids Screen Blood Type Blood Type Recheck Antibody Screen 08/25/18 08/25/18 08/25/18 05:46 09:36 10:00 WBC RBC Hgb Hct MCV MCH MCHC RDW Plt Count MPV Prelim Diff (Auto) Neut % (Auto) Lymph % (Auto) [place] % (Auto) Eos % (Auto) Baso % (Auto) Neut # (Auto) Lymph # (Auto) [place] # (Auto) Eos # (Auto) Baso # (Auto) WBC Differential Seg Neuts % (Manual) Band Neuts % (Manual) Lymphocytes % (Manual) Monocytes % (Manual) Eosinophils % (Manual) Metamyelocytes % (Man) Myelocytes % (Man) Abs Neuts (Manual) Differential Comment Toxic Granulation Dohle Bodies Platelet Estimate Platelet Morphology Basophilic Stippling PT INR APTT Puncture Site Art line Patient Temperature 98.6 O2 Saturation 99 ABG pH 7.35 L ABG pCO2 25 L ABG pO2 388 H ABG HCO3 13 L* ABG O2 Content 18.6 ABG Base Excess -11.2 L ABG Methemoglobin 0.8 Cory Test Hemoglobin 12.8 Carboxyhemoglobin 0.5 O2 Delivery Device Ventilator Vent Setting Aprv/bi Inspired O2 100 Critical Value Yes Sodium 140 Potassium 4.4 D Chloride 106 Carbon Dioxide 14.7 L Anion Gap 19 H BUN 17 Creatinine 1.28 Estimated GFR 55 L POC Glucose 314 H Random Glucose 397 H Lactic Acid Calcium 7.3 L* Prot Corrected Calcium 7.9 L Phosphorus Magnesium 2.2 D Total Bilirubin Direct Bilirubin Indirect Bilirubin AST ALT Alkaline Phosphatase Ammonia Total Creatine Kinase Troponin I 10.40 H* Total Protein 6.0 L Albumin TSH Urine Color Urine Clarity Urine pH Ur Specific [place] Urine Protein Urine Glucose (UA) Urine Ketones Urine Occult Blood Urine Nitrate Urine Bilirubin Urine Urobilinogen Ur Leukocyte Esterase Urine RBC Urine WBC Urine Mucus Micro UA Comment Ur Microscopic Review Urine Culture Comments Nasal Screen MRSA (PCR) Urine Opiates Screen Ur Barbiturates Screen Valproic Acid Ur Amphetamines Screen U Benzodiazepines Scrn Urine Cocaine Screen U Cannabinoids Screen Blood Type Blood Type Recheck Antibody Screen 08/25/18 08/25/18 08/25/18 10:00 12:50 15:30 WBC RBC Hgb Hct MCV MCH MCHC RDW Plt Count MPV Prelim Diff (Auto) Neut % (Auto) Lymph % (Auto) [place] % (Auto) Eos % (Auto) Baso % (Auto) Neut # (Auto) Lymph # (Auto) [place] # (Auto) Eos # (Auto) Baso # (Auto) WBC Differential Seg Neuts % (Manual) Band Neuts % (Manual) Lymphocytes % (Manual) Monocytes % (Manual) Eosinophils % (Manual) Metamyelocytes % (Man) Myelocytes % (Man) Abs Neuts (Manual) Differential Comment Toxic Granulation Dohle Bodies Platelet Estimate Platelet Morphology Basophilic Stippling PT INR APTT Puncture Site Patient Temperature O2 Saturation ABG pH ABG pCO2 ABG pO2 ABG HCO3 ABG O2 Content ABG Base Excess ABG Methemoglobin Cory Test Hemoglobin Carboxyhemoglobin O2 Delivery Device Vent Setting Inspired O2 Critical Value Sodium 140 Potassium 4.6 Chloride 107 Carbon Dioxide 16.9 L Anion Gap 16 H BUN 17 Creatinine 1.23 Estimated GFR 58 L POC Glucose 430 H Random Glucose 394 H Lactic Acid 5.5 H* Calcium 7.2 L* Prot Corrected Calcium 7.9 L Phosphorus Magnesium 2.0 Total Bilirubin Direct Bilirubin Indirect Bilirubin AST ALT Alkaline Phosphatase Ammonia Total Creatine Kinase Troponin I 9.69 H* Total Protein 5.7 L Albumin TSH Urine Color Urine Clarity Urine pH Ur Specific [place] Urine Protein Urine Glucose (UA) Urine Ketones Urine Occult Blood Urine Nitrate Urine Bilirubin Urine Urobilinogen Ur Leukocyte Esterase Urine RBC Urine WBC Urine Mucus Micro UA Comment Ur Microscopic Review Urine Culture Comments Nasal Screen MRSA (PCR) Urine Opiates Screen Ur Barbiturates Screen Valproic Acid Ur Amphetamines Screen U Benzodiazepines Scrn Urine Cocaine Screen U Cannabinoids Screen Blood Type Blood Type Recheck Antibody Screen 08/25/18 08/25/18 08/25/18 15:30 17:35 17:43 WBC RBC Hgb Hct MCV MCH MCHC RDW Plt Count MPV Prelim Diff (Auto) Neut % (Auto) Lymph % (Auto) [place] % (Auto) Eos % (Auto) Baso % (Auto) Neut # (Auto) Lymph # (Auto) [place] # (Auto) Eos # (Auto) Baso # (Auto) WBC Differential Seg Neuts % (Manual) Band Neuts % (Manual) Lymphocytes % (Manual) Monocytes % (Manual) Eosinophils % (Manual) Metamyelocytes % (Man) Myelocytes % (Man) Abs Neuts (Manual) Differential Comment Toxic Granulation Dohle Bodies Platelet Estimate Platelet Morphology Basophilic Stippling PT 11.4 INR 1.1 APTT 29.3 Puncture Site Art line Patient Temperature 98.6 O2 Saturation 97 ABG pH 7.45 H ABG pCO2 23 L* ABG pO2 251 H ABG HCO3 16 L* ABG O2 Content 19.4 ABG Base Excess -7.6 L ABG Methemoglobin 1.6 Cory Test Hemoglobin 13.8 Carboxyhemoglobin 0.5 O2 Delivery Device Ventilator Vent Setting Aprv/bilevel Inspired O2 60 Critical Value Yes Sodium Potassium Chloride Carbon Dioxide Anion Gap BUN Creatinine Estimated GFR POC Glucose 357 H Random Glucose Lactic Acid Calcium Prot Corrected Calcium Phosphorus Magnesium Total Bilirubin Direct Bilirubin Indirect Bilirubin AST ALT Alkaline Phosphatase Ammonia Total Creatine Kinase Troponin I Total Protein Albumin TSH Urine Color Urine Clarity Urine pH Ur Specific [place] Urine Protein Urine Glucose (UA) Urine Ketones Urine Occult Blood Urine Nitrate Urine Bilirubin Urine Urobilinogen Ur Leukocyte Esterase Urine RBC Urine WBC Urine Mucus Micro UA Comment Ur Microscopic Review Urine Culture Comments Nasal Screen MRSA (PCR) Urine Opiates Screen Ur Barbiturates Screen Valproic Acid Ur Amphetamines Screen U Benzodiazepines Scrn Urine Cocaine Screen U Cannabinoids Screen Blood Type Blood Type Recheck Antibody Screen 08/25/18 08/25/18 08/25/18 20:48 21:59 22:10 WBC RBC Hgb Hct MCV MCH MCHC RDW Plt Count MPV Prelim Diff (Auto) Neut % (Auto) Lymph % (Auto) [place] % (Auto) Eos % (Auto) Baso % (Auto) Neut # (Auto) Lymph # (Auto) [place] # (Auto) Eos # (Auto) Baso # (Auto) WBC Differential Seg Neuts % (Manual) Band Neuts % (Manual) Lymphocytes % (Manual) Monocytes % (Manual) Eosinophils % (Manual) Metamyelocytes % (Man) Myelocytes % (Man) Abs Neuts (Manual) Differential Comment Toxic Granulation Dohle Bodies Platelet Estimate Platelet Morphology Basophilic Stippling PT INR APTT Puncture Site Patient Temperature O2 Saturation ABG pH ABG pCO2 ABG pO2 ABG HCO3 ABG O2 Content ABG Base Excess ABG Methemoglobin Cory Test Hemoglobin Carboxyhemoglobin O2 Delivery Device Vent Setting Inspired O2 Critical Value Sodium 141 Potassium 3.2 L D Chloride 111 H Carbon Dioxide 17.3 L Anion Gap 13 BUN 16 Creatinine 1.05 Estimated GFR 69 L POC Glucose 361 H 409 H Random Glucose 329 H Lactic Acid Calcium 7.6 L Prot Corrected Calcium Phosphorus Magnesium 1.8 Total Bilirubin Direct Bilirubin Indirect Bilirubin AST ALT Alkaline Phosphatase Ammonia Total Creatine Kinase Troponin I 8.34 H* Total Protein Albumin TSH Urine Color Urine Clarity Urine pH Ur Specific [place] Urine Protein Urine Glucose (UA) Urine Ketones Urine Occult Blood Urine Nitrate Urine Bilirubin Urine Urobilinogen Ur Leukocyte Esterase Urine RBC Urine WBC Urine Mucus Micro UA Comment Ur Microscopic Review Urine Culture Comments Nasal Screen MRSA (PCR) Urine Opiates Screen Ur Barbiturates Screen Valproic Acid Ur Amphetamines Screen U Benzodiazepines Scrn Urine Cocaine Screen U Cannabinoids Screen Blood Type Blood Type Recheck Antibody Screen 08/25/18 08/25/18 08/26/18 23:04 23:25 00:07 WBC RBC Hgb Hct MCV MCH MCHC RDW Plt Count MPV Prelim Diff (Auto) Neut % (Auto) Lymph % (Auto) [place] % (Auto) Eos % (Auto) Baso % (Auto) Neut # (Auto) Lymph # (Auto) [place] # (Auto) Eos # (Auto) Baso # (Auto) WBC Differential Seg Neuts % (Manual) Band Neuts % (Manual) Lymphocytes % (Manual) Monocytes % (Manual) Eosinophils % (Manual) Metamyelocytes % (Man) Myelocytes % (Man) Abs Neuts (Manual) Differential Comment Toxic Granulation Dohle Bodies Platelet Estimate Platelet Morphology Basophilic Stippling PT INR APTT 211.7 H* D Puncture Site Patient Temperature O2 Saturation ABG pH ABG pCO2 ABG pO2 ABG HCO3 ABG O2 Content ABG Base Excess ABG Methemoglobin Cory Test Hemoglobin Carboxyhemoglobin O2 Delivery Device Vent Setting Inspired O2 Critical Value Sodium Potassium Chloride Carbon Dioxide Anion Gap BUN Creatinine Estimated GFR POC Glucose 292 H 287 H Random Glucose Lactic Acid Calcium Prot Corrected Calcium Phosphorus Magnesium Total Bilirubin Direct Bilirubin Indirect Bilirubin AST ALT Alkaline Phosphatase Ammonia Total Creatine Kinase Troponin I Total Protein Albumin TSH Urine Color Urine Clarity Urine pH Ur Specific [place] Urine Protein Urine Glucose (UA) Urine Ketones Urine Occult Blood Urine Nitrate Urine Bilirubin Urine Urobilinogen Ur Leukocyte Esterase Urine RBC Urine WBC Urine Mucus Micro UA Comment Ur Microscopic Review Urine Culture Comments Nasal Screen MRSA (PCR) Urine Opiates Screen Ur Barbiturates Screen Valproic Acid Ur Amphetamines Screen U Benzodiazepines Scrn Urine Cocaine Screen U Cannabinoids Screen Blood Type Blood Type Recheck Antibody Screen 08/26/18 08/26/18 08/26/18 01:08 02:06 02:10 WBC RBC Hgb Hct MCV MCH MCHC RDW Plt Count MPV Prelim Diff (Auto) Neut % (Auto) Lymph % (Auto) [place] % (Auto) Eos % (Auto) Baso % (Auto) Neut # (Auto) Lymph # (Auto) [place] # (Auto) Eos # (Auto) Baso # (Auto) WBC Differential Seg Neuts % (Manual) Band Neuts % (Manual) Lymphocytes % (Manual) Monocytes % (Manual) Eosinophils % (Manual) Metamyelocytes % (Man) Myelocytes % (Man) Abs Neuts (Manual) Differential Comment Toxic Granulation Dohle Bodies Platelet Estimate Platelet Morphology Basophilic Stippling PT INR APTT Puncture Site Patient Temperature O2 Saturation ABG pH ABG pCO2 ABG pO2 ABG HCO3 ABG O2 Content ABG Base Excess ABG Methemoglobin Cory Test Hemoglobin Carboxyhemoglobin O2 Delivery Device Vent Setting Inspired O2 Critical Value Sodium Potassium Chloride Carbon Dioxide Anion Gap BUN Creatinine Estimated GFR POC Glucose 278 H 304 H Random Glucose Lactic Acid Calcium Prot Corrected Calcium Phosphorus Magnesium Total Bilirubin Direct Bilirubin Indirect Bilirubin AST ALT Alkaline Phosphatase Ammonia Total Creatine Kinase Troponin I 6.58 H* Total Protein Albumin TSH Urine Color Urine Clarity Urine pH Ur Specific [place] Urine Protein Urine Glucose (UA) Urine Ketones Urine Occult Blood Urine Nitrate Urine Bilirubin Urine Urobilinogen Ur Leukocyte Esterase Urine RBC Urine WBC Urine Mucus Micro UA Comment Ur Microscopic Review Urine Culture Comments Nasal Screen MRSA (PCR) Urine Opiates Screen Ur Barbiturates Screen Valproic Acid Ur Amphetamines Screen U Benzodiazepines Scrn Urine Cocaine Screen U Cannabinoids Screen Blood Type Blood Type Recheck Antibody Screen 08/26/18 08/26/18 08/26/18 02:10 03:07 04:04 WBC RBC Hgb Hct MCV MCH MCHC RDW Plt Count MPV Prelim Diff (Auto) Neut % (Auto) Lymph % (Auto) [place] % (Auto) Eos % (Auto) Baso % (Auto) Neut # (Auto) Lymph # (Auto) [place] # (Auto) Eos # (Auto) Baso # (Auto) WBC Differential Seg Neuts % (Manual) Band Neuts % (Manual) Lymphocytes % (Manual) Monocytes % (Manual) Eosinophils % (Manual) Metamyelocytes % (Man) Myelocytes % (Man) Abs Neuts (Manual) Differential Comment Toxic Granulation Dohle Bodies Platelet Estimate Platelet Morphology Basophilic Stippling PT INR APTT 61.3 H D Puncture Site Patient Temperature O2 Saturation ABG pH ABG pCO2 ABG pO2 ABG HCO3 ABG O2 Content ABG Base Excess ABG Methemoglobin Cory Test Hemoglobin Carboxyhemoglobin O2 Delivery Device Vent Setting Inspired O2 Critical Value Sodium Potassium Chloride Carbon Dioxide Anion Gap BUN Creatinine Estimated GFR POC Glucose 223 H 222 H Random Glucose Lactic Acid Calcium Prot Corrected Calcium Phosphorus Magnesium Total Bilirubin Direct Bilirubin Indirect Bilirubin AST ALT Alkaline Phosphatase Ammonia Total Creatine Kinase Troponin I Total Protein Albumin TSH Urine Color Urine Clarity Urine pH Ur Specific [place] Urine Protein Urine Glucose (UA) Urine Ketones Urine Occult Blood Urine Nitrate Urine Bilirubin Urine Urobilinogen Ur Leukocyte Esterase Urine RBC Urine WBC Urine Mucus Micro UA Comment Ur Microscopic Review Urine Culture Comments Nasal Screen MRSA (PCR) Urine Opiates Screen Ur Barbiturates Screen Valproic Acid Ur Amphetamines Screen U Benzodiazepines Scrn Urine Cocaine Screen U Cannabinoids Screen Blood Type Blood Type Recheck Antibody Screen 08/26/18 08/26/18 08/26/18 05:04 06:00 07:42 WBC RBC Hgb Hct MCV MCH MCHC RDW Plt Count MPV Prelim Diff (Auto) Neut % (Auto) Lymph % (Auto) [place] % (Auto) Eos % (Auto) Baso % (Auto) Neut # (Auto) Lymph # (Auto) [place] # (Auto) Eos # (Auto) Baso # (Auto) WBC Differential Seg Neuts % (Manual) Band Neuts % (Manual) Lymphocytes % (Manual) Monocytes % (Manual) Eosinophils % (Manual) Metamyelocytes % (Man) Myelocytes % (Man) Abs Neuts (Manual) Differential Comment Toxic Granulation Dohle Bodies Platelet Estimate Platelet Morphology Basophilic Stippling PT INR APTT Puncture Site Patient Temperature O2 Saturation ABG pH ABG pCO2 ABG pO2 ABG HCO3 ABG O2 Content ABG Base Excess ABG Methemoglobin Cory Test Hemoglobin Carboxyhemoglobin O2 Delivery Device Vent Setting Inspired O2 Critical Value Sodium Potassium Chloride Carbon Dioxide Anion Gap BUN Creatinine Estimated GFR POC Glucose 217 H 249 H 201 H Random Glucose Lactic Acid Calcium Prot Corrected Calcium Phosphorus Magnesium Total Bilirubin Direct Bilirubin Indirect Bilirubin AST ALT Alkaline Phosphatase Ammonia Total Creatine Kinase Troponin I Total Protein Albumin TSH Urine Color Urine Clarity Urine pH Ur Specific [place] Urine Protein Urine Glucose (UA) Urine Ketones Urine Occult Blood Urine Nitrate Urine Bilirubin Urine Urobilinogen Ur Leukocyte Esterase Urine RBC Urine WBC Urine Mucus Micro UA Comment Ur Microscopic Review Urine Culture Comments Nasal Screen MRSA (PCR) Urine Opiates Screen Ur Barbiturates Screen Valproic Acid Ur Amphetamines Screen U Benzodiazepines Scrn Urine Cocaine Screen U Cannabinoids Screen Blood Type Blood Type Recheck Antibody Screen 08/26/18 08/26/18 08/26/18 08:09 09:10 09:10 WBC 12.8 H RBC 3.87 L Hgb 12.4 L Hct 35.7 L MCV 92.3 D MCH 32.1 MCHC 34.8 RDW 14.0 Plt Count 158 MPV 8.2 Prelim Diff (Auto) Neut % (Auto) 85.3 H Lymph % (Auto) 9.4 [place] % (Auto) 5.0 Eos % (Auto) 0.1 Baso % (Auto) 0.2 Neut # (Auto) 10.9 H Lymph # (Auto) 1.2 [place] # (Auto) 0.6 Eos # (Auto) 0.0 Baso # (Auto) 0.0 WBC Differential . Seg Neuts % (Manual) Band Neuts % (Manual) Lymphocytes % (Manual) Monocytes % (Manual) Eosinophils % (Manual) Metamyelocytes % (Man) Myelocytes % (Man) Abs Neuts (Manual) Differential Comment Auto diff final Toxic Granulation Dohle Bodies Platelet Estimate Platelet Morphology Basophilic Stippling PT INR APTT 51.1 H Puncture Site Patient Temperature O2 Saturation ABG pH ABG pCO2 ABG pO2 ABG HCO3 ABG O2 Content ABG Base Excess ABG Methemoglobin Cory Test Hemoglobin Carboxyhemoglobin O2 Delivery Device Vent Setting Inspired O2 Critical Value Sodium Potassium Chloride Carbon Dioxide Anion Gap BUN Creatinine Estimated GFR POC Glucose 176 H Random Glucose Lactic Acid Calcium Prot Corrected Calcium Phosphorus Magnesium Total Bilirubin Direct Bilirubin Indirect Bilirubin AST ALT Alkaline Phosphatase Ammonia Total Creatine Kinase Troponin I Total Protein Albumin TSH Urine Color Urine Clarity Urine pH Ur Specific [place] Urine Protein Urine Glucose (UA) Urine Ketones Urine Occult Blood Urine Nitrate Urine Bilirubin Urine Urobilinogen Ur Leukocyte Esterase Urine RBC Urine WBC Urine Mucus Micro UA Comment Ur Microscopic Review Urine Culture Comments Nasal Screen MRSA (PCR) Urine Opiates Screen Ur Barbiturates Screen Valproic Acid Ur Amphetamines Screen U Benzodiazepines Scrn Urine Cocaine Screen U Cannabinoids Screen Blood Type Blood Type Recheck Antibody Screen 08/26/18 08/26/18 08/26/18 09:10 10:10 11:16 WBC RBC Hgb Hct MCV MCH MCHC RDW Plt Count MPV Prelim Diff (Auto) Neut % (Auto) Lymph % (Auto) [place] % (Auto) Eos % (Auto) Baso % (Auto) Neut # (Auto) Lymph # (Auto) [place] # (Auto) Eos # (Auto) Baso # (Auto) WBC Differential Seg Neuts % (Manual) Band Neuts % (Manual) Lymphocytes % (Manual) Monocytes % (Manual) Eosinophils % (Manual) Metamyelocytes % (Man) Myelocytes % (Man) Abs Neuts (Manual) Differential Comment Toxic Granulation Dohle Bodies Platelet Estimate Platelet Morphology Basophilic Stippling PT INR APTT Puncture Site Patient Temperature O2 Saturation ABG pH ABG pCO2 ABG pO2 ABG HCO3 ABG O2 Content ABG Base Excess ABG Methemoglobin Cory Test Hemoglobin Carboxyhemoglobin O2 Delivery Device Vent Setting Inspired O2 Critical Value Sodium 148 H Potassium 2.9 L* Chloride 113 H Carbon Dioxide 21.6 Anion Gap 13 BUN 15 Creatinine 0.94 Estimated GFR 79 L POC Glucose 191 H 194 H Random Glucose 193 H D Lactic Acid Calcium 7.2 L* Prot Corrected Calcium 8.2 L Phosphorus Magnesium 2.2 Total Bilirubin Direct Bilirubin Indirect Bilirubin AST ALT Alkaline Phosphatase Ammonia Total Creatine Kinase Troponin I Total Protein 5.2 L Albumin TSH Urine Color Urine Clarity Urine pH Ur Specific [place] Urine Protein Urine Glucose (UA) Urine Ketones Urine Occult Blood Urine Nitrate Urine Bilirubin Urine Urobilinogen Ur Leukocyte Esterase Urine RBC Urine WBC Urine Mucus Micro UA Comment Ur Microscopic Review Urine Culture Comments Nasal Screen MRSA (PCR) Urine Opiates Screen Ur Barbiturates Screen Valproic Acid Ur Amphetamines Screen U Benzodiazepines Scrn Urine Cocaine Screen U Cannabinoids Screen Blood Type Blood Type Recheck Antibody Screen 08/26/18 08/26/18 08/26/18 14:04 15:23 16:14 WBC RBC Hgb Hct MCV MCH MCHC RDW Plt Count MPV Prelim Diff (Auto) Neut % (Auto) Lymph % (Auto) [place] % (Auto) Eos % (Auto) Baso % (Auto) Neut # (Auto) Lymph # (Auto) [place] # (Auto) Eos # (Auto) Baso # (Auto) WBC Differential Seg Neuts % (Manual) Band Neuts % (Manual) Lymphocytes % (Manual) Monocytes % (Manual) Eosinophils % (Manual) Metamyelocytes % (Man) Myelocytes % (Man) Abs Neuts (Manual) Differential Comment Toxic Granulation Dohle Bodies Platelet Estimate Platelet Morphology Basophilic Stippling PT INR APTT 49.3 H Puncture Site Patient Temperature O2 Saturation ABG pH ABG pCO2 ABG pO2 ABG HCO3 ABG O2 Content ABG Base Excess ABG Methemoglobin Cory Test Hemoglobin Carboxyhemoglobin O2 Delivery Device Vent Setting Inspired O2 Critical Value Sodium Potassium Chloride Carbon Dioxide Anion Gap BUN Creatinine Estimated GFR POC Glucose 132 H 106 Random Glucose Lactic Acid Calcium Prot Corrected Calcium Phosphorus Magnesium Total Bilirubin Direct Bilirubin Indirect Bilirubin AST ALT Alkaline Phosphatase Ammonia Total Creatine Kinase Troponin I Total Protein Albumin TSH Urine Color Urine Clarity Urine pH Ur Specific [place] Urine Protein Urine Glucose (UA) Urine Ketones Urine Occult Blood Urine Nitrate Urine Bilirubin Urine Urobilinogen Ur Leukocyte Esterase Urine RBC Urine WBC Urine Mucus Micro UA Comment Ur Microscopic Review Urine Culture Comments Nasal Screen MRSA (PCR) Urine Opiates Screen Ur Barbiturates Screen Valproic Acid Ur Amphetamines Screen U Benzodiazepines Scrn Urine Cocaine Screen U Cannabinoids Screen Blood Type Blood Type Recheck Antibody Screen 08/26/18 08/26/18 08/26/18 17:26 20:26 22:02 WBC RBC Hgb Hct MCV MCH MCHC RDW Plt Count MPV Prelim Diff (Auto) Neut % (Auto) Lymph % (Auto) [place] % (Auto) Eos % (Auto) Baso % (Auto) Neut # (Auto) Lymph # (Auto) [place] # (Auto) Eos # (Auto) Baso # (Auto) WBC Differential Seg Neuts % (Manual) Band Neuts % (Manual) Lymphocytes % (Manual) Monocytes % (Manual) Eosinophils % (Manual) Metamyelocytes % (Man) Myelocytes % (Man) Abs Neuts (Manual) Differential Comment Toxic Granulation Dohle Bodies Platelet Estimate Platelet Morphology Basophilic Stippling PT INR APTT Puncture Site Patient Temperature O2 Saturation ABG pH ABG pCO2 ABG pO2 ABG HCO3 ABG O2 Content ABG Base Excess ABG Methemoglobin Cory Test Hemoglobin Carboxyhemoglobin O2 Delivery Device Vent Setting Inspired O2 Critical Value Sodium Potassium Chloride Carbon Dioxide Anion Gap BUN Creatinine Estimated GFR POC Glucose 114 H 109 116 H Random Glucose Lactic Acid Calcium Prot Corrected Calcium Phosphorus Magnesium Total Bilirubin Direct Bilirubin Indirect Bilirubin AST ALT Alkaline Phosphatase Ammonia Total Creatine Kinase Troponin I Total Protein Albumin TSH Urine Color Urine Clarity Urine pH Ur Specific [place] Urine Protein Urine Glucose (UA) Urine Ketones Urine Occult Blood Urine Nitrate Urine Bilirubin Urine Urobilinogen Ur Leukocyte Esterase Urine RBC Urine WBC Urine Mucus Micro UA Comment Ur Microscopic Review Urine Culture Comments Nasal Screen MRSA (PCR) Urine Opiates Screen Ur Barbiturates Screen Valproic Acid Ur Amphetamines Screen U Benzodiazepines Scrn Urine Cocaine Screen U Cannabinoids Screen Blood Type Blood Type Recheck Antibody Screen 08/26/18 08/27/18 08/27/18 23:05 02:03 03:00 WBC RBC Hgb Hct MCV MCH MCHC RDW Plt Count MPV Prelim Diff (Auto) Neut % (Auto) Lymph % (Auto) [place] % (Auto) Eos % (Auto) Baso % (Auto) Neut # (Auto) Lymph # (Auto) [place] # (Auto) Eos # (Auto) Baso # (Auto) WBC Differential Seg Neuts % (Manual) Band Neuts % (Manual) Lymphocytes % (Manual) Monocytes % (Manual) Eosinophils % (Manual) Metamyelocytes % (Man) Myelocytes % (Man) Abs Neuts (Manual) Differential Comment Toxic Granulation Dohle Bodies Platelet Estimate Platelet Morphology Basophilic Stippling PT INR APTT Puncture Site Patient Temperature O2 Saturation ABG pH ABG pCO2 ABG pO2 ABG HCO3 ABG O2 Content ABG Base Excess ABG Methemoglobin Cory Test Hemoglobin Carboxyhemoglobin O2 Delivery Device Vent Setting Inspired O2 Critical Value Sodium Potassium Chloride Carbon Dioxide Anion Gap BUN Creatinine Estimated GFR POC Glucose 91 93 113 H Random Glucose Lactic Acid Calcium Prot Corrected Calcium Phosphorus Magnesium Total Bilirubin Direct Bilirubin Indirect Bilirubin AST ALT Alkaline Phosphatase Ammonia Total Creatine Kinase Troponin I Total Protein Albumin TSH Urine Color Urine Clarity Urine pH Ur Specific [place] Urine Protein Urine Glucose (UA) Urine Ketones Urine Occult Blood Urine Nitrate Urine Bilirubin Urine Urobilinogen Ur Leukocyte Esterase Urine RBC Urine WBC Urine Mucus Micro UA Comment Ur Microscopic Review Urine Culture Comments Nasal Screen MRSA (PCR) Urine Opiates Screen Ur Barbiturates Screen Valproic Acid Ur Amphetamines Screen U Benzodiazepines Scrn Urine Cocaine Screen U Cannabinoids Screen Blood Type Blood Type Recheck Antibody Screen 08/27/18 08/27/18 08/27/18 04:30 04:30 04:30 WBC 15.7 H RBC 3.64 L Hgb 11.5 L Hct 34.4 L MCV 94.4 MCH 31.6 MCHC 33.4 RDW 14.6 Plt Count 154 MPV 8.9 Prelim Diff (Auto) Neut % (Auto) 87.4 H Lymph % (Auto) 5.6 L [place] % (Auto) 6.9 Eos % (Auto) 0.0 Baso % (Auto) 0.1 Neut # (Auto) 13.7 H Lymph # (Auto) 0.9 L [place] # (Auto) 1.1 H Eos # (Auto) 0.0 Baso # (Auto) 0.0 WBC Differential . Seg Neuts % (Manual) Band Neuts % (Manual) Lymphocytes % (Manual) Monocytes % (Manual) Eosinophils % (Manual) Metamyelocytes % (Man) Myelocytes % (Man) Abs Neuts (Manual) Differential Comment Auto diff final Toxic Granulation Dohle Bodies Platelet Estimate Platelet Morphology Basophilic Stippling PT 12.5 H INR 1.2 APTT Puncture Site Patient Temperature O2 Saturation ABG pH ABG pCO2 ABG pO2 ABG HCO3 ABG O2 Content ABG Base Excess ABG Methemoglobin Cory Test Hemoglobin Carboxyhemoglobin O2 Delivery Device Vent Setting Inspired O2 Critical Value Sodium 150 H Potassium 4.5 D Chloride 114 H Carbon Dioxide 25.9 Anion Gap 10 BUN 21 H Creatinine 1.46 H Estimated GFR 47 L POC Glucose Random Glucose 122 H Lactic Acid Calcium 7.5 L Prot Corrected Calcium Phosphorus 3.4 Magnesium 1.8 Total Bilirubin 0.9 Direct Bilirubin Indirect Bilirubin AST 172 H ALT 81 H Alkaline Phosphatase 57 Ammonia Total Creatine Kinase Troponin I Total Protein 5.4 L Albumin 2.2 L TSH Urine Color Urine Clarity Urine pH Ur Specific [place] Urine Protein Urine Glucose (UA) Urine Ketones Urine Occult Blood Urine Nitrate Urine Bilirubin Urine Urobilinogen Ur Leukocyte Esterase Urine RBC Urine WBC Urine Mucus Micro UA Comment Ur Microscopic Review Urine Culture Comments Nasal Screen MRSA (PCR) Urine Opiates Screen Ur Barbiturates Screen Valproic Acid Ur Amphetamines Screen U Benzodiazepines Scrn Urine Cocaine Screen U Cannabinoids Screen Blood Type Blood Type Recheck Antibody Screen 08/27/18 08/27/18 08/27/18 04:30 05:07 06:06 WBC RBC Hgb Hct MCV MCH MCHC RDW Plt Count MPV Prelim Diff (Auto) Neut % (Auto) Lymph % (Auto) [place] % (Auto) Eos % (Auto) Baso % (Auto) Neut # (Auto) Lymph # (Auto) [place] # (Auto) Eos # (Auto) Baso # (Auto) WBC Differential Seg Neuts % (Manual) Band Neuts % (Manual) Lymphocytes % (Manual) Monocytes % (Manual) Eosinophils % (Manual) Metamyelocytes % (Man) Myelocytes % (Man) Abs Neuts (Manual) Differential Comment Toxic Granulation Dohle Bodies Platelet Estimate Platelet Morphology Basophilic Stippling PT INR APTT 51.3 H Puncture Site Patient Temperature O2 Saturation ABG pH ABG pCO2 ABG pO2 ABG HCO3 ABG O2 Content ABG Base Excess ABG Methemoglobin Cory Test Hemoglobin Carboxyhemoglobin O2 Delivery Device Vent Setting Inspired O2 Critical Value Sodium Potassium Chloride Carbon Dioxide Anion Gap BUN Creatinine Estimated GFR POC Glucose 127 H 110 Random Glucose Lactic Acid Calcium Prot Corrected Calcium Phosphorus Magnesium Total Bilirubin Direct Bilirubin Indirect Bilirubin AST ALT Alkaline Phosphatase Ammonia Total Creatine Kinase Troponin I Total Protein Albumin TSH Urine Color Urine Clarity Urine pH Ur Specific [place] Urine Protein Urine Glucose (UA) Urine Ketones Urine Occult Blood Urine Nitrate Urine Bilirubin Urine Urobilinogen Ur Leukocyte Esterase Urine RBC Urine WBC Urine Mucus Micro UA Comment Ur Microscopic Review Urine Culture Comments Nasal Screen MRSA (PCR) Urine Opiates Screen Ur Barbiturates Screen Valproic Acid Ur Amphetamines Screen U Benzodiazepines Scrn Urine Cocaine Screen U Cannabinoids Screen Blood Type Blood Type Recheck Antibody Screen 08/27/18 08/27/18 08/27/18 07:27 09:30 12:39 WBC RBC Hgb Hct MCV MCH MCHC RDW Plt Count MPV Prelim Diff (Auto) Neut % (Auto) Lymph % (Auto) [place] % (Auto) Eos % (Auto) Baso % (Auto) Neut # (Auto) Lymph # (Auto) [place] # (Auto) Eos # (Auto) Baso # (Auto) WBC Differential Seg Neuts % (Manual) Band Neuts % (Manual) Lymphocytes % (Manual) Monocytes % (Manual) Eosinophils % (Manual) Metamyelocytes % (Man) Myelocytes % (Man) Abs Neuts (Manual) Differential Comment Toxic Granulation Dohle Bodies Platelet Estimate Platelet Morphology Basophilic Stippling PT INR APTT Puncture Site Patient Temperature O2 Saturation ABG pH ABG pCO2 ABG pO2 ABG HCO3 ABG O2 Content ABG Base Excess ABG Methemoglobin Cory Test Hemoglobin Carboxyhemoglobin O2 Delivery Device Vent Setting Inspired O2 Critical Value Sodium Potassium Chloride Carbon Dioxide Anion Gap BUN Creatinine Estimated GFR POC Glucose 112 H 96 117 H Random Glucose Lactic Acid Calcium Prot Corrected Calcium Phosphorus Magnesium Total Bilirubin Direct Bilirubin Indirect Bilirubin AST ALT Alkaline Phosphatase Ammonia Total Creatine Kinase Troponin I Total Protein Albumin TSH Urine Color Urine Clarity Urine pH Ur Specific [place] Urine Protein Urine Glucose (UA) Urine Ketones Urine Occult Blood Urine Nitrate Urine Bilirubin Urine Urobilinogen Ur Leukocyte Esterase Urine RBC Urine WBC Urine Mucus Micro UA Comment Ur Microscopic Review Urine Culture Comments Nasal Screen MRSA (PCR) Urine Opiates Screen Ur Barbiturates Screen Valproic Acid Ur Amphetamines Screen U Benzodiazepines Scrn Urine Cocaine Screen U Cannabinoids Screen Blood Type Blood Type Recheck Antibody Screen 08/27/18 08/28/18 08/28/18 23:58 04:50 04:50 WBC 12.2 H RBC 3.44 L Hgb 11.2 L Hct 32.6 L MCV 94.7 MCH 32.5 MCHC 34.3 RDW 14.8 Plt Count 121 L MPV 8.9 Prelim Diff (Auto) Neut % (Auto) 86.3 H Lymph % (Auto) 7.5 L [place] % (Auto) 6.1 Eos % (Auto) 0.0 Baso % (Auto) 0.1 Neut # (Auto) 10.5 H Lymph # (Auto) 0.9 L [place] # (Auto) 0.7 Eos # (Auto) 0.0 Baso # (Auto) 0.0 WBC Differential . Seg Neuts % (Manual) Band Neuts % (Manual) Lymphocytes % (Manual) Monocytes % (Manual) Eosinophils % (Manual) Metamyelocytes % (Man) Myelocytes % (Man) Abs Neuts (Manual) Differential Comment Auto diff final Toxic Granulation Dohle Bodies Platelet Estimate Platelet Morphology Basophilic Stippling PT 12.0 H INR 1.2 APTT 47.0 H Puncture Site Patient Temperature O2 Saturation ABG pH ABG pCO2 ABG pO2 ABG HCO3 ABG O2 Content ABG Base Excess ABG Methemoglobin Cory Test Hemoglobin Carboxyhemoglobin O2 Delivery Device Vent Setting Inspired O2 Critical Value Sodium Potassium Chloride Carbon Dioxide Anion Gap BUN Creatinine Estimated GFR POC Glucose 97 Random Glucose Lactic Acid Calcium Prot Corrected Calcium Phosphorus Magnesium Total Bilirubin Direct Bilirubin Indirect Bilirubin AST ALT Alkaline Phosphatase Ammonia Total Creatine Kinase Troponin I Total Protein Albumin TSH Urine Color Urine Clarity Urine pH Ur Specific [place] Urine Protein Urine Glucose (UA) Urine Ketones Urine Occult Blood Urine Nitrate Urine Bilirubin Urine Urobilinogen Ur Leukocyte Esterase Urine RBC Urine WBC Urine Mucus Micro UA Comment Ur Microscopic Review Urine Culture Comments Nasal Screen MRSA (PCR) Urine Opiates Screen Ur Barbiturates Screen Valproic Acid Ur Amphetamines Screen U Benzodiazepines Scrn Urine Cocaine Screen U Cannabinoids Screen Blood Type Blood Type Recheck Antibody Screen 08/28/18 08/28/18 08/28/18 04:50 06:00 12:10 WBC RBC Hgb Hct MCV MCH MCHC RDW Plt Count MPV Prelim Diff (Auto) Neut % (Auto) Lymph % (Auto) [place] % (Auto) Eos % (Auto) Baso % (Auto) Neut # (Auto) Lymph # (Auto) [place] # (Auto) Eos # (Auto) Baso # (Auto) WBC Differential Seg Neuts % (Manual) Band Neuts % (Manual) Lymphocytes % (Manual) Monocytes % (Manual) Eosinophils % (Manual) Metamyelocytes % (Man) Myelocytes % (Man) Abs Neuts (Manual) Differential Comment Toxic Granulation Dohle Bodies Platelet Estimate Platelet Morphology Basophilic Stippling PT INR APTT Puncture Site Patient Temperature O2 Saturation ABG pH ABG pCO2 ABG pO2 ABG HCO3 ABG O2 Content ABG Base Excess ABG Methemoglobin Cory Test Hemoglobin Carboxyhemoglobin O2 Delivery Device Vent Setting Inspired O2 Critical Value Sodium 151 H Potassium 4.9 Chloride 113 H Carbon Dioxide 32.1 H Anion Gap 6 BUN 35 H Creatinine 1.38 H Estimated GFR 51 L POC Glucose 88 103 Random Glucose 88 Lactic Acid Calcium 8.3 L D Prot Corrected Calcium Phosphorus 3.5 Magnesium 2.4 D Total Bilirubin 0.8 Direct Bilirubin Indirect Bilirubin AST 177 H ALT 84 H Alkaline Phosphatase 64 Ammonia Total Creatine Kinase Troponin I Total Protein 5.9 L Albumin 2.2 L TSH Urine Color Urine Clarity Urine pH Ur Specific [place] Urine Protein Urine Glucose (UA) Urine Ketones Urine Occult Blood Urine Nitrate Urine Bilirubin Urine Urobilinogen Ur Leukocyte Esterase Urine RBC Urine WBC Urine Mucus Micro UA Comment Ur Microscopic Review Urine Culture Comments Nasal Screen MRSA (PCR) Urine Opiates Screen Ur Barbiturates Screen Valproic Acid Ur Amphetamines Screen U Benzodiazepines Scrn Urine Cocaine Screen U Cannabinoids Screen Blood Type Blood Type Recheck Antibody Screen 08/28/18 08/28/18 08/29/18 17:09 23:22 05:00 WBC 7.7 RBC 3.43 L Hgb 11.0 L Hct 32.9 L MCV 96.1 MCH 32.2 MCHC 33.5 RDW 14.7 Plt Count 120 L MPV 8.7 Prelim Diff (Auto) Neut % (Auto) 79.5 H Lymph % (Auto) 11.8 [place] % (Auto) 8.5 H Eos % (Auto) 0.1 Baso % (Auto) 0.1 Neut # (Auto) 6.1 Lymph # (Auto) 0.9 L [place] # (Auto) 0.7 Eos # (Auto) 0.0 Baso # (Auto) 0.0 WBC Differential . Seg Neuts % (Manual) Band Neuts % (Manual) Lymphocytes % (Manual) Monocytes % (Manual) Eosinophils % (Manual) Metamyelocytes % (Man) Myelocytes % (Man) Abs Neuts (Manual) Differential Comment Auto diff final Toxic Granulation Dohle Bodies Platelet Estimate Platelet Morphology Basophilic Stippling PT INR APTT Puncture Site Patient Temperature O2 Saturation ABG pH ABG pCO2 ABG pO2 ABG HCO3 ABG O2 Content ABG Base Excess ABG Methemoglobin Cory Test Hemoglobin Carboxyhemoglobin O2 Delivery Device Vent Setting Inspired O2 Critical Value Sodium Potassium Chloride Carbon Dioxide Anion Gap BUN Creatinine Estimated GFR POC Glucose 107 151 H Random Glucose Lactic Acid Calcium Prot Corrected Calcium Phosphorus Magnesium Total Bilirubin Direct Bilirubin Indirect Bilirubin AST ALT Alkaline Phosphatase Ammonia Total Creatine Kinase Troponin I Total Protein Albumin TSH Urine Color Urine Clarity Urine pH Ur Specific [place] Urine Protein Urine Glucose (UA) Urine Ketones Urine Occult Blood Urine Nitrate Urine Bilirubin Urine Urobilinogen Ur Leukocyte Esterase Urine RBC Urine WBC Urine Mucus Micro UA Comment Ur Microscopic Review Urine Culture Comments Nasal Screen MRSA (PCR) Urine Opiates Screen Ur Barbiturates Screen Valproic Acid Ur Amphetamines Screen U Benzodiazepines Scrn Urine Cocaine Screen U Cannabinoids Screen Blood Type Blood Type Recheck Antibody Screen 08/29/18 08/29/18 08/29/18 05:00 05:00 05:00 WBC RBC Hgb Hct MCV MCH MCHC RDW Plt Count MPV Prelim Diff (Auto) Neut % (Auto) Lymph % (Auto) [place] % (Auto) Eos % (Auto) Baso % (Auto) Neut # (Auto) Lymph # (Auto) [place] # (Auto) Eos # (Auto) Baso # (Auto) WBC Differential Seg Neuts % (Manual) Band Neuts % (Manual) Lymphocytes % (Manual) Monocytes % (Manual) Eosinophils % (Manual) Metamyelocytes % (Man) Myelocytes % (Man) Abs Neuts (Manual) Differential Comment Toxic Granulation Dohle Bodies Platelet Estimate Platelet Morphology Basophilic Stippling PT 11.6 INR 1.1 APTT 35.3 H D Puncture Site Patient Temperature O2 Saturation ABG pH ABG pCO2 ABG pO2 ABG HCO3 ABG O2 Content ABG Base Excess ABG Methemoglobin Cory Test Hemoglobin Carboxyhemoglobin O2 Delivery Device Vent Setting Inspired O2 Critical Value Sodium 149 H Potassium 3.9 D Chloride 110 H Carbon Dioxide 33.1 H Anion Gap 6 BUN 43 H Creatinine 1.31 H Estimated GFR 54 L POC Glucose Random Glucose 149 H Lactic Acid Calcium 8.4 L Prot Corrected Calcium Phosphorus 2.7 Magnesium 2.5 Total Bilirubin 0.7 Direct Bilirubin Indirect Bilirubin AST 120 H ALT 69 Alkaline Phosphatase 67 Ammonia Total Creatine Kinase Troponin I Total Protein 6.0 L Albumin 2.1 L TSH Urine Color Urine Clarity Urine pH Ur Specific [place] Urine Protein Urine Glucose (UA) Urine Ketones Urine Occult Blood Urine Nitrate Urine Bilirubin Urine Urobilinogen Ur Leukocyte Esterase Urine RBC Urine WBC Urine Mucus Micro UA Comment Ur Microscopic Review Urine Culture Comments Nasal Screen MRSA (PCR) Urine Opiates Screen Ur Barbiturates Screen Valproic Acid Ur Amphetamines Screen U Benzodiazepines Scrn Urine Cocaine Screen U Cannabinoids Screen Blood Type Blood Type Recheck Antibody Screen 08/29/18 08/29/18 08/29/18 05:03 12:00 15:15 WBC RBC Hgb Hct MCV MCH MCHC RDW Plt Count MPV Prelim Diff (Auto) Neut % (Auto) Lymph % (Auto) [place] % (Auto) Eos % (Auto) Baso % (Auto) Neut # (Auto) Lymph # (Auto) [place] # (Auto) Eos # (Auto) Baso # (Auto) WBC Differential Seg Neuts % (Manual) Band Neuts % (Manual) Lymphocytes % (Manual) Monocytes % (Manual) Eosinophils % (Manual) Metamyelocytes % (Man) Myelocytes % (Man) Abs Neuts (Manual) Differential Comment Toxic Granulation Dohle Bodies Platelet Estimate Platelet Morphology Basophilic Stippling PT INR APTT 34.9 H Puncture Site Patient Temperature O2 Saturation ABG pH ABG pCO2 ABG pO2 ABG HCO3 ABG O2 Content ABG Base Excess ABG Methemoglobin Cory Test Hemoglobin Carboxyhemoglobin O2 Delivery Device Vent Setting Inspired O2 Critical Value Sodium Potassium Chloride Carbon Dioxide Anion Gap BUN Creatinine Estimated GFR POC Glucose 165 H 183 H Random Glucose Lactic Acid Calcium Prot Corrected Calcium Phosphorus Magnesium Total Bilirubin Direct Bilirubin Indirect Bilirubin AST ALT Alkaline Phosphatase Ammonia Total Creatine Kinase Troponin I Total Protein Albumin TSH Urine Color Urine Clarity Urine pH Ur Specific [place] Urine Protein Urine Glucose (UA) Urine Ketones Urine Occult Blood Urine Nitrate Urine Bilirubin Urine Urobilinogen Ur Leukocyte Esterase Urine RBC Urine WBC Urine Mucus Micro UA Comment Ur Microscopic Review Urine Culture Comments Nasal Screen MRSA (PCR) Urine Opiates Screen Ur Barbiturates Screen Valproic Acid Ur Amphetamines Screen U Benzodiazepines Scrn Urine Cocaine Screen U Cannabinoids Screen Blood Type Blood Type Recheck Antibody Screen 08/29/18 08/29/18 08/29/18 17:10 23:20 23:27 WBC RBC Hgb Hct MCV MCH MCHC RDW Plt Count MPV Prelim Diff (Auto) Neut % (Auto) Lymph % (Auto) [place] % (Auto) Eos % (Auto) Baso % (Auto) Neut # (Auto) Lymph # (Auto) [place] # (Auto) Eos # (Auto) Baso # (Auto) WBC Differential Seg Neuts % (Manual) Band Neuts % (Manual) Lymphocytes % (Manual) Monocytes % (Manual) Eosinophils % (Manual) Metamyelocytes % (Man) Myelocytes % (Man) Abs Neuts (Manual) Differential Comment Toxic Granulation Dohle Bodies Platelet Estimate Platelet Morphology Basophilic Stippling PT INR APTT 40.4 H Puncture Site Patient Temperature O2 Saturation ABG pH ABG pCO2 ABG pO2 ABG HCO3 ABG O2 Content ABG Base Excess ABG Methemoglobin Cory Test Hemoglobin Carboxyhemoglobin O2 Delivery Device Vent Setting Inspired O2 Critical Value Sodium Potassium Chloride Carbon Dioxide Anion Gap BUN Creatinine Estimated GFR POC Glucose 197 H 246 H Random Glucose Lactic Acid Calcium Prot Corrected Calcium Phosphorus Magnesium Total Bilirubin Direct Bilirubin Indirect Bilirubin AST ALT Alkaline Phosphatase Ammonia Total Creatine Kinase Troponin I Total Protein Albumin TSH Urine Color Urine Clarity Urine pH Ur Specific [place] Urine Protein Urine Glucose (UA) Urine Ketones Urine Occult Blood Urine Nitrate Urine Bilirubin Urine Urobilinogen Ur Leukocyte Esterase Urine RBC Urine WBC Urine Mucus Micro UA Comment Ur Microscopic Review Urine Culture Comments Nasal Screen MRSA (PCR) Urine Opiates Screen Ur Barbiturates Screen Valproic Acid Ur Amphetamines Screen U Benzodiazepines Scrn Urine Cocaine Screen U Cannabinoids Screen Blood Type Blood Type Recheck Antibody Screen 08/30/18 08/30/18 08/30/18 05:20 05:20 05:20 WBC 6.5 RBC 3.34 L Hgb 10.7 L Hct 32.0 L MCV 95.6 MCH 31.9 MCHC 33.4 RDW 14.7 Plt Count 122 L MPV 8.9 Prelim Diff (Auto) Neut % (Auto) 75.1 H Lymph % (Auto) 11.5 [place] % (Auto) 13.3 H Eos % (Auto) 0.0 Baso % (Auto) 0.1 Neut # (Auto) 4.9 Lymph # (Auto) 0.7 L [place] # (Auto) 0.9 Eos # (Auto) 0.0 Baso # (Auto) 0.0 WBC Differential . Seg Neuts % (Manual) Band Neuts % (Manual) Lymphocytes % (Manual) Monocytes % (Manual) Eosinophils % (Manual) Metamyelocytes % (Man) Myelocytes % (Man) Abs Neuts (Manual) Differential Comment Auto diff final Toxic Granulation Dohle Bodies Platelet Estimate Platelet Morphology Basophilic Stippling PT 11.6 INR 1.1 APTT Puncture Site Patient Temperature O2 Saturation ABG pH ABG pCO2 ABG pO2 ABG HCO3 ABG O2 Content ABG Base Excess ABG Methemoglobin Cory Test Hemoglobin Carboxyhemoglobin O2 Delivery Device Vent Setting Inspired O2 Critical Value Sodium 150 H Potassium 4.0 Chloride 111 H Carbon Dioxide 31.9 Anion Gap 7 BUN 43 H Creatinine 1.19 Estimated GFR 60 L POC Glucose Random Glucose 281 H D Lactic Acid Calcium 8.8 Prot Corrected Calcium Phosphorus 3.1 Magnesium 2.5 Total Bilirubin 0.6 Direct Bilirubin Indirect Bilirubin AST 79 H ALT 58 Alkaline Phosphatase 67 Ammonia Total Creatine Kinase Troponin I Total Protein 6.0 L Albumin 2.0 L TSH Urine Color Urine Clarity Urine pH Ur Specific [place] Urine Protein Urine Glucose (UA) Urine Ketones Urine Occult Blood Urine Nitrate Urine Bilirubin Urine Urobilinogen Ur Leukocyte Esterase Urine RBC Urine WBC Urine Mucus Micro UA Comment Ur Microscopic Review Urine Culture Comments Nasal Screen MRSA (PCR) Urine Opiates Screen Ur Barbiturates Screen Valproic Acid Ur Amphetamines Screen U Benzodiazepines Scrn Urine Cocaine Screen U Cannabinoids Screen Blood Type Blood Type Recheck Antibody Screen 08/30/18 08/30/18 08/30/18 05:20 05:48 12:15 WBC RBC Hgb Hct MCV MCH MCHC RDW Plt Count MPV Prelim Diff (Auto) Neut % (Auto) Lymph % (Auto) [place] % (Auto) Eos % (Auto) Baso % (Auto) Neut # (Auto) Lymph # (Auto) [place] # (Auto) Eos # (Auto) Baso # (Auto) WBC Differential Seg Neuts % (Manual) Band Neuts % (Manual) Lymphocytes % (Manual) Monocytes % (Manual) Eosinophils % (Manual) Metamyelocytes % (Man) Myelocytes % (Man) Abs Neuts (Manual) Differential Comment Toxic Granulation Dohle Bodies Platelet Estimate Platelet Morphology Basophilic Stippling PT INR APTT 33.4 H 42.9 H D Puncture Site Patient Temperature O2 Saturation ABG pH ABG pCO2 ABG pO2 ABG HCO3 ABG O2 Content ABG Base Excess ABG Methemoglobin Cory Test Hemoglobin Carboxyhemoglobin O2 Delivery Device Vent Setting Inspired O2 Critical Value Sodium Potassium Chloride Carbon Dioxide Anion Gap BUN Creatinine Estimated GFR POC Glucose 257 H Random Glucose Lactic Acid Calcium Prot Corrected Calcium Phosphorus Magnesium Total Bilirubin Direct Bilirubin Indirect Bilirubin AST ALT Alkaline Phosphatase Ammonia Total Creatine Kinase Troponin I Total Protein Albumin TSH Urine Color Urine Clarity Urine pH Ur Specific [place] Urine Protein Urine Glucose (UA) Urine Ketones Urine Occult Blood Urine Nitrate Urine Bilirubin Urine Urobilinogen Ur Leukocyte Esterase Urine RBC Urine WBC Urine Mucus Micro UA Comment Ur Microscopic Review Urine Culture Comments Nasal Screen MRSA (PCR) Urine Opiates Screen Ur Barbiturates Screen Valproic Acid Ur Amphetamines Screen U Benzodiazepines Scrn Urine Cocaine Screen U Cannabinoids Screen Blood Type Blood Type Recheck Antibody Screen 08/30/18 08/30/18 08/30/18 12:18 17:23 17:48 WBC RBC Hgb Hct MCV MCH MCHC RDW Plt Count MPV Prelim Diff (Auto) Neut % (Auto) Lymph % (Auto) [place] % (Auto) Eos % (Auto) Baso % (Auto) Neut # (Auto) Lymph # (Auto) [place] # (Auto) Eos # (Auto) Baso # (Auto) WBC Differential Seg Neuts % (Manual) Band Neuts % (Manual) Lymphocytes % (Manual) Monocytes % (Manual) Eosinophils % (Manual) Metamyelocytes % (Man) Myelocytes % (Man) Abs Neuts (Manual) Differential Comment Toxic Granulation Dohle Bodies Platelet Estimate Platelet Morphology Basophilic Stippling PT INR APTT 37.5 H Puncture Site Patient Temperature O2 Saturation ABG pH ABG pCO2 ABG pO2 ABG HCO3 ABG O2 Content ABG Base Excess ABG Methemoglobin Cory Test Hemoglobin Carboxyhemoglobin O2 Delivery Device Vent Setting Inspired O2 Critical Value Sodium Potassium Chloride Carbon Dioxide Anion Gap BUN Creatinine Estimated GFR POC Glucose 301 H 246 H Random Glucose Lactic Acid Calcium Prot Corrected Calcium Phosphorus Magnesium Total Bilirubin Direct Bilirubin Indirect Bilirubin AST ALT Alkaline Phosphatase Ammonia Total Creatine Kinase Troponin I Total Protein Albumin TSH Urine Color Urine Clarity Urine pH Ur Specific [place] Urine Protein Urine Glucose (UA) Urine Ketones Urine Occult Blood Urine Nitrate Urine Bilirubin Urine Urobilinogen Ur Leukocyte Esterase Urine RBC Urine WBC Urine Mucus Micro UA Comment Ur Microscopic Review Urine Culture Comments Nasal Screen MRSA (PCR) Urine Opiates Screen Ur Barbiturates Screen Valproic Acid Ur Amphetamines Screen U Benzodiazepines Scrn Urine Cocaine Screen U Cannabinoids Screen Blood Type Blood Type Recheck Antibody Screen 08/31/18 08/31/18 08/31/18 00:26 00:36 04:39 WBC 6.2 RBC 2.57 L Hgb 8.4 L D Hct 24.2 L MCV 94.3 MCH 32.8 MCHC 34.8 RDW 14.5 Plt Count 97 L MPV 9.1 Prelim Diff (Auto) Slide review pending Neut % (Auto) 74.0 H Lymph % (Auto) 15.3 [place] % (Auto) 10.7 H Eos % (Auto) 0.0 Baso % (Auto) 0.0 Neut # (Auto) 4.6 Lymph # (Auto) 0.9 L [place] # (Auto) 0.7 Eos # (Auto) 0.0 Baso # (Auto) 0.0 WBC Differential Manual diff final Seg Neuts % (Manual) 68 Band Neuts % (Manual) 8 H Lymphocytes % (Manual) 14 Monocytes % (Manual) 10 H Eosinophils % (Manual) Metamyelocytes % (Man) Myelocytes % (Man) Abs Neuts (Manual) 4.7 Differential Comment . Toxic Granulation 2+ H Dohle Bodies Platelet Estimate Low L Platelet Morphology Normal Basophilic Stippling Faint H PT INR APTT 58.3 H D Puncture Site Patient Temperature O2 Saturation ABG pH ABG pCO2 ABG pO2 ABG HCO3 ABG O2 Content ABG Base Excess ABG Methemoglobin Cory Test Hemoglobin Carboxyhemoglobin O2 Delivery Device Vent Setting Inspired O2 Critical Value Sodium Potassium Chloride Carbon Dioxide Anion Gap BUN Creatinine Estimated GFR POC Glucose 340 H Random Glucose Lactic Acid Calcium Prot Corrected Calcium Phosphorus Magnesium Total Bilirubin Direct Bilirubin Indirect Bilirubin AST ALT Alkaline Phosphatase Ammonia Total Creatine Kinase Troponin I Total Protein Albumin TSH Urine Color Urine Clarity Urine pH Ur Specific [place] Urine Protein Urine Glucose (UA) Urine Ketones Urine Occult Blood Urine Nitrate Urine Bilirubin Urine Urobilinogen Ur Leukocyte Esterase Urine RBC Urine WBC Urine Mucus Micro UA Comment Ur Microscopic Review Urine Culture Comments Nasal Screen MRSA (PCR) Urine Opiates Screen Ur Barbiturates Screen Valproic Acid Ur Amphetamines Screen U Benzodiazepines Scrn Urine Cocaine Screen U Cannabinoids Screen Blood Type Blood Type Recheck Antibody Screen 08/31/18 08/31/18 08/31/18 04:39 04:39 05:23 WBC RBC Hgb Hct MCV MCH MCHC RDW Plt Count MPV Prelim Diff (Auto) Neut % (Auto) Lymph % (Auto) [place] % (Auto) Eos % (Auto) Baso % (Auto) Neut # (Auto) Lymph # (Auto) [place] # (Auto) Eos # (Auto) Baso # (Auto) WBC Differential Seg Neuts % (Manual) Band Neuts % (Manual) Lymphocytes % (Manual) Monocytes % (Manual) Eosinophils % (Manual) Metamyelocytes % (Man) Myelocytes % (Man) Abs Neuts (Manual) Differential Comment Toxic Granulation Dohle Bodies Platelet Estimate Platelet Morphology Basophilic Stippling PT 13.8 H INR 1.4 APTT 55.7 H Puncture Site Patient Temperature O2 Saturation ABG pH ABG pCO2 ABG pO2 ABG HCO3 ABG O2 Content ABG Base Excess ABG Methemoglobin Cory Test Hemoglobin Carboxyhemoglobin O2 Delivery Device Vent Setting Inspired O2 Critical Value Sodium 152 H Potassium 3.0 L D Chloride 113 H Carbon Dioxide 29.3 Anion Gap 10 BUN 40 H Creatinine 1.32 H Estimated GFR 53 L POC Glucose 297 H Random Glucose 299 H Lactic Acid Calcium 8.1 L Prot Corrected Calcium Phosphorus 2.8 Magnesium 2.4 Total Bilirubin 1.0 Direct Bilirubin Indirect Bilirubin AST 50 H ALT 39 Alkaline Phosphatase 52 Ammonia Total Creatine Kinase Troponin I Total Protein 5.5 L Albumin 2.2 L TSH Urine Color Urine Clarity Urine pH Ur Specific [place] Urine Protein Urine Glucose (UA) Urine Ketones Urine Occult Blood Urine Nitrate Urine Bilirubin Urine Urobilinogen Ur Leukocyte Esterase Urine RBC Urine WBC Urine Mucus Micro UA Comment Ur Microscopic Review Urine Culture Comments Nasal Screen MRSA (PCR) Urine Opiates Screen Ur Barbiturates Screen Valproic Acid Ur Amphetamines Screen U Benzodiazepines Scrn Urine Cocaine Screen U Cannabinoids Screen Blood Type Blood Type Recheck Antibody Screen 08/31/18 08/31/18 08/31/18 08:31 09:42 10:55 WBC RBC Hgb Hct MCV MCH MCHC RDW Plt Count MPV Prelim Diff (Auto) Neut % (Auto) Lymph % (Auto) [place] % (Auto) Eos % (Auto) Baso % (Auto) Neut # (Auto) Lymph # (Auto) [place] # (Auto) Eos # (Auto) Baso # (Auto) WBC Differential Seg Neuts % (Manual) Band Neuts % (Manual) Lymphocytes % (Manual) Monocytes % (Manual) Eosinophils % (Manual) Metamyelocytes % (Man) Myelocytes % (Man) Abs Neuts (Manual) Differential Comment Toxic Granulation Dohle Bodies Platelet Estimate Platelet Morphology Basophilic Stippling PT INR APTT Puncture Site Right radial Right radial Patient Temperature 98.6 98.6 O2 Saturation 95 97 ABG pH 7.63 H* 7.50 H ABG pCO2 28 L 40 ABG pO2 92 176 H ABG HCO3 29 H 31 H ABG O2 Content 14.5 13.4 ABG Base Excess 7.1 H 7.6 H ABG Methemoglobin 1.7 1.5 Cory Test Present Present Hemoglobin 10.8 L 9.6 L Carboxyhemoglobin 0.9 0.7 O2 Delivery Device Ventilator Ventilator Vent Setting Pcac [id number] Inspired O2 50 50 Critical Value Yes No Sodium Potassium Chloride Carbon Dioxide Anion Gap BUN Creatinine Estimated GFR POC Glucose Random Glucose Lactic Acid Calcium Prot Corrected Calcium Phosphorus Magnesium Total Bilirubin Direct Bilirubin Indirect Bilirubin AST ALT Alkaline Phosphatase Ammonia 35 H Total Creatine Kinase Troponin I Total Protein Albumin TSH Urine Color Urine Clarity Urine pH Ur Specific [place] Urine Protein Urine Glucose (UA) Urine Ketones Urine Occult Blood Urine Nitrate Urine Bilirubin Urine Urobilinogen Ur Leukocyte Esterase Urine RBC Urine WBC Urine Mucus Micro UA Comment Ur Microscopic Review Urine Culture Comments Nasal Screen MRSA (PCR) Urine Opiates Screen Ur Barbiturates Screen Valproic Acid Ur Amphetamines Screen U Benzodiazepines Scrn Urine Cocaine Screen U Cannabinoids Screen Blood Type Blood Type Recheck Antibody Screen 08/31/18 08/31/18 08/31/18 10:55 12:01 15:00 WBC RBC Hgb Hct MCV MCH MCHC RDW Plt Count MPV Prelim Diff (Auto) Neut % (Auto) Lymph % (Auto) [place] % (Auto) Eos % (Auto) Baso % (Auto) Neut # (Auto) Lymph # (Auto) [place] # (Auto) Eos # (Auto) Baso # (Auto) WBC Differential Seg Neuts % (Manual) Band Neuts % (Manual) Lymphocytes % (Manual) Monocytes % (Manual) Eosinophils % (Manual) Metamyelocytes % (Man) Myelocytes % (Man) Abs Neuts (Manual) Differential Comment Toxic Granulation Dohle Bodies Platelet Estimate Platelet Morphology Basophilic Stippling PT INR APTT Puncture Site Patient Temperature O2 Saturation ABG pH ABG pCO2 ABG pO2 ABG HCO3 ABG O2 Content ABG Base Excess ABG Methemoglobin Cory Test Hemoglobin Carboxyhemoglobin O2 Delivery Device Vent Setting Inspired O2 Critical Value Sodium 151 H Potassium 3.8 D Chloride 115 H Carbon Dioxide 31.8 Anion Gap 4 L BUN 40 H Creatinine 1.31 H Estimated GFR 54 L POC Glucose 314 H Random Glucose 317 H Lactic Acid Calcium 8.2 L Prot Corrected Calcium Phosphorus Magnesium Total Bilirubin 0.8 Direct Bilirubin Indirect Bilirubin AST 43 H ALT 38 Alkaline Phosphatase 55 Ammonia Total Creatine Kinase Troponin I Total Protein 5.8 L Albumin 2.6 L TSH 1.880 Urine Color Urine Clarity Urine pH Ur Specific [place] Urine Protein Urine Glucose (UA) Urine Ketones Urine Occult Blood Urine Nitrate Urine Bilirubin Urine Urobilinogen Ur Leukocyte Esterase Urine RBC Urine WBC Urine Mucus Micro UA Comment Ur Microscopic Review Urine Culture Comments Nasal Screen MRSA (PCR) Urine Opiates Screen Ur Barbiturates Screen Valproic Acid Ur Amphetamines Screen U Benzodiazepines Scrn Urine Cocaine Screen U Cannabinoids Screen Blood Type Blood Type Recheck Antibody Screen 08/31/18 09/01/18 09/01/18 17:22 01:19 02:37 WBC 8.5 RBC 2.50 L Hgb 8.1 L Hct 24.2 L MCV 97.0 MCH 32.4 MCHC 33.4 RDW 14.9 Plt Count 123 L MPV 10.1 Prelim Diff (Auto) Neut % (Auto) Lymph % (Auto) [place] % (Auto) Eos % (Auto) Baso % (Auto) Neut # (Auto) Lymph # (Auto) [place] # (Auto) Eos # (Auto) Baso # (Auto) WBC Differential Seg Neuts % (Manual) Band Neuts % (Manual) Lymphocytes % (Manual) Monocytes % (Manual) Eosinophils % (Manual) Metamyelocytes % (Man) Myelocytes % (Man) Abs Neuts (Manual) Differential Comment Toxic Granulation Dohle Bodies Platelet Estimate Platelet Morphology Basophilic Stippling PT INR APTT Puncture Site Patient Temperature O2 Saturation ABG pH ABG pCO2 ABG pO2 ABG HCO3 ABG O2 Content ABG Base Excess ABG Methemoglobin Cory Test Hemoglobin Carboxyhemoglobin O2 Delivery Device Vent Setting Inspired O2 Critical Value Sodium Potassium Chloride Carbon Dioxide Anion Gap BUN Creatinine Estimated GFR POC Glucose 314 H 348 H Random Glucose Lactic Acid Calcium Prot Corrected Calcium Phosphorus Magnesium Total Bilirubin Direct Bilirubin Indirect Bilirubin AST ALT Alkaline Phosphatase Ammonia Total Creatine Kinase Troponin I Total Protein Albumin TSH Urine Color Urine Clarity Urine pH Ur Specific [place] Urine Protein Urine Glucose (UA) Urine Ketones Urine Occult Blood Urine Nitrate Urine Bilirubin Urine Urobilinogen Ur Leukocyte Esterase Urine RBC Urine WBC Urine Mucus Micro UA Comment Ur Microscopic Review Urine Culture Comments Nasal Screen MRSA (PCR) Urine Opiates Screen Ur Barbiturates Screen Valproic Acid Ur Amphetamines Screen U Benzodiazepines Scrn Urine Cocaine Screen U Cannabinoids Screen Blood Type Blood Type Recheck Antibody Screen 09/01/18 09/01/18 09/01/18 02:37 02:37 05:43 WBC RBC Hgb Hct MCV MCH MCHC RDW Plt Count MPV Prelim Diff (Auto) Neut % (Auto) Lymph % (Auto) [place] % (Auto) Eos % (Auto) Baso % (Auto) Neut # (Auto) Lymph # (Auto) [place] # (Auto) Eos # (Auto) Baso # (Auto) WBC Differential Seg Neuts % (Manual) Band Neuts % (Manual) Lymphocytes % (Manual) Monocytes % (Manual) Eosinophils % (Manual) Metamyelocytes % (Man) Myelocytes % (Man) Abs Neuts (Manual) Differential Comment Toxic Granulation Dohle Bodies Platelet Estimate Platelet Morphology Basophilic Stippling PT INR APTT 27.6 D Puncture Site Patient Temperature O2 Saturation ABG pH ABG pCO2 ABG pO2 ABG HCO3 ABG O2 Content ABG Base Excess ABG Methemoglobin Cory Test Hemoglobin Carboxyhemoglobin O2 Delivery Device Vent Setting Inspired O2 Critical Value Sodium 150 H Potassium 3.4 L Chloride 113 H Carbon Dioxide 27.6 Anion Gap 9 BUN 43 H Creatinine 1.24 Estimated GFR 57 L POC Glucose 343 H Random Glucose 352 H Lactic Acid Calcium 8.7 Prot Corrected Calcium Phosphorus Magnesium 2.4 Total Bilirubin 1.0 Direct Bilirubin Indirect Bilirubin AST 46 H ALT 36 Alkaline Phosphatase 58 Ammonia Total Creatine Kinase Troponin I Total Protein 6.3 L Albumin 2.9 L TSH Urine Color Urine Clarity Urine pH Ur Specific [place] Urine Protein Urine Glucose (UA) Urine Ketones Urine Occult Blood Urine Nitrate Urine Bilirubin Urine Urobilinogen Ur Leukocyte Esterase Urine RBC Urine WBC Urine Mucus Micro UA Comment Ur Microscopic Review Urine Culture Comments Nasal Screen MRSA (PCR) Urine Opiates Screen Ur Barbiturates Screen Valproic Acid Ur Amphetamines Screen U Benzodiazepines Scrn Urine Cocaine Screen U Cannabinoids Screen Blood Type Blood Type Recheck Antibody Screen 09/01/18 09/01/18 09/02/18 11:56 16:26 00:15 WBC RBC Hgb Hct MCV MCH MCHC RDW Plt Count MPV Prelim Diff (Auto) Neut % (Auto) Lymph % (Auto) [place] % (Auto) Eos % (Auto) Baso % (Auto) Neut # (Auto) Lymph # (Auto) [place] # (Auto) Eos # (Auto) Baso # (Auto) WBC Differential Seg Neuts % (Manual) Band Neuts % (Manual) Lymphocytes % (Manual) Monocytes % (Manual) Eosinophils % (Manual) Metamyelocytes % (Man) Myelocytes % (Man) Abs Neuts (Manual) Differential Comment Toxic Granulation Dohle Bodies Platelet Estimate Platelet Morphology Basophilic Stippling PT INR APTT Puncture Site Patient Temperature O2 Saturation ABG pH ABG pCO2 ABG pO2 ABG HCO3 ABG O2 Content ABG Base Excess ABG Methemoglobin Cory Test Hemoglobin Carboxyhemoglobin O2 Delivery Device Vent Setting Inspired O2 Critical Value Sodium Potassium Chloride Carbon Dioxide Anion Gap BUN Creatinine Estimated GFR POC Glucose 346 H 356 H 323 H Random Glucose Lactic Acid Calcium Prot Corrected Calcium Phosphorus Magnesium Total Bilirubin Direct Bilirubin Indirect Bilirubin AST ALT Alkaline Phosphatase Ammonia Total Creatine Kinase Troponin I Total Protein Albumin TSH Urine Color Urine Clarity Urine pH Ur Specific [place] Urine Protein Urine Glucose (UA) Urine Ketones Urine Occult Blood Urine Nitrate Urine Bilirubin Urine Urobilinogen Ur Leukocyte Esterase Urine RBC Urine WBC Urine Mucus Micro UA Comment Ur Microscopic Review Urine Culture Comments Nasal Screen MRSA (PCR) Urine Opiates Screen Ur Barbiturates Screen Valproic Acid Ur Amphetamines Screen U Benzodiazepines Scrn Urine Cocaine Screen U Cannabinoids Screen Blood Type Blood Type Recheck Antibody Screen 09/02/18 09/02/18 09/02/18 06:36 08:14 08:14 WBC 9.8 RBC 2.31 L Hgb 7.4 L Hct 22.4 L MCV 97.3 MCH 32.1 MCHC 33.0 RDW 15.1 Plt Count 163 D MPV 9.8 Prelim Diff (Auto) Neut % (Auto) 80.2 H Lymph % (Auto) 12.1 [place] % (Auto) 7.5 Eos % (Auto) 0.1 Baso % (Auto) 0.1 Neut # (Auto) 7.9 H Lymph # (Auto) 1.2 [place] # (Auto) 0.7 Eos # (Auto) 0.0 Baso # (Auto) 0.0 WBC Differential . Seg Neuts % (Manual) Band Neuts % (Manual) Lymphocytes % (Manual) Monocytes % (Manual) Eosinophils % (Manual) Metamyelocytes % (Man) Myelocytes % (Man) Abs Neuts (Manual) Differential Comment Auto diff final Toxic Granulation Dohle Bodies Platelet Estimate Platelet Morphology Basophilic Stippling PT INR APTT Puncture Site Patient Temperature O2 Saturation ABG pH ABG pCO2 ABG pO2 ABG HCO3 ABG O2 Content ABG Base Excess ABG Methemoglobin Cory Test Hemoglobin Carboxyhemoglobin O2 Delivery Device Vent Setting Inspired O2 Critical Value Sodium 153 H Potassium 3.6 Chloride 119 H Carbon Dioxide 26.4 Anion Gap 8 BUN 42 H Creatinine 1.09 Estimated GFR 66 L POC Glucose 292 H Random Glucose 251 H D Lactic Acid Calcium 8.5 Prot Corrected Calcium Phosphorus 2.6 Magnesium 2.4 Total Bilirubin 1.0 Direct Bilirubin Indirect Bilirubin AST 35 ALT 32 Alkaline Phosphatase 55 Ammonia Total Creatine Kinase Troponin I Total Protein 6.2 L Albumin 3.0 L TSH Urine Color Urine Clarity Urine pH Ur Specific [place] Urine Protein Urine Glucose (UA) Urine Ketones Urine Occult Blood Urine Nitrate Urine Bilirubin Urine Urobilinogen Ur Leukocyte Esterase Urine RBC Urine WBC Urine Mucus Micro UA Comment Ur Microscopic Review Urine Culture Comments Nasal Screen MRSA (PCR) Urine Opiates Screen Ur Barbiturates Screen Valproic Acid Ur Amphetamines Screen U Benzodiazepines Scrn Urine Cocaine Screen U Cannabinoids Screen Blood Type Blood Type Recheck Antibody Screen 09/02/18 09/02/18 09/02/18 12:07 18:08 23:36 WBC RBC Hgb Hct MCV MCH MCHC RDW Plt Count MPV Prelim Diff (Auto) Neut % (Auto) Lymph % (Auto) [place] % (Auto) Eos % (Auto) Baso % (Auto) Neut # (Auto) Lymph # (Auto) [place] # (Auto) Eos # (Auto) Baso # (Auto) WBC Differential Seg Neuts % (Manual) Band Neuts % (Manual) Lymphocytes % (Manual) Monocytes % (Manual) Eosinophils % (Manual) Metamyelocytes % (Man) Myelocytes % (Man) Abs Neuts (Manual) Differential Comment Toxic Granulation Dohle Bodies Platelet Estimate Platelet Morphology Basophilic Stippling PT INR APTT Puncture Site Patient Temperature O2 Saturation ABG pH ABG pCO2 ABG pO2 ABG HCO3 ABG O2 Content ABG Base Excess ABG Methemoglobin Cory Test Hemoglobin Carboxyhemoglobin O2 Delivery Device Vent Setting Inspired O2 Critical Value Sodium Potassium Chloride Carbon Dioxide Anion Gap BUN Creatinine Estimated GFR POC Glucose 318 H 271 H 336 H Random Glucose Lactic Acid Calcium Prot Corrected Calcium Phosphorus Magnesium Total Bilirubin Direct Bilirubin Indirect Bilirubin AST ALT Alkaline Phosphatase Ammonia Total Creatine Kinase Troponin I Total Protein Albumin TSH Urine Color Urine Clarity Urine pH Ur Specific [place] Urine Protein Urine Glucose (UA) Urine Ketones Urine Occult Blood Urine Nitrate Urine Bilirubin Urine Urobilinogen Ur Leukocyte Esterase Urine RBC Urine WBC Urine Mucus Micro UA Comment Ur Microscopic Review Urine Culture Comments Nasal Screen MRSA (PCR) Urine Opiates Screen Ur Barbiturates Screen Valproic Acid Ur Amphetamines Screen U Benzodiazepines Scrn Urine Cocaine Screen U Cannabinoids Screen Blood Type Blood Type Recheck Antibody Screen 09/03/18 09/03/18 09/03/18 03:31 03:31 06:43 WBC 9.3 RBC 2.10 L Hgb 6.9 L* Hct 20.6 L* MCV 98.0 MCH 32.8 MCHC 33.4 RDW 15.1 Plt Count 181 MPV 9.9 Prelim Diff (Auto) Slide review pending Neut % (Auto) 81.3 H Lymph % (Auto) 10.6 [place] % (Auto) 7.7 Eos % (Auto) 0.3 Baso % (Auto) 0.1 Neut # (Auto) 7.6 Lymph # (Auto) 1.0 [place] # (Auto) 0.7 Eos # (Auto) 0.0 Baso # (Auto) 0.0 WBC Differential Manual diff final Seg Neuts % (Manual) 75 H Band Neuts % (Manual) 12 H Lymphocytes % (Manual) 10 Monocytes % (Manual) 1 Eosinophils % (Manual) 1 Metamyelocytes % (Man) 1 Myelocytes % (Man) Abs Neuts (Manual) 8.2 H Differential Comment . Toxic Granulation 2+ H Dohle Bodies Platelet Estimate Normal Platelet Morphology Normal Basophilic Stippling PT INR APTT Puncture Site Patient Temperature O2 Saturation ABG pH ABG pCO2 ABG pO2 ABG HCO3 ABG O2 Content ABG Base Excess ABG Methemoglobin Cory Test Hemoglobin Carboxyhemoglobin O2 Delivery Device Vent Setting Inspired O2 Critical Value Sodium 152 H Potassium 3.8 Chloride 118 H Carbon Dioxide 27.7 Anion Gap 6 BUN 43 H Creatinine 1.01 Estimated GFR 72 L POC Glucose 303 H Random Glucose 265 H Lactic Acid Calcium 8.4 L Prot Corrected Calcium Phosphorus 2.9 Magnesium 2.6 H Total Bilirubin 0.9 Direct Bilirubin Indirect Bilirubin AST 40 H ALT 32 Alkaline Phosphatase 62 Ammonia Total Creatine Kinase Troponin I Total Protein 6.2 L Albumin 3.1 L TSH Urine Color Urine Clarity Urine pH Ur Specific [place] Urine Protein Urine Glucose (UA) Urine Ketones Urine Occult Blood Urine Nitrate Urine Bilirubin Urine Urobilinogen Ur Leukocyte Esterase Urine RBC Urine WBC Urine Mucus Micro UA Comment Ur Microscopic Review Urine Culture Comments Nasal Screen MRSA (PCR) Urine Opiates Screen Ur Barbiturates Screen Valproic Acid Ur Amphetamines Screen U Benzodiazepines Scrn Urine Cocaine Screen U Cannabinoids Screen Blood Type Blood Type Recheck Antibody Screen 09/03/18 09/03/18 09/04/18 11:35 17:00 00:21 WBC RBC Hgb Hct MCV MCH MCHC RDW Plt Count MPV Prelim Diff (Auto) Neut % (Auto) Lymph % (Auto) [place] % (Auto) Eos % (Auto) Baso % (Auto) Neut # (Auto) Lymph # (Auto) [place] # (Auto) Eos # (Auto) Baso # (Auto) WBC Differential Seg Neuts % (Manual) Band Neuts % (Manual) Lymphocytes % (Manual) Monocytes % (Manual) Eosinophils % (Manual) Metamyelocytes % (Man) Myelocytes % (Man) Abs Neuts (Manual) Differential Comment Toxic Granulation Dohle Bodies Platelet Estimate Platelet Morphology Basophilic Stippling PT INR APTT Puncture Site Patient Temperature O2 Saturation ABG pH ABG pCO2 ABG pO2 ABG HCO3 ABG O2 Content ABG Base Excess ABG Methemoglobin Cory Test Hemoglobin Carboxyhemoglobin O2 Delivery Device Vent Setting Inspired O2 Critical Value Sodium Potassium Chloride Carbon Dioxide Anion Gap BUN Creatinine Estimated GFR POC Glucose 285 H 314 H 267 H Random Glucose Lactic Acid Calcium Prot Corrected Calcium Phosphorus Magnesium Total Bilirubin Direct Bilirubin Indirect Bilirubin AST ALT Alkaline Phosphatase Ammonia Total Creatine Kinase Troponin I Total Protein Albumin TSH Urine Color Urine Clarity Urine pH Ur Specific [place] Urine Protein Urine Glucose (UA) Urine Ketones Urine Occult Blood Urine Nitrate Urine Bilirubin Urine Urobilinogen Ur Leukocyte Esterase Urine RBC Urine WBC Urine Mucus Micro UA Comment Ur Microscopic Review Urine Culture Comments Nasal Screen MRSA (PCR) Urine Opiates Screen Ur Barbiturates Screen Valproic Acid Ur Amphetamines Screen U Benzodiazepines Scrn Urine Cocaine Screen U Cannabinoids Screen Blood Type Blood Type Recheck Antibody Screen 09/04/18 09/04/18 09/04/18 04:08 04:08 05:44 WBC 9.8 RBC 2.31 L Hgb 7.4 L Hct 22.6 L MCV 97.9 MCH 32.0 MCHC 32.7 RDW 15.0 Plt Count 248 D MPV 9.8 Prelim Diff (Auto) Neut % (Auto) 79.3 H Lymph % (Auto) 11.0 [place] % (Auto) 9.0 H Eos % (Auto) 0.5 Baso % (Auto) 0.2 Neut # (Auto) 7.8 H Lymph # (Auto) 1.1 [place] # (Auto) 0.9 Eos # (Auto) 0.0 Baso # (Auto) 0.0 WBC Differential . Seg Neuts % (Manual) Band Neuts % (Manual) Lymphocytes % (Manual) Monocytes % (Manual) Eosinophils % (Manual) Metamyelocytes % (Man) Myelocytes % (Man) Abs Neuts (Manual) Differential Comment Auto diff final Toxic Granulation Dohle Bodies Platelet Estimate Platelet Morphology Basophilic Stippling PT INR APTT Puncture Site Patient Temperature O2 Saturation ABG pH ABG pCO2 ABG pO2 ABG HCO3 ABG O2 Content ABG Base Excess ABG Methemoglobin Cory Test Hemoglobin Carboxyhemoglobin O2 Delivery Device Vent Setting Inspired O2 Critical Value Sodium 152 H Potassium 4.0 Chloride 117 H Carbon Dioxide 27.7 Anion Gap 7 BUN 41 H Creatinine 1.08 Estimated GFR 67 L POC Glucose 288 H Random Glucose 271 H Lactic Acid Calcium 8.6 Prot Corrected Calcium Phosphorus 3.8 Magnesium 2.4 Total Bilirubin 0.6 Direct Bilirubin Indirect Bilirubin AST 30 ALT 30 Alkaline Phosphatase 72 Ammonia Total Creatine Kinase Troponin I Total Protein 6.1 L Albumin 2.7 L TSH Urine Color Urine Clarity Urine pH Ur Specific [place] Urine Protein Urine Glucose (UA) Urine Ketones Urine Occult Blood Urine Nitrate Urine Bilirubin Urine Urobilinogen Ur Leukocyte Esterase Urine RBC Urine WBC Urine Mucus Micro UA Comment Ur Microscopic Review Urine Culture Comments Nasal Screen MRSA (PCR) Urine Opiates Screen Ur Barbiturates Screen Valproic Acid Ur Amphetamines Screen U Benzodiazepines Scrn Urine Cocaine Screen U Cannabinoids Screen Blood Type Blood Type Recheck Antibody Screen 09/04/18 09/04/18 09/05/18 11:36 17:05 00:03 WBC RBC Hgb Hct MCV MCH MCHC RDW Plt Count MPV Prelim Diff (Auto) Neut % (Auto) Lymph % (Auto) [place] % (Auto) Eos % (Auto) Baso % (Auto) Neut # (Auto) Lymph # (Auto) [place] # (Auto) Eos # (Auto) Baso # (Auto) WBC Differential Seg Neuts % (Manual) Band Neuts % (Manual) Lymphocytes % (Manual) Monocytes % (Manual) Eosinophils % (Manual) Metamyelocytes % (Man) Myelocytes % (Man) Abs Neuts (Manual) Differential Comment Toxic Granulation Dohle Bodies Platelet Estimate Platelet Morphology Basophilic Stippling PT INR APTT Puncture Site Patient Temperature O2 Saturation ABG pH ABG pCO2 ABG pO2 ABG HCO3 ABG O2 Content ABG Base Excess ABG Methemoglobin Cory Test Hemoglobin Carboxyhemoglobin O2 Delivery Device Vent Setting Inspired O2 Critical Value Sodium Potassium Chloride Carbon Dioxide Anion Gap BUN Creatinine Estimated GFR POC Glucose 302 H 327 H 243 H Random Glucose Lactic Acid Calcium Prot Corrected Calcium Phosphorus Magnesium Total Bilirubin Direct Bilirubin Indirect Bilirubin AST ALT Alkaline Phosphatase Ammonia Total Creatine Kinase Troponin I Total Protein Albumin TSH Urine Color Urine Clarity Urine pH Ur Specific [place] Urine Protein Urine Glucose (UA) Urine Ketones Urine Occult Blood Urine Nitrate Urine Bilirubin Urine Urobilinogen Ur Leukocyte Esterase Urine RBC Urine WBC Urine Mucus Micro UA Comment Ur Microscopic Review Urine Culture Comments Nasal Screen MRSA (PCR) Urine Opiates Screen Ur Barbiturates Screen Valproic Acid Ur Amphetamines Screen U Benzodiazepines Scrn Urine Cocaine Screen U Cannabinoids Screen Blood Type Blood Type Recheck Antibody Screen 09/05/18 09/05/18 09/05/18 03:44 03:44 05:48 WBC 12.5 H RBC 2.44 L Hgb 8.2 L Hct 23.8 L MCV 97.5 MCH 33.4 MCHC 34.3 RDW 15.1 Plt Count 305 MPV 9.6 Prelim Diff (Auto) Neut % (Auto) 79.8 H Lymph % (Auto) 11.0 [place] % (Auto) 8.4 H Eos % (Auto) 0.6 Baso % (Auto) 0.2 Neut # (Auto) 10.0 H Lymph # (Auto) 1.4 [place] # (Auto) 1.1 H Eos # (Auto) 0.1 Baso # (Auto) 0.0 WBC Differential . Seg Neuts % (Manual) Band Neuts % (Manual) Lymphocytes % (Manual) Monocytes % (Manual) Eosinophils % (Manual) Metamyelocytes % (Man) Myelocytes % (Man) Abs Neuts (Manual) Differential Comment Auto diff final Toxic Granulation Dohle Bodies Platelet Estimate Platelet Morphology Basophilic Stippling PT INR APTT Puncture Site Patient Temperature O2 Saturation ABG pH ABG pCO2 ABG pO2 ABG HCO3 ABG O2 Content ABG Base Excess ABG Methemoglobin Cory Test Hemoglobin Carboxyhemoglobin O2 Delivery Device Vent Setting Inspired O2 Critical Value Sodium 154 H Potassium 3.9 Chloride 119 H Carbon Dioxide 28.0 Anion Gap 7 BUN 39 H Creatinine 1.01 Estimated GFR 72 L POC Glucose 285 H Random Glucose 254 H Lactic Acid Calcium 8.8 Prot Corrected Calcium Phosphorus 3.2 Magnesium 2.5 Total Bilirubin Direct Bilirubin Indirect Bilirubin AST ALT Alkaline Phosphatase Ammonia Total Creatine Kinase Troponin I Total Protein Albumin TSH Urine Color Urine Clarity Urine pH Ur Specific [place] Urine Protein Urine Glucose (UA) Urine Ketones Urine Occult Blood Urine Nitrate Urine Bilirubin Urine Urobilinogen Ur Leukocyte Esterase Urine RBC Urine WBC Urine Mucus Micro UA Comment Ur Microscopic Review Urine Culture Comments Nasal Screen MRSA (PCR) Urine Opiates Screen Ur Barbiturates Screen Valproic Acid 31 L Ur Amphetamines Screen U Benzodiazepines Scrn Urine Cocaine Screen U Cannabinoids Screen Blood Type Blood Type Recheck Antibody Screen 09/05/18 11:04 WBC RBC Hgb Hct MCV MCH MCHC RDW Plt Count MPV Prelim Diff (Auto) Neut % (Auto) Lymph % (Auto) [place] % (Auto) Eos % (Auto) Baso % (Auto) Neut # (Auto) Lymph # (Auto) [place] # (Auto) Eos # (Auto) Baso # (Auto) WBC Differential Seg Neuts % (Manual) Band Neuts % (Manual) Lymphocytes % (Manual) Monocytes % (Manual) Eosinophils % (Manual) Metamyelocytes % (Man) Myelocytes % (Man) Abs Neuts (Manual) Differential Comment Toxic Granulation Dohle Bodies Platelet Estimate Platelet Morphology Basophilic Stippling PT INR APTT Puncture Site Patient Temperature O2 Saturation ABG pH ABG pCO2 ABG pO2 ABG HCO3 ABG O2 Content ABG Base Excess ABG Methemoglobin Cory Test Hemoglobin Carboxyhemoglobin O2 Delivery Device Vent Setting Inspired O2 Critical Value Sodium Potassium Chloride Carbon Dioxide Anion Gap BUN Creatinine Estimated GFR POC Glucose 298 H Random Glucose Lactic Acid Calcium Prot Corrected Calcium Phosphorus Magnesium Total Bilirubin Direct Bilirubin Indirect Bilirubin AST ALT Alkaline Phosphatase Ammonia Total Creatine Kinase Troponin I Total Protein Albumin TSH Urine Color Urine Clarity Urine pH Ur Specific [place] Urine Protein Urine Glucose (UA) Urine Ketones Urine Occult Blood Urine Nitrate Urine Bilirubin Urine Urobilinogen Ur Leukocyte Esterase Urine RBC Urine WBC Urine Mucus Micro UA Comment Ur Microscopic Review Urine Culture Comments Nasal Screen MRSA (PCR) Urine Opiates Screen Ur Barbiturates Screen Valproic Acid Ur Amphetamines Screen U Benzodiazepines Scrn Urine Cocaine Screen U Cannabinoids Screen Blood Type Blood Type Recheck Antibody Screen - Impressions ITS Impressions Chest CTA 08/24/18 00:00 CONCLUSION: 1. No CT evidence for pulmonary artery embolism as questioned. 2. Diffuse groundglass opacities which appear more confluent in the right upper lobe. Differential considerations include pulmonary edema versus ARDS versus diffuse/atypical infection. 3. Prominent coronary artery calcifications. Head CT 08/24/18 19:11 CONCLUSION: 1. No areas of acute hemorrhage or mass effect are seen. 2. Extensive low density seen throughout the cerebral white matter likely related to small vessel ischemic change. 3. Motion artifact. . Head MRI 08/30/18 00:00 CONCLUSION: 1. Moderate diffuse cerebral atrophy with prominent periventricular ischemic white matter demyelination. 2. No evidence for acute infarction or hemorrhage. Chest X-Ray 09/05/18 06:00 CONCLUSION: Bibasilar areas of consolidation or atelectasis being worse than left. Some degree of left effusion can be considered. Discharge Plan - Discharge Disposition Patient Disposition: [facility] - Discharge Condition Condition: Critical - Discharge Order Discharge Orders: Discharge Order (Routine); Ordered 09/06/18 Ordered By: Rubio Estrella - Discharge Details Anticipated Discharge Date: 09/06/18 - Physicians Team Primary Care Provider: Christy Calvillo Attending Provider: Melvin Hunter Other Providers: Melvin Hunter MD ; Adi Beltrán DO ; Ezekiel,Azaliaa ; Ayden Purdy MD ; Leonor Matthew MD ; Oliverio Rm MD
[2018-09-06] MEDS ORDERED: Pharmacy Ordered Lab Info OTHER ONE (19:45)
== END 2018-09-06 14:10 | disposition hospice, inpatient (51) ==
LOC: NEPE 19:01 → NEDA 19:43 → HCVI 20:19 → HCPC 08-25 09:22 → HCVI 08-25 09:27
PROVIDERS: ADMIT Internal Medicine Critical Care Medicine; ATTEND Internal Medicine Critical Care Medicine